=== PATIENT | female | born 1940 | race Caucasian/White ===

== ENCOUNTER 2021-09-20 21:46 | Inpatient (IN) | payer MEDICARE, SELFPAY ==
--- NOTE | 2021-09-20 | ECG_ITS ---
Test Reason : CHEST PAIN Blood Pressure : / mmHG Vent. Rate : 096 BPM Atrial Rate : 096 BPM P-R Int : 156 ms QRS Dur : 134 ms QT Int : 408 ms P-R-T Axes : 048 063 066 degrees QTc Int : 515 ms Normal sinus rhythm Right bundle branch block Abnormal ECG When compared with ECG of 16-SEP-2019 15:04, Right bundle branch block is now Present Referred By: Generic ED Physician Electronically Signed By:EMMA CARPIO MD
--- NOTE | ~2021-09-20 | XR_ITS ---
EXAMINATION: XR CHEST CLINICAL INFORMATION: Febrile COMPARISON: 09/21/2021 TECHNIQUE: Frontal view of the chest was obtained. FINDINGS: Lung volumes are symmetric. No focal consolidation is seen. No evidence of pneumothorax, pleural effusion, or pulmonary edema. Cardiac silhouette appears at the upper limits of normal in size. Calcification is present at the aortic arch. No acute osseous findings are seen. XR/XR chest 1V IMPRESSION: No acute cardiopulmonary findings.
--- NOTE | ~2021-09-20 | CT_ITS ---
EXAMINATION: CT ANGIOGRAM OF THE CHEST WITH AND WITHOUT CONTRAST (CT PULMONARY ANGIOGRAM FOR PE) CLINICAL INFORMATION: Reason for Exam R chest pain, SOB , elevated D-dimer COMPARISON: Chest x-ray 09/21/2021 TECHNIQUE: Prior to contrast administration, noncontrast localization images were obtained. Subsequently, multidetector volumetric imaging was performed from the thoracic inlet to below the diaphragms following the administration of 100 mL Omnipaque 350 intravenous contrast. No contrast reaction reported Sagittal, coronal, and MIP oblique sagittal reformatted images were obtained on the CT workstation, uploaded to PACS, and reviewed. This CT examination was performed using dose optimization techniques as appropriate, variously including the following: *Automated exposure control *Adjustment of mA and/or kV according to patient size (this includes techniques or standardized protocols for targeted exams where dose is matched to indication/reason for exam; i.e. extremities or head) *Use of iterative reconstruction technique Total exam dose-length product 510 mGy-cm FINDINGS: QUALITY OF STUDY/CONTRAST BOLUS: Satisfactory. PULMONARY ARTERIES: No central or segmental pulmonary emboli. There is limited evaluation of the distal vasculature in some regions due to respiratory motion artifact, especially the right lower lobe. THORACIC AORTA: No aneurysm or dissection. There is atherosclerotic calcification along the aorta. LUNG: No regions of consolidation bilaterally. There is mild upper lobe predominant emphysema. PLEURA: No pleural effusion or pneumothorax. MEDIASTINUM: Partially visualized hypodense right thyroid lobe nodule measuring at least 3 cm in diameter. There are subcentimeter mediastinal lymph nodes within the range of normal variation. Cardiac size is within normal limits; no pericardial effusion. Coronary artery calcifications are present. No evidence of septal bowing or right heart strain. CHEST WALL/AXILLA: No axillary or internal mammary lymphadenopathy. OSSEOUS STRUCTURES: Degenerative changes are noted in the spine. UPPER ABDOMEN: Unremarkable. CT/CT angio chest PE protocol IMPRESSION: 1. No pulmonary embolus identified. Of note, there is limited evaluation of the distal vessels in some regions due to respiratory motion artifact. 2. Mild upper lobe predominant emphysema. 3. Partially visualized right thyroid lobe nodule, for which further workup with nonemergent ultrasound is recommended. VTE: negative
--- NOTE | ~2021-09-20 | XR_ITS ---
EXAMINATION: XR CHEST CLINICAL INFORMATION: Cough, chest pain, rule out pneumonia COMPARISON: 10/03/2015 TECHNIQUE: 2 views of the chest were obtained. FINDINGS: Lung volumes are symmetric. No focal consolidation is seen. No evidence of pneumothorax, pleural effusion, or pulmonary edema. Cardiac size is within normal limits. Calcification is present at the aortic arch. No acute osseous findings are seen. XR/XR chest 2V IMPRESSION: No acute cardiopulmonary findings.
[2021-09-20 21:59] VITALS: BP 176/107; PULSE 102; RESP 18; TEMP 37.3; O2SAT 95; BMI 37.3
--- NOTE | 2021-09-20 22:49 | ED_ITS ---
HPI - Chest Pain General Chief Complaint: Chest Pain Stated Complaint: cp Time Seen by Provider: 09/20/21 22:08 Source: patient and family (Son, Pilo ) Mode of arrival: EMS Limitations: no limitations History of Present Illness HPI narrative: 80-year-old female who presents emergency department by MD for evaluation of chest pain, right arm pain, cough, shortness of breath and nausea. Patient states that she has been sick for approximately 3 days. She states that she has been getting intermittent right-sided chest pain. She points to her anterior chest. She states the pain is a 5 but pain and will last 3 hours. She states she gets 2-3 episodes per day. She also states that she is having right arm pain but this is a constant pressure-like pain x3 days. She states that her chest pain can come on at rest and with exertion. She states that she has shortness of breath and dyspnea on exertion but this is chronic secondary to her COPD. She states that she has a cough which is nonproductive a chronic secondary to her smoking. She states that she has also had a constant lower jaw pain x3 days. Patient did receive aspirin 324 mg orally by the paramedics. She denied fever, chills, rhinorrhea, sore throat, vomiting, diarrhea, abdominal pain. She denies change in her bowel movements she has not noticed any black tarry stools or bloody stools. She states she does have urinary frequency with no dysuria. The patient has not been vaccinated for COVID-19. She has not had a COVID-19 infection during the pandemic. Related Data Allergies Allergy/AdvReac Type Severity Reaction Status Date / Time onion [ONION] Allergy Unknown NAUSEA & Unverified 03/05/20 15:05 VOMITING PEPPERS, MENDOZA Allergy Unknown NAUSEA & Uncoded 03/05/20 15:05 VOMITING Review of Systems 2 Review of Systems: Yes all other systems are reviewed and are negative [facility] Past Medical History [facility] Narrative: Past medical history: Hypertension, COPD, psoriasis, frontal lobe degeneration. Past surgical history: Cholecystectomy. Social history: Patient lives at home with her son. She smokes 1 pack of cigarettes per day times 63 years. She denies alcohol use. She denies drug use. Social History Social History Advance Directives: No Advance Directives Information Provided: No Physical Exam Vital Signs: Vital Signs: Last Vital Signs Temp 100 F 09/21/21 04:15 Pulse 92 09/21/21 04:54 Resp 15 09/21/21 04:15 BP 129/69 09/21/21 04:54 Pulse Ox 93 09/21/21 04:54 BMI result Body Mass Index 37.3 Const: Other: Awake, alert, female patient, very pleasant and cooperative, she has an elevated BMI 37, she does not appear to be in distress, she answers all questions appr opriately. HEENT: Head: Yes normal to inspection, Yes normocephalic and Yes atraumatic Ears: external ears normal General nose exam: Normal external nose present Face and sinus: Yes normal facial exam Mouth: Normal oral and palatal mucosa present Throat: Yes posterior oropharynx normal Eyes: General: appearance normal, both eyes and all related structures Pupils: Equal, round and reactive pupils present Neck: Neck: Yes normal visual inspection, Yes no lymphadenopathy, Yes trachea midline and Yes supple Chest: Chest palpation & inspection: normal inspection of the chest and tenderness (Moderate right anterior chest tenderness) Resp: Effort & Inspection: normal respiratory effort and able to speak in complete sentences Auscultation: clear to auscultation bilaterally Cardio: Rate: regular rate Rhythm: regular rhythm Heart sounds: S1 normal heart sound present, S2 normal heart sound present and no murmurs GI: Inspection: Yes normal to inspection and Yes obesity Palpation (GI): Soft to palpation, nontender and no guarding Auscultation: normal bowel sounds : General: Yes no CVA tenderness Back/Spine/Pelvis: Back: no CVA tenderness Skin: Other: Patient has psoriatic lesions under her right breasts and lower chest, she also has lesions on her arms. Neuro: Cranial nerves: Yes CN's II-XII intact bilaterally and Yes Equal, round and reactive pupils present Cognition (Neuro): normal cognition Motor exam (neuro): 5/5 motor strength present throughout Extrem: General: Yes normal to inspection Psych: Appearance: grossly normal Speech and movement: Normal speech and movement present Affect: normal affect Attitude: cooperative Thought process: Normal thought process present Thought content: Normal thought content present Course Course Course Narrative: 80-year-old female who presents emergency department for evaluation of intermittent chest pain x3 days, she states that she has a vicelike pain located in her left anterior chest, she gets 2-3 episodes per day in the last several hours. She also has right arm pain which is been constant for 3 days and bilateral jaw pain that is been constant for 3 days. The patient has COPD and she states that she has chronic COPD, dyspnea on exertion and cough. Vital signs revealed an elevated blood pressure of 176/107, elevated pulse of 102. Patient's vital signs were otherwise were unremarkable. Patient's physical examination did reveal right-sided chest wall tenderness rash on her chest and underneath her breasts and on her arms consistent with psoriasis. Twelve EKG was consistent with right bundle-branch block with no acute abnormalities. I ordered a laboratory evaluation to include CBC, CMP, troponin, lactic acid, blood cultures x2, D-dimer, urinalysis, lipase, COVID, influenza and RSV test. I will obtain a two view chest x-ray as well. Patient's pain and nausea was treated with Toradol 15 mg IV and Zofran 4 mg IV. Patient was also ordered to get normal saline IV x1 L. 0057: Laboratory evaluation: Patient had an elevated troponin of 14,347. D- dimer was elevated 255. Radiology evaluation: Two-view chest x-ray unremarkable: Differential includes but is not limited to NSTEMI, pulmonary embolism. I will repeat a 3 hour troponin. Also obtain a CT pulmonary angiogram PE protocol. Patient is currently pain-free and appears well. 0435: CT pulmonary angiogram PE protocol was negative for PE. Patient's repeat troponin was elevated at 19,680 which is a 37% increase. The patient is chest pain-free but continues to have right arm pain which is been constant for 3 days. The patient did have a slight elevation her temperature and was given Tylenol. She also had a slight elevation her pulse was given Lopressor 5 mg IV. She was treated with low-dose heparin bolus and heparin drip. I did discuss the patient over tiger text with the covering curriculum and assessment director, Dr. Walter. He agreed with the heparin treatment and advised that the patient be kept NPO. He felt that the patient could be managed at this facility while discussed the patient with the covering hospitalist. MDM - Chest Pain Lab Data Result diagrams: 09/20/21 23:05 09/20/21 23:05 Labs: Lab Results 09/20/21 09/20/2109/20/22 Range/Units 23:04 23:04 23:04 WBC (4.8-10.8) X10*3/uL RBC (4.20-5.50) X10*6/uL Hgb (12.0-16.0) g/dl Hct (37.0-47.0) % MCV (80.0-98.0) fL MCH (27.0-33.0) pg MCHC (31.0-35.0) g/dl RDW (11.0-16.0) % Plt Count (160-400) X10*3/uL MPV (9.4-12.3) fL Immature Gran % (Auto) (0.0-0.4) % Neut % (Auto) (45-73) % Lymph % (Auto) (20-40) % [place] % (Auto) (2-11) % Eos % (Auto) (0-4) % Baso % (Auto) (0-2) % Lymph # (Auto) (1.2-4.9) X10*3/uL [place] # (Auto) (0.1-1.2) X10*3/uL Eos # (Auto) (0.0-0.4) X10*3/uL Baso # (Auto) (0.0-0.2) X10*3/uL Abs Immat Gran (auto) (0.00-0.03) X10*3/uL Absolute Neuts (auto) (2.0-8.3) x10*3/uL Absolute Nucleated RBC (0.0-0.012) X10*3/uL Nucleated RBC % (auto) (0.0-0.2) /100WBC PT (9.9-13.0) SEC INR (0.9-1.1) aPTT Heparin Protocol (53-77.9) SEC D-Dimer High Sensitivty 255 NG/ML Sodium (135-145) mmol/L Potassium (3.3-5.1) mmol/L Chloride (96-108) mmol/L Carbon Dioxide (22-29) mmol/L Anion Gap (12-20) BUN (9-16) mg/dL Creatinine (0.5-1.4) mg/dL Estim Creat Clear Calc Estimated GFR Random Glucose (60-115) mg/dL Lactic Acid 1.8 (0.5-2.0) mmol/L Calcium (8.4-10.2) mg/dL Total Bilirubin (0.0-1.0) mg/dL AST (5-31) U/L ALT (0-31) U/L Alkaline Phosphatase (39-117) U/L Troponin I High Sens (<3.5-17.0) ng/L Total Protein (6.5-8.0) g/dL Albumin (3.5-5.0) g/dL Lipase (8-78) U/L Influenza Type A (PCR) NEGATIVE (Negative) Influenza Type B (PCR) NEGATIVE (Negative) RSV RNA Qual (PCR) NEGATIVE (Negative) SARS-CoV-2 RNA (RT-PCR) NEGATIVE (Negative) 09/20/21 09/20/21 09/20/21 Range/Units 23:04 23:05 23:05 WBC 11.3 H (4.8-10.8) X10*3/uL RBC 5.57 H (4.20-5.50) X10*6/uL Hgb 16.5 H (12.0-16.0) g/dl Hct 48.5 H (37.0-47.0) % MCV 87.1 (80.0-98.0) fL MCH 29.6 (27.0-33.0) pg MCHC 34.0 (31.0-35.0) g/dl RDW 12.4 (11.0-16.0) % Plt Count 195 (160-400) X10*3/uL MPV 9.8 (9.4-12.3) fL Immature Gran % (Auto) 0.3 (0.0-0.4) % Neut % (Auto) 83.7 H (45-73) % Lymph % (Auto) 10.2 L (20-40) % [place] % (Auto) 4.9 (2-11) % Eos % (Auto) 0.5 (0-4) % Baso % (Auto) 0.4 (0-2) % Lymph # (Auto) 1.2 (1.2-4.9) X10*3/uL [place] # (Auto) 0.6 (0.1-1.2) X10*3/uL Eos # (Auto) 0.1 (0.0-0.4) X10*3/uL Baso # (Auto) 0.0 (0.0-0.2) X10*3/uL Abs Immat Gran (auto) 0.03 (0.00-0.03) X10*3/uL Absolute Neuts (auto) 9.5 H (2.0-8.3) x10*3/uL Absolute Nucleated RBC 0.000 (0.0-0.012) X10*3/uL Nucleated RBC % (auto) 0.0 (0.0-0.2) /100WBC PT (9.9-13.0) SEC INR (0.9-1.1) aPTT Heparin Protocol (53-77.9) SEC D-Dimer High Sensitivty NG/ML Sodium 133 L (135-145) mmol/L Potassium 3.9 (3.3-5.1) mmol/L Chloride 96 (96-108) mmol/L Carbon Dioxide 28 (22-29) mmol/L Anion Gap 13 (12-20) BUN 9 (9-16) mg/dL Creatinine 0.99 (0.5-1.4) mg/dL Estim Creat Clear Calc 56.4 Estimated GFR 54 Random Glucose 162 H (60-115) mg/dL Lactic Acid (0.5-2.0) mmol/L Calcium 9.4 (8.4-10.2) mg/dL Total Bilirubin 0.7 (0.0-1.0) mg/dL AST 86 H (5-31) U/L ALT 30 (0-31) U/L Alkaline Phosphatase 97 (39-117) U/L Troponin I High Sens 20216.1 H* (<3.5-17.0) ng/L Total Protein 7.5 (6.5-8.0) g/dL Albumin 4.1 (3.5-5.0) g/dL Lipase 33 (8-78) U/L Influenza Type A (PCR) (Negative) Influenza Type B (PCR) (Negative) RSV RNA Qual (PCR) (Negative) SARS-CoV-2 RNA (RT-PCR) (Negative) 09/21/21 09/21/21 Range/Units 02:09 03:57 WBC (4.8-10.8) X10*3/uL RBC (4.20-5.50) X10*6/uL Hgb (12.0-16.0) g/dl Hct (37.0-47.0) % MCV (80.0-98.0) fL MCH (27.0-33.0) pg MCHC (31.0-35.0) g/dl RDW (11.0-16.0) % Plt Count (160-400) X10*3/uL MPV (9.4-12.3) fL Immature Gran % (Auto) (0.0-0.4) % Neut % (Auto) (45-73) % Lymph % (Auto) (20-40) % [place] % (Auto) (2-11) % Eos % (Auto) (0-4) % Baso % (Auto) (0-2) % Lymph # (Auto) (1.2-4.9) X10*3/uL [place] # (Auto) (0.1-1.2) X10*3/uL Eos # (Auto) (0.0-0.4) X10*3/uL Baso # (Auto) (0.0-0.2) X10*3/uL Abs Immat Gran (auto) (0.00-0.03) X10*3/uL Absolute Neuts (auto) (2.0-8.3) x10*3/uL Absolute Nucleated RBC (0.0-0.012) X10*3/uL Nucleated RBC % (auto) (0.0-0.2) /100WBC PT 13.4 H (9.9-13.0) SEC INR 1.2 H (0.9-1.1) aPTT Heparin Protocol 35.5 L (53-77.9) SEC D-Dimer High Sensitivty NG/ML Sodium (135-145) mmol/L Potassium (3.3-5.1) mmol/L Chloride (96-108) mmol/L Carbon Dioxide (22-29) mmol/L Anion Gap (12-20) BUN (9-16) mg/dL Creatinine (0.5-1.4) mg/dL Estim Creat Clear Calc Estimated GFR Random Glucose (60-115) mg/dL Lactic Acid (0.5-2.0) mmol/L Calcium (8.4-10.2) mg/dL Total Bilirubin (0.0-1.0) mg/dL AST (5-31) U/L ALT (0-31) U/L Alkaline Phosphatase (39-117) U/L Troponin I High Sens 52726.9 H* (<3.5-17.0) ng/L Total Protein (6.5-8.0) g/dL Albumin (3.5-5.0) g/dL Lipase (8-78) U/L Influenza Type A (PCR) (Negative) Influenza Type B (PCR) (Negative) RSV RNA Qual (PCR) (Negative) SARS-CoV-2 RNA (RT-PCR) (Negative) ECG Data ECG #1: Attestation: I personally reviewed and interpreted this ECG as follows: Interpretation: EKG 1.: 09/20/2021 at 22:06: Normal sinus rhythm rate of 96, normal MT interval, prolonged QRS of 134 milliseconds, prolonged QTC of 515 milliseconds, Q-wave in lead 3, right bundle-branch block, no ST segment elevation, no ST segment depression, no old EKG for comparison. EKG 2.: 09/21/2021 at 03:23: Sinus tachycardia with a rate of 115, normal MT, prolonged QRS interval, prolonged QRS at 138 milliseconds, QTC of 495 millisecond Q-wave in lead 3, right bundle-branch block, no ST segment elevation, no ST segment depression, no PACs, no PVCs, unchanged from EKG 1. Critical Care Time Critical Care Time Total Critical Care Time: 45 Attestation: Critical Care: The patient was critically ill with a high probability of imminent or life threatening deterioration. I spent greater than 30 minutes of discontinuous time evaluating the patient,delivering critical care at the bedside, discussing and evaluating pertinent data with consultants. Critical care time does not include time spent performing separately billable procedures or teaching. Total time spent performing critical care was 45 minutes.
--- NOTE | 2021-09-20 23:00 | PC.NURSE ---
Pt c/o RT sided CP radiaitng down RT arm x 3 days. Per pt, CP is intermittent. Pt states RT arm pain is constant and worse than CP. Pt has also had nausea x few days. Per pt, has not taken BP meds for about a week. Hx of COPD, no O2 at home Will continue to monitor
[2021-09-20 23:09] LABS: MANUAL DIFF FLAG NO
[2021-09-20 23:11] LABS: Basophils Percent Auto 0.4 % (0-2); Eosinophils Absolute Auto 0.1 X10*3/uL (0.0-0.4); Eosinophils Percent Auto 0.5 % (0-4); Hematocrit 48.5 % (37.0-47.0); Hemoglobin 16.5 g/dl (12.0-16.0); Imm Gran Abs Auto 0.03 X10*3/uL (0.00-0.03); Imm Gran Pct Auto 0.3 % (0.0-0.4); Lymphocytes Absolute Auto 1.2 X10*3/uL (1.2-4.9); Lymphocytes Percent Auto 10.2 % (20-40); Mean Corpuscular Hemoglobin 29.6 pg (27.0-33.0); Mean Corpuscular Volume 87.1 fL (80.0-98.0); Mean Platelet Volume 9.8 fL (9.4-12.3); Monocytes Absolute Auto 0.6 X10*3/uL (0.1-1.2); Monocytes Percent Auto 4.9 % (2-11); Neutrophils Absolute Auto 9.5 x10*3/uL (2.0-8.3); Neutrophils Percent Auto 83.7 % (45-73); Platelet Count 195 X10*3/uL (160-400); Red Blood Count 5.57 X10*6/uL (4.20-5.50); Red Cell Distribution Width 12.4 % (11.0-16.0); White Blood Count 11.3 X10*3/uL (4.8-10.8)
[2021-09-20 23:19] LABS: Lactic Acid 1.8 mmol/L (0.5-2.0)
[2021-09-20 23:23] LABS: D Dimer High Sensitivity 255 NG/ML
[2021-09-20 23:28] LABS: Alanine Aminotransferase 30 U/L (0-31); Albumin Level 4.1 g/dL (3.5-5.0); Alkaline Phosphatase 97 U/L (39-117); Anion Gap 13 (12-20); Aspartate Amino Transferase 86 U/L (5-31); Bilirubin Total 0.7 mg/dL (0.0-1.0); Blood Urea Nitrogen 9 mg/dL (9-16); Calcium 9.4 mg/dL (8.4-10.2); Carbon Dioxide 28 mmol/L (22-29); Chloride 96 mmol/L (96-108); Creatinine Clr Calc Pharmacy 56.4; Estimated Glomerular Filt Rate 54; Glucose Random 162 mg/dL (60-115); Lipase 33 U/L (8-78); Potassium 3.9 mmol/L (3.3-5.1); Sodium 133 mmol/L (135-145); Total Protein 7.5 g/dL (6.5-8.0)
[2021-09-20 23:50] LABS: Influenza A PCR NEGATIVE (Negative); Influenza B PCR NEGATIVE (Negative); Resp Syncy Virus RNA Qual PCR NEGATIVE (Negative); SARS COV2 PCR INHOUSE NEGATIVE (Negative)
[2021-09-21] VITALS (13 sets, daily range): BP systolic 98–153; BP diastolic 58–105; PULSE 81–115; RESP 14–20; TEMP 37.5–37.7; O2SAT 89–97
[2021-09-21] MEDS: 0.9 % Sodium Chloride 1,000 ML 999 ML IV (00:17)
[2021-09-21] MEDS: Ketorolac Tromethamine 15 MG/ML VIAL IVPUSH (00:17)
[2021-09-21] MEDS: ondansetron HCL 4 MG/2 ML VIAL IVPUSH ×2 (00:18→04:53)
[2021-09-21] MEDS: iohexoL 350 MG/ML 100 ML INFUS..BTL IV (01:35)
[2021-09-21] MEDS: Nitroglycerin 2 % Oint 1 GM Packet 1 INCH TRANSDERMA (02:03)
[2021-09-21] MEDS: lisinopriL 10 MG TABLET PO (02:03)
--- NOTE | 2021-09-21 03:17 | ECG_ITS ---
Test Reason : CHEST PAIN Blood Pressure : / mmHG Vent. Rate : 115 BPM Atrial Rate : 115 BPM P-R Int : 136 ms QRS Dur : 138 ms QT Int : 358 ms P-R-T Axes : 049 081 047 degrees QTc Int : 495 ms Sinus tachycardia with Premature supraventricular complexes Right bundle branch block Cannot rule out Inferior infarct , age undetermined Abnormal ECG When compared with ECG of 20-SEP-2021 22:06, Premature supraventricular complexes are now Present Referred By: Dinh Ardon Electronically Signed By:EMMA CARPIO MD
[2021-09-21 04:07] LABS: INTERNATIONAL NORM RATIO 1.2 (0.9-1.1); Prothrombin Time 13.4 SEC (9.9-13.0)
[2021-09-21 04:09] LABS: PTT Heparin Drip 35.5 SEC (53-77.9)
[2021-09-21] MEDS: Acetaminophen 325 MG TABLET 975 MG PO (04:12)
[2021-09-21] MEDS: Metoprolol Tartrate 5 MG/5 ML VIAL IVPUSH (04:13)
[2021-09-21] MEDS: Heparin Sodium,Porcine 5,000 UNIT/ML VIAL 4000 UNIT IVPUSH (04:16)
[2021-09-21] MEDS: Heparin Sodium,Porcine/1/2NS 25,000 UNIT/250 ML IV.SOLN 10 UNIT IVCONT (04:22)
[2021-09-21] MEDS: Morphine Sulfate 4 MG/ML CARTRIDGE IVPUSH (04:53)
--- NOTE | 2021-09-21 05:20 | PM.IMHP ---
History of Present Illness Date of Service: 09/21/21 Chief Complaint: Chest pain this is a pleasant 80-year-old female with past medical history of COPD, CHF, hypertension who presents to the hospital complaints of midsternal chest pain. Patient reports that the pain started about 3 days ago, intermittent, 10/10, pressure squeezing in nature, radiating to the right arm, and jaw, relieved with marijuana rubbing oil and no exacerbating factors. Patient reports that she initially head this from her family because she thought it was going to go way but has remained throughout the past 3 days with no relenting symptoms. Her right arm pain has been constant. She denies any shortness of breath more than usual, she has a chronic cough with some chronic sputum production, denies any lower extremity swelling, no abdominal pain, has nausea nausea but no vomiting, no diarrhea constipation, no urinary symptoms. No headache or change in vision. On arrival to the ED patient hemodynamically stable with a heart rate of 102, temperature of 99.2, blood pressure 176/107 that has now improved. labs are significant for WBC count of 11.3, hemoglobin of 16.5, troponin of 14,347 that increased to 19,680 on repeat. EKG showed ST depressions in lead 1, V5 V6, T-wave inversions in V1, V2, patient started on heparin drip and will be admitted for further management Review of Systems Review of Systems: Yes all other systems are reviewed and are negative [facility] Medical History (Updated 09/21/21 @ 05:25 by Blessing Cotto MD) CHF (congestive heart failure) COPD (chronic obstructive pulmonary disease) Hypertension Family History (Updated 09/21/21 @ 05:26 by Blessing Cotto MD) Mother [place] (myocardial infarction) Surgical History (Updated 09/21/21 @ 05:25 by Blessing Cotto MD) History of cholecystectomy History of colostomy reversal Social History (Updated 09/21/21 @ 05:26 by Blessing Cotto MD) Alcohol intake: never Patient Tobacco Use Status: Current everyday Tobacco user Cigarette Packs Per Day: 1 Use of substances other than those prescribed or required for medical reasons: No Advance Directives: No Advance Directives Information Provided: No Meds Allergies Allergy/AdvReac Type Severity Reaction Status Date / Time onion [ONION] Allergy Unknown NAUSEA & Unverified 03/05/20 15:05 VOMITING PEPPERS, MENDOZA Allergy Unknown NAUSEA & Uncoded 03/05/20 15:05 VOMITING Active Medications: Current Medications Acetaminophen (Acetaminophen 325 Mg Tablet) 650 mg PO Q6H PRN PRN Reason: Pain, Mild (Pain Scale 1-3) Aspirin (Aspirin Enteric Coated 81 Mg Tablet.Dr) 81 mg PO DAILY [facility] Docusate Sodium (Docusate Sodium 100 Mg Capsule) 100 mg PO DAILY PRN PRN Reason: Constipation Heparin Sodium (Porcine) (Heparin Sodium,Porcine 5,000 Unit/Ml Vial) 8,400 unit 80 unit/kg (8400 unit) IVPUSH PROTOCOL BOLUS PRN; Protocol PRN Reason: 80 unit/kg - Heparin Protocol Heparin Sodium (Porcine) (Heparin Sodium,Porcine 5,000 Unit/Ml Vial) 4,200 unit 40 unit/kg (4200 unit) IVPUSH PROTOCOL BOLUS PRN; Protocol PRN Reason: 40 unit/kg - Heparin Protocol Heparin Sodium/Sodium Chloride () 25,000 unit in 250 mls @ 0 mls/hr IVCONT .Q0M [facility]; Protocol Last Admin: 09/21/21 04:22 Dose: 9.54 units/kg/hr, 10 mls/hr Documented by: Metoprolol Tartrate (Metoprolol Tartrate 12.5 Mg Halftab) 12.5 mg PO BID [facility]; Protocol Morphine Sulfate (Morphine Sulfate 4 Mg/Ml Cartridge) 4 mg IVPUSH Q4H PRN; Protocol PRN Reason: Pain, Severe (Pain Scale 7-10) Ondansetron HCl (Ondansetron Hcl 4 Mg/2 Ml Vial) 4 mg IVPUSH Q8H PRN PRN Reason: Nausea and Vomiting Sodium Chloride (0.9 % Sodium Chloride Flush 3 Ml Syringe) 3 ml IVFLUSH QSHIFT [facility] Home Medications Medication Instructions Recorded Confirmed Last Taken Type lisinopril 10 mg tablet 1 tab PO DAILY 09/21/21 09/21/21 Unknown History psyllium husk 0.4 gram capsule 0.4 g PO DAILY 09/21/21 09/21/21 Unknown History (Metamucil) Physical Exam Vital Signs and Narrative: Vital Signs: Last Vital Signs Temp 100 F 09/21/21 04:15 Pulse 92 09/21/21 04:54 Resp 15 09/21/21 04:15 BP 129/69 09/21/21 04:54 Pulse Ox 93 09/21/21 04:54 BMI result Body Mass Index 37.3 Results Labs CBC and Chem 7: 09/20/21 23:05 09/20/21 23:05 Labs: Laboratory Results - last 24 hr 09/20/21 09/20/21 09/20/21 23:04 23:04 23:04 MCV MCH MCHC RDW Plt Count MPV Immature Gran % (Auto) Neut % (Auto) Lymph % (Auto) [place] % (Auto) Eos % (Auto) Baso % (Auto) Lymph # (Auto) [place] # (Auto) Eos # (Auto) Baso # (Auto) Abs Immat Gran (auto) Absolute Neuts (auto) Absolute Nucleated RBC Nucleated RBC % (auto) PT INR aPTT Heparin Protocol D-Dimer High Sensitivty 255 Anion Gap Estim Creat Clear Calc Estimated GFR Random Glucose Lactic Acid 1.8 Calcium Total Bilirubin AST ALT Alkaline Phosphatase Troponin I High Sens Total Protein Albumin Lipase Influenza Type A (PCR) NEGATIVE Influenza Type B (PCR) NEGATIVE RSV RNA Qual (PCR) NEGATIVE SARS-CoV-2 RNA (RT-PCR) NEGATIVE 09/20/21 09/20/21 09/20/21 23:04 23:05 23:05 MCV 87.1 MCH 29.6 MCHC 34.0 RDW 12.4 Plt Count 195 MPV 9.8 Immature Gran % (Auto) 0.3 Neut % (Auto) 83.7 H Lymph % (Auto) 10.2 L [place] % (Auto) 4.9 Eos % (Auto) 0.5 Baso % (Auto) 0.4 Lymph # (Auto) 1.2 [place] # (Auto) 0.6 Eos # (Auto) 0.1 Baso # (Auto) 0.0 Abs Immat Gran (auto) 0.03 Absolute Neuts (auto) 9.5 H Absolute Nucleated RBC 0.000 Nucleated RBC % (auto) 0.0 PT INR aPTT Heparin Protocol D-Dimer High Sensitivty Anion Gap 13 Estim Creat Clear Calc 56.4 Estimated GFR 54 Random Glucose 162 H Lactic Acid Calcium 9.4 Total Bilirubin 0.7 AST 86 H ALT 30 Alkaline Phosphatase 97 Troponin I High Sens 85036.1 H* Total Protein 7.5 Albumin 4.1 Lipase 33 Influenza Type A (PCR) Influenza Type B (PCR) RSV RNA Qual (PCR) SARS-CoV-2 RNA (RT-PCR) 09/21/21 09/21/21 02:09 03:57 MCV MCH MCHC RDW Plt Count MPV Immature Gran % (Auto) Neut % (Auto) Lymph % (Auto) [place] % (Auto) Eos % (Auto) Baso % (Auto) Lymph # (Auto) [place] # (Auto) Eos # (Auto) Baso # (Auto) Abs Immat Gran (auto) Absolute Neuts (auto) Absolute Nucleated RBC Nucleated RBC % (auto) PT 13.4 H INR 1.2 H aPTT Heparin Protocol 35.5 L D-Dimer High Sensitivty Anion Gap Estim Creat Clear Calc Estimated GFR Random Glucose Lactic Acid Calcium Total Bilirubin AST ALT Alkaline Phosphatase Troponin I High Sens 40306.9 H* Total Protein Albumin Lipase Influenza Type A (PCR) Influenza Type B (PCR) RSV RNA Qual (PCR) SARS-CoV-2 RNA (RT-PCR) Imaging Radiologist's Impressions: Impressions Chest X-Ray 09/20/21 23:15 IMPRESSION: No acute cardiopulmonary findings. Chest CTA 09/21/21 01:30 IMPRESSION: 1. No pulmonary embolus identified. Of note, there is limited evaluation of the distal vessels in some regions due to respiratory motion artifact. 2. Mild upper lobe predominant emphysema. 3. Partially visualized right thyroid lobe nodule, for which further workup with nonemergent ultrasound is recommended. VTE: negative Assessment and Plan (1) Acute non-ST elevation myocardial infarction (NSTEMI): Status: Acute Plan this is a 80-year-old female with past medical history of CHF, COPD, HTN who presents to the hospital with complaints of chest pain found to have NSTEMI # NSTEMI - midsternal chest pain, with significantly elevated troponin of 14,000 on arrival - EKG shows ST wave depression as well as T-wave inversion in anterior lateral leads - will start patient on heparin drip, Lopressor started b.i.d., aspirin daily, continue lisinopril - echocardiogram - cardiology on consult - NPO per cardiology # hypertension - stable - continue lisinopril # history of COPD - per patient - stable with no exacerbation - DuoNeb p.r.n. as needed DVT prophylaxis: Heparin GGT I anticipate a medically necessary admission to inpatient for further management and monitoring of NSTEMI Quality Stroke Does the patient have a stroke diagnosis?: No VTE Prior VTE?: No VTE Risk Level:: Medical - moderate - high VTE Device Contraindication: Treatment Not Indicated VTE Drug Contraindication: N/A - Med Ordered
[2021-09-21 08:14] LABS: MANUAL DIFF FLAG NO
[2021-09-21 08:21] LABS: Basophils Percent Auto 0.2 % (0-2); Eosinophils Percent Auto 0.2 % (0-4); Hematocrit 45.8 % (37.0-47.0); Hemoglobin 15.3 g/dl (12.0-16.0); Imm Gran Abs Auto 0.06 X10*3/uL (0.00-0.03); Imm Gran Pct Auto 0.5 % (0.0-0.4); Lymphocytes Absolute Auto 1.3 X10*3/uL (1.2-4.9); Lymphocytes Percent Auto 10.9 % (20-40); Mean Corpuscular HGB Conc 33.4 g/dl (31.0-35.0); Mean Corpuscular Volume 86.9 fL (80.0-98.0); Mean Platelet Volume 10.1 fL (9.4-12.3); Monocytes Absolute Auto 0.6 X10*3/uL (0.1-1.2); Neutrophils Absolute Auto 10.3 x10*3/uL (2.0-8.3); Neutrophils Percent Auto 83.2 % (45-73); Platelet Count 225 X10*3/uL (160-400); Red Blood Count 5.27 X10*6/uL (4.20-5.50); Red Cell Distribution Width 12.5 % (11.0-16.0); White Blood Count 12.3 X10*3/uL (4.8-10.8)
--- NOTE | 2021-09-21 08:33 | PC.NURSE ---
patient's daughter Kimberley Sanchez leaves contact number as patient's primary contact will be out of reach today. [phone] Kimberley will be out of reach from [phone] d/t an appt
[2021-09-21 08:38] LABS: Anion Gap 12 (12-20); Blood Urea Nitrogen 10 mg/dL (9-16); Carbon Dioxide 26 mmol/L (22-29); Chloride 100 mmol/L (96-108); Creatinine Clr Calc Pharmacy 50.2; Estimated Glomerular Filt Rate 47; Glucose Random 157 mg/dL (60-115); Potassium 3.9 mmol/L (3.3-5.1); Sodium 134 mmol/L (135-145)
--- NOTE | 2021-09-21 09:00 | PM.CNCAR ---
History of Present Illness History of Present Illness Date of Service: 09/21/21 Requesting physician: Patel Perez Chief complaint: NSTEMI Narrative: Thank you for consulting us on Denice for NSTEMI. She is a 80-year-old woman with prior history of hypertension who presented to the hospital after 3 days symptoms of right arm pressure associated with his chest squeezing. The symptoms continue to get worse over the 3 days and she had advised her son to get her some CBD or ill to be applied to the arm with some mild relief. High the symptoms persisted and was associated with nausea and she eventually decided to come to the emergency room. In the emergency room the EKG shows right bundle-branch block with nonspecific ST changes subsequent EKG shows more prominent ST sagging with troponins initially of 14,347 and subsequently 19,680. Repeat troponins are pending. She was then admitted to the hospital and started on IV heparin. She is also getting nitropaste. Currently her symptoms have completely resolved. Hemodynamically stable. No arrhythmias noted. No signs or symptoms of heart failure. Initially she underwent a CTA because of elevated troponins and her symptoms and this was negative for pulmonary embolism. We discussed about management plan with early invasive cardiac catheterization however she stops only currently refuses and says she wants to wait another day and wants to be fed today. Review of Systems Constitutional: Constitutional: Denies body ache(s), Denies chills, Denies fever(s) and Denies weakness Eyes: Eyes: Reports no additional eye complaints ENT: Reports system reviewed and no additional complaints, except as documented Cardiovascular: Cardiovascular: Reports chest pain at rest, Denies rapid heart rate, Denies lightheadedness, Denies Loss of Consciousness, Denies palpitations and Reports other (Right arm pain) Respiratory: Respiratory: Denies no additional respiratory complaints Gastrointestinal: Gastrointestinal: Reports nausea Genitourinary: Genitourinary: Reports no additional female genitourinary complaints Musculoskeletal: Musculoskeletal: Reports no additional musculoskeletal complaints Integumentary/Breasts: Skin/Breast: Reports system reviewed and no additional complaints, except as docu Neurologic: Reports system reviewed and no additional complaints, except as documented and Denies weakness Psychiatric: Psychiatric: Reports no additional psychiatric complaints Endocrine: Endocrine: Reports no additional endocrine complaints and Denies palpitations Hematologic/Lymphatic: Hematologic/Lymphatic: Reports no additional hematologic/lymphatic complaints PMFSH Past Medical History Medical History CHF (congestive heart failure) COPD (chronic obstructive pulmonary disease) Hypertension Family History Family History Mother [place] (myocardial infarction) Surgical History Surgical History History of cholecystectomy History of colostomy reversal Social History Social History Alcohol intake: never Patient Tobacco Use Status: Current everyday Tobacco user Cigarette Packs Per Day: 1 Use of substances other than those prescribed or required for medical reasons: No Advance Directives: No Advance Directives Information Provided: No Meds Allergies Allergy/AdvReac Type Severity Reaction Status Date / Time onion [ONION] Allergy Unknown NAUSEA & Unverified 03/05/20 15:05 VOMITING PEPPERS, MENDOZA Allergy Unknown NAUSEA & Uncoded 03/05/20 15:05 VOMITING Active Medications: Current Medications Acetaminophen (Acetaminophen 325 Mg Tablet) 650 mg PO Q6H PRN PRN Reason: Pain, Mild (Pain Scale 1-3) Albuterol/Ipratropium (Albuterol/Iprat 2.5/0.5mg 3 Ml Ampul.Neb) 3 ml INHALE RQ4H PRN PRN Reason: Shortness of Breath/Wheezing Aspirin (Aspirin Enteric Coated 81 Mg Tablet.Dr) 81 mg PO DAILY [facility] Docusate Sodium (Docusate Sodium 100 Mg Capsule) 100 mg PO DAILY PRN PRN Reason: Constipation Heparin Sodium (Porcine) (Heparin Sodium,Porcine 5,000 Unit/Ml Vial) 8,400 unit 80 unit/kg (8400 unit) IVPUSH PROTOCOL BOLUS PRN; Protocol PRN Reason: 80 unit/kg - Heparin Protocol Heparin Sodium (Porcine) (Heparin Sodium,Porcine 5,000 Unit/Ml Vial) 4,200 unit 40 unit/kg (4200 unit) IVPUSH PROTOCOL BOLUS PRN; Protocol PRN Reason: 40 unit/kg - Heparin Protocol Heparin Sodium/Sodium Chloride () 25,000 unit in 250 mls @ 0 mls/hr IVCONT .Q0M [facility]; Protocol Last Admin: 09/21/21 04:22 Dose: 9.54 units/kg/hr, 10 mls/hr Documented by: Lisinopril (Lisinopril 10 Mg Tablet) 10 mg PO DAILY [facility]; Protocol Metoprolol Tartrate (Metoprolol Tartrate 12.5 Mg Halftab) 12.5 mg PO BID [facility]; Protocol Morphine Sulfate (Morphine Sulfate 4 Mg/Ml Cartridge) 4 mg IVPUSH Q4H PRN; Protocol PRN Reason: Pain, Severe (Pain Scale 7-10) Ondansetron HCl (Ondansetron Hcl 4 Mg/2 Ml Vial) 4 mg IVPUSH Q8H PRN PRN Reason: Nausea and Vomiting Sodium Chloride (0.9 % Sodium Chloride Flush 3 Ml Syringe) 3 ml IVFLUSH QSHIFT [facility] Home Medications Medication Instructions Recorded Confirmed Last Taken Type lisinopril 10 mg tablet 1 tab PO DAILY 09/21/21 09/21/21 Unknown History psyllium husk 0.4 gram capsule 0.4 g PO DAILY 09/21/21 09/21/21 Unknown History (Metamucil) Physical Exam Vital Signs: Vital Signs: Last Vital Signs Temp 100 F 09/21/21 04:15 Pulse 93 09/21/21 06:04 Resp 14 09/21/21 06:04 BP 126/81 09/21/21 06:04 Pulse Ox 93 09/21/21 06:04 BMI result Body Mass Index 37.3 Const: General: cooperative, comfortable, no acute distress, alert and awake Nutritional Appearance: obese Orientation/consciousness: patient oriented x3 HEENT: Head: Yes normocephalic and Yes atraumatic Neck: Neck: Yes trachea midline, Yes supple and Yes no JVD Chest: Chest palpation & inspection: normal inspection of the chest Resp: Effort & Inspection: normal respiratory effort Auscultation: no wheezes and diminished lung sounds Cardio: Jugular venous distension: no JVD Palpation: normal PMI Rate: regular rate Rhythm: regular rhythm Heart sounds: S1 normal heart sound present, S2 normal heart sound present, no click, no gallops, no murmurs and no rubs GI: Inspection: Yes obesity Auscultation: normal bowel sounds Skin: General skin exam: no rashes or lesions noted Neuro: General: patient oriented x3 and no focal motor deficits Extrem: General: Yes no clubbing, cyanosis or edema Objective Labs and Meds Result diagrams: 09/21/21 08:04 09/21/21 08:04 Lab results: Laboratory Results - last 24 hr 09/20/21 09/20/21 09/20/21 23:04 23:04 23:04 WBC RBC Hgb Hct MCV MCH MCHC RDW Plt Count MPV Immature Gran % (Auto) Neut % (Auto) Lymph % (Auto) [place] % (Auto) Eos % (Auto) Baso % (Auto) Lymph # (Auto) [place] # (Auto) Eos # (Auto) Baso # (Auto) Abs Immat Gran (auto) Absolute Neuts (auto) Absolute Nucleated RBC Nucleated RBC % (auto) PT INR aPTT Heparin Protocol D-Dimer High Sensitivty 255 Sodium Potassium Chloride Carbon Dioxide Anion Gap BUN Creatinine Estim Creat Clear Calc Estimated GFR Random Glucose Lactic Acid 1.8 Calcium Total Bilirubin AST ALT Alkaline Phosphatase Troponin I High Sens Total Protein Albumin Lipase Influenza Type A (PCR) NEGATIVE Influenza Type B (PCR) NEGATIVE RSV RNA Qual (PCR) NEGATIVE SARS-CoV-2 RNA (RT-PCR) NEGATIVE 09/20/21 09/20/21 09/20/21 23:04 23:05 23:05 WBC 11.3 H RBC 5.57 H Hgb 16.5 H Hct 48.5 H MCV 87.1 MCH 29.6 MCHC 34.0 RDW 12.4 Plt Count 195 MPV 9.8 Immature Gran % (Auto) 0.3 Neut % (Auto) 83.7 H Lymph % (Auto) 10.2 L [place] % (Auto) 4.9 Eos % (Auto) 0.5 Baso % (Auto) 0.4 Lymph # (Auto) 1.2 [place] # (Auto) 0.6 Eos # (Auto) 0.1 Baso # (Auto) 0.0 Abs Immat Gran (auto) 0.03 Absolute Neuts (auto) 9.5 H Absolute Nucleated RBC 0.000 Nucleated RBC % (auto) 0.0 PT INR aPTT Heparin Protocol D-Dimer High Sensitivty Sodium 133 L Potassium 3.9 Chloride 96 Carbon Dioxide 28 Anion Gap 13 BUN 9 Creatinine 0.99 Estim Creat Clear Calc 56.4 Estimated GFR 54 Random Glucose 162 H Lactic Acid Calcium 9.4 Total Bilirubin 0.7 AST 86 H ALT 30 Alkaline Phosphatase 97 Troponin I High Sens 63680.1 H* Total Protein 7.5 Albumin 4.1 Lipase 33 Influenza Type A (PCR) Influenza Type B (PCR) RSV RNA Qual (PCR) SARS-CoV-2 RNA (RT-PCR) 09/21/21 09/21/21 09/21/21 02:09 03:57 08:04 WBC 12.3 H RBC 5.27 Hgb 15.3 Hct 45.8 MCV 86.9 MCH 29.0 MCHC 33.4 RDW 12.5 Plt Count 225 MPV 10.1 Immature Gran % (Auto) 0.5 H Neut % (Auto) 83.2 H Lymph % (Auto) 10.9 L [place] % (Auto) 5.0 Eos % (Auto) 0.2 Baso % (Auto) 0.2 Lymph # (Auto) 1.3 [place] # (Auto) 0.6 Eos # (Auto) 0.0 Baso # (Auto) 0.0 Abs Immat Gran (auto) 0.06 H Absolute Neuts (auto) 10.3 H Absolute Nucleated RBC 0.000 Nucleated RBC % (auto) 0.0 PT 13.4 H INR 1.2 H aPTT Heparin Protocol 35.5 L D-Dimer High Sensitivty Sodium Potassium Chloride Carbon Dioxide Anion Gap BUN Creatinine Estim Creat Clear Calc Estimated GFR Random Glucose Lactic Acid Calcium Total Bilirubin AST ALT Alkaline Phosphatase Troponin I High Sens 03005.9 H* Total Protein Albumin Lipase Influenza Type A (PCR) Influenza Type B (PCR) RSV RNA Qual (PCR) SARS-CoV-2 RNA (RT-PCR) 09/21/21 08:04 WBC RBC Hgb Hct MCV MCH MCHC RDW Plt Count MPV Immature Gran % (Auto) Neut % (Auto) Lymph % (Auto) [place] % (Auto) Eos % (Auto) Baso % (Auto) Lymph # (Auto) [place] # (Auto) Eos # (Auto) Baso # (Auto) Abs Immat Gran (auto) Absolute Neuts (auto) Absolute Nucleated RBC Nucleated RBC % (auto) PT INR aPTT Heparin Protocol D-Dimer High Sensitivty Sodium 134 L Potassium 3.9 Chloride 100 Carbon Dioxide 26 Anion Gap 12 BUN 10 Creatinine 1.11 Estim Creat Clear Calc 50.2 Estimated GFR 47 Random Glucose 157 H Lactic Acid Calcium 9.0 Total Bilirubin AST ALT Alkaline Phosphatase Troponin I High Sens Total Protein Albumin Lipase Influenza Type A (PCR) Influenza Type B (PCR) RSV RNA Qual (PCR) SARS-CoV-2 RNA (RT-PCR) Imaging Radiologist's impression: Impressions Chest X-Ray 09/20/21 23:15 IMPRESSION: No acute cardiopulmonary findings. Chest CTA 09/21/21 01:30 IMPRESSION: 1. No pulmonary embolus identified. Of note, there is limited evaluation of the distal vessels in some regions due to respiratory motion artifact. 2. Mild upper lobe predominant emphysema. 3. Partially visualized right thyroid lobe nodule, for which further workup with nonemergent ultrasound is recommended. VTE: negative Assessment and Plan (1) Acute non-ST elevation myocardial infarction (NSTEMI): Status: Acute Patient presents with 3 days history of chest discomfort and right arm discomfort with elevated troponins, finding consistent with non ST-elevation myocardial infarction. She is currently symptom-free. No signs of heart failure and no significant ventricular arrhythmias or hemodynamic instability. However despite that given her risk factors I strongly recommended to undergo cardiac catheterization as the early invasive strategy to identify coronary anatomy and plan treatment accordingly. However she stops only currently refuses to go to [facility] today. She says she will plan to go to monitor [facility]. Meanwhile will continue with IV heparin. Risk of waiting and worsening and recurrent myocardial infarction and heart failure were discussed. She understands and and still wants to stay at [facility]. Will obtain echocardiogram today. Continue aspirin. Will avoid loading with additional antiplatelets as she might have surgical anatomy. Continue nitro paste. Maximize metoprolol. High-intensity statin with Lipitor 80 mg daily. Full disclosure cardiac monitoring. NPO can be discontinued today. Please consult us if she has an acute change in her medical status. We discussed about the procedure of cardiac catheterization including the approach, most commonly radial approach including risk, benefits, alternatives 2nd opinion. Will follow with you. Thank you for allowing me to partake in her care. Greater than 40 minutes was spent in managing her complex care Procedures Date of Service Date of Service: 09/21/21
--- NOTE | 2021-09-21 09:47 | MHC.CM.PN ---
Attempted to meet with patient in regards to discharge planning. Patient currently receiving nursing care. Will attempt to meet again. Continue to monitor for d/c needs.
[2021-09-21] MEDS: Aspirin Enteric Coated 81 MG TABLET.DR PO (10:06)
--- NOTE | 2021-09-21 10:10 | PC.NURSE ---
Pt alert and oriented, states onlr 9/10 right arm pain. states x3-4 days with nausea. Seen by Caridology and plan for [facility] transfer tomorrow for angiogram, pt able to eat at this time as requested. NSR on tele. Heparin gtt as ordered infusing, PTT HD drawn by lab. Held Metoprolol and Lisinopril for soft BP. ASA given. Placed on 2lpm via nc for sat 92% on RA, pt denies SOB. Skin pwd.
[2021-09-21 10:18] LABS: PTT Heparin Drip 68.5 SEC (53-77.9)
--- NOTE | 2021-09-21 11:02 | PC.NURSE ---
No rate change for Heparin gtt. Echo at this time
--- NOTE | 2021-09-21 11:47 | PM.EVENT ---
Event Note Date of Service: 09/21/21 Event Note: Patient already seen by hospitalist this morning. Patient chest pain seems to improving Denies any new complaint of shortness of breath or abdominal pain or fever or chills or nausea or vomiting Denies any cough Denies any weakness or numbness. Troponin trending up Assessment plan coordinated in H&P note. Cardio evaluation noted NSTEMI: Continue IV heparin drip, aspirin, statin,hold lisinopril and nitro due to softer blood pressure Continue metoprolol low-dose as blood pressure loss. Patient was offered for cardiac catheterization she refused for it today, so will be planned for tomorrow npo past midnight
--- NOTE | 2021-09-21 12:00 | CA_ITS ---
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 Technically limited study despite use of contrast agent 2. LV systolic function appears to be normal with LV ejection fraction greater than 60% with impaired relaxation filling pattern and elevated filling pressures. On certain off axis views there appears to be regional wall motion abnormality in the distal lateral portion. 3. Limited evaluation of cardiac valves Findings Left Ventricle Normal left ventricular cavity size. The left ventricular systolic function is normal. The visually estimated ejection fraction is between 60-65%. There is evidence of regional wall motion abnormalities. Spectral Doppler is indicative of an impaired relaxation filling pattern. Elevated filling pressures. E/E prime ratio is >15, consistent with elevated filling pressures. Right Ventricle The right ventricle was not well visualized. Atria The left atrium was not well visualized. The right atrium was not well visualized. Aortic Valve The aortic valve was not well visualized. There is no aortic valve stenosis. There is no aortic valve regurgitation. Mitral Valve The mitral valve was not well visualized. There is trace mitral valve regurgitation. There is no mitral valve stenosis. Pulmonic Valve The pulmonic valve was not well visualized. Tricuspid Valve The tricuspid valve was not well visualized. Tricuspid regurgitation envelope is inadequate for calculation of right ventricular systolic pressure. Great Vessels The aorta was not well visualized. The pulmonary artery was not well visualized. Venous The inferior vena cava was not well visualized. Pericardium/Pleural The pericardium was not well visualized. Prior Study Comparison no previous study in the last 5 years for comparison Measurements 2D Linear Measurements LVOT Diam: 2.30 3.0+(-)1.3 cm Mitral Valve MV Pk E: 0.52 MV PK A: 1.02 MV Decel Time: 130.00 E/A: 0.50 E'Lateral: 3.92 E'Medial: 2.61 E/E' Med: 19.80 E/E' Lat: 13.20 PHT: 38.00 MVA PHT: 5.79 Decel [place]: 3.99 Aortic Valve AoV Pk Gustavo: 1.30 AoV Mn Gustavo: 0.90 AoV VTI: 0.23 AoV Pk Grad: 7.00 Aov Mn Grad: 4.00 AIDAN Cont.VTI: 3.09 LVOT LVOT Pk Gustavo: 0.96 LVOT Mn Gustavo: 0.73 LVOT VTI: 0.17 LVOT Pk Grad: 4.00 LVOT Mn Grad: 2.00 LVOT Diam: 2.30 LVOT Area: 4.15 Diastolic Function MV Pk E: 0.52 MV Pk A: 1.02 E/A: 0.50 E'Medial: 2.61 E/E' Med: 19.80 E' Laterial: 3.92 E/E' Lat: 13.20 Right Ventricle TAPSE (mm): 24.00 Tricuspid Valve TR Pk Gustavo: 1.59 TR Pk Grad: 10.00 RA Press: 3.00 RVSP: 13.00 Great Vessels Aorta Sinus of Valsalva: 3.50 2.0-3.5 cm Ao Asc: 3.80 2.1-3.4 cm Pulmonary Valve PV Pk Gustavo: 0.76 Peak PV Grad: 2.00 Updated in Other Vendor System with Status of Final Eric Walter MD electronically signed on 09/21/2021 3:10:35 PM with status of Final
[2021-09-21] MEDS: Metoprolol Tartrate 12.5 MG HALFTAB PO ×2 (12:02→21:11)
--- NOTE | 2021-09-21 12:02 | PC.NURSE ---
Per Dr Rivera, remove nitro paste and give Metoprolol. Repeat troponin drawn by phlebotomy
[2021-09-21 12:09] LABS: Cholesterol 191 mg/dL; HDL Cholesterol 47 mg/dL; LDL Cholesterol Calculated 130 mg/dl; Triglycerides 74 mg/dL
[2021-09-21 17:55] LABS: PTT Heparin Drip 60.5 SEC (53-77.9)
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
--- NOTE | 2021-09-21 20:53 | MHC.CM.PN ---
KEZIA completed with pt and Dr. Cotto, with CM present. Pt is a DNR/DNI, transfer to hospital. No dialysis or artificial nutrition. May use IV. Copy uploaded into [facility] and [facility] [place]. Copy to chart. CM to follow for d/c needs.
[2021-09-21] MEDS: Atorvastatin Calcium 80 MG TABLET PO (21:12)
[2021-09-22] VITALS (7 sets, daily range): BP systolic 115–140; BP diastolic 62–83; PULSE 77–96; RESP 12–19; TEMP 36.9–37.8; O2SAT 94–97
[2021-09-22] MEDS: 0.9 % Sodium Chloride Flush 3 ML SYRINGE IVFLUSH ×2 (00:49→08:34)
[2021-09-22] MEDS: Acetaminophen 325 MG TABLET 650 MG PO (04:14)
[2021-09-22 04:40] LABS: Lactic Acid 0.8 mmol/L (0.5-2.0)
[2021-09-22] MEDS: Heparin Sodium,Porcine/1/2NS 25,000 UNIT/250 ML IV.SOLN 10 UNIT IVCONT (05:52)
[2021-09-22 06:10] LABS: Appearance Urine CLEAR; Color Urine DK YELLOW; Glucose Urine UA NEG (NEG); Leukocyte Esterase Urine NEG (NEG); Nitrite Urine NEG (NEG); PH 5.5 (5.0-8.0); Specific Gravity - Urine >= 1.030 (1.005-1.025); UACC Culture Trigger NO; Urine Blood TRACE (NEG); Urine Ketones NEG (NEG); Urine Protein 1+ MG/DL (NEG-TRACE)
[2021-09-22 06:25] LABS: Bacteria Urine 3+ /LPF; Hyaline Casts Urine 0-2 /LPF; Mucus Urine 2+ /LPF; Squamous Epithelial Cell Urine 1+ /LPF; UACC CULT YES
[2021-09-22] MEDS: cefTRIAXone sodium 1 GM in 0.9 % Sodium Chloride 50 ML IV (06:40)
[2021-09-22] MEDS: Azithromycin 500 MG in 0.9 % Sodium Chloride 250 ML 125 MG IV (07:36)
[2021-09-22 07:40] LABS: Hematocrit 43.6 % (37.0-47.0); Hemoglobin 14.4 g/dl (12.0-16.0); Mean Corpuscular Hemoglobin 29.6 pg (27.0-33.0); Mean Corpuscular Volume 89.5 fL (80.0-98.0); Mean Platelet Volume 10.1 fL (9.4-12.3); Platelet Count 167 X10*3/uL (160-400); Red Blood Count 4.87 X10*6/uL (4.20-5.50); Red Cell Distribution Width 12.7 % (11.0-16.0); White Blood Count 10.6 X10*3/uL (4.8-10.8)
[2021-09-22 07:45] LABS: INTERNATIONAL NORM RATIO 1.2 (0.9-1.1); Prothrombin Time 13.6 SEC (9.9-13.0)
[2021-09-22 07:47] LABS: PTT Heparin Drip 49.5 SEC (53-77.9)
--- NOTE | 2021-09-22 07:57 | PC.NURSE ---
pt is a/o x 3 no sob/wyatt noted skin pink with rash to binh area, under tanya breast, tanya under arms and buttocks with foul odour. pt cleansed with wipes and new bala placed on pt. pt repositioned to l side. heparin 10ml/hr and zithromax (abt) infusing. pt aware of plan of care.
--- NOTE | 2021-09-22 08:00 | PC.NURSE ---
pt c/o inreased itching to all rash areas.
[2021-09-22 08:07] LABS: Glucose, Whole Blood 116 mg/dL (60-115)
[2021-09-22] MEDS: Heparin Sodium,Porcine 5,000 UNIT/ML VIAL 4200 UNIT IVPUSH (08:11)
--- NOTE | 2021-09-22 08:25 | PHA.MEDREC ---
Pharmacy Consult ? Medication Reconciliation Pharmacy has completed the medication reconciliation. Pt stated that she has not taken her lisinopril in weeks. Essie Polk, NiranjanD
[2021-09-22] MEDS: Metoprolol Tartrate 12.5 MG HALFTAB PO (08:34)
[2021-09-22] MEDS: Aspirin Enteric Coated 81 MG TABLET.DR PO (08:34)
--- NOTE | 2021-09-22 08:45 | HO.PM.IMPN ---
Subjective Subjective Date of Service: 09/22/21 Physical Exam Vital Signs: Vital Signs: Last Vital Signs Temp 98.4 F 09/22/21 07:09 Pulse 81 09/22/21 08:31 Resp 16 09/22/21 08:31 BP 125/71 09/22/21 08:31 Pulse Ox 95 09/22/21 08:31 BMI result Body Mass Index 37.3 Objective Data Active Medications Acetaminophen (Acetaminophen 325 Mg Tablet) 650 mg PO Q6H PRN PRN Reason: Pain, Mild (Pain Scale 1-3) Last Admin: 09/22/21 04:14 Dose: 650 mg Documented by: HEATHER Albuterol/Ipratropium (Albuterol/Iprat 2.5/0.5mg 3 Ml Ampul.Neb) 3 ml INHALE RQ4H PRN PRN Reason: Shortness of Breath/Wheezing Aspirin (Aspirin Enteric Coated 81 Mg Tablet.) 81 mg PO DAILY [facility] Last Admin: 09/22/21 08:34 Dose: 81 mg Documented by: YANDY Atorvastatin Calcium (Atorvastatin Calcium 80 Mg Tablet) 80 mg PO BEDTIME [facility] Last Admin: 09/21/21 21:12 Dose: 80 mg Documented by: HEATHER Docusate Sodium (Docusate Sodium 100 Mg Capsule) 100 mg PO DAILY PRN PRN Reason: Constipation Heparin Sodium (Porcine) (Heparin Sodium,Porcine 5,000 Unit/Ml Vial) 8,400 unit 80 unit/kg (8400 unit) IVPUSH PROTOCOL BOLUS PRN; Protocol PRN Reason: 80 unit/kg - Heparin Protocol Heparin Sodium (Porcine) (Heparin Sodium,Porcine 5,000 Unit/Ml Vial) 4,200 unit 40 unit/kg (4200 unit) IVPUSH PROTOCOL BOLUS PRN; Protocol PRN Reason: 40 unit/kg - Heparin Protocol Last Admin: 09/22/21 08:11 Dose: 4,200 unit Documented by: YANDY Heparin Sodium/Sodium Chloride () 25,000 unit in 250 mls @ 0 mls/hr IVCONT .Q0M [facility]; Protocol Last Titration: 09/22/21 08:15 Dose: 11.542 units/kg/hr, 12.1 mls/hr Documented by: YANDY Cosigned by: NOBLE Azithromycin 500 mg/ Sodium (Chloride) 250 mls @ 125 mls/hr IV Q24H [facility] Last Admin: 09/22/21 07:36 Dose: 125 mls/hr Documented by: YANDY Ceftriaxone Sodium 1 gm/ (Sodium Chloride) 50 mls @ 100 mls/hr IV Q24H [facility] Last Infusion: 09/22/21 07:10 Dose: 0 mls/hr Documented by: YANDY Lisinopril (Lisinopril 10 Mg Tablet) 10 mg PO DAILY [facility]; Protocol Last Admin: 09/21/21 10:07 Dose: Not Given Documented by: NGOC Non-Admin Reason: Decreased Blood Pressure Metoprolol Tartrate (Metoprolol Tartrate 12.5 Mg Halftab) 12.5 mg PO BID [facility]; Protocol Last Admin: 09/22/21 08:34 Dose: 12.5 mg Documented by: YANDY Morphine Sulfate (Morphine Sulfate 4 Mg/Ml Cartridge) 4 mg IVPUSH Q4H PRN; Protocol PRN Reason: Pain, Severe (Pain Scale 7-10) Ondansetron HCl (Ondansetron Hcl 4 Mg/2 Ml Vial) 4 mg IVPUSH Q8H PRN PRN Reason: Nausea and Vomiting Sodium Chloride (0.9 % Sodium Chloride Flush 3 Ml Syringe) 3 ml IVFLUSH QSHIFT [facility] Last Admin: 09/22/21 08:34 Dose: 3 ml Documented by: YANDY Labs CBC & Chem 7: 09/22/21 07:33 09/21/21 08:04 Labs: Laboratory Results - last 24 hr 09/21/21 09/21/21 09/21/21 08:04 08:04 09:58 MCV MCH MCHC RDW Plt Count MPV Absolute Nucleated RBC Nucleated RBC % (auto) PT INR aPTT Heparin Protocol 68.5 D POC Glucose Lactic Acid Troponin I High Sens 57571.9 H* Triglycerides 74 Cholesterol 191 LDL Cholesterol, Calc 130 HDL Cholesterol 47 Urine Color Urine Appearance Urine pH Ur Specific [place] Urine Protein Urine Glucose (UA) Urine Ketones Urine Blood Urine Nitrite Ur Leukocyte Esterase Urine RBC Urine WBC Ur Squamous Epith Cells Urine Bacteria Hyaline Casts Granular Casts Urine Mucus 09/21/21 09/21/21 09/22/21 11:52 17:31 04:27 MCV MCH MCHC RDW Plt Count MPV Absolute Nucleated RBC Nucleated RBC % (auto) PT INR aPTT Heparin Protocol 60.5 POC Glucose Lactic Acid 0.8 Troponin I High Sens 05873.6 H* Triglycerides Cholesterol LDL Cholesterol, Calc HDL Cholesterol Urine Color Urine Appearance Urine pH Ur Specific [place] Urine Protein Urine Glucose (UA) Urine Ketones Urine Blood Urine Nitrite Ur Leukocyte Esterase Urine RBC Urine WBC Ur Squamous Epith Cells Urine Bacteria Hyaline Casts Granular Casts Urine Mucus 09/22/21 09/22/21 09/22/21 06:00 07:33 07:33 MCV 89.5 MCH 29.6 MCHC 33.0 RDW 12.7 Plt Count 167 D MPV 10.1 Absolute Nucleated RBC 0.000 Nucleated RBC % (auto) 0.0 PT 13.6 H INR 1.2 H aPTT Heparin Protocol 49.5 L POC Glucose Lactic Acid Troponin I High Sens Triglycerides Cholesterol LDL Cholesterol, Calc HDL Cholesterol Urine Color DK YELLOW Urine Appearance CLEAR Urine pH 5.5 Ur Specific [place] >= 1.030 H Urine Protein 1+ H Urine Glucose (UA) NEG Urine Ketones NEG Urine Blood TRACE Urine Nitrite NEG Ur Leukocyte Esterase NEG Urine RBC 1-4 Urine WBC 5-9 H Ur Squamous Epith Cells 1+ Urine Bacteria 3+ Hyaline Casts 0-2 Granular Casts 1-4 Urine Mucus 2+ 09/22/21 08:04 MCV MCH MCHC RDW Plt Count MPV Absolute Nucleated RBC Nucleated RBC % (auto) PT INR aPTT Heparin Protocol POC Glucose 116 H Lactic Acid Troponin I High Sens Triglycerides Cholesterol LDL Cholesterol, Calc HDL Cholesterol Urine Color Urine Appearance Urine pH Ur Specific [place] Urine Protein Urine Glucose (UA) Urine Ketones Urine Blood Urine Nitrite Ur Leukocyte Esterase Urine RBC Urine WBC Ur Squamous Epith Cells Urine Bacteria Hyaline Casts Granular Casts Urine Mucus Microbiology Microbiology Results: Microbiology 09/20/21 23:42 Blood Culture - Preliminary Blood - Venous No growth after 24 hours. 09/21/21 00:15 Blood Culture - Preliminary Blood - Venous No growth after 24 hours. Quality Stroke Does the patient have a stroke diagnosis?: No VTE Prior VTE?: No VTE Risk Level:: Medical - moderate - high VTE Device Contraindication: Treatment Not Indicated VTE Drug Contraindication: N/A - Med Ordered
--- NOTE | 2021-09-22 10:11 | PM.PNCARD ---
Subjective Subjective Date of Service: 09/22/21 Principal diagnosis: NSTEMI Interval history: Patient currently not having any chest discomfort. Not clear about mild right arm discomfort. Denies palpitations, shortness of breath. No lightheadedness, syncope. Hemodynamics stable. Troponins are down trending. Echocardiogram shows normal LV systolic function but on off axis use distal lateral wall motion abnormality Review of Systems Review of Systems Yes all other systems are reviewed and are negative Physical Exam Vital Signs: Last Vital Signs Temp 98.4 F 09/22/21 07:09 Pulse 81 09/22/21 08:31 Resp 16 09/22/21 08:31 BP 125/71 09/22/21 08:31 Pulse Ox 95 09/22/21 08:31 BMI result Body Mass Index 37.3 Const General: cooperative, comfortable, no acute distress, alert and awake Nutritional Appearance: obese Orientation/consciousness: patient oriented x3 Neck Neck: Yes trachea midline, Yes supple and Yes no JVD Resp Effort & Inspection: normal respiratory effort Auscultation: clear to auscultation bilaterally and diminished lung sounds Cardio Jugular venous distension: no JVD Palpation: normal PMI Rate: regular rate Rhythm: regular rhythm Heart sounds: S1 normal heart sound present, S2 normal heart sound present, no click, no gallops, no murmurs and no rubs GI Auscultation: normal bowel sounds Neuro General: patient oriented x3 and no focal motor deficits Extrem General: Yes no clubbing, cyanosis or edema Objective Labs and Meds Result diagrams: 09/22/21 07:33 09/21/21 08:04 Lab results: Laboratory Results - last 24 hr 09/21/21 09/21/21 09/21/21 08:04 09:58 11:52 WBC RBC Hgb Hct MCV MCH MCHC RDW Plt Count MPV Absolute Nucleated RBC Nucleated RBC % (auto) PT INR aPTT Heparin Protocol 68.5 D POC Glucose Lactic Acid Troponin I High Sens 05476.6 H* Triglycerides 74 Cholesterol 191 LDL Cholesterol, Calc 130 HDL Cholesterol 47 Urine Color Urine Appearance Urine pH Ur Specific [place] Urine Protein Urine Glucose (UA) Urine Ketones Urine Blood Urine Nitrite Ur Leukocyte Esterase Urine RBC Urine WBC Ur Squamous Epith Cells Urine Bacteria Hyaline Casts Granular Casts Urine Mucus 09/21/21 09/22/21 09/22/21 17:31 04:27 06:00 WBC RBC Hgb Hct MCV MCH MCHC RDW Plt Count MPV Absolute Nucleated RBC Nucleated RBC % (auto) PT INR aPTT Heparin Protocol 60.5 POC Glucose Lactic Acid 0.8 Troponin I High Sens Triglycerides Cholesterol LDL Cholesterol, Calc HDL Cholesterol Urine Color DK YELLOW Urine Appearance CLEAR Urine pH 5.5 Ur Specific [place] >= 1.030 H Urine Protein 1+ H Urine Glucose (UA) NEG Urine Ketones NEG Urine Blood TRACE Urine Nitrite NEG Ur Leukocyte Esterase NEG Urine RBC 1-4 Urine WBC 5-9 H Ur Squamous Epith Cells 1+ Urine Bacteria 3+ Hyaline Casts 0-2 Granular Casts 1-4 Urine Mucus 2+ 09/22/21 09/22/21 09/22/21 07:33 07:33 08:04 WBC 10.6 RBC 4.87 Hgb 14.4 Hct 43.6 MCV 89.5 MCH 29.6 MCHC 33.0 RDW 12.7 Plt Count 167 D MPV 10.1 Absolute Nucleated RBC 0.000 Nucleated RBC % (auto) 0.0 PT 13.6 H INR 1.2 H aPTT Heparin Protocol 49.5 L POC Glucose 116 H Lactic Acid Troponin I High Sens Triglycerides Cholesterol LDL Cholesterol, Calc HDL Cholesterol Urine Color Urine Appearance Urine pH Ur Specific [place] Urine Protein Urine Glucose (UA) Urine Ketones Urine Blood Urine Nitrite Ur Leukocyte Esterase Urine RBC Urine WBC Ur Squamous Epith Cells Urine Bacteria Hyaline Casts Granular Casts Urine Mucus Imaging Radiologist's impression: Impressions Chest X-Ray 09/22/21 05:00 IMPRESSION: No acute cardiopulmonary findings. Progress Note: A&P Assessment and plan (1) Acute non-ST elevation myocardial infarction (NSTEMI): Status: Acute Assessment and Plan: Acute coronary syndrome with elevated troponins and findings consistent with high risk features. Advised cardiac catheterization. Patient is agreeable to be transferred to [facility] today. Continue IV heparin drip. Continue aspirin, high-intensity statin therapy. Continue metoprolol and maximize as tolerated. We discussed about risk, benefits, alternatives of procedure. She understands agrees. Will follow-up as outpatient after discharge from [facility]. Fall Risk Details Current Medications: Current Medications Acetaminophen (Acetaminophen 325 Mg Tablet) 650 mg PO Q6H PRN PRN Reason: Pain, Mild (Pain Scale 1-3) Last Admin: 09/22/21 04:14 Dose: 650 mg Documented by: Albuterol/Ipratropium (Albuterol/Iprat 2.5/0.5mg 3 Ml Ampul.Neb) 3 ml INHALE RQ4H PRN PRN Reason: Shortness of Breath/Wheezing Aspirin (Aspirin Enteric Coated 81 Mg Tablet.Dr) 81 mg PO DAILY [facility] Last Admin: 09/22/21 08:34 Dose: 81 mg Documented by: Atorvastatin Calcium (Atorvastatin Calcium 80 Mg Tablet) 80 mg PO BEDTIME [facility] Last Admin: 09/21/21 21:12 Dose: 80 mg Documented by: Docusate Sodium (Docusate Sodium 100 Mg Capsule) 100 mg PO DAILY PRN PRN Reason: Constipation Heparin Sodium (Porcine) (Heparin Sodium,Porcine 5,000 Unit/Ml Vial) 8,400 unit 80 unit/kg (8400 unit) IVPUSH PROTOCOL BOLUS PRN; Protocol PRN Reason: 80 unit/kg - Heparin Protocol Heparin Sodium (Porcine) (Heparin Sodium,Porcine 5,000 Unit/Ml Vial) 4,200 unit 40 unit/kg (4200 unit) IVPUSH PROTOCOL BOLUS PRN; Protocol PRN Reason: 40 unit/kg - Heparin Protocol Last Admin: 09/22/21 08:11 Dose: 4,200 unit Documented by: Heparin Sodium/Sodium Chloride () 25,000 unit in 250 mls @ 0 mls/hr IVCONT .Q0M [facility]; Protocol Last Titration: 09/22/21 08:15 Dose: 11.542 units/kg/hr, 12.1 mls/hr Documented by: Lisinopril (Lisinopril 10 Mg Tablet) 10 mg PO DAILY [facility]; Protocol Last Admin: 09/21/21 10:07 Dose: Not Given Documented by: Metoprolol Tartrate (Metoprolol Tartrate 12.5 Mg Halftab) 12.5 mg PO BID [facility]; Protocol Last Admin: 09/22/21 08:34 Dose: 12.5 mg Documented by: Morphine Sulfate (Morphine Sulfate 4 Mg/Ml Cartridge) 4 mg IVPUSH Q4H PRN; Protocol PRN Reason: Pain, Severe (Pain Scale 7-10) Nystatin (Nystatin Powder 15 Gm Bottle) 1 appl TOPICAL BID [facility]; Protocol Ondansetron HCl (Ondansetron Hcl 4 Mg/2 Ml Vial) 4 mg IVPUSH Q8H PRN PRN Reason: Nausea and Vomiting Sodium Chloride (0.9 % Sodium Chloride Flush 3 Ml Syringe) 3 ml IVFLUSH QSHIFT [facility] Last Admin: 09/22/21 08:34 Dose: 3 ml Documented by: Time Spent With Patient Time: Total time spent is greater than 50% in coordination of care (as documented) at patient's floor/unit and/or counseling patient: Progress Note: Quality Stroke Does the patient have a stroke diagnosis?: No Procedures Date of Service Date of Service: 09/22/21
[2021-09-22] MEDS: Nystatin Powder 15 GM BOTTLE 1 APPL TOPICAL (10:21)
--- NOTE | 2021-09-22 11:55 | PM.DS ---
DS: Providers Provider Date of Service: 09/22/21 Date of admission: 09/21/21 05:17 Primary care physician: Chester Delcid MD Consults: 09/21/21 05:16 Consult to Cardiology Routine Consulting Provider: Eric Walter Reason for consultation: NSTEMI Has provider been notified: Yes DS: Diagnosis Discharge Diagnosis (1) Acute non-ST elevation myocardial infarction (NSTEMI): Status: Acute DS: Summary Hospital Course Hospital Course: ?80-year-old female with past medical history of COPD, CHF, hypertension who presents to the hospital complaints of midsternal chest pain.? Patient reports that the pain started about 3 days ago,? intermittent, 10/10, pressure squeezing in nature, radiating to the right arm, and jaw, relieved with marijuana rubbing oil and no exacerbating factors.? Patient reports that she initially head this from her family because she thought it was going to go way but has remained throughout the past 3 days with no relenting symptoms.? Her right arm pain has been constant. ? She denies any shortness of breath more than usual, she has a chronic cough with some chronic sputum production, denies any lower extremity swelling, no abdominal pain, has nausea nausea? but no vomiting, no diarrhea constipation, no urinary symptoms.? No headache or change in vision.? On arrival to the ED patient hemodynamically stable with a heart rate of 102, temperature of? 99.2, blood pressure 176/107 that has now improved.? ?labs are significant for WBC count of 11.3, hemoglobin of 16.5,? troponin of 14,347 that increased to 19,680 on repeat.? EKG showed? ST depressions in? lead 1, V5 V6,? T-wave inversions in? V1, V2. [place] course: Patient was admitted for NSTEMI: Started on IV heparin, statin, aspirin, metoprolol. Could not tolerate nitro and lisinopril currently secondary to softer blood pressure. Planning for cardiac catheterization and the patient is going for that today to [facility]-for further management. Possible UTI: Patient leukocytosis is resolved, initial blood cultures negative,urine cultures and repeated blood culture were pending, but it seems patient lexy has mild UTI and UA mild pyuria, patient has frequency so given the benefit of doubt will give p.o. Ceftin. Low-grade fever(100*f)- resolved . low grade fever also could be sec to [place]. groin rash: she gets on/off -? fungal infection:started on topical clotrimazole/nystatin. Above management discussed with the patient in detail length she understand and in agreement with the above plan, time spent 50 minutes and 50% time spent on counseling. Significant findings: As above. Procedures performed: None. Treatment and response: As above. Complications: None. Time Spent with Patient Time attestation: Total time spent providing and/or coordinating discharge services: Discharge coordination time: Greater than 30 minutes Quality: Safe Use of Opioids Does Pt have an Active Cancer Diagnosis on the Problem List?: No Quality: Stroke Does the patient have a stroke diagnosis?: No Physical Exam Vital Signs: Vital Signs: Last Vital Signs Temp 98.4 F 09/22/21 07:09 Pulse 77 09/22/21 10:27 Resp 13 09/22/21 10:27 BP 118/62 09/22/21 10:27 Pulse Ox 97 09/22/21 10:27 BMI result Body Mass Index 37.3 Appearance: Alert.? Oriented X3.? not in distress.? Eyes: Pupils equal, round and reactive to light.? Sclera nonicteric.? ENT: Pharynx normal.? Moist mucous membranes. cvs: rrr, [id number] , no murmur res: clear to auscultation ,no rhonchii or wheezing abd: no rebound or guarding ,nt, bs present. ext pulses present , no cyanosis. skin: rash in groin area ( she says she has it on/off) neuro: axo3 , nonfocal. DS: Data Data Completed and Pending Labs on day of discharge: Laboratory Results - last 24 hr 09/21/21 09/21/21 09/21/21 08:04 11:52 17:31 WBC RBC Hgb Hct MCV MCH MCHC RDW Plt Count MPV Absolute Nucleated RBC Nucleated RBC % (auto) PT INR aPTT Heparin Protocol 60.5 POC Glucose Lactic Acid Troponin I High Sens 30735.6 H* Triglycerides 74 Cholesterol 191 LDL Cholesterol, Calc 130 HDL Cholesterol 47 Urine Color Urine Appearance Urine pH Ur Specific [place] Urine Protein Urine Glucose (UA) Urine Ketones Urine Blood Urine Nitrite Ur Leukocyte Esterase Urine RBC Urine WBC Ur Squamous Epith Cells Urine Bacteria Hyaline Casts Granular Casts Urine Mucus 04/06/22 04/06/22 04/06/22 04:27 06:00 07:33 WBC 10.6 RBC 4.87 Hgb 14.4 Hct 43.6 MCV 89.5 MCH 29.6 MCHC 33.0 RDW 12.7 Plt Count 167 D MPV 10.1 Absolute Nucleated RBC 0.000 Nucleated RBC % (auto) 0.0 PT INR aPTT Heparin Protocol POC Glucose Lactic Acid 0.8 Troponin I High Sens Triglycerides Cholesterol LDL Cholesterol, Calc HDL Cholesterol Urine Color DK YELLOW Urine Appearance CLEAR Urine pH 5.5 Ur Specific [place] >= 1.030 H Urine Protein 1+ H Urine Glucose (UA) NEG Urine Ketones NEG Urine Blood TRACE Urine Nitrite NEG Ur Leukocyte Esterase NEG Urine RBC 1-4 Urine WBC 5-9 H Ur Squamous Epith Cells 1+ Urine Bacteria 3+ Hyaline Casts 0-2 Granular Casts 1-4 Urine Mucus 2+ 09/22/21 09/22/21 07:33 08:04 WBC RBC Hgb Hct MCV MCH MCHC RDW Plt Count MPV Absolute Nucleated RBC Nucleated RBC % (auto) PT 13.6 H INR 1.2 H aPTT Heparin Protocol 49.5 L POC Glucose 116 H Lactic Acid Troponin I High Sens Triglycerides Cholesterol LDL Cholesterol, Calc HDL Cholesterol Urine Color Urine Appearance Urine pH Ur Specific [place] Urine Protein Urine Glucose (UA) Urine Ketones Urine Blood Urine Nitrite Ur Leukocyte Esterase Urine RBC Urine WBC Ur Squamous Epith Cells Urine Bacteria Hyaline Casts Granular Casts Urine Mucus Preliminary micro results at discharge 09/20/21 23:42 Blood Culture - Preliminary Blood - Venous No growth after 24 hours. 09/21/21 00:15 Blood Culture - Preliminary Blood - Venous No growth after 24 hours. Additional Comments Additional comments: XR/XR chest 1V IMPRESSION: No acute cardiopulmonary findings. Discharge Plan Discharge Patient Disposition: Xfer to Respite Facility Discharge Diagnosis: NSTEMI, UTI Referrals: [facility] [Outside] - 1 Week Chester Delcid MD [Primary Care Provider] - 1 Week Discharge Medications: New atorvastatin 80 mg Tablet 80 mg PO BEDTIME Qty: 1 0RF acetaminophen 325 mg Tablet 650 mg PO Q6H PRN (Reason: Pain, Mild (Pain Scale 1-3)) Qty: 1 0RF aspirin 81 mg Tablet,Delayed Release (Dr/Ec) 81 mg PO DAILY Qty: 1 0RF docusate sodium 100 mg Capsule 100 mg PO DAILY PRN (Reason: Constipation) Qty: 30 0RF nystatin 100,000 unit/gram Powder 1 appl topical BID Qty: 15 0RF Protocol: Apply to: Apply to: affected rash area heparin(porcine) in 0.45% NaCl 25,000 unit/250 mL Parenteral Solution 25,000 unit continuous IV infusion .Q0M Qty: 250 0RF Rx Instructions: Continue at current rate, monitor PT INR. metoprolol tartrate 25 mg tablet 12.5 mg PO BID Qty: 1 0RF clotrimazole 1 % cream 1 appl topical BID Qty: 15 0RF Rx Instructions: apply in affected area cefuroxime axetil 250 mg tablet 250 mg PO Q12H Qty: 1 0RF Continued psyllium husk [Metamucil] 0.4 gram Capsule 0.4 g PO DAILY 0RF Held lisinopril 10 mg tablet 1 tab PO DAILY 0RF Hold Instructions: Hold for now , restart as blood pressure allows. Discharge Orders: Discharge Order (Routine); Ordered 09/22/21 Ordered By: Patel Perez Diet: advance to usual diet, low fat, low cholesterol and low salt diet Activity on Discharge: As tolerated Stand Alone Forms: Patient Portal Discharge page Care Plan Goals: Patient was admitted for NSTEMI: Started on IV heparin, statin, aspirin, metoprolol. Could not tolerate nitro and lisinopril currently secondary to softer blood pressure. Planning for cardiac catheterization and the patient is going for that today to [facility]-for further management. Possible UTI: Patient leukocytosis is resolved, initial blood cultures negative,urine cultures and repeated blood culture were pending, but it seems patient lexy has mild UTI and UA mild pyuria, patient has frequency so given the benefit of doubt will give p.o. Ceftin. Low-grade fever(100*f)- resolved . low grade fever also could be sec to [place]. Health Concerns: as above. Plan of Treatment: As above. Assessment: as above.
--- NOTE | 2021-09-22 12:00 | MHC.CM.PN ---
Patient will be transferred to [facility].
[2021-09-22 12:47] LABS: Glucose, Whole Blood 102 mg/dL (60-115)
--- NOTE | 2021-09-22 13:40 | PC.NURSE ---
received call from becky (pharmacist, [facility] [place] stating [place] ptt is 105.5, heparin drip to be held x 1hr and restarted decreased dose of 3units/kg/hr, noted. heparin drip has been held.
[2021-09-22 13:49] LABS: PTT Heparin Drip 105.5 SEC (53-77.9)
--- NOTE | 2021-09-22 13:51 | PC.NURSE ---
@ 1322 [facility] PT TX LINE CALL TO CHECK ON ROOM ASSIGNMENT NO ROOM AVAILABLE YET, THEY WILL CALL WHEN ROOM ASSIGNMENT MADE
--- NOTE | 2021-09-22 14:03 | PC.NURSE ---
@ 1400 CALL RECEIVED FROM ADDISON OF [facility] PT TRANSFER LINE WITH ROOM ASSIGNMENTY AND ACCEPTING MD [employer] 7 ROOM 24 RN TO RN SHOULD BE CALLED TO [phone] MORRIS
== END 2021-09-22 18:17 | disposition short-term general hospital (02) | DRG 281 ==
LOC: HO.ED 09-21 04:39 → HO.EDOVER 09-21 05:26
PROVIDERS: Admitting Provider Internal Medicine; Emergency Provider Emergency Medicine Emergency Medical Services; PCP Internal Medicine; Visit Provider Internal Medicine
DX: I21.4 Non-ST elevation (NSTEMI) myocardial infarction (principal); N39.0 Urinary tract infection, site not specified; B35.6 Tinea cruris; I50.9 Heart failure, unspecified; I11.0 Hypertensive heart disease with heart failure; J44.9 Chronic obstructive pulmonary disease, unspecified; Z20.822 Contact with and (suspected) exposure to COVID-19; F17.210 Nicotine dependence, cigarettes, uncomplicated; Z71.6 Tobacco abuse counseling; Z79.82 Long term (current) use of aspirin; Z79.899 Other long term (current) drug therapy
CPT/HCPCS: 0241U; 36415; 71045; 71046; 71275; 80048; 80053; 80061; 81001; 82947; 83605; 83690; 84484; 85025; 85027; 85379; 85610; 85730; 87040; 87086; 87088; 87186; 93005; 93306; 96361; 96365; 96375; 96376; 99285; 99291; J0456; J0696; J1885; J2270; J2405; Q9957; Q9967

== ENCOUNTER 2023-01-17 08:11 | Inpatient (IN) | payer MEDICARE, SELFPAY ==
[2023-01-17] VITALS (8 sets, daily range): BP systolic 120–158; BP diastolic 75–101; PULSE 63–100; RESP 13–22; TEMP 36.1–36.9; O2SAT 90–98; BMI 39.0; BMI 39.1
--- NOTE | ~2023-01-17 | CT_ITS ---
EXAMINATION: CT ANGIOGRAM OF THE CHEST WITH AND WITHOUT CONTRAST (CT PULMONARY ANGIOGRAM FOR PE) CLINICAL INFORMATION: Reason for Exam acute hypoxia COMPARISON: 09/21/2021 TECHNIQUE: Prior to contrast administration, noncontrast localization images were obtained. Subsequently, multidetector volumetric imaging was performed from the thoracic inlet to below the diaphragms following the administration of 65 mL Omnipaque 350 intravenous contrast. No contrast reaction reported Sagittal, coronal, and MIP oblique sagittal reformatted images were obtained on the CT workstation, uploaded to PACS, and reviewed. This CT examination was performed using dose optimization techniques as appropriate, variously including the following: *Automated exposure control *Adjustment of mA and/or kV according to patient size (this includes techniques or standardized protocols for targeted exams where dose is matched to indication/reason for exam; i.e. extremities or head) *Use of iterative reconstruction technique Total exam dose-length product 405 mGy-cm FINDINGS: QUALITY OF STUDY/CONTRAST BOLUS: Satisfactory. PULMONARY ARTERIES: Extensive bilateral pulmonary emboli. This involves all lobes of both lungs. THORACIC AORTA: No aneurysm. LUNG: The central airways are patent. Mild centrilobular and paraseptal emphysema. No dense consolidation. No suspicious pulmonary nodules. PLEURA: No pleural effusion or pneumothorax. MEDIASTINUM: Enlarged heart size. No pericardial effusion. No hilar or mediastinal lymphadenopathy. There is septal bowing suggesting right heart strain. CORONARY ARTERY CALCIFICATION: Mild. CHEST WALL/AXILLA: No axillary or internal mammary lymphadenopathy. OSSEOUS STRUCTURES: No acute or suspicious osseous abnormality. Degenerative change throughout the spine. UPPER ABDOMEN: There is reflux of contrast into the hepatic veins to suggest elevated right heart pressures. CT/CT angio chest PE protocol IMPRESSION: Extensive bilateral pulmonary emboli. Evidence of right heart strain. This critical result was discussed with Jonnathan Bhatti MD by telephone at 01/17/2023 2:55 PM and it was ascertained that the content and urgency of the report was understood at the time of direct communication. VTE: positive
--- NOTE | ~2023-01-17 | XR_ITS ---
EXAMINATION: XR CHEST CLINICAL INFORMATION: Acute dyspnea. COMPARISON: 09/22/2021 chest radiograph. TECHNIQUE: 2 views of the chest were obtained. FINDINGS: No significant abnormality is noted involving the heart, lungs, mediastinum, bony thorax or soft tissues. XR/XR chest 2V IMPRESSION: No acute cardiopulmonary process.
--- NOTE | ~2023-01-17 | CT_ITS ---
EXAMINATION: CT HEAD WITHOUT CONTRAST CLINICAL INFORMATION: 1 month ago with headache, rule out intracranial abnormality. COMPARISON: Head CT scan dated 06/23/2019. TECHNIQUE: Contiguous axial imaging was performed from the skull base to vertex without intravenous administration of contrast. Coronal and sagittal reformatted images were obtained. This CT examination was performed using dose optimization techniques as appropriate, variously including the following: *Automated exposure control *Adjustment of mA and/or kV according to patient size (this includes techniques or standardized protocols for targeted exams where dose is matched to indication/reason for exam; i.e. extremities or head) *Use of iterative reconstruction technique DLP: 736 mGy-cm FINDINGS: There is mild to moderate widening of the cortical sulci and associated ventriculomegaly. The lateral ventricles are symmetrical. The third and fourth ventricles are in their normal midline position. The basilar and prepontine cisterns are unremarkable. Mild to moderate periventricular microvascular changes are seen. There is no acute intra or extracerebral abnormality. There is no mass effect or midline shift. Sections through the bony calvarium are unremarkable. The orbits are intact. The paranasal sinuses are clear. The mastoid air cells are clear. Mild nasal septal deviation, apex of the right. CT/CT head/brain wo IV con IMPRESSION: No acute intracranial pathology.
--- NOTE | ~2023-01-17 | XR_ITS ---
EXAMINATION: XR SHOULDER, RIGHT CLINICAL INFORMATION: Chronic right shoulder pain. COMPARISON: None available. TECHNIQUE: AP external rotation, Grashey, scapular Y, and axillary views of the right shoulder. FINDINGS: Minimal degenerative joint changes are seen. There is no acute fracture or dislocation. The visualized right ribs are intact with the soft tissues are unremarkable. XR/XR shoulder RT min 2V IMPRESSION: Minimal right shoulder degenerative joint changes. No acute fracture.
--- NOTE | 2023-01-17 08:24 | ECG_ITS ---
Test Reason : chest pain Blood Pressure : / mmHG Vent. Rate : 098 BPM Atrial Rate : 098 BPM P-R Int : 144 ms QRS Dur : 140 ms QT Int : 388 ms P-R-T Axes : 035 072 -03 degrees QTc Int : 495 ms Sinus rhythm with Premature atrial complexes Right bundle branch block T wave abnormality, consider inferolateral ischemia Abnormal ECG When compared with ECG of 21-SEP-2021 03:23, Minimal criteria for Inferior infarct are no longer Present T wave inversion now evident in Inferior leads T wave inversion now evident in Anterolateral leads Referred By: Jonnathan Bhatti Electronically Signed By:ERICK COREY
[2023-01-17 08:44] LABS: MANUAL DIFF FLAG NO
[2023-01-17 08:46] LABS: Basophils Absolute Auto 0.1 X10*3/uL (0.0-0.2); Basophils Percent Auto 0.4 % (0-2); Eosinophils Absolute Auto 0.1 X10*3/uL (0.0-0.4); Eosinophils Percent Auto 0.3 % (0-4); Hematocrit 44.9 % (37.0-47.0); Hemoglobin 14.3 g/dl (12.0-16.0); Imm Gran Abs Auto 0.07 X10*3/uL (0.00-0.03); Imm Gran Pct Auto 0.5 % (0.0-0.4); Lymphocytes Percent Auto 6.3 % (20-40); Mean Corpuscular HGB Conc 31.8 g/dl (31.0-35.0); Mean Corpuscular Hemoglobin 27.8 pg (27.0-33.0); Mean Corpuscular Volume 87.4 fL (80.0-98.0); Mean Platelet Volume 10.9 fL (9.4-12.3); Monocytes Absolute Auto 0.8 X10*3/uL (0.1-1.2); Monocytes Percent Auto 5.1 % (2-11); Neutrophils Absolute Auto 13.4 x10*3/uL (2.0-8.3); Neutrophils Percent Auto 87.4 % (45-73); Platelet Count 165 X10*3/uL (160-400); Red Blood Count 5.14 X10*6/uL (4.20-5.50); Red Cell Distribution Width 13.5 % (11.0-16.0); White Blood Count 15.3 X10*3/uL (4.8-10.8)
[2023-01-17] MEDS: Acetaminophen 325 MG TABLET 975 MG PO (08:47)
--- NOTE | 2023-01-17 08:47 | ED.EXTPRO ---
HPI - Extremity Problem General Chief complaint: Extremity Injury, Upper Stated complaint: R SHOULDER/BACK/NECK PAIN S/P FALL 3-4 WKS AGO Time Seen by Provider: 01/17/23 08:14 Source: patient and EMS Mode of arrival: EMS Limitations: no limitations History of Present Illness HPI Narrative: 82-year-old female with history of hypertension presents with severe right shoulder pain. Patient had a mechanical fall approximately 1 month ago. She did hit her head on a door post but had no loss of consciousness. She was fine for 2-3 days without any significant symptoms. She then started to slowly developed a ?discomfort? in her right shoulder she has been doing overall well up until this morning when she developed a severe pain. The pain is only located in her right shoulder. Does not radiate. There does not appear to be any clear relieving or exacerbating features. She denies any numbness or tingling. She denies any headache, nausea, vomiting, vision changes or focal neurologic deficits. EMS transported the patient and found her to be hypoxic on transfer. She denies any shortness breath, chest pain, difficulty breathing, new swelling in the lower extremities. Patient is not on any blood thinning medications. She has had no fevers or chills. No cough or mucus production. Related Data Home Medications Medication Instructions Recorded Confirmed diphenhydramine HCl 25 mg tablet 25 mg PO TID PRN Itching 01/17/23 01/17/23 (Benadryl Allergy) Previous Rx's Medication Instructions Recorded acetaminophen 325 mg tablet 650 mg PO Q6H PRN Pain, Mild (Pain 09/22/21 Scale 1-3) #1 tab Allergies Allergy/AdvReac Type Severity Reaction Status Date / Time onion [ONION] Allergy Unknown NAUSEA & Verified 01/17/23 08:29 VOMITING PEPPERS, MENDOZA Allergy Unknown NAUSEA & Uncoded 03/05/20 15:05 VOMITING Review of Systems Review of Systems: CONSTITUTIONAL: Denies weight loss, fever and chills. HEENT: Denies changes in vision and hearing. RESPIRATORY: Denies SOB and cough. CV: Denies palpitations no CP. GI: Denies abdominal pain, nausea, vomiting and diarrhea. : Denies dysuria and urinary frequency. MSK: + myalgia and joint pain. SKIN: Denies rash and pruritus. NEUROLOGICAL: Denies headache and syncope. PSYCHIATRIC: Denies recent changes in mood. Denies anxiety and depression. All other ROS are negative unless in HPI PMFSH Past Medical History Medical History CHF (congestive heart failure) COPD (chronic obstructive pulmonary disease) Hypertension Surgical History History of cholecystectomy History of colostomy reversal Family History Family History Mother [place] (myocardial infarction) Social History Social History Alcohol intake: never Patient Tobacco Use Status: Current everyday Tobacco user Cigarette Packs Per Day: 1 Smoked in Last 30 Days: Yes Use of substances other than those prescribed or required for medical reasons: No Advance Directives: Yes Advance Directives on File: Yes Advance Directives Date on File: 09/21/21 service: No Current occupational status: retired Physical Exam Vital Signs: Vital Signs: Last Vital Signs Temp 97.6 F 01/17/23 13:17 Pulse 93 01/17/23 13:17 Resp 20 01/17/23 13:17 BP 120/80 01/17/23 13:17 Pulse Ox 93 01/17/23 13:17 O2 Del Method Nasal Cannula 01/17/23 13:17 O2 Flow Rate 2 01/17/23 13:17 BMI result Body Mass Index 39.0 GEN: Well developed, no acute distress, alert, oriented HEENT: Normocephalic, atraumatic, normal external ears, nose appears normal, no oropharyngeal edema or exudates Eyes: Normal to appearance Neck: Supple, no lymphadenopathy Respiratory: Talks in complete sentences, no respiratory distress, clear to auscultation bilaterally, tachypnea, pursed lip breathing Cardiovascular: Regular rate and rhythm, no murmurs rubs or gallops Abdomen: Soft, nontender, nondistended, no guarding, no rebound Back: No CVA tenderness Extremities: No clubbing cyanosis 2+ bipedal edema Neurologic: No focal neurologic deficits, cranial nerves 2-12 intact, strength is 5/5 bilaterally Skin: No rash Course Reevaluation(s) Reevaluation #1: I spoke with the patient's son. Patient reports that the mother has excoriations or wounds on her abdomen and chest that need to be evaluated. Patient does have some concerns about long-term care facilities. However, we discussed this is not the issue at this time. The son's name is Gianluca. His phone number is [phone]. 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 It appears to be chronic in nature. This can be followed up as an outpatient. Time: 12:19 Reevaluation #3: Will order CT angiogram the chest to further evaluate the etiology of her dyspnea. Chest x-ray does not clearly demonstrate CHF. Her proBNP is elevated he would be appropriate to rule out pulmonary embolus with a CT angiogram. Time: 12:23 Additional Reevaluation(s): Patient has significant pulmonary emboli bilaterally with evidence of right heart pressure elevation. I will ordered heparin drip. I have informed the patient of the results. I will contact the patient's son as well. Patient will be admitted to the hospital on a heparin drip. Consultations Consultation #1: Hospitalist for Admission Time: 15:06 Medications Administered Discontinued Medications Generic Name Dose Route Start Last Admin Trade Name Apple PRN Reason Stop Dose Admin Acetaminophen 975 mg 01/17/23 08:24 01/17/23 08:47 Acetaminophen 325 Mg Tablet PO 01/17/23 08:25 975 mg ONCE ONE Administration Iohexol 100 ml 01/17/23 13:22 01/17/23 13:22 Iohexol 350 Mg/Ml 100 Ml Infus..Btl IV 01/17/23 13:23 65 ml ONCE ONE Administration Morphine Sulfate 2 mg 01/17/23 08:24 01/17/23 08:48 Morphine Sulfate 4 Mg/Ml Cartridge IVPUSH 01/17/23 08:25 2 mg ONCE ONE Administration Protocol Medical Decision Making Medical Decision Making MDM Narrative: Patient presents with acute right shoulder pain that is been going on for approximately 3-4 weeks following the trauma. There is no deformity. She is neurovascular intact. She has limited range of motion. Will obtain x-ray to rule out fracture. Cannot rule out internal shoulder injury as I am not able to fully examine her. However, patient is also noted to have hypoxia. She is not on oxygen at baseline. She thinks she may have a history of congestive heart failure but denies history of COPD. Patient actually denies any difficulty by lungs are clear to auscultation bilaterally. Differential diagnosis includes CHF, COPD, emphysema, asthma, reactive airway disease, doubtful pulmonary embolus. My plan will be to obtain an x-ray of the chest, EKG, routine laboratory analysis including a proBNP to rule out CHF and other possible differential diagnoses. Differential Diagnosis Differential Diagnoses: The differential diagnosis associated with the presentation includes Admission/Observation Consideration of admission/observation: Escalation of care including admission/observation considered Lab Data MDM Lab Attestation statement: I reviewed the patient's lab results. 01/17/23 08:40 01/17/23 08:40 Labs: Lab Results 01/17/23 01/17/23 01/17/23 Range/Units 08:40 08:40 08:40 WBC 15.3 H (4.8-10.8) X10*3/uL RBC 5.14 (4.20-5.50) X10*6/uL Hgb 14.3 (12.0-16.0) g/dl Hct 44.9 (37.0-47.0) % MCV 87.4 (80.0-98.0) fL MCH 27.8 (27.0-33.0) pg MCHC 31.8 (31.0-35.0) g/dl RDW 13.5 (11.0-16.0) % Plt Count 165 (160-400) X10*3/uL MPV 10.9 (9.4-12.3) fL Immature Gran % (Auto) 0.5 H (0.0-0.4) % Neut % (Auto) 87.4 H (45-73) % Lymph % (Auto) 6.3 L (20-40) % [facility] % (Auto) 5.1 (2-11) % Eos % (Auto) 0.3 (0-4) % Baso % (Auto) 0.4 (0-2) % Lymph # (Auto) 1.0 L (1.2-4.9) X10*3/uL [facility] # (Auto) 0.8 (0.1-1.2) X10*3/uL Eos # (Auto) 0.1 (0.0-0.4) X10*3/uL Baso # (Auto) 0.1 (0.0-0.2) X10*3/uL Abs Immat Gran (auto) 0.07 H (0.00-0.03) X10*3/uL Absolute Neuts (auto) 13.4 H (2.0-8.3) x10*3/uL Absolute Nucleated RBC 0.000 (0.0-0.012) X10*3/uL Nucleated RBC % (auto) 0.0 (0.0-0.2) /100WBC PT (11.1-13.3) SEC INR (0.9-1.1) APTT (26.0-36.4) SEC O2 Saturation % ABG pH at Pt Temp (7.35-7.45) ABG pCO2 at Pt Temp (32-45) mmHg ABG pO2 at Pt Temp (83-108) mmHg ABG HCO3 (22-26) mmol/L ABG Base Excess (Actual) mmol/L Sodium 140 (135-145) mmol/L Potassium 3.9 (3.3-5.1) mmol/L Chloride 102 (96-108) mmol/L Carbon Dioxide 23 (22-29) mmol/L Anion Gap 19 (12-20) BUN 38 H (9-16) mg/dL Creatinine 1.44 H (0.5-1.4) mg/dL Estim Creat Clear Calc 33.2 Estimated GFR 35 Random Glucose 135 H (60-115) mg/dL Lactic Acid (0.5-2.0) mmol/L Calcium 9.4 (8.4-10.2) mg/dL Troponin I High Sens 78.2 H* (<3.5-17.0) ng/L B-Natriuretic Peptide (<100) pg/mL TSH (0.32-4.0) uIU/mL COVID-19 ([facility]) (Negative) COVID-19 Clin Com 01/17/23 01/17/23 01/17/23 Range/Units 08:40 08:40 08:40 WBC (4.8-10.8) X10*3/uL RBC (4.20-5.50) X10*6/uL Hgb (12.0-16.0) g/dl Hct (37.0-47.0) % MCV (80.0-98.0) fL MCH (27.0-33.0) pg MCHC (31.0-35.0) g/dl RDW (11.0-16.0) % Plt Count (160-400) X10*3/uL MPV (9.4-12.3) fL Immature Gran % (Auto) (0.0-0.4) % Neut % (Auto) (45-73) % Lymph % (Auto) (20-40) % [facility] % (Auto) (2-11) % Eos % (Auto) (0-4) % Baso % (Auto) (0-2) % Lymph # (Auto) (1.2-4.9) X10*3/uL [facility] # (Auto) (0.1-1.2) X10*3/uL Eos # (Auto) (0.0-0.4) X10*3/uL Baso # (Auto) (0.0-0.2) X10*3/uL Abs Immat Gran (auto) (0.00-0.03) X10*3/uL Absolute Neuts (auto) (2.0-8.3) x10*3/uL Absolute Nucleated RBC (0.0-0.012) X10*3/uL Nucleated RBC % (auto) (0.0-0.2) /100WBC PT (11.1-13.3) SEC INR (0.9-1.1) APTT (26.0-36.4) SEC O2 Saturation % ABG pH at Pt Temp (7.35-7.45) ABG pCO2 at Pt Temp (32-45) mmHg ABG pO2 at Pt Temp (83-108) mmHg ABG HCO3 (22-26) mmol/L ABG Base Excess (Actual) mmol/L Sodium (135-145) mmol/L Potassium (3.3-5.1) mmol/L Chloride (96-108) mmol/L Carbon Dioxide (22-29) mmol/L Anion Gap (12-20) BUN (9-16) mg/dL Creatinine (0.5-1.4) mg/dL Estim Creat Clear Calc Estimated GFR Random Glucose (60-115) mg/dL Lactic Acid (0.5-2.0) mmol/L Calcium (8.4-10.2) mg/dL Troponin I High Sens (<3.5-17.0) ng/L B-Natriuretic Peptide 1208 H (<100) pg/mL TSH 1.88 (0.32-4.0) uIU/mL COVID-19 ([facility]ANNAN) Negative (Negative) COVID-19 Clin Com See Note 01/17/23 01/17/23 01/17/23 Range/Units 09:18 09:37 09:37 WBC (4.8-10.8) X10*3/uL RBC (4.20-5.50) X10*6/uL Hgb (12.0-16.0) g/dl Hct (37.0-47.0) % MCV (80.0-98.0) fL MCH (27.0-33.0) pg MCHC (31.0-35.0) g/dl RDW (11.0-16.0) % Plt Count (160-400) X10*3/uL MPV (9.4-12.3) fL Immature Gran % (Auto) (0.0-0.4) % Neut % (Auto) (45-73) % Lymph % (Auto) (20-40) % [facility] % (Auto) (2-11) % Eos % (Auto) (0-4) % Baso % (Auto) (0-2) % Lymph # (Auto) (1.2-4.9) X10*3/uL [facility] # (Auto) (0.1-1.2) X10*3/uL Eos # (Auto) (0.0-0.4) X10*3/uL Baso # (Auto) (0.0-0.2) X10*3/uL Abs Immat Gran (auto) (0.00-0.03) X10*3/uL Absolute Neuts (auto) (2.0-8.3) x10*3/uL Absolute Nucleated RBC (0.0-0.012) X10*3/uL Nucleated RBC % (auto) (0.0-0.2) /100WBC PT 16.2 H (11.1-13.3) SEC INR 1.3 H (0.9-1.1) APTT 27.0 (26.0-36.4) SEC O2 Saturation 91.0 % ABG pH at Pt Temp 7.38 (7.35-7.45) ABG pCO2 at Pt Temp 40 (32-45) mmHg ABG pO2 at Pt Temp 70 L (83-108) mmHg ABG HCO3 24 (22-26) mmol/L ABG Base Excess (Actual) -0.3 mmol/L Sodium (135-145) mmol/L Potassium (3.3-5.1) mmol/L Chloride (96-108) mmol/L Carbon Dioxide (22-29) mmol/L Anion Gap (12-20) BUN (9-16) mg/dL Creatinine (0.5-1.4) mg/dL Estim Creat Clear Calc Estimated GFR Random Glucose (60-115) mg/dL Lactic Acid 1.2 (0.5-2.0) mmol/L Calcium (8.4-10.2) mg/dL Troponin I High Sens (<3.5-17.0) ng/L B-Natriuretic Peptide (<100) pg/mL TSH (0.32-4.0) uIU/mL COVID-19 ([facility]ANNA[facility]) (Negative) COVID-19 Clin Com 01/17/23 Range/Units 11:17 WBC (4.8-10.8) X10*3/uL RBC (4.20-5.50) X10*6/uL Hgb (12.0-16.0) g/dl Hct (37.0-47.0) % MCV (80.0-98.0) fL MCH (27.0-33.0) pg MCHC (31.0-35.0) g/dl RDW (11.0-16.0) % Plt Count (160-400) X10*3/uL MPV (9.4-12.3) fL Immature Gran % (Auto) (0.0-0.4) % Neut % (Auto) (45-73) % Lymph % (Auto) (20-40) % [facility] % (Auto) (2-11) % Eos % (Auto) (0-4) % Baso % (Auto) (0-2) % Lymph # (Auto) (1.2-4.9) X10*3/uL [facility] # (Auto) (0.1-1.2) X10*3/uL Eos # (Auto) (0.0-0.4) X10*3/uL Baso # (Auto) (0.0-0.2) X10*3/uL Abs Immat Gran (auto) (0.00-0.03) X10*3/uL Absolute Neuts (auto) (2.0-8.3) x10*3/uL Absolute Nucleated RBC (0.0-0.012) X10*3/uL Nucleated RBC % (auto) (0.0-0.2) /100WBC PT (11.1-13.3) SEC INR (0.9-1.1) APTT (26.0-36.4) SEC O2 Saturation % ABG pH at Pt Temp (7.35-7.45) ABG pCO2 at Pt Temp (32-45) mmHg ABG pO2 at Pt Temp (83-108) mmHg ABG HCO3 (22-26) mmol/L ABG Base Excess (Actual) mmol/L Sodium (135-145) mmol/L Potassium (3.3-5.1) mmol/L Chloride (96-108) mmol/L Carbon Dioxide (22-29) mmol/L Anion Gap (12-20) BUN (9-16) mg/dL Creatinine (0.5-1.4) mg/dL Estim Creat Clear Calc Estimated GFR Random Glucose (60-115) mg/dL Lactic Acid (0.5-2.0) mmol/L Calcium (8.4-10.2) mg/dL Troponin I High Sens 74.4 H* (<3.5-17.0) ng/L B-Natriuretic Peptide (<100) pg/mL TSH (0.32-4.0) uIU/mL COVID-19 ([facility]) (Negative) COVID-19 Clin Com Troponin is likely due to a chronically elevated troponin state. Independent Interpretation I performed an independent interpretation of an: EKG (Normal sinus rhythm heart rate 98, right bundle-branch block, nonspecific T-wave abnormalities, possible old right bundle-branch block.), Plain X-Ray (No acute cardiopulmonary disease) and CT Scan (Head no acute traumatic injury, CTA chest: Suspect segmental pulmonary emboli) Radiology Impression Discussion of test interpretation with radiology: I have reviewed the radiologist's reading. Radiologist Impression: XR/XR chest 2V IMPRESSION: No acute cardiopulmonary process. Dictated By: Dread Handley MD Signed By: <Electronically signed by Dread Handley MD in OV> 01/17/23 1 XR/XR shoulder RT min 2V IMPRESSION: Minimal right shoulder degenerative joint changes. No acute fracture. ? Dictated By: Dread Handley MD Signed By: <Electronically signed by Dread Handley MD in OV> 01/17/[address]/CT angio chest PE protocol IMPRESSION: Extensive bilateral pulmonary emboli. Evidence of right heart strain. ? This critical result was discussed with Jonnathan Bhatti MD by telephone at 01/17/2023 2:55 PM and it was ascertained that the content and urgency of the report was understood at the time of direct communication. ? VTE: positive Dictated By: Giovanny Tee MD Signed By: <Electronically signed by Giovanny Tee MD in OV> 01/17/23 1457 DD/ 1322 TD/TT:? Coding Clerk: DESIRE Independent Historian Clinical information obtained from an independent historian. History obtained from or confirmed by: EMS External Record Review External record reviewed: Inpatient record Prescription Management I considered prescription management with: Pain Medication and Antibiotic Chronic Conditions Patient?s care impacted by: Hypertension Critical Care Time Critical Care Time Critical Care Time: Yes Total Critical Care Time: 70 Attestation: Approximately 70+ minutes of critical care time was spent in terms of patient care, bedside reassessment initial assessment, and management of medical data and medical conditions, interpretation and medical data, documentation, all outside of any procedures. Discharge Plan Discharge Clinical Impression: Acute pain of right shoulder, Acute dyspnea, Pulmonary emboli Patient Disposition: Admitted As Inpatient
[2023-01-17] MEDS: Morphine Sulfate 4 MG/ML CARTRIDGE 2 MG IVPUSH (08:48)
[2023-01-17 08:58] LABS: COVID-19 Test Negative (Negative); IDNOW Serial# BCCEAD1C
[2023-01-17 08:59] LABS: Anion Gap 19 (12-20); Blood Urea Nitrogen 38 mg/dL (9-16); Calcium 9.4 mg/dL (8.4-10.2); Carbon Dioxide 23 mmol/L (22-29); Chloride 102 mmol/L (96-108); Creatinine Clr Calc Pharmacy 33.2; Estimated Glomerular Filt Rate 35; Glucose Random 135 mg/dL (60-115); Potassium 3.9 mmol/L (3.3-5.1); Sodium 140 mmol/L (135-145)
[2023-01-17 09:09] LABS: Troponin-I High Sensitivity 78.2 ng/L (<3.5-17.0)
[2023-01-17 09:10] LABS: B Type Natriuretic Peptide 1208 pg/mL (<100)
[2023-01-17 09:20] LABS: TSH reflex Free T4 1.88 uIU/mL (0.32-4.0)
[2023-01-17 09:28] LABS: ABG Base Excess -0.3 mmol/L; ABG HCO3 24 mmol/L (22-26); ABG pCO2 40 mmHg (32-45); ABG pH 7.38 (7.35-7.45); ABG pO2 70 mmHg (83-108)
--- NOTE | 2023-01-17 09:40 | PHA.MEDREC ---
Pharmacy Consult ? Medication Reconciliation Pharmacy has completed the medication reconciliation. Spoke to patient to confirm meds.
[2023-01-17 09:52] LABS: INTERNATIONAL NORM RATIO 1.3 (0.9-1.1); Prothrombin Time 16.2 SEC (11.1-13.3)
[2023-01-17 09:57] LABS: Lactic Acid 1.2 mmol/L (0.5-2.0)
--- NOTE | 2023-01-17 10:11 | PC.NURSE ---
pt a&ox3. respirations slightly labored but even. o2 95 on 2L. bilateral expiratory wheezing and dimmed bases noted. pt reports having a fall one month ago in which she did not get treatment for. pt reports bashing her head on her bed at the time of fall. pt now reports right shoulder pain.
[2023-01-17 10:38] LABS: ABG Refer to POC result
[2023-01-17 12:16] LABS: Troponin-I High Sensitivity 74.4 ng/L (<3.5-17.0)
[2023-01-17] MEDS: iohexoL 350 MG/ML 100 ML INFUS..BTL IV (13:22)
--- NOTE | 2023-01-17 15:08 | PM.IMHP ---
History of Present Illness Date of Service: 01/17/23 Chief Complaint: right shoulder pain, and sob 82 year female with HTN, COPD, CHF, CAD with NSTEMI in September 2021 underwent cardiac cath at [facility] and noted to have 100% LCX occlusion and no intervention was performed. She preseted with right shoulder and back pain that following a fall out of bed 4 weeks ago during which she suffered head banging against her bed, didn't pass out. , she has also been complaining of some shortness of breath for 2 to 3 days now; CT chest shows Extensive bilateral pulmonary emboli.; Evidence of right heart strain but she's hypodermically stable, she's initiated on IV heparin ? Review of Systems Review of Systems: right shoulder pain, sob, no chest pain Yes all other systems are reviewed and are negative [facility] Medical History (Updated 01/17/23 @ 15:22 by Jeevan Blackwell MD) CAD (coronary artery disease) CHF (congestive heart failure) COPD (chronic obstructive pulmonary disease) Hypertension Family History Mother [place] (myocardial infarction) Surgical History History of cholecystectomy History of colostomy reversal Social History Household Members: Children Household Members Other:: son Housing: Condominium Do you presently have visiting nurse or other home services: No Alcohol intake: never Patient Tobacco Use Status: Current everyday Tobacco user Tobacco use type: Cigarette Cigarette Packs Per Day: 1 Cigarettes Per Day: 20.0 Smoked in Last 30 Days: Yes Patient Interested in Nicotine Replacement: No Patient Given Instructions on How to Stop Smoking: No (patient refused) Use of substances other than those prescribed or required for medical reasons: No Currently Displaying Signs/Symptoms of Drug Intoxication Withdrawal: No Have you been hit, kicked, punched, or otherwise hurt by someone within the past year? If so, by whom?: No Do you feel safe in your current relationship?: No Current Relationship Is there a partner from a previous relationship who is making you feel unsafe now?: No Are you made to feel afraid or neglected: No Gnosticist Healthcare Practices: spiritism Advance Directives: Yes Advance Directives on File: Yes Advance Directives Date on File: 09/21/21 Do you have thoughts of harming others: None Recently lost weight without trying: No Patient : No service: No Current occupational status: retired Meds Allergies Allergy/AdvReac Type Severity Reaction Status Date / Time onion [ONION] Allergy Unknown NAUSEA & Verified 01/17/23 08:29 VOMITING PEPPERS, MENDOZA Allergy Unknown NAUSEA & Uncoded 03/05/20 15:05 VOMITING Active Medications: Current Medications Pharmacy Consult (Consult Rx Perform Med Rec) 1 each MISCELLANE ONCE PRN PRN Reason: Consult order Home Medications Medication Instructions Recorded Confirmed Last Taken Type diphenhydramine HCl 25 mg tablet 25 mg PO TID PRN Itching 01/17/23 01/17/23 Unknown History (Benadryl Allergy) Physical Exam Vital Signs and Narrative: Vital Signs: Last Vital Signs Temp 97.6 F 01/17/23 13:17 Pulse 93 01/17/23 13:17 Resp 20 01/17/23 13:17 BP 120/80 01/17/23 13:17 Pulse Ox 93 01/17/23 13:17 O2 Del Method Nasal Cannula 01/17/23 13:17 O2 Flow Rate 2 01/17/23 13:17 BMI result Body Mass Index 39.0 Const: Other: Constitutional: Alert, in no distress, overweight. Mental Status: Oriented to person, place and time. Eyes: Pupils are equal, round and reactive to light. Ear, Nose and Throat: Oropharynx clear, mucous membranes moist. Ears and nose without eformities. Trachea midline. Respiratory: Clear to auscultation. No wheezing, rales or rhonchi. Cardiovascular: S1 S2 regular. No murmurs, rubs or gallops. Gastrointestinal: Abdomen soft, non-tender, non-distended. Normal bowel sounds.? Neurologic: Cranial nerves II-XII grossly intact. No focal neurological deficits. Moves all extremities spontaneously.? Skin: No rashes or lesions.? Musculoskeletal: No cyanosis or clubbing. Psychiatric: Normal mood and affect? Results Labs 01/17/23 08:40 01/17/23 08:40 Labs: Laboratory Results - last 24 hr 01/17/23 01/17/23 01/17/23 08:40 08:40 08:40 MCV 87.4 MCH 27.8 MCHC 31.8 RDW 13.5 Plt Count 165 MPV 10.9 Immature Gran % (Auto) 0.5 H Neut % (Auto) 87.4 H Lymph % (Auto) 6.3 L Dickson % (Auto) 5.1 Eos % (Auto) 0.3 Baso % (Auto) 0.4 Lymph # (Auto) 1.0 L [place]ickson # (Auto) 0.8 Eos # (Auto) 0.1 Baso # (Auto) 0.1 Abs Immat Gran (auto) 0.07 H Absolute Neuts (auto) 13.4 H Absolute Nucleated RBC 0.000 Nucleated RBC % (auto) 0.0 PT INR APTT O2 Saturation ABG pH at Pt Temp ABG pCO2 at Pt Temp ABG pO2 at Pt Temp ABG HCO3 ABG Base Excess (Actual) Anion Gap 19 Estim Creat Clear Calc 33.2 Estimated GFR 35 Random Glucose 135 H Lactic Acid Calcium 9.4 B-Natriuretic Peptide TSH COVID-19 ([facility]ANNAN) Negative COVID-19 Clin Com See Note 01/17/23 01/17/23 01/17/23 08:40 08:40 09:18 MCV MCH MCHC RDW Plt Count MPV Immature Gran % (Auto) Neut % (Auto) Lymph % (Auto) Dickson % (Auto) Eos % (Auto) Baso % (Auto) Lymph # (Auto) Dickson # (Auto) Eos # (Auto) Baso # (Auto) Abs Immat Gran (auto) Absolute Neuts (auto) Absolute Nucleated RBC Nucleated RBC % (auto) PT INR APTT O2 Saturation 91.0 ABG pH at Pt Temp 7.38 ABG pCO2 at Pt Temp 40 ABG pO2 at Pt Temp 70 L ABG HCO3 24 ABG Base Excess (Actual) -0.3 Anion Gap Estim Creat Clear Calc Estimated GFR Random Glucose Lactic Acid Calcium B-Natriuretic Peptide 1208 H TSH 1.88 COVID-19 ([facility]ANNAN) COVID-19 Clin Com 01/17/23 01/17/23 09:37 09:37 MCV MCH MCHC RDW Plt Count MPV Immature Gran % (Auto) Neut % (Auto) Lymph % (Auto) Dickson % (Auto) Eos % (Auto) Baso % (Auto) Lymph # (Auto) Dickson # (Auto) Eos # (Auto) Baso # (Auto) Abs Immat Gran (auto) Absolute Neuts (auto) Absolute Nucleated RBC Nucleated RBC % (auto) PT 16.2 H INR 1.3 H APTT 27.0 O2 Saturation ABG pH at Pt Temp ABG pCO2 at Pt Temp ABG pO2 at Pt Temp ABG HCO3 ABG Base Excess (Actual) Anion Gap Estim Creat Clear Calc Estimated GFR Random Glucose Lactic Acid 1.2 Calcium B-Natriuretic Peptide TSH COVID-19 ([facility]ANNAN) COVID-19 Clin Com Imaging Radiologist's Impressions: Impressions Chest X-Ray 01/17/23 10:09 IMPRESSION: No acute cardiopulmonary process. Shoulder X-Ray 01/17/23 10:09 IMPRESSION: Minimal right shoulder degenerative joint changes. No acute fracture. Head CT 01/17/23 10:22 IMPRESSION: No acute intracranial pathology. Chest CTA 01/17/23 13:22 IMPRESSION: Extensive bilateral pulmonary emboli. Evidence of right heart strain. This critical result was discussed with Jonnathan Bhatti MD by telephone at 01/17/2023 2:55 PM and it was ascertained that the content and urgency of the report was understood at the time of direct communication. VTE: positive Assessment and Plan (1) Acute dyspnea: Status: Acute (2) Pulmonary emboli: Status: Acute (3) Acute pain of right shoulder: Status: Acute (4) Acute non-ST elevation myocardial infarction (NSTEMI): Status: Acute Plan 82 year female with HTN, COPD, CHF, CAD with NSTEMI in September 2021 underwent cardiac cath at [facility] and noted to have 100% LCX oclusion here with SOB and found to have bilateral high burden PE High [place] bilateral Pulmonary embolism-hemodynamically stable, I agree with IV heparin, may need secondary work work such as ruling out malignancy BRO--likely pre renal, IV and repeat labs tomorrow Type 2 [place]--with mild increase in troponin d/t PE, no further cardiac at this point but will obtain echo given heart strain HTN--BP within normal, hold meds COPD--no acute exacerbation, h/o HFpEF--no deceompensation DVT Prophylaxis: Heparin Full code Admission for at least 2 midnights for treatement of high burden PE with IV heparin and monitoring of levels Plan discussed with patient and son at bedside and all questions answered Time Spent With Patient Time: Total time managing care of this patient today ____ minutes. Quality Stroke Does the patient have a stroke diagnosis?: No VTE Prior VTE?: No VTE Risk Level:: Medical - moderate - high VTE Device Contraindication: Treatment Not Indicated VTE Drug Contraindication: N/A - Med Ordered
[2023-01-17] MEDS: Heparin Sodium,Porcine/1/2NS 25,000 UNIT/250 ML IV.SOLN 13.79 UNIT IVCONT (16:04)
[2023-01-17] MEDS: 0.9 % Sodium Chloride 1,000 ML 70 ML IVCONT (16:39)
--- NOTE | 2023-01-17 19:19 | PC.NURSE ---
This creative writer assumed care of this pt at 1920. Pt a&ox3. Report given on pt to MESFIN Garces. Pt will be transported to room 468. Pt aware of plan.
[2023-01-17] MEDS: Acetaminophen 325 MG TABLET 650 MG PO (19:30)
[2023-01-17 20:47] LABS: Appearance Urine Clear; Color Urine Dark Yellow; Glucose Urine UA Negative (Negative); Leukocyte Esterase Urine Negative (Negative); Nitrite Urine Positive (Negative); PH 5.5 (5.0-9.0); Specific Gravity - Urine >= 1.030 (1.005-1.025); UMIC TRIGGER UACC YES; Urine Blood Trace (Negative); Urine Ketones Negative (Negative); Urine Protein 100 (2+) mg/dL (Neg-Trace)
[2023-01-17 20:57] LABS: Bacteria Urine 4+ (None Seen); RBC Urine 0-2 /HPF (0-2); Squamous Epithelial Cell Urine 0-2 /HPF (0-2); UACC Culture Trigger YES
[2023-01-17] MEDS: Melatonin 3 MG TABLET 6 MG PO (21:17)
[2023-01-17] MEDS: oxyCODONE HCl Immed Release 5 MG TABLET PO (21:17)
[2023-01-17] MEDS: 0.9 % Sodium Chloride Flush 3 ML SYRINGE IVFLUSH (21:17)
[2023-01-17 22:48] LABS: PTT Heparin Drip 71.8 SEC (53-77.9)
--- NOTE | 2023-01-18 03:16 | PC.NURSE ---
Pt admitted to MT[facility] room 468 via stretcher from ED. A&Ox3. Heparin gtt infusing as ordered. No s/sx bleeding or bruising. Denies chest pain or SOB. Right shoulder pain continued. MD Pizano notified and PRN oxycodone ordered and given with effect. NSR with BBB and PACs on cardiac exercise specialist. Pt straight cath'd for urine sample, purewick in place. Call portillo within reach, bed alarm on and in lowest locked position.
[2023-01-18 04:00] VITALS: BP 145/104; PULSE 92; RESP 16; TEMP 36.8; O2SAT 94
[2023-01-18 05:17] LABS: Hemoglobin 12.5 g/dl (12.0-16.0); Mean Corpuscular HGB Conc 31.3 g/dl (31.0-35.0); Mean Corpuscular Hemoglobin 27.5 pg (27.0-33.0); Mean Corpuscular Volume 87.9 fL (80.0-98.0); Mean Platelet Volume 11.6 fL (9.4-12.3); Platelet Count 125 X10*3/uL (160-400); Red Blood Count 4.55 X10*6/uL (4.20-5.50); Red Cell Distribution Width 13.4 % (11.0-16.0); White Blood Count 8.3 X10*3/uL (4.8-10.8)
[2023-01-18 05:20] LABS: INTERNATIONAL NORM RATIO 1.4 (0.9-1.1)
[2023-01-18] MEDS: Heparin Sodium,Porcine 5,000 UNIT/ML VIAL 3900 UNIT IVPUSH (05:40)
[2023-01-18] MEDS: 0.9 % Sodium Chloride 1,000 ML 70 ML IVCONT (05:50)
[2023-01-18] MEDS: Acetaminophen 325 MG TABLET 650 MG PO (06:13)
[2023-01-18] MEDS: oxyCODONE HCl Immed Release 5 MG TABLET PO ×3 (06:13→17:19)
--- NOTE | 2023-01-18 07:00 | CA_ITS ---
Transthoracic Echocardiogram Patient (Last, First, Middle): Denice Sanchez, Gender: Female Date of : 1940 Age: 82 Procedure Date: 01/18/2023 Procedure Type: Transthoracic Echocardiogram Location: [facility] [place] Height: 157.48 cm Weight: 96.62 kg BSA: 1.96 m2 Heart Rate: bpm BP: 160 / 97 mmHg Complaints Coordinator: TO Referring MD: Jeevan Blackwell MD Symptoms: Pulmonary embolism Study Quality: Technically Difficult Conclusions: - LVEF or wall motion cannot be assessed due to limited visualization. Refused contrast, due to pain. - Moderately increased right ventricular cavity size. - There is moderate tricuspid valve regurgitation. - Moderate pulmonary hypertension is present. - The inferior vena cava is mildly dilated and collapses less than 50% with inspiration. Findings Procedure Information The patient declines contrast. Left Ventricle Normal left ventricular cavity size. There is mildly increased left ventricular wall thickness. Regional wall motion abnormalities can not be excluded due to suboptimal endocardial definition. Diastolic function is indeterminate on the basis of available data. There is severe septal asymmetric hypertrophy. LVEF or wall motion cannot be assessed due to limited visualization. Refused contrast, due to pain. Right Ventricle Moderately increased right ventricular cavity size. There is normal right ventricular systolic function. Atria Both atria are normal in size. Aortic Valve There is a normal trileaflet aortic valve. There is mild calcification of the aortic valve. There is no aortic valve stenosis. Mitral Valve There is mild anterior mitral leaflet thickening. There is no mitral valve regurgitation. There is no mitral valve stenosis. Pulmonic Valve The pulmonic valve is likely normal. Tricuspid Valve There is moderate tricuspid valve regurgitation. Moderate pulmonary hypertension is present. Great Vessels The asc aorta is normal in size. Venous The inferior vena cava is mildly dilated and collapses less than 50% with inspiration. Pericardium/Pleural There is no evidence of pericardial effusion. Prior Study Comparison Due to poor quality, cannot compare. Measurements 2D Linear Measurements IVSd: 1.80 0.6-0.9/0.6-1.0 cm LVIDd: 4.50 3.9-5.3/4.2-5.9 cm LVIDd Index: 2.30 2.4-3.2/2.2-3.1 cm/m2 LVIDs: 3.70 2.0-3.6 cm LVPWd: 1.20 0.7-1.1 cm LA Diam: 3.20 2.7-3.8/3.0-4.0 cm LAIDs Index: 1.63 1.5-2.3 cm/m2 LV Mass: 343.98 67-162/88-224 g LV Mass Index: 175.50 43-95/49-115 g/m2 LVOT Diam: 2.10 3.0+(-)1.3 cm Mitral Valve MV VTI: 0.23 MV Pk Gustavo: 1.06 MV Mn Gustavo: 0.58 MV Pk Grad: 4.00 MV Mn Grad: 2.00 MV Pk E: 0.56 MV PK A: 0.99 MV Decel Time: 206.00 E/A: 0.60 E'Lateral: 4.79 E'Medial: 3.70 E/E' Med: 15.10 E/E' Lat: 11.60 PHT: 60.00 MVA PHT: 3.67 MVA Continuity: 1.90 Decel G[place]: 2.70 Aortic Valve AoV Pk Gustavo: 1.01 AoV Pk Grad: 4.00 LVOT LVOT Pk Gustavo: 0.81 LVOT Mn Gustavo: 0.51 LVOT VTI: 0.13 LVOT Pk Grad: 3.00 LVOT Mn Grad: 1.00 LVOT Diam: 2.10 LVOT Area: 3.46 Diastolic Function MV Pk E: 0.56 MV Pk A: 0.99 E/A: 0.60 E'Medial: 3.70 E/E' Med: 15.10 E' Laterial: 4.79 E/E' Lat: 11.60 Right Ventricle TAPSE (mm): 20.90 TVS' Gustavo: 10.20 Tricuspid Valve TR Pk Gustavo: 3.21 TR Pk Grad: 41.00 RA Press: 15.00 RVSP: 56.00 Great Vessels Aorta Sinus of Valsalva: 3.40 2.0-3.[address] [place]: 2.70 1.7-3.4 cm Ao Asc: 3.50 2.1-3.4 cm Updated in Other Vendor System with Status of Final Dany Hannah MD electronically signed on 01/18/2023 4:58:54 PM with status of Final
[2023-01-18 07:51] VITALS: BP 160/97; PULSE 93; RESP 18; TEMP 36.2; O2SAT 94
--- NOTE | 2023-01-18 09:01 | MHC.CM.PN ---
IMM 01/18. Pt admitted with dx: bi-lateral pulmonary embolism. Pt lives at home on 3rd floor apartment, she has daily family support from her son and [id number]. Pt uses a walker and has no previous services. D/C plan to return home with family support and likely new VNA. Pts VNA preference is [facility]. Transport via [facility]. HCP on file and verified. PCP: Chester Delcid
--- NOTE | 2023-01-18 09:32 | HO.PM.IMPN ---
Subjective Subjective Date of Service: 01/18/23 Interval History: f/u on pulmonary embolism less sob, has back and shoulder pain from prior fall Physical Exam Vital Signs: Vital Signs: Last Vital Signs Temp 97.1 F 01/18/23 07:51 Pulse 93 01/18/23 07:51 Resp 18 01/18/23 07:51 BP 160/97 H 01/18/23 07:51 Pulse Ox 94 01/18/23 07:51 O2 Del Method Nasal Cannula 01/18/23 07:51 O2 Flow Rate 2 01/18/23 07:51 BMI result Body Mass Index 39.1 Const: Other: General: AO X 3, no acute distress Resp: CTA bilateral CVS: S1,S2,RRR, 1+ leg edema GI: +BS, NT, no distention Skin: No rash Neuro: motor grossly intact Psych: appropriate affect Objective Data Active Medications Acetaminophen (Acetaminophen 325 Mg Tablet) 650 mg PO Q6H PRN PRN Reason: Pain, Mild (Pain Scale 1-3) Last Admin: 01/18/23 06:13 Dose: 650 mg Documented By: LUISA Diphenhydramine HCl (Diphenhydramine Hcl 25 Mg Capsule) 25 mg PO TID PRN PRN Reason: Itching Heparin Sodium (Porcine) (Heparin Sodium,Porcine 5,000 Unit/Ml Vial) 3,900 unit 40 unit/kg (3900 unit) IVPUSH PROTOCOL BOLUS PRN; Protocol PRN Reason: 40 unit/kg - Heparin Protocol Last Admin: 01/18/23 05:40 Dose: 3,900 unit Documented By: LUISA Heparin Sodium (Porcine) (Heparin Sodium,Porcine 5,000 Unit/Ml Vial) 7,900 unit 80 unit/kg (7900 unit) IVPUSH PROTOCOL BOLUS PRN; Protocol PRN Reason: 80 unit/kg - Heparin Protocol Heparin Sodium/Sodium Chloride (Heparin Sodium,Porcine/1/2ns) 25,000 unit in 250 mls @ 0 mls/hr IVCONT .Q0M [facility]; Protocol Last Titration: 01/18/23 05:40 Dose: 16 units/kg/hr, 15.76 mls/hr Documented By: LUISA Co-signed By: DHARA Sodium Chloride (Ns) 1,000 mls @ 70 mls/hr IVCONT .[id number] [facility] Last Admin: 01/18/23 05:50 Dose: 70 mls/hr Documented By: LUISA Melatonin (Melatonin 3 Mg Tablet) 6 mg PO BEDTIME PRN PRN Reason: Insomnia Last Admin: 01/17/23 21:17 Dose: 6 mg Documented By: LUISA Oxycodone HCl (Oxycodone Hcl Immed Release 5 Mg Tablet) 5 mg PO Q6H PRN PRN Reason: Pain, Moderate(Pain Scale 4-6) Last Admin: 01/18/23 06:13 Dose: 5 mg Documented By: LUISA Oxycodone HCl (Oxycodone Hcl Immed Release 5 Mg Tablet) 5 mg PO Q6H PRN PRN Reason: Pain, Severe (Pain Scale 7-10) Pharmacy Consult (Consult Rx Perform Med Rec) 1 each MISCELLANE ONCE PRN PRN Reason: Consult order Sodium Chloride (0.9 % Sodium Chloride Flush 3 Ml Syringe) 3 ml IVFLUSH QSHIFT [facility] Last Admin: 01/17/23 21:17 Dose: 3 ml Documented By: LUISA Labs 01/18/23 04:29 01/17/23 08:40 Labs: Laboratory Results - last 24 hr 01/17/23 01/17/23 01/17/23 09:37 09:37 20:02 MCV MCH MCHC RDW Plt Count MPV Absolute Nucleated RBC Nucleated RBC % (auto) PT 16.2 H INR 1.3 H APTT 27.0 aPTT Heparin Protocol Lactic Acid 1.2 Urine Color Dark Yellow Urine Appearance Clear Urine pH 5.5 Ur Specific [place] >= 1.030 H Urine Protein 100 (2+) H Urine Glucose (UA) Negative Urine Ketones Negative Urine Blood Trace H Urine Nitrite Positive H Ur Leukocyte Esterase Negative Urine RBC 0-2 Urine WBC 11-20 H Ur Squamous Epith Cells 0-2 Urine Bacteria 4+ Hyaline Casts 3-5 01/17/23 01/18/23 01/18/23 22:21 04:29 04:29 MCV 87.9 MCH 27.5 MCHC 31.3 RDW 13.4 Plt Count 125 L MPV 11.6 Absolute Nucleated RBC 0.000 Nucleated RBC % (auto) 0.0 PT 17.0 H INR 1.4 H APTT aPTT Heparin Protocol 71.8 Lactic Acid Urine Color Urine Appearance Urine pH Ur Specific [place] Urine Protein Urine Glucose (UA) Urine Ketones Urine Blood Urine Nitrite Ur Leukocyte Esterase Urine RBC Urine WBC Ur Squamous Epith Cells Urine Bacteria Hyaline Casts 01/18/23 04:29 MCV MCH MCHC RDW Plt Count MPV Absolute Nucleated RBC Nucleated RBC % (auto) PT INR APTT aPTT Heparin Protocol 45.0 L D Lactic Acid Urine Color Urine Appearance Urine pH Ur Specific [place] Urine Protein Urine Glucose (UA) Urine Ketones Urine Blood Urine Nitrite Ur Leukocyte Esterase Urine RBC Urine WBC Ur Squamous Epith Cells Urine Bacteria Hyaline Casts Assessment and Plan (1) Pulmonary emboli: Status: Acute Plan 82 year female with HTN, COPD, CHF, CAD with NSTEMI in September 2021 underwent cardiac cath at [facility] and noted to have 100% LCX oclusion here with SOB and found to have bilateral high burden PE High Gary bilateral Pulmonary embolism-hemodynamically stable, I agree with IV heparin, may need secondary work work such as ruling out malignancy, heme consult. BRO--likely pre renal, IV and repeat labs tomorrow Type 2 AL--with mild increase in troponin d/t PE, no further cardiac at this point but will obtain echo given heart strain HTN--BP within normal, she last filled Lisinopril and metoprolol last year (not on meds right now) COPD--no acute exacerbation, h/o HFpEF--no deceompensation DVT Prophylaxis: Heparin Full code Admission for at least 2 midnights for treatement of high burden PE with IV heparin and monitoring of levels Plan discussed with patient and son at bedside and all questions answered Time Spent With Patient Time: Total time managing care of this patient today ____ minutes. Quality Stroke Does the patient have a stroke diagnosis?: No VTE Prior VTE?: No VTE Risk Level:: Medical - moderate - high VTE Device Contraindication: Treatment Not Indicated VTE Drug Contraindication: N/A - Med Ordered
[2023-01-18] MEDS: Heparin Sodium,Porcine/1/2NS 25,000 UNIT/250 ML IV.SOLN 15.76 UNIT IVCONT (10:34)
[2023-01-18] MEDS: 0.9 % Sodium Chloride Flush 3 ML SYRINGE IVFLUSH (10:41)
[2023-01-18] MEDS: Metoprolol Tartrate 25 MG TABLET PO ×2 (10:45→21:06)
[2023-01-18 11:39] VITALS: BP 102/74; PULSE 91; RESP 20; TEMP 36.1; O2SAT 94
[2023-01-18 12:35] LABS: PTT Heparin Drip 107.7 SEC (53-77.9)
--- NOTE | 2023-01-18 13:45 | PM.HEMONCCN ---
Subjective - Subjective Chief complaint: Pain all over, shortness of breath Patient: new to practice Consult date: 01/18/23 Primary Care Provider: Chester Delcid MD Medical Summary: Diagnosis: Extensive bilateral pulmonary emboli 01/2023 HPI - Consult Narrative Reason for consult: Bilateral pulmonary emboli Narrative: Denice Sanchez is a 82 year old female with multiple medical problems including COPD, hypertension, CHF, CAD, NSTEMI in September 2021 who is currently admitted with bilateral extensive pulmonary emboli. She presented with pain in her shoulder, back and chest overnight. She was crying out in pain, the neighbors heard her and call the police. She was brought by ambulance to the emergency department. She says she fell out of bed a few days ago and hit her head. She has had no surgery, does not recall any pain or swelling in her legs. She is a chronic smoker at least a pack a day. She has been sedentary, uses the walker at home. Frida gets around much. She is up-to-date with colonoscopy but has not had a mammogram in many years. She reports weight gain over the years. No other complaints such as loss of appetite, fevers, chills or night sweats. She has been started on IV heparin and she reports some improvement in her pain. She feels tired. She has never been diagnosed with a blood clot before and there is no personal history of malignancy. Review of Systems - Constitutional Reports as per HPI, Reports fatigue, Reports malaise, Denies poor appetite - Cardiovascular Reports no additional cardiovascular complaints - Respiratory Reports no additional respiratory complaints - Gastrointestinal Reports no additional gastrointestinal complaints [facility] Medical History: Medical History (Last Updated 01/17/23 @ 15:22 by Jeevan Blackwell MD) CAD (coronary artery disease) CHF (congestive heart failure) COPD (chronic obstructive pulmonary disease) Hypertension Family History: Family History (Last Reviewed 01/17/23 @ 08:52 by Jonnathan Bhatti MD) Mother [place] (myocardial infarction) Surgical History: Surgical History (Last Reviewed 01/17/23 @ 08:52 by Jonnathan Bhatti MD) History of cholecystectomy History of colostomy reversal Social History: Social History (Last Reviewed 01/17/23 @ 08:52 by Jonnathan Bhatti MD) Living Situation History: Household Members: Children Household Members Other:: son Housing: Condominium Do you presently have visiting nurse or other home services: No Alcohol History Details: 1. How often do you have a drink containing alcohol?: a. Never AUDIT-C Alcohol total score: 0 Currently Displaying Signs/Symptoms of Alcohol Withdrawal: No Tobacco History: Patient Tobacco Use Status: Current everyday Tobacco Tobacco use type: Cigarette Cigarette Packs Per Day: 1 Smoked in Last 30 Days: Yes Patient Interested in Nicotine Replacement: No Patient Given Instructions on How to Stop Smoking: No Patient Given Instructions on How to Stop Smoking comment: patient refused Substance Use History: Use of substances other than those prescribed or required for medical reasons: No Currently Displaying Signs/Symptoms of Drug Intoxication Withdrawal: No Domestic Abuse History: Have you been hit, kicked, punched, or otherwise hurt by someone within the past year? If so, by whom?: No Do you feel safe in your current relationship?: No Current Relationship Is there a partner from a previous relationship who is making you feel unsafe now?: No Are you made to feel afraid or neglected: No Healthcare Practices: Synagogue Healthcare Practices: buddhism Advance Directives: Advance Directives: Yes Advance Directives on File: Yes Advance Directives Date on File: 09/21/21 Homicidal Assessment: Do you have thoughts of harming others: None Nutrition Assessment: Recently lost weight without trying: No Patient : No Occupation Assessmet: service: No Current occupational status: retired Home Medications and Allergies Current Medications: Current Medications Acetaminophen (Acetaminophen 325 Mg Tablet) 650 mg PO Q6H PRN PRN Reason: Pain, Mild (Pain Scale 1-3) Last Admin: 01/18/23 06:13 Dose: 650 mg Diphenhydramine HCl (Diphenhydramine Hcl 25 Mg Capsule) 25 mg PO TID PRN PRN Reason: Itching Heparin Sodium (Porcine) (Heparin Sodium,Porcine 5,000 Unit/Ml Vial) 3,900 unit 40 unit/kg (3900 unit) IVPUSH PROTOCOL BOLUS PRN; Protocol PRN Reason: 40 unit/kg - Heparin Protocol Last Admin: 01/18/23 05:40 Dose: 3,900 unit Heparin Sodium (Porcine) (Heparin Sodium,Porcine 5,000 Unit/Ml Vial) 7,900 unit 80 unit/kg (7900 unit) IVPUSH PROTOCOL BOLUS PRN; Protocol PRN Reason: 80 unit/kg - Heparin Protocol Heparin Sodium/Sodium Chloride (Heparin Sodium,Porcine/1/2ns) 25,000 unit in 250 mls @ 0 mls/hr IVCONT .Q0M [facility]; Protocol Last Titration: 01/18/23 13:35 Dose: 13 units/kg/hr, 12.81 mls/hr Sodium Chloride (Ns) 1,000 mls @ 70 mls/hr IVCONT .[id number] [facility] Last Admin: 01/18/23 05:50 Dose: 70 mls/hr Melatonin (Melatonin 3 Mg Tablet) 6 mg PO BEDTIME PRN PRN Reason: Insomnia Last Admin: 01/17/23 21:17 Dose: 6 mg Metoprolol Tartrate (Metoprolol Tartrate 25 Mg Tablet) 25 mg PO BID [facility]; Protocol Last Admin: 01/18/23 10:45 Dose: 25 mg Oxycodone HCl (Oxycodone Hcl Immed Release 5 Mg Tablet) 5 mg PO Q6H PRN PRN Reason: Pain, Moderate(Pain Scale 4-6) Last Admin: 01/18/23 10:53 Dose: 5 mg Oxycodone HCl (Oxycodone Hcl Immed Release 5 Mg Tablet) 5 mg PO Q6H PRN PRN Reason: Pain, Severe (Pain Scale 7-10) Pharmacy Consult (Consult Rx Perform Med Rec) 1 each MISCELLANE ONCE PRN PRN Reason: Consult order Sodium Chloride (0.9 % Sodium Chloride Flush 3 Ml Syringe) 3 ml IVFLUSH QSHIFT [facility] Last Admin: 01/18/23 10:41 Dose: 3 ml Home Medications Medication Instructions Recorded Confirmed Type diphenhydramine HCl 25 mg tablet 25 mg PO TID PRN Itching 01/17/23 01/17/23 History (Benadryl Allergy) Allergies Allergy/AdvReac Type Severity Reaction Status Date / Time onion [ONION] Allergy Unknown NAUSEA & Verified 01/17/23 08:29 VOMITING PEPPERS, MENDOZA Allergy Unknown NAUSEA & Uncoded 03/05/20 15:05 VOMITING Physical Exam Vital signs: Vital Signs Temp 97.0 F 01/18/23 11:39 Pulse 91 01/18/23 11:39 Resp 20 01/18/23 11:39 BP 102/74 01/18/23 11:39 Pulse Ox 94 01/18/23 11:39 O2 Del Method Nasal Cannula 01/18/23 11:39 O2 Flow Rate 2 01/18/23 11:39 Intake & Output 01/17/23 01/18/23 01/18/23 18:59 06:59 18:59 Intake Total 1350.377 / 1350.377 93.451 / 93.451 Output Total 0 / 0 Balance 1350.377 / 1350.377 93.451 / 93.451 Urine Output (Average ml/kg/hr) 0.00 0.00 Intake: Intake, Oral Amount 240 / 240 Intake, IV Amount 1110.377 / 1110.377 93.451 / 93.451 0.9 % Sodium Chloride 1,000 ml 922.833 / 922.833 @ 70 mls/hr IVCONT .[id number] [facility] Rx#:[id number] Heparin Sodium,Porcine/1/2NS 25 187.544 / 187.544 93.451 / 93.451 ,000 unit In 250 ml @ Per Protocol IVCONT .Q0M [facility] Rx#: [id number] Output: Output, Urine Amount 0 / 0 Other: Last Bowel Movement 01/15/23 Weight 98.5 kg 96.9 kg Weight in Grams [id number] Weight 96.9 kg - Constitutional Present: mild distress, obese - Routine HEENT Exam Head: Present: normal inspection Eye: Present: PERRL - Routine Neck Exam Present: trachea midline. Absent: lymphadenopathy - Routine Respiratory Exam Present: decreased breath sounds. Absent: accessory muscle use - Routine Cardiovascular Exam Cardiovascular: Present: S1, S2 - Routine Abdominal Exam Present: soft - Routine Extremities Exam Absent: pedal edema - Routine Skin Exam Present: intact. Absent: cyanosis Hem/Onc Consult Result - Labs CBC & Chem 7: 01/18/23 04:29 01/17/23 08:40 Labs: Short CBC 01/18/23 Range/Units 04:29 WBC 8.3 (4.8-10.8) X10*3/uL Hgb 12.5 (12.0-16.0) g/dl Hct 40.0 (37.0-47.0) % Plt Count 125 L (160-400) X10*3/uL Urine 01/17/23 Range/Units 20:02 Urine Color Dark Yellow Urine Appearance Clear Urine pH 5.5 (5.0-9.0) Ur Specific [place] >= 1.030 H (1.005-1.025) Urine Protein 100 (2+) H (Neg-Trace) mg/dL Urine Glucose (UA) Negative (Negative) mg/dL Assessment and Plan Patient Active problem list reviewed?: Yes (1) Pulmonary emboli Status: Acute Assessment and plan: 1. This is a 82-year-old woman with multiple medical problems including CAD, NSTEMI, COPD and a chronic smoker now presenting with extensive bilateral pulmonary emboli. CT angiogram performed 01/17/23 shows extensive bilateral pulmonary emboli involving all lobes of both lungs. No suspicious lung nodules or lymphadenopathy. There is evidence of right heart strain. Risk factors appear to be sedentary lifestyle, recent fall and smoking history. There is no personal or family history of thromboembolism. No symptoms to suggest underlying malignancy. I agree with unfractionated heparin for now. Hypoxemia has improved, she is hemodynamically stable. Echocardiogram is pending. She can be switched to oral anticoagulant such as Eliquis in a few days when her oxygenation is better. She was strongly advised to quit smoking. Thrombophilia workup is not indicated at this time. Thank you for this consultation. - Time Spent With Patient Time Spent with Patient (in minutes): 20
[2023-01-18 16:00] VITALS: BP 164/76; PULSE 74; RESP 18; TEMP 35.9; O2SAT 91
[2023-01-18 19:53] VITALS: BP 119/72; PULSE 84; RESP 18; TEMP 36.1; O2SAT 92
[2023-01-18 20:50] LABS: PTT Heparin Drip 32.2 SEC (53-77.9)
--- NOTE | 2023-01-18 20:57 | PC.NURSE ---
Right lower ribs/RUQ pain persisted today, 02/26, continued to medicate with PRN oxycodone per emar, Pain is sharp, changes with position change and deep inspiration, patient feels it could be gas, discussed with MD and new order for PRN simethicone.
[2023-01-18] MEDS: Heparin Sodium,Porcine 5,000 UNIT/ML VIAL 7900 UNIT IVPUSH (21:07)
[2023-01-18 23:53] VITALS: BP 141/73; PULSE 84; RESP 24; TEMP 36.4; O2SAT 93
[2023-01-19] MEDS: oxyCODONE HCl Immed Release 5 MG TABLET PO ×3 (00:50→16:19)
[2023-01-19] MEDS: Acetaminophen 325 MG TABLET 650 MG PO ×3 (00:51→16:19)
[2023-01-19 03:29] LABS: PTT Heparin Drip > 200.0 SEC (53-77.9)
[2023-01-19 03:33] VITALS: BP 123/72; PULSE 71; RESP 20; TEMP 36.4; O2SAT 93
[2023-01-19] MEDS: 0.9 % Sodium Chloride 1,000 ML 70 ML IVCONT (03:34)
[2023-01-19 05:27] LABS: PTT Heparin Drip 127.8 SEC (53-77.9)
[2023-01-19 06:05] LABS: PTT Heparin Drip 55.7 SEC (53-77.9)
[2023-01-19 07:32] VITALS: BP 115/72; PULSE 67; RESP 22; TEMP 36.1; O2SAT 92
[2023-01-19] MEDS: Heparin Sodium,Porcine/1/2NS 25,000 UNIT/250 ML IV.SOLN 12.81 UNIT IVCONT (08:11)
[2023-01-19] MEDS: Metoprolol Tartrate 25 MG TABLET PO ×2 (08:12→20:28)
--- NOTE | 2023-01-19 08:47 | P.PNIM_ITS ---
Subjective Subjective Date of Service: 01/19/23 Interval History: f/u on pulmonary embolism less sob, shoulder and back pain is better Physical Exam Vital Signs: Vital Signs: Last Vital Signs Temp 97.0 F 01/19/23 07:32 Pulse 67 01/19/23 07:32 Resp 22 H 01/19/23 07:32 BP 115/72 01/19/23 07:32 Pulse Ox 92 01/19/23 07:32 O2 Del Method Nasal Cannula 01/19/23 07:32 O2 Flow Rate 1 01/19/23 07:32 BMI result Body Mass Index 39.1 Const: Other: General: AO X 3, no acute distress Resp: CTA bilateral CVS: S1,S2,RRR, 2+ leg edema GI: +BS, NT, no distention Skin: No rash Neuro: motor grossly intact Psych: appropriate affect Objective Data Active Medications Acetaminophen (Acetaminophen 325 Mg Tablet) 650 mg PO Q6H PRN PRN Reason: Pain, Mild (Pain Scale 1-3) Last Admin: 01/19/23 08:12 Dose: 650 mg Documented By: CAITLYN Diphenhydramine HCl (Diphenhydramine Hcl 25 Mg Capsule) 25 mg PO TID PRN PRN Reason: Itching Heparin Sodium (Porcine) (Heparin Sodium,Porcine 5,000 Unit/Ml Vial) 3,900 unit 40 unit/kg (3900 unit) IVPUSH PROTOCOL BOLUS PRN; Protocol PRN Reason: 40 unit/kg - Heparin Protocol Last Admin: 01/18/23 05:40 Dose: 3,900 unit Documented By: LUISA Heparin Sodium (Porcine) (Heparin Sodium,Porcine 5,000 Unit/Ml Vial) 7,900 unit 80 unit/kg (7900 unit) IVPUSH PROTOCOL BOLUS PRN; Protocol PRN Reason: 80 unit/kg - Heparin Protocol Last Admin: 01/18/23 21:07 Dose: 7,900 unit Documented By: DINESH Heparin Sodium/Sodium Chloride (Heparin Sodium,Porcine/1/2ns) 25,000 unit in 250 mls @ 0 mls/hr IVCONT .Q0M [facility]; Protocol Last Admin: 01/19/23 08:11 Dose: 13 units/kg/hr, 12.81 mls/hr Documented By: CAITLYN Co-signed By: DELANEY Melatonin (Melatonin 3 Mg Tablet) 6 mg PO BEDTIME PRN PRN Reason: Insomnia Last Admin: 01/17/23 21:17 Dose: 6 mg Documented By: LUISA Metoprolol Tartrate (Metoprolol Tartrate 25 Mg Tablet) 25 mg PO BID [facility]; Protocol Last Admin: 01/19/23 08:12 Dose: 25 mg Documented By: CAITLYN Oxycodone HCl (Oxycodone Hcl Immed Release 5 Mg Tablet) 5 mg PO Q6H PRN PRN Reason: Pain, Moderate(Pain Scale 4-6) Last Admin: 01/19/23 08:12 Dose: 5 mg Documented By: CAITLYN Oxycodone HCl (Oxycodone Hcl Immed Release 5 Mg Tablet) 5 mg PO Q6H PRN PRN Reason: Pain, Severe (Pain Scale 7-10) Last Admin: 01/18/23 17:19 Dose: 5 mg Documented By: HEIDI Pharmacy Consult (Consult Rx Perform Med Rec) 1 each MISCELLANE ONCE PRN PRN Reason: Consult order Simethicone (Simethicone 80 Mg Tab.Chew) 80 mg PO QIDWMHS PRN PRN Reason: Gas Sodium Chloride (0.9 % Sodium Chloride Flush 3 Ml Syringe) 3 ml IVFLUSH QSNVFT [facility] Last Admin: 01/19/23 07:57 Dose: Not Given Documented By: CAITLYN Non-Admin Reason: See Note Labs 01/18/23 04:29 01/17/23 08:40 Labs: Laboratory Results - last 24 hr 01/18/23 01/18/23 01/19/23 11:52 19:48 02:45 aPTT Heparin Protocol 107.7 H* D 32.2 L D > 200.0 H* D 01/19/23 01/19/23 04:17 05:44 aPTT Heparin Protocol 127.8 H* D 55.7 D Microbiology Microbiology Results: Microbiology 01/17/23 20:02 Urine Culture - Preliminary Urine clean catch - Urine zarate top Gram negative sloane 01/17/23 09:37 Blood Culture - Preliminary Blood - Venous No growth after 24 hours. 01/17/23 09:37 Blood Culture - Preliminary Blood - Venous No growth after 24 hours. Assessment and Plan (1) Pulmonary emboli: Status: Acute Plan 82 year female with HTN, COPD, CHF, CAD with NSTEMI in September 2021 underwent cardiac cath at [facility] and noted to have 100% LCX oclusion here with SOB and found to have bilateral high burden PE High [place] bilateral Pulmonary embolism-hemodynamically stable, Hypoxia persists but better, continue O2, continue IV heparin for 1more day then change to eliquis, hematology recommends no further work up BRO--likely pre renal, IV and repeat labs today, stop IVF Type 2 ID--with mild increase in troponin d/t PE, no further cardiac at this point but will obtain echo given heart strain HTN--BP within normal, she last filled Lisinopril and metoprolol last year (not on meds right now) COPD--no acute exacerbation, h/o HFpEF--some leg edema now may need lasix, but wait for bmp DVT Prophylaxis: Heparin Full code need for inpatient: treatement of high burden PE with IV heparin and monitoring of levels Plan discussed with patient and son at bedside and all questions answered Time Spent With Patient Time: Total time managing care of this patient today ____ minutes. Quality Stroke Does the patient have a stroke diagnosis?: No VTE Prior VTE?: No VTE Risk Level:: Medical - moderate - high VTE Device Contraindication: Treatment Not Indicated VTE Drug Contraindication: N/A - Med Ordered
[2023-01-19 09:32] LABS: Anion Gap 16 (12-20); Blood Urea Nitrogen 34 mg/dL (9-16); Calcium 8.9 mg/dL (8.4-10.2); Carbon Dioxide 22 mmol/L (22-29); Chloride 103 mmol/L (96-108); Creatinine Clr Calc Pharmacy 33.5; Estimated Glomerular Filt Rate 35; Glucose Random 128 mg/dL (60-115); Potassium 3.9 mmol/L (3.3-5.1); Sodium 137 mmol/L (135-145)
[2023-01-19 11:23] VITALS: BP 106/59; PULSE 66; RESP 18; TEMP 36.4; O2SAT 91
[2023-01-19 13:09] LABS: PTT Heparin Drip 79.1 SEC (53-77.9)
[2023-01-19 16:00] VITALS: BP 118/72; PULSE 64; RESP 18; TEMP 36.1; O2SAT 94
[2023-01-19] MEDS: diphenhydrAMINE HCL 25 MG CAPSULE PO (16:12)
[2023-01-19 19:40] LABS: PTT Heparin Drip 74.3 SEC (53-77.9)
[2023-01-19 20:00] VITALS: BP 111/66; PULSE 66; RESP 18; TEMP 36.4; O2SAT 98
[2023-01-19] MEDS: 0.9 % Sodium Chloride Flush 3 ML SYRINGE IVFLUSH (20:28)
[2023-01-19] MEDS: Melatonin 3 MG TABLET 6 MG PO (20:34)
[2023-01-20] VITALS: BP 108/66; PULSE 60; RESP 20; TEMP 36.1; O2SAT 94
[2023-01-20 02:56] LABS: PTT Heparin Drip 57.1 SEC (53-77.9)
[2023-01-20 04:00] VITALS: BP 109/68; PULSE 64; RESP 20; TEMP 36.1; O2SAT 93
[2023-01-20] MEDS: Heparin Sodium,Porcine/1/2NS 25,000 UNIT/250 ML IV.SOLN 10.84 UNIT IVCONT (05:23)
[2023-01-20 07:31] VITALS: BP 116/67; PULSE 65; RESP 18; TEMP 36.4; O2SAT 92
[2023-01-20] MEDS: Metoprolol Tartrate 25 MG TABLET PO ×2 (08:06→22:32)
[2023-01-20 08:42] LABS: PTT Heparin Drip 46.3 SEC (53-77.9)
[2023-01-20] MEDS: Heparin Sodium,Porcine 5,000 UNIT/ML VIAL 3900 UNIT IVPUSH (09:41)
--- NOTE | 2023-01-20 11:26 | HO.PM.IMPN ---
Subjective Subjective Date of Service: 01/20/23 Interval History: f/u on pulmonary embolism no sob, generally sore Physical Exam Vital Signs: Vital Signs: Last Vital Signs Temp 97.5 F 01/20/23 07:31 Pulse 65 01/20/23 07:31 Resp 18 01/20/23 07:31 BP 116/67 01/20/23 07:31 Pulse Ox 92 01/20/23 07:31 O2 Del Method Nasal Cannula 01/20/23 07:31 O2 Flow Rate 2 01/20/23 07:31 BMI result Body Mass Index 39.1 Const: Other: General: AO X 3, no acute distress Resp: CTA bilateral CVS: S1,S2,RRR, 2+ leg edema GI: +BS, NT, no distention Skin: No rash Neuro: motor grossly intact Psych: appropriate affect Objective Data Active Medications Acetaminophen (Acetaminophen 325 Mg Tablet) 650 mg PO Q6H PRN PRN Reason: Pain, Mild (Pain Scale 1-3) Last Admin: 01/19/23 16:19 Dose: 650 mg Documented By: CAITLYN Diphenhydramine HCl (Diphenhydramine Hcl 25 Mg Capsule) 25 mg PO TID PRN PRN Reason: Itching Last Admin: 01/19/23 16:12 Dose: 25 mg Documented By: CAITLYN Heparin Sodium (Porcine) (Heparin Sodium,Porcine 5,000 Unit/Ml Vial) 3,900 unit 40 unit/kg (3900 unit) IVPUSH PROTOCOL BOLUS PRN; Protocol PRN Reason: 40 unit/kg - Heparin Protocol Last Admin: 01/20/23 09:41 Dose: 3,900 unit Documented By: MARTHA Heparin Sodium (Porcine) (Heparin Sodium,Porcine 5,000 Unit/Ml Vial) 7,900 unit 80 unit/kg (7900 unit) IVPUSH PROTOCOL BOLUS PRN; Protocol PRN Reason: 80 unit/kg - Heparin Protocol Last Admin: 01/18/23 21:07 Dose: 7,900 unit Documented By: DINESH Heparin Sodium/Sodium Chloride (Heparin Sodium,Porcine/1/2ns) 25,000 unit in 250 mls @ 0 mls/hr IVCONT .Q0M [facility]; Protocol Last Titration: 01/20/23 09:36 Dose: 13 units/kg/hr, 12.81 mls/hr Documented By: CTORRZ Co-signed By: CHRISTINA Melatonin (Melatonin 3 Mg Tablet) 6 mg PO BEDTIME PRN PRN Reason: Insomnia Last Admin: 01/19/23 20:34 Dose: 6 mg Documented By: JOSE Metoprolol Tartrate (Metoprolol Tartrate 25 Mg Tablet) 25 mg PO BID [facility]; Protocol Last Admin: 01/20/23 08:06 Dose: 25 mg Documented By: CHRISTINA Oxycodone HCl (Oxycodone Hcl Immed Release 5 Mg Tablet) 5 mg PO Q6H PRN PRN Reason: Pain, Moderate(Pain Scale 4-6) Last Admin: 01/19/23 16:19 Dose: 5 mg Documented By: SOFFAA Oxycodone HCl (Oxycodone Hcl Immed Release 5 Mg Tablet) 5 mg PO Q6H PRN PRN Reason: Pain, Severe (Pain Scale 7-10) Last Admin: 01/18/23 17:19 Dose: 5 mg Documented By: HEIDI Pharmacy Consult (Consult Rx Perform Med Rec) 1 each MISCELLANE ONCE PRN PRN Reason: Consult order Simethicone (Simethicone 80 Mg Tab.Chew) 80 mg PO QIDWMHS PRN PRN Reason: Gas Sodium Chloride (0.9 % Sodium Chloride Flush 3 Ml Syringe) [facility] Last Admin: 01/20/23 10:55 Dose: Not Given Documented By: CHRISTINA Non-Admin Reason: IV Running Labs 01/18/23 04:29 01/19/23 Unknown Labs: Laboratory Results - last 24 hr 01/19/23 01/19/23 01/20/23 12:47 19:00 02:28 aPTT Heparin Protocol 79.1 H D 74.3 57.1 D 01/20/23 07:21 aPTT Heparin Protocol 46.3 L Microbiology Microbiology Results: Microbiology 01/17/23 20:02 Urine Culture - Final Urine clean catch - Urine zarate top Escherichia coli 01/17/23 09:37 Blood Culture - Preliminary Blood - Venous No growth after 48 hours. 01/17/23 09:37 Blood Culture - Preliminary Blood - Venous No growth after 48 hours. Assessment and Plan (1) Pulmonary emboli: Status: Acute Plan 82 year female with HTN, COPD, CHF, CAD with NSTEMI in September 2021 underwent cardiac cath at [facility] and noted to have 100% LCX oclusion here with SOB and found to have bilateral high burden PE High [place] bilateral Pulmonary embolism-hemodynamically stable, Hypoxia persists but better, continue O2, continue IV heparin, change to eliquis today, hematology recommends no further work up BRO--likely pre renal, IV and repeat labs today, Type 2 PA--with mild increase in troponin d/t PE, no further cardiac at this point but will obtain echo given heart strain HTN--BP within normal, she last filled Lisinopril and metoprolol last year (not on meds right now) COPD--no acute exacerbation, h/o HFpEF--some leg edema now may need lasix, but wait for bmp DVT Prophylaxis: Heparin Full code need for inpatient: treatement of high burden PE with IV heparin and monitoring of levels Plan discussed with patient and son at bedside and all questions answered will need PT before d/c Time Spent With Patient Time: Total time managing care of this patient today ____ minutes. Quality Stroke Does the patient have a stroke diagnosis?: No VTE Prior VTE?: No VTE Risk Level:: Medical - moderate - high VTE Device Contraindication: Treatment Not Indicated VTE Drug Contraindication: N/A - Med Ordered
[2023-01-20 11:36] VITALS: BP 115/57; PULSE 69; RESP 16; TEMP 36.4; O2SAT 95
[2023-01-20] MEDS: diphenhydrAMINE HCL 25 MG CAPSULE PO (14:23)
[2023-01-20] MEDS: Apixaban 5 MG TABLET 10 MG PO (14:59)
[2023-01-20 15:48] VITALS: BP 118/67; PULSE 65; RESP 15; TEMP 36.2; O2SAT 88
--- NOTE | 2023-01-20 15:50 | MHC.CM.PN ---
CM RECEIVED A CALL FROM PTS [id number], NOLBERTO WHO REPORTS SHE IS CONCERNED ABOUT THE PTS SAFETY AT HOME SHE REPORTS THE PT CONTINUES TO REFUSE REHAB BUT SHE WAS UNSURE IF THE HOSP[ITAL HAD ANY RECOURSE SHE WAS INFORMED THE PT CAN MAKE HER OWN DECISIONS EVEN IF THEY APPEAR TO BE BAD ONES SHE REPORTS SHE WILL NOT BE ABLE TO PROVIDE MUCH ASSISTANCE TO THE PT SHE IS RAISING TWO GRAND KIDS SHE IS AWARE STR WILL BE DISCUSSED WITH PT BUT IF SHE REFUSES, VNA WILL BE OFFERED NOLBERTO REPORTS THE PT HAS STAIRS TO GET INTO AND OUT OF HER APARTMENT, SO SHE IS CONCERNED IF SHE HAS AFTERCARE APPTS, SHE WILL BE UNABLE TO GET TO THEM. SHE SAYS IN THE PAST, PT WAS SUPPOSED TO GO TO CARDIAC APPTS FOLLOWING A DC, HOWEVER THE TRANSPORT VIA BLS WAS SO EXPENSIVE, SHE CHOSE NOT TO GO. SHE IS WORRIED PT WILL AGAIN NEGLECT HER FOLLOW UP NEEDS
[2023-01-20 16:34] LABS: PTT Heparin Drip 35.6 SEC (53-77.9)
[2023-01-20 19:33] VITALS: BP 112/70; PULSE 83; RESP 15; TEMP 36; O2SAT 91
[2023-01-20] MEDS: 0.9 % Sodium Chloride Flush 3 ML SYRINGE IVFLUSH (22:32)
[2023-01-20] MEDS: Melatonin 3 MG TABLET 6 MG PO (22:50)
[2023-01-21] VITALS (7 sets, daily range): BP systolic 114–136; BP diastolic 58–76; PULSE 61–78; RESP 14–20; TEMP 20.9–37; O2SAT 92–99
[2023-01-21] MEDS: Apixaban 5 MG TABLET 10 MG PO ×2 (01:15→12:13)
[2023-01-21] MEDS: Metoprolol Tartrate 25 MG TABLET PO ×2 (09:29→20:21)
[2023-01-21] MEDS: 0.9 % Sodium Chloride Flush 3 ML SYRINGE IVFLUSH ×3 (09:29→20:21)
[2023-01-21] MEDS: diphenhydrAMINE HCL 25 MG CAPSULE PO ×2 (09:33→20:22)
--- NOTE | 2023-01-21 11:20 | P.PNIM_ITS ---
Subjective Subjective Date of Service: 01/21/23 Interval History: f/u on pulmonary embolism feels better and would like to go [place] Review of Systems no sob or chest pain Physical Exam Vital Signs: Vital Signs: Last Vital Signs Temp 97.2 F 01/21/23 07:30 Pulse 66 01/21/23 10:34 Resp 18 01/21/23 07:30 BP 114/65 01/21/23 10:34 Pulse Ox 98 01/21/23 10:34 O2 Del Method Nasal Cannula 01/21/23 07:30 O2 Flow Rate 2 01/21/23 07:30 BMI result Body Mass Index 39.1 Const: Other: General: AO X 3, no acute distress Resp: CTA bilateral CVS: S1,S2,RRR, 2+ leg edema GI: +BS, NT, no distention Skin: No rash Neuro: motor grossly intact Psych: appropriate affect Objective Data Active Medications Acetaminophen (Acetaminophen 325 Mg Tablet) 650 mg PO Q6H PRN PRN Reason: Pain, Mild (Pain Scale 1-3) Last Admin: 01/19/23 16:19 Dose: 650 mg Documented By: CAITLYN Apixaban (Apixaban 5 Mg Tablet) 10 mg PO Q12H [facility] Stop: 01/27/23 01:16 Last Admin: 01/21/23 01:15 Dose: 10 mg Documented By: YAMILET Diphenhydramine HCl (Diphenhydramine Hcl 25 Mg Capsule) 25 mg PO TID PRN PRN Reason: Itching Last Admin: 01/21/23 09:33 Dose: 25 mg Documented By: DALI Melatonin (Melatonin 3 Mg Tablet) 6 mg PO BEDTIME PRN PRN Reason: Insomnia Last Admin: 01/20/23 22:50 Dose: 6 mg Documented By: YAMILET Metoprolol Tartrate (Metoprolol Tartrate 25 Mg Tablet) 25 mg PO BID [facility]; Protocol Last Admin: 01/21/23 09:29 Dose: 25 mg Documented By: DALI Oxycodone HCl (Oxycodone Hcl Immed Release 5 Mg Tablet) 5 mg PO Q6H PRN PRN Reason: Pain, Moderate(Pain Scale 4-6) Last Admin: 01/19/23 16:19 Dose: 5 mg Documented By: CAITLYN Oxycodone HCl (Oxycodone Hcl Immed Release 5 Mg Tablet) 5 mg PO Q6H PRN PRN Reason: Pain, Severe (Pain Scale 7-10) Last Admin: 01/18/23 17:19 Dose: 5 mg Documented By: HEIDI Pharmacy Consult (Consult Rx Perform Med Rec) 1 each MISCELLANE ONCE PRN PRN Reason: Consult order Simethicone (Simethicone 80 Mg Tab.Chew) 80 mg PO QIDWMHS PRN PRN Reason: Gas Sodium Chloride (0.9 % Sodium Chloride Flush 3 Ml Syringe) 3 ml IVFLUSH QSHIFT [facility] Last Admin: 01/21/23 09:29 Dose: 3 ml Documented By: PHANLYM Labs 01/18/23 04:29 01/19/23 Unknown Labs: Laboratory Results - last 24 hr 01/20/23 15:41 aPTT Heparin Protocol 35.6 L D Microbiology Microbiology Results: Microbiology 01/17/23 20:02 Urine Culture - Final Urine clean catch - Urine zarate top Escherichia coli Assessment and Plan (1) Pulmonary emboli: Status: Acute Plan 82 year female with HTN, COPD, CHF, CAD with NSTEMI in September 2021 underwent cardiac cath at [facility] and noted to have 100% LCX oclusion here with SOB and found to have bilateral high burden PE [place] bilateral Pulmonary embolism-hemodynamically stable, Hypoxia persists but better, continue O2 sat is much better, continue IV heparin, changed to eliquis 01/20, hematology recommends no further work up BRO--likely pre renal, repeat labs today, Type 2 ID--with mild increase in troponin d/t PE, no further cardiac at this point but will obtain echo given heart strain HTN--BP within normal, she last filled Lisinopril and metoprolol last year (not on meds right now) COPD--no acute exacerbation, h/o HFpEF--some leg edema now may need lasix, IV lasix x 1 today DVT Prophylaxis: Eliquis Full code need for inpatient: treatement of high burden PE with IV heparin and monitoring of levels Plan discussed with patient and son at bedside and all questions answered PT recommends STR, but she's refusing , will discuss with son Time Spent With Patient Time: Total time managing care of this patient today ____ minutes. Quality Stroke Does the patient have a stroke diagnosis?: No VTE Prior VTE?: No VTE Risk Level:: Medical - moderate - high VTE Device Contraindication: Treatment Not Indicated VTE Drug Contraindication: N/A - Med Ordered
[2023-01-21] MEDS: Furosemide 40 MG/4 ML VIAL IVPUSH (12:13)
[2023-01-21 12:19] LABS: Anion Gap 13 (12-20); Blood Urea Nitrogen 36 mg/dL (9-16); Carbon Dioxide 26 mmol/L (22-29); Chloride 103 mmol/L (96-108); Creatinine Clr Calc Pharmacy 34.7; Estimated Glomerular Filt Rate 37; Glucose Random 111 mg/dL (60-115); Potassium 4.1 mmol/L (3.3-5.1); Sodium 138 mmol/L (135-145)
[2023-01-21] MEDS: Melatonin 3 MG TABLET 6 MG PO (20:22)
[2023-01-22] VITALS: BP 140/70; PULSE 75; RESP 20; TEMP 36.1; O2SAT 96
[2023-01-22] MEDS: Apixaban 5 MG TABLET 10 MG PO ×2 (00:30→14:17)
--- NOTE | 2023-01-22 01:36 | PC.NURSE ---
[facility] 01/21 @ 9611.
[2023-01-22 04:00] VITALS: BP 128/65; PULSE 69; RESP 20; TEMP 36.1; O2SAT 96
[2023-01-22 06:15] LABS: Hemoglobin 12.6 g/dl (12.0-16.0); Mean Corpuscular HGB Conc 31.5 g/dl (31.0-35.0); Mean Corpuscular Hemoglobin 28.1 pg (27.0-33.0); Mean Corpuscular Volume 89.1 fL (80.0-98.0); Platelet Count 145 X10*3/uL (160-400); Red Blood Count 4.49 X10*6/uL (4.20-5.50); Red Cell Distribution Width 13.2 % (11.0-16.0); White Blood Count 8.2 X10*3/uL (4.8-10.8)
[2023-01-22 06:28] LABS: Anion Gap 16 (12-20); Blood Urea Nitrogen 36 mg/dL (9-16); Calcium 9.3 mg/dL (8.4-10.2); Carbon Dioxide 26 mmol/L (22-29); Chloride 103 mmol/L (96-108); Estimated Glomerular Filt Rate 38; Glucose Random 129 mg/dL (60-115); Sodium 141 mmol/L (135-145)
[2023-01-22 07:55] VITALS: BP 135/68; PULSE 84; RESP 18; TEMP 36.1; O2SAT 92
[2023-01-22] MEDS: oxyCODONE HCl Immed Release 5 MG TABLET PO ×3 (09:02→20:20)
[2023-01-22] MEDS: Metoprolol Tartrate 25 MG TABLET PO ×2 (09:03→20:30)
[2023-01-22] MEDS: 0.9 % Sodium Chloride Flush 3 ML SYRINGE IVFLUSH ×2 (09:03→20:30)
[2023-01-22] MEDS: diphenhydrAMINE HCL 25 MG CAPSULE PO ×2 (09:24→20:30)
--- NOTE | 2023-01-22 10:42 | P.DS_ITS ---
DS: Providers Provider Date of Service: 01/24/23 Date of admission: 01/17/23 16:12 Primary care physician: Chester Delcid MD Consults: 01/18/23 11:10 Consult to Hematology / Oncology Routine Consulting Provider: Ramya Rankin Reason for consultation: extensive PE, advise on treatment and work up Has provider been notified: No DS: Diagnosis Discharge Diagnosis (1) Pulmonary emboli: Status: Acute DS: Summary Hospital Course Hospital Course: Chief Complaint: right shoulder pain, and sob 82 year female with HTN, COPD, CHF, CAD with NSTEMI in September 2021 underwent car diac cath at [facility] and noted to have 100% LCX occlusion and no intervention was performed. She preseted with right? shoulder and back pain that following a fall out of bed 4 weeks ago during which she suffered head banging against her bed, didn't pass out. , she has also been complaining of some shortness of breath for 2 to 3 days now;? CT chest shows?Extensive bilateral pulmonary embo li.; Evidence of right heart strain but she's hemodynamically stable and was initiated on IV heparin from the ED Hospital couse: The patient is fairly sedantary with mutliple comorbidities as noted above and presented with shortness of breath, shoulder and back pain following recent fall.Work up revealed CT chest shows?Extensive bilateral pulmonary emboli.; Evidence of right heart strain but she was hypomdynamically stable, she oninitiated on IV heparin from the emergency room and remained on heparin for 3 days. She was seen by airplane designer Dr. Rankin with no recommendation for additional work up and rather to be treated with the heparin then transition to oral anticoagulant such as eliquis which was started on 01/21. She is fairly deconditioned, assessed by pHysical therapy with recommendation for her to go to rehab but she is adamanatly refusing this. BRO--likely pre renal,? resolved. Type 2 MD--with mild increase in troponin d/t PE, no further cardiac at this point but will obtain echo given heart strain HTN--BP within normal, she last filled Lisinopril and metoprolol last year (not on meds right now), she is started on Metoprolol 25 mg twice daily COPD--no acute exacerbation, h/o HFpEF--some leg edema history of Plaque psoriasis--benadryl for itchiness, or hydrocortizone, she will benefit from dermatology or rheumatology evaluation on outpatient basis She initially refused short term rehab but now is agreable, her PCP is Dr. Delcid who is within the facility and saw her during the visit Time Spent with Patient Time attestation: Total time managing care of this patient today ____ minutes. Discharge coordination time: Greater than 30 minutes Quality: Safe Use of Opioids Does Pt have an Active Cancer Diagnosis on the Problem List?: No Quality: Stroke Does the patient have a stroke diagnosis?: No Physical Exam Vital Signs: Vital Signs: Last Vital Signs Temp 96.9 F 01/22/23 07:55 Pulse 84 01/22/23 07:55 Resp 18 01/22/23 07:55 BP 135/68 01/22/23 07:55 Pulse Ox 92 01/22/23 07:55 O2 Del Method Nasal Cannula 01/22/23 07:55 O2 Flow Rate 2 01/22/23 07:55 BMI result Body Mass Index 39.1 DS: Data Data Completed and Pending Labs on day of discharge: Laboratory Results - last 24 hr 01/21/23 01/22/23 01/22/23 11:51 05:55 05:55 WBC 8.2 RBC 4.49 Hgb 12.6 Hct 40.0 MCV 89.1 MCH 28.1 MCHC 31.5 RDW 13.2 Plt Count 145 L MPV 11.0 Absolute Nucleated RBC 0.000 Nucleated RBC % (auto) 0.0 Sodium 138 141 Potassium 4.1 4.0 Chloride 103 103 Carbon Dioxide 26 26 Anion Gap 13 16 BUN 36 H 36 H Creatinine 1.38 1.33 Estim Creat Clear Calc 34.7 36.0 Estimated GFR 37 38 Random Glucose 111 129 H Calcium 9.0 9.3 Preliminary micro results at discharge 01/17/23 09:37 Blood Culture - Preliminary Blood - Venous No growth after 48 hours. 01/17/23 09:37 Blood Culture - Preliminary Blood - Venous No growth after 48 hours. Discharge Plan Discharge Anticipated Discharge Date/Time: 01/24/23 09:18 Patient Disposition: Home Health Service Discharge Diagnosis: Acute pulmonary embolism, acute kidney injury Referrals: Massiel GONZALEZ [Outside] - 1 Week Chester Delcid MD [Primary Care Provider] - 1 Week Discharge Medications: New Eliquis DVT-PE Treat 30D Start 5 mg (74 tabs) tablets,dose pack 5 - 10 mg PO BID Qty: 74 0RF Rx Instructions: Take 10 mg (2 tabs) twice daily for 4 days, then 5 (1 tab) twice daily after that.. melatonin 3 mg Tablet 6 mg PO BEDTIME PRN (Reason: Insomnia) Qty: 30 0RF Banophen Anti-Itch 2-0.1 % Cream 1 appl topical TID PRN (Reason: Itching) Qty: 1 0RF Protocol: Apply to: Apply to: apply to affected area oxycodone 5 mg Tablet 5 mg PO Q6H PRN (Reason: Pain, Severe (Pain Scale 7-10)) Qty: 20 0RF Rx Instructions: Partial Fill upon patient request. metoprolol tartrate 25 mg Tablet 25 mg PO BID Qty: 60 0RF Protocol: Hold for SBP/HR < HOLD for SBP < : 90 HOLD for HR < : 60 docusate sodium [Col-Rite] 100 mg capsule 100 mg PO BID Qty: 60 0RF Continued acetaminophen 325 mg Tablet 650 mg PO Q6H PRN (Reason: Pain, Mild (Pain Scale 1-3)) Qty: 1 0RF diphenhydramine HCl [Benadryl Allergy] 25 mg Tablet 25 mg PO TID PRN (Reason: Itching) Discharge Orders: Discharge Order (Routine); Ordered 01/24/23 Ordered By: Jeevan Blackwell Diet: Advance to usual diet Activity on Discharge: As tolerated Stand Alone Forms: Patient Portal Discharge page Care Plan Goals: full recovery from pulmonary embolism and fall Health Concerns: pulmonary embolism acute kidney injury fall Plan of Treatment: take Eliquis Take Eliquis 10 mg twice daily for 4 more days (8 more doses), then after that take 5 mg twice daily indefinately Assessment: As above
--- NOTE | 2023-01-22 10:57 | P.PNIM_ITS ---
Subjective Subjective Date of Service: 01/22/23 Interval History: f/u on pulmonary embolism feels better and she continues to say she wants to go home Physical Exam Vital Signs: Vital Signs: Last Vital Signs Temp 96.9 F 01/22/23 07:55 Pulse 84 01/22/23 07:55 Resp 18 01/22/23 07:55 BP 135/68 01/22/23 07:55 Pulse Ox 92 01/22/23 07:55 O2 Del Method Nasal Cannula 01/22/23 07:55 O2 Flow Rate 2 01/22/23 07:55 BMI result Body Mass Index 39.1 Const: Other: General: AO X 3, no acute distress Resp: CTA bilateral CVS: S1,S2,RRR, 2+ leg edema GI: +BS, NT, no distention Skin: No rash Neuro: motor grossly intact Psych: appropriate affect Objective Data Active Medications Acetaminophen (Acetaminophen 325 Mg Tablet) 650 mg PO Q6H PRN PRN Reason: Pain, Mild (Pain Scale 1-3) Last Admin: 01/19/23 16:19 Dose: 650 mg Documented By: CAITLYN Apixaban (Apixaban 5 Mg Tablet) 10 mg PO Q12H [facility] Stop: 01/27/23 01:16 Last Admin: 01/22/23 00:30 Dose: 10 mg Documented By: EBER Diphenhydramine HCl (Diphenhydramine Hcl 25 Mg Capsule) 25 mg PO TID PRN PRN Reason: Itching Last Admin: 01/22/23 09:24 Dose: 25 mg Documented By: HEIDI Melatonin (Melatonin 3 Mg Tablet) 6 mg PO BEDTIME PRN PRN Reason: Insomnia Last Admin: 01/21/23 20:22 Dose: 6 mg Documented By: JUSTO Metoprolol Tartrate (Metoprolol Tartrate 25 Mg Tablet) 25 mg PO BID [facility]; Protocol Last Admin: 01/22/23 09:03 Dose: 25 mg Documented By: HEIDI Oxycodone HCl (Oxycodone Hcl Immed Release 5 Mg Tablet) 5 mg PO Q6H PRN PRN Reason: Pain, Moderate(Pain Scale 4-6) Last Admin: 01/19/23 16:19 Dose: 5 mg Documented By: CAITLYN Oxycodone HCl (Oxycodone Hcl Immed Release 5 Mg Tablet) 5 mg PO Q6H PRN PRN Reason: Pain, Severe (Pain Scale 7-10) Last Admin: 01/22/23 09:02 Dose: 5 mg Documented By: HEIDI Pharmacy Consult (Consult Rx Perform Med Rec) 1 each MISCELLANE ONCE PRN PRN Reason: Consult order Simethicone (Simethicone 80 Mg Tab.Chew) 80 mg PO QIDWMHS PRN PRN Reason: Gas Sodium Chloride (0.9 % Sodium Chloride Flush 3 Ml Syringe) 3 ml IVFLUSH QSHIFT [facility] Last Admin: 01/22/23 09:03 Dose: 3 ml Documented By: HEIDI Labs 01/22/23 05:55 01/22/23 05:55 Labs: Laboratory Results - last 24 hr 01/21/23 01/22/23 01/22/23 11:51 05:55 05:55 MCV 89.1 MCH 28.1 MCHC 31.5 RDW 13.2 Plt Count 145 L MPV 11.0 Absolute Nucleated RBC 0.000 Nucleated RBC % (auto) 0.0 Anion Gap 13 16 Estim Creat Clear Calc 34.7 36.0 Estimated GFR 37 38 Random Glucose 111 129 H Calcium 9.0 9.3 Assessment and Plan (1) Pulmonary emboli: Status: Acute (2) Acute dyspnea: Status: Acute (3) Acute pain of right shoulder: Status: Acute Plan 82 year female with HTN, COPD, CHF, CAD with NSTEMI in September 2021 underwent cardiac cath at [facility] and noted to have 100% LCX oclusion here with SOB and found to have bilateral high burden PE High [place] bilateral Pulmonary embolism-hemodynamically stable, Hypoxia persists but better, continue O2 sat is much better, continue IV heparin, changed to eliquis 01/20, hematology recommends no further work up BRO--likely pre renal, Creatine now 1.33 Type 2 DE--with mild increase in troponin d/t PE, no further cardiac at this point but will obtain echo given heart strain HTN--BP within normal, she last filled Lisinopril and metoprolol last year (not on meds right now) COPD--no acute exacerbation, h/o HFpEF--some leg edema now may need lasix, IV lasix x 1 today DVT Prophylaxis: Eliquis Full code need for inpatient: treatement of high burden PE with IV heparin and monitoring of levels Plan discussed with patient and son at bedside and all questions answered PT recommends STR, but she's refusing , will discuss with son Time Spent With Patient Time: Total time managing care of this patient today ____ minutes. Quality Stroke Does the patient have a stroke diagnosis?: No VTE Prior VTE?: No VTE Risk Level:: Medical - moderate - high VTE Device Contraindication: Treatment Not Indicated VTE Drug Contraindication: N/A - Med Ordered
[2023-01-22 12:00] VITALS: BP 107/75; PULSE 64; RESP 18; TEMP 36.4; O2SAT 92
--- NOTE | 2023-01-22 12:36 | MHC.CM.PN ---
CM INFORMED PT IS MEDICALLY CLEARED TO DC CM MET WITH PT WHO CONTINUES TO REFUSE STR CM ATTEMPTED TO ASK HOW PT WOULD ATTEND ANY FOLLOW UP APPTS NECESSARY PT REPORTS SHE WILL HAVE THEM COME TO HER HOME SHE REPORTS HER PCP, DR HERRERA, HAS COME TO HER HOME IN THE PAST PT REPORTS SHE KNOWS THERE ARE AGENCIES THAT WILL DO HOME VISITS SHE SAYS SHE IS AGREEABLE TO [facility] HOWEVER PER [facility], PT HAS NOT SEEN DR HERRERA SINCE 2019 CM CALLED PTS SON, BILL [phone] WHO REPORTS HE DOES NOT THINK ANYONE CAN CONVINCE HER TO GO TO STR HE SAYS HIS SISTER, PTS 59 YO DAUGHTER, RECENTLY IN A SNF BILL SAYS HE DOES NOT FEEL COMFORTABLE WITH THE PT GOING HOME WITHOUT VNA HE SAYS HE AND HIS FAMILY ALSO SEE DR HERRERA FOR PRIMARY CARE, AND HE BELIEVES DR HERRERA WOULD AGREE TO SEE PT TOMORROW AND WRITE VNA ORDERS HE SAYS THE OFFICE TYPICALLY DOES SAME DAY APPTS BILL ASKS THAT THE PT REMAIN INPATIENT ONE MORE DAY SO THAT HE CAN SPEAK TO DR HERRERA ABOUT [facility]NA ORDERS AND AN APPT BILL NOTES, ONCE PT IS HOME, HE WILL NOT BE ABLE TO GET HER OUT TO A PCP APT THEY CANNOT AFFORD BLS TRANSPORT BILL ALSO STATES HE WILL MAKE ONE MORE ATTEMPT TO CONVINCE HER TO GO TO STR, HOWEVER HE FEELS IT IS FUTILE PLAN DISCUSSED WITH MD CURRENT PLAN IS TO CONFIRM DR CHAUDHRY ABILITY TO WRITE VNA ORDERS AND SEE PT FOR A SAME DAY VISIT TOMORROW PT WILL NEED BLS TRANSPORT HOME
[2023-01-22 16:00] VITALS: BP 138/84; PULSE 69; RESP 13; TEMP 35.9; O2SAT 96
[2023-01-22 20:00] VITALS: BP 117/57; PULSE 76; RESP 14; TEMP 36.3; O2SAT 92
[2023-01-22] MEDS: Melatonin 3 MG TABLET 6 MG PO (20:30)
[2023-01-23] VITALS: BP 130/83; PULSE 65; RESP 18; TEMP 36.8; O2SAT 96
[2023-01-23] MEDS: 0.9 % Sodium Chloride Flush 3 ML SYRINGE IVFLUSH ×4 (00:05→21:34)
[2023-01-23] MEDS: Apixaban 5 MG TABLET 10 MG PO ×2 (00:05→13:03)
--- NOTE | 2023-01-23 00:49 | PC.NURSE ---
Assumed care at 07:00. Patient alert and oriented x4, but also shouts out mom! sometimes and is impulsive at times. High fall risk, ambulates to BR with 1 assist and walker, OOB to chair today for much of the day. Patient reported 8/10 back pain from tailbone up through her spine, oxycodone with effect, discussed with MD. Patient with pruritis generalized, and psoriasis-appearing red rash with flaking sections, especially over her back, hips, legs, and arms, benadryl with modest effect, discussed with MD. PRN melatonin at bedtime. LS dim throughout, was on room air for much of the day, found to be 93% on room air, placed back on 2 LPM at bedtime for SpO2 of 89% on RA, was 94% on 2 LPM.
[2023-01-23 03:40] VITALS: BP 148/76; PULSE 76; RESP 18; TEMP 36.4; O2SAT 96
[2023-01-23 07:18] VITALS: BP 121/62; PULSE 66; RESP 20; TEMP 36; O2SAT 97
[2023-01-23] MEDS: Metoprolol Tartrate 25 MG TABLET PO ×2 (08:15→21:34)
--- NOTE | 2023-01-23 09:03 | MHC.CM.PN ---
This CM received a phone call form Judith in admissions at [facility] in regards to the bed available there for this pt. She stated it is not an appropriate bed as the roommate has been screaming . Judith stated that there is a private room available in [facility] that she could offer the pt. This CM met with the pt to explain and states she does not want to go with a loud roommate she likes quiet, and she wants to stay in [place], and does not want to go to [place]. She omar prefer to go home with VNA.
--- NOTE | 2023-01-23 09:06 | MHC.CM.PN ---
This CM received a phone call form Judith in admissions at [facility] in regards to the bed available there for this pt. She stated it is not an appropriate bed as the roommate has been screaming . Judith stated that there is a private room available in [facility] that she could offer the pt. This CM met with the pt to explain and states she does not want to go with a loud roommate she likes quiet, and she wants to stay in [place], and does not want to go to [place]. She would prefer to go home with [facility]NA.
[2023-01-23 11:12] VITALS: BP 119/58; PULSE 73; RESP 20; TEMP 36.3; O2SAT 93
--- NOTE | 2023-01-23 12:52 | W.MHC.F2F ---
Service Date Service Date: 01/23/23 Encounter Date of encounter: 01/23/23 Reasons for Services Signs and symptoms assessed: weakness, sob following pulmonolary embolism Reason for long-term: medication management and teach disease management Reason for physical therapy: therapeutic exercises, gait/transfer training and energy conservation Homebound: Leaving the home is medically contraindicated at this time without the asist of a device and/or another person due th the listed conditions above and below. Reason homebound: unsteady gait / fall risk and shortness of breath with minimal effort Homebound supporting statement: homebound due to weakness related to fall, pulmonary embolism with shortness of breath and therefore needs the assistance of another person Certification: Based on the above findings, I certify that this patient is confined to the home and needs intermittent long-term care, physical therapy and/or speech therapy, or continues to need occupational therapy. The patient is under my care, and I have initiated the establishment of the plan of care. The patient will be followed by a physician who will periodically review the plan of care. Time Spent With Patient Time: Total time managing care of this patient today ____ minutes.
[2023-01-23] MEDS: diphenhydrAMINE HCL 25 MG CAPSULE PO ×2 (13:03→21:34)
--- NOTE | 2023-01-23 15:21 | P.PNIM_ITS ---
Subjective Subjective Date of Service: 01/23/23 Interval History: f/u on pulmonary embolism feels about the same, no sob, Physical Exam Vital Signs: Vital Signs: Last Vital Signs Temp 97.3 F 01/23/23 11:12 Pulse 73 01/23/23 11:12 Resp 20 01/23/23 11:12 BP 119/58 L 01/23/23 11:12 Pulse Ox 93 01/23/23 11:12 O2 Del Method Room Air 01/23/23 11:12 O2 Flow Rate 2 01/23/23 00:00 BMI result Body Mass Index 39.1 Const: Other: General: AO X 3, no acute distress Resp: CTA bilateral CVS: S1,S2,RRR, 2+ leg edema GI: +BS, NT, no distention Skin: No rash Neuro: motor grossly intact Psych: appropriate affect Objective Data Active Medications Acetaminophen (Acetaminophen 325 Mg Tablet) 650 mg PO Q6H PRN PRN Reason: Pain, Mild (Pain Scale 1-3) Last Admin: 01/19/23 16:19 Dose: 650 mg Documented By: CAITLYN Apixaban (Apixaban 5 Mg Tablet) 10 mg PO Q12H ANNA Stop: 01/27/23 01:16 Last Admin: 01/23/23 13:03 Dose: 10 mg Documented By: NIYAH Diphenhydramine HCl (Diphenhydramine Hcl 25 Mg Capsule) 25 mg PO TID PRN PRN Reason: Itching Last Admin: 01/23/23 13:03 Dose: 25 mg Documented By: NIYAH Melatonin (Melatonin 3 Mg Tablet) 6 mg PO BEDTIME PRN PRN Reason: Insomnia Last Admin: 01/22/23 20:30 Dose: 6 mg Documented By: HEIDI Metoprolol Tartrate (Metoprolol Tartrate 25 Mg Tablet) 25 mg PO BID [facility]; Protocol Last Admin: 01/23/23 08:15 Dose: 25 mg Documented By: NIYAH Pharmacy Consult (Consult Rx Perform Med Rec) 1 each MISCELLANE ONCE PRN PRN Reason: Consult order Simethicone (Simethicone 80 Mg Tab.Chew) 80 mg PO QIDWMHS PRN PRN Reason: Gas Sodium Chloride (0.9 % Sodium Chloride Flush 3 Ml Syringe) 3 ml IVFLUSH QSHIFT [facility] Last Admin: 01/23/23 08:15 Dose: 3 ml Documented By: NIYAH Labs 01/22/23 05:55 01/22/23 05:55 Microbiology Microbiology Results: Microbiology 01/17/23 09:37 Blood Culture - Final Blood - Venous No growth after 5 days. 01/17/23 09:37 Blood Culture - Final Blood - Venous No growth after 5 days. Assessment and Plan (1) Pulmonary emboli: Status: Acute Plan 82 year female with HTN, COPD, CHF, CAD with NSTEMI in September 2021 underwent cardiac cath at [facility] and noted to have 100% LCX oclusion here with SOB and found to have bilateral high burden PE [place] bilateral Pulmonary embolism-hemodynamically stable, Hypoxia persists but better, continue O2 sat is much better, continue IV heparin, changed to eliquis 01/20, hematology recommends no further work up BRO--likely pre renal, Creatine now 1.33 Type 2 VT--with mild increase in troponin d/t PE, no further cardiac at this point but will obtain echo given heart strain HTN--BP within normal, she last filled Lisinopril and metoprolol last year (not on meds right now) COPD--no acute exacerbation, h/o HFpEF--some leg edema now may need lasix, IV lasix x 1 today DVT Prophylaxis: Eliquis Full code need for inpatient: treatement of high burden PE with IV heparin and monitoring of levels Plan discussed with patient and son at bedside and all questions answered PT recommends STR, she's now agreable to going Time Spent With Patient Time: Total time managing care of this patient today ____ minutes. Quality Stroke Does the patient have a stroke diagnosis?: No VTE Prior VTE?: No VTE Risk Level:: Medical - moderate - high VTE Device Contraindication: Treatment Not Indicated VTE Drug Contraindication: N/A - Med Ordered
[2023-01-23 15:32] VITALS: BP 167/80; PULSE 75; RESP 18; TEMP 36.4; O2SAT 94
--- NOTE | 2023-01-23 15:46 | MHC.CM.PN ---
Pts discharge cancelled for today, pt has agreed to got to [facility] for STR. D/C plan will be for tomorrow to [facility].
[2023-01-23 20:00] VITALS: BP 149/69; PULSE 89; RESP 18; TEMP 36.7; O2SAT 93
[2023-01-23] MEDS: Melatonin 3 MG TABLET 6 MG PO (21:34)
[2023-01-24] VITALS: BP 135/72; PULSE 68; RESP 18; TEMP 36.8; O2SAT 93
[2023-01-24] MEDS: Apixaban 5 MG TABLET 10 MG PO ×2 (02:16→12:21)
[2023-01-24] MEDS: Acetaminophen 325 MG TABLET 650 MG PO (02:16)
[2023-01-24 04:00] VITALS: BP 138/66; PULSE 67; RESP 20; TEMP 36.6; O2SAT 93
[2023-01-24 07:08] VITALS: BP 139/71; PULSE 67; RESP 20; TEMP 36; O2SAT 93
[2023-01-24] MEDS: Metoprolol Tartrate 25 MG TABLET PO (07:44)
[2023-01-24] MEDS: 0.9 % Sodium Chloride Flush 3 ML SYRINGE IVFLUSH (07:44)
[2023-01-24] MEDS: diphenhydrAMINE HCL 25 MG CAPSULE PO (07:47)
[2023-01-24] MEDS: oxyCODONE HCl Immed Release 5 MG TABLET PO (07:52)
[2023-01-24 11:03] VITALS: BP 134/70; PULSE 70; RESP 20; TEMP 36.3; O2SAT 92
--- NOTE | 2023-01-24 13:28 | MHC.CM.PN ---
Pt medically cleared for D/C to [facility] for STR. Transportation via [facility] for 1pm today.
[2023-01-24] MEDS: diphenhydrAMINE HCl 2 % Cream 28 GM TUBE 1 APPL TOPICAL (13:29)
== END 2023-01-24 14:14 | disposition skilled nursing facility (03) | DRG 175 ==
LOC: HO.ED 15:05 → HO.EDOVER 16:25 → HO.IMC 18:54
PROVIDERS: Student in an Organized Health Care Education/Training Program; Admitting Provider Internal Medicine; Emergency Provider Emergency Medicine; PCP Internal Medicine; Visit Provider Internal Medicine
DX: I26.09 Other pulmonary embolism with acute cor pulmonale (principal); I21.A1 Myocardial infarction type 2; N17.9 Acute kidney failure, unspecified; I50.32 Chronic diastolic (congestive) heart failure; I11.0 Hypertensive heart disease with heart failure; L40.0 Psoriasis vulgaris; R09.02 Hypoxemia; I07.1 Rheumatic tricuspid insufficiency; I25.10 Atherosclerotic heart disease of native coronary artery without angina pectoris; I25.2 Old myocardial infarction; J44.9 Chronic obstructive pulmonary disease, unspecified; Z20.822 Contact with and (suspected) exposure to COVID-19; Z79.899 Other long term (current) drug therapy
CPT/HCPCS: 36415; 70450; 71046; 71275; 73030; 80048; 81001; 82803; 83605; 83880; 84443; 84484; 85025; 85027; 85610; 85730; 87040; 87086; 87088; 87186; 87635; 93005; 93306; 97163; 99285; J1643; J1940; J2270; Q9967

== ENCOUNTER → 2023-01-17 08:24 | Outpatient (BNV) | payer MEDICARE, SELFPAY | PROVIDERS: Admitting Provider Internal Medicine; Emergency Provider Emergency Medicine; PCP Internal Medicine; Visit Provider Internal Medicine | DX: I49.1 Atrial premature depolarization (principal) | CPT/HCPCS: 93010 ==

== ENCOUNTER 2023-01-17 16:12 | Outpatient (BNV) | payer MEDICARE, SELFPAY | END 2023-01-18 07:00 | PROVIDERS: Admitting Provider Internal Medicine; Emergency Provider Emergency Medicine; PCP Internal Medicine; Visit Provider Internal Medicine | DX: I36.1 Nonrheumatic tricuspid (valve) insufficiency (principal) | CPT/HCPCS: 93306 ==

== ENCOUNTER → 2023-01-17 16:12 | Outpatient (BNV) | payer MEDICARE, SELFPAY | PROVIDERS: Admitting Provider Internal Medicine; Emergency Provider Emergency Medicine; PCP Internal Medicine; Visit Provider Internal Medicine | DX: I26.99 Other pulmonary embolism without acute cor pulmonale (principal) | CPT/HCPCS: 99223; 99232; 99233; 99239; G0180 ==

== ENCOUNTER → 2023-01-17 16:12 | Outpatient (BNV) | payer MEDICARE, SELFPAY | PROVIDERS: Admitting Provider Internal Medicine; Emergency Provider Emergency Medicine; PCP Internal Medicine; Visit Provider Internal Medicine | DX: I26.99 Other pulmonary embolism without acute cor pulmonale (principal) | CPT/HCPCS: 99222 ==

== ENCOUNTER 2023-12-19 14:50 | Emergency (ER) | payer MEDICARE, SELFPAY ==
[2023-12-19] VITALS (7 sets, daily range): BP systolic 154–162; BP diastolic 82–96; PULSE 97–113; RESP 17–25; TEMP 36.6–36.9; O2SAT 85–96; BMI 39.6
--- NOTE | ~2023-12-19 | CT_ITS ---
EXAM: CT HEAD WITHOUT CONTRAST CT CERVICAL SPINE INDICATION: Reason for Exam fall TECHNIQUE: A noncontrast CT scan was performed from the skull base to the vertex. A noncontrast CT scan of the cervical spine was performed from the base of the skull through T1 at 2.5 mm and 0.625 mm collimation. Coronal and sagittal reformats were obtained at the acquisition workstation. This CT examination was performed using dose optimization techniques as appropriate, variously including the following: * Automated exposure control * Adjustment of mA and/or kV according to patient size (this includes techniques or standardized protocols for targeted exams where dose is matched to indication/reason for exam; i.e. extremities or head) * Use of iterative reconstruction technique Dose length product is 1585 mGy-cm. COMPARISON: CT head 01/17/2023. CT cervical spine 06/23/2019 FINDINGS: Head: There is no evidence of acute intracranial hemorrhage or edematous territorial infarction. No abnormal mass effect or midline shift is seen. Bates to white matter differentiation is well preserved. No abnormal extra-axial fluid collections are identified. Prominence of the ventricles and sulci is compatible with generalized parenchymal volume loss. This appears similar to previous. There is prominent periventricular and subcortical white matter hypoattenuation, most likely representing microangiopathic disease. No acute calvarial fracture.. Paranasal sinuses and mastoid air cells are well-aerated. Cervical Spine: The atlantooccipital and atlantoaxial articulations remain well aligned. Straightening of the normal cervical lordosis. Minimal anterolisthesis of C3 on C4, likely degenerative. Otherwise, there is anatomic alignment of the vertebral bodies and posterior elements. No evidence of acute fracture or subluxation. Vertebral body heights are maintained. Multilevel moderate disc degenerative changes. Multilevel facet degeneration.. Central canal is maintained. No prevertebral soft tissue swelling. The paraspinal soft tissues are unremarkable. There is a hypodense lesion in the right neck, in the expected region of the right lobe of the thyroid gland. This measures 3.2 x 3.8 x 4.6 cm (AP, transverse, length). This is increased in size as compared to the prior CT of 06/23/2019. Emphysematous changes in the right greater than left lung apex, with pleural-parenchymal scarring. CT/CT cervical spine wo IV con IMPRESSION: 1. No CT evidence of acute intracranial hemorrhage or edematous territorial infarction. 2. No CT evidence of acute cervical spine fracture or malalignment. 3. Cervical spondylosis. 4. Hypodense lesion in the right neck, measuring up to 4.6 cm. This increase in size as compared to the prior CT of 06/23/2019. The location is suggestive of an enlarging thyroid lesion. Recommend follow-up ultrasound for evaluation.
--- NOTE | ~2023-12-19 | CT_ITS ---
EXAMINATION: CT ANGIOGRAM OF THE CHEST WITH AND WITHOUT CONTRAST (CT PULMONARY ANGIOGRAM FOR PE) CLINICAL INFORMATION: Reason for Exam Hypoxia, history PE, not anticoagulated COMPARISON: CTA chest 01/17/2023. TECHNIQUE: Prior to contrast administration, noncontrast localization images were obtained. Subsequently, multidetector volumetric imaging was performed from the thoracic inlet to below the diaphragms following the administration of 80 mL Omnipaque 350 intravenous contrast. No contrast reaction reported Sagittal, coronal, and MIP oblique sagittal reformatted images were obtained on the CT workstation, uploaded to PACS, and reviewed. This CT examination was performed using dose optimization techniques as appropriate, variously including the following: *Automated exposure control *Adjustment of mA and/or kV according to patient size (this includes techniques or standardized protocols for targeted exams where dose is matched to indication/reason for exam; i.e. extremities or head) *Use of iterative reconstruction technique Total exam dose-length product 1585 mGy-cm FINDINGS: QUALITY OF STUDY/CONTRAST BOLUS: Satisfactory. PULMONARY ARTERIES: No pulmonary emboli. THORACIC AORTA: No aneurysm. LUNG: No focal consolidation, nodules or masses. There is minimal atelectatic changes right lower lobe anterior segment. PLEURA: No pleural effusion or pneumothorax. MEDIASTINUM: Heart size enlarged. There is no pericardial effusion. No abnormal size mediastinal adenopathy seen. The right thyroid lobe is enlarged and hypodense. No abnormal size mediastinal or hilar lymphadenopathy seen. Mild coronary artery calcifications are present. Interventricular septum is midline. Atherosclerotic changes of abdominal aorta are noted. CORONARY ARTERY CALCIFICATION: Mild coronary artery calcifications are present. CHEST WALL/AXILLA: No axillary or internal mammary lymphadenopathy. OSSEOUS STRUCTURES: No aggressive lytic or sclerotic process seen. There is mild ventral spondylosis dorsal spine. UPPER ABDOMEN: Visualized liver, spleen, pancreas and bilateral adrenal glands unremarkable. No reflux of contrast into the hepatic veins to suggest elevated right heart pressures. CT/CT angio chest PE protocol IMPRESSION: 1. No evidence of PE. 2. No evidence of aortic aneurysm. 3. Minimal atelectatic changes right lower lobe anterior segment. VTE: negative.
--- NOTE | ~2023-12-19 | XR_ITS ---
EXAMINATION: XR CHEST CLINICAL INFORMATION: Pain after falling COMPARISON: 01/17/2023 TECHNIQUE: Frontal view of the chest was obtained. FINDINGS: Patient is rotated. Lungs grossly clear given the degree of rotation. Heart size borderline to mildly enlarged with normal caliber pulmonary vessels. No pneumothorax. Bony structures are intact. XR/XR chest 1V IMPRESSION: No active disease given limitations of this portable exam.
--- NOTE | ~2023-12-19 | XR_ITS ---
EXAMINATION: XR ANKLE, RIGHT CLINICAL INFORMATION: Pain after falling COMPARISON: None available. TECHNIQUE: AP, lateral, and mortise views of the right ankle. FINDINGS: There is moderate diffuse soft tissue swelling but the mortise does appear intact. There is no fracture or destructive process. XR/XR ankle RT min 3V IMPRESSION: Soft tissue alterations and swelling
--- NOTE | 2023-12-19 15:10 | ED_ITS ---
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 Son states patient stood up and walker slid forward, patient falling to ground, unknown head trauma, denies LOC. Patient was on ground for 30 minutes to 1 hour. Patient reports right ankle pain. Denies other symptoms prior to fall, denies symptoms at present including chest pain, shortness breath, abdominal pain, headache. Son reports patient has been having multiple falls over the past few weeks, son also noted speech change yesterday described as patient talking with a swollen tongue which is resolved at present. Patient herself is a poor historian. Related Data Home Medications ?Medication ?Instructions ?Recorded ?Confirmed diphenhydramine HCl 25 mg tablet 25 mg PO TID PRN Itching 01/17/23 01/17/23 (Benadryl Allergy) Previous Rx's ?Medication ?Instructions ?Recorded acetaminophen 325 mg tablet 650 mg (2 x 325 mg) PO Q6H PRN 09/22/21 Pain, Mild (Pain Scale 1-3) #1 tab apixaban 5 mg (74 tabs) tablets in 5 - 10 mg (1 - 2 x 5 mg (74 tabs)) 01/23/23 a dose pack (Eliquis DVT-PE Treat PO BID #74 ea 30D Start) diphenhydramine-zinc acetate 2 1 appl topical TID PRN Itching #1 g 01/24/23 %-0.1 % topical cream (Banophen Anti-Itch) docusate sodium 100 mg capsule 100 mg PO BID #60 caps 01/24/23 (Col-Rite) melatonin 3 mg tablet 6 mg (2 x 3 mg) PO BEDTIME PRN 01/24/23 Insomnia #30 tabs metoprolol tartrate 25 mg tablet 25 mg PO BID #60 tabs 08/08/23 oxycodone 5 mg tablet 5 mg PO Q6H PRN Pain, Severe (Pain 01/24/23 Scale 7-10) #20 tabs Allergies Allergy/AdvReac Type Severity Reaction Status Date / Time onion [ONION] Allergy Unknown NAUSEA & Verified 12/19/23 15:50 VOMITING PEPPERS, MENDOZA Allergy Unknown NAUSEA & Uncoded 03/05/20 15:05 VOMITING Review of Systems 2 Review of Systems: Musculoskeletal: + joint pain Skin: No Skin Lesions, + psoriasis ROS limited as patient is poor historian Yes all other systems are reviewed and are negative Constitutional: Constitutional: Reports as per [facility] Past Medical History Attestation statement: The following information was validated with the patient. Source: old records reviewed Medical History CAD (coronary artery disease) CHF (congestive heart failure) Hypertension COPD (chronic obstructive pulmonary disease) Surgical History History of colostomy reversal History of cholecystectomy Family History Family History Mother [place] (myocardial infarction) Social History Social History Household Members: Children Household Members Other:: son Housing: Condominium Do you presently have visiting nurse or other home services: No Unable to assess alcohol history related to: Unknown Alcohol intake: never Patient Tobacco Use Status: Current everyday Tobacco user Tobacco use type: Cigarette Cigarette Packs Per Day: 1 Smoked in Last 30 Days: No Use of substances other than those prescribed or required for medical reasons: Unknown Advance Directives: Yes Advance Directives on File: Yes Advance Directives Date on File: 09/21/21 Do you have a plan to hurt others: No Plan service: No Current occupational status: retired Physical Exam ED Vital Signs: Vital Signs - 24 hr 12/19/23 16:00 12/19/23 16:20 12/19/23 16:48 Temperature 97.9 F Pulse Rate 97 Pulse Rate [Automated] 102 H Respiratory Rate 18 20 Blood Pressure 154/82 H 154/82 H Pulse Oximetry 90 L Oxygen Delivery Method Room Air Oxygen Flow Rate 12/19/23 18:00 12/19/23 20:55 12/19/23 20:58 Temperature 98.4 F Pulse Rate 100 106 H 101 H Pulse Rate [Automated] Respiratory Rate 25 H 18 17 Blood Pressure 156/86 H Pulse Oximetry 95 85 L 96 Oxygen Delivery Method Nasal Cannula Room Air Nasal Cannula Oxygen Flow Rate 2 2 12/20/23 01:45 12/20/23 04:00 12/20/23 06:23 Temperature 97.8 F 97.6 F Pulse Rate 88 91 90 Pulse Rate [Automated] Respiratory Rate 16 20 17 Blood Pressure 153/91 H 155/83 H Pulse Oximetry 96 100 Oxygen Delivery Method Nasal Cannula Nasal Cannula Oxygen Flow Rate 2 2 12/20/23 09:14 Temperature 97.7 F Pulse Rate 88 Pulse Rate [Automated] Respiratory Rate 14 Blood Pressure 167/86 H Pulse Oximetry 97 Oxygen Delivery Method Room Air Oxygen Flow Rate BMI result Body Mass Index 39.6 Const General: cooperative, healthy appearing and no acute distress Orientation/consciousness: patient oriented x3 Limitations: no limitations HENMT Head: Yes normal to inspection and Yes atraumatic Ears: hearing grossly normal bilaterally General nose exam: Normal external nose present Face and sinus: Yes normal facial exam Eyes General: appearance normal, both eyes and all related structures Pupils: Equal, round and reactive pupils present EOM: EOMs intact bilaterally Neck Neck: Yes normal visual inspection and Yes no meningeal signs Resp Effort & Inspection: normal respiratory effort and no respiratory distress Auscultation: clear to auscultation bilaterally Cardio Rate: regular rate Heart sounds: S1 normal heart sound present and S2 normal heart sound present GI Inspection: Yes normal to inspection Palpation (GI): Soft to palpation, nontender, no guarding and not rigid Back/Spine/Pelvis Other: No midline cervical/thoracic/lumbar spinous tenderness/step-off or deformity Skin Other: + diffuse psoriatic rash over entire body. + fungal infection to pannus, inner thighs, and beneath breasts Neuro General: patient oriented x3, tone normal, moves all extremities and no meningeal signs Cranial nerves: Yes CN's II-XII intact bilaterally and Yes Equal, round and reactive pupils present Extrem Other: + bilateral LE pitting edema. Right ankle nontender. No appreciable deformity. Neurovascularly intact Course Course Course Narrative: -1618--troponin elevated to 25.0 > will obtain 3 hour repeat. BNP chronically elevated >> will give 40 mg of IV Lasix -UA infected > will give IV Rocephin -1630--ED care transferred to [facility] pending repeat troponin, CT scans, x-rays, and anticipated admission Reevaluation(s) Reevaluation #1: Delta troponin flat, do not suspect ACS. CT of the head and cervical spine is without acute pathology, increasing hypodensity in the right neck, ago seen testing enlarged thyroid lesion with recommendation for follow-up ultrasound, patient was made aware of this. CT angio chest without evidence of pulmonary embolism, atelectasis the right lower lobe, no evidence of pulmonary vascular congestion, cardiomegaly. XR of the right ankle is without acute fracture dislocation, there is soft tissue swelling consistent with physical examination. She reports that the ankle pain that initially brought her to the emergency department has since resolved at this time has full range of motion to the ankle. Bilateral extremities are neurovascularly intact distally. Patient with O2 saturation 90% on room air, reportedly baseline per patient, she does have known COPD, she was able to get out of bed and transfer to [facility] with assistance, no hypoxia with this exertion. She did have an episode where O2 saturation dropped to 85% on room air, suspect she may have underlying ERNESTO she was asleep at this time in improved upon awakening. She does not have supplemental oxygen at home. I did discuss this case with hospitalist, Dr. Pizano, he did not feel that this patient warranted admission at this time. Patient has multiple chronic diseases, she will not take any medication aside from Benadryl to help her sleep at night and Tylenol occasionally for pain. Case management has been involved, they spoke extensively at length with patient and with patient's son, after much discussion she is amenable to having physical therapy evaluation as I do feel that she would benefit from in-home physical therapy as she has had multiple falls recently. Patient verbalizes that she is ?a difficult patient? and does knowingly not compliant with medication regimen advised by her doctors, she states that she has a right to live her life as she wants. She is alert and oriented x3, she answers all questions appropriately, case management also spoke with her son who expressed no concerns about her mental capacity, reporting that patient was very stubborn and this is her baseline.. Reevaluation #2: 12/20/2023--02--physician observation continued. Patient was on 2L NC satting 100% overnight, O2 discontinued this morning as patient does not have oxygen at home and Plan is likely for discharge. Will monitor closely. Patient does have UTI, initiated on Ceftin b.i.d. Pending physical therapy evaluation, case management met with patient yesterday 1012--patient had episode of AFib rate of 175 at 02:06, self-resolved. Discussed with patient this morning she should be on rate control medications as well as her previously prescribed Eliquis, discussed risk of stroke and [place], patient verbalized understanding and states she will not be compliant with medications, patient has no interest in taking medications. Is only agreeable to take antibiotics for recurrent UTI. Physical therapy evaluated patient this morning & case management and plan is for patient to return home with [facility] for care home and physical therapy via BLs at 1230pm. Physician observation ended at 12:30PM Medications Administered Generic Name Dose Route Start Last Admin Trade Name Freq PRN Reason Stop Dose Admin Cefuroxime Axetil 500 mg 12/20/23 09:00 12/20/23 09:00 Cefuroxime Axetil 500 Mg Tablet PO 500 mg BID ANNA Administration Discontinued Medications Generic Name Dose Route Start Last Admin Trade Name Freq PRN Reason Stop Dose Admin Acetaminophen 650 mg 12/19/23 21:18 12/19/23 21:44 Acetaminophen 325 Mg Tablet PO 12/19/23 21:19 650 mg ONCE ONE Administration Furosemide 40 mg 12/19/23 16:25 12/19/23 16:48 Furosemide 40 Mg/4 Ml Vial IVPUSH 12/19/23 16:26 40 mg STAT STA Administration Protocol Ceftriaxone Sodium 1 gm/ 50 mls @ 100 mls/hr 12/19/23 16:20 12/19/23 18:00 Sodium Chloride IV 12/19/23 16:49 Infused ONCE ONE Infusion Iohexol 65 ml 12/19/23 16:44 12/19/23 16:45 Iohexol 350 Mg/Ml 100 Ml Infus..Btl IV 12/19/23 16:45 65 ml ONCE ONE Administration Nystatin 1 appl 12/19/23 15:26 12/19/23 16:47 Nystatin Powder 15 Gm Bottle TOPICAL 12/19/23 15:27 1 appl ONCE ONE Administration Protocol Medical Decision Making Medical Decision Making MDM Narrative: 83-year-old female with a past medical history of HTN, COPD, CHF, CAD with NSTEMI, PE, psoriasis, not currently on any home medication, presenting to the ED via EMS complaining of right ankle pain 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 On exam satting 90% on RA, NAD, physical exam as noted above, A&Ox3, patient covered in feces/ psoriasis and fungal skin infection. Poor hygiene. + bilateral LE pitting edema. No focal neuro deficits. Concern for deconditioning/failure to thrive vs subacute TIA/CVA vs ICH vs fracture/sprain. *Concern for medication noncompliance. Plan: EKG, labs, UA, CT, case management eval Please refer to course for remaining clinical decision making, interpretation of labs/imaging results, and discussions with consultants and/or family members. Differential Diagnosis Differential Diagnoses: The differential diagnosis associated with the presentation includes As above Admission/Observation Consideration of admission/observation: Escalation of care including admission/observation considered Lab Data MDM Lab Attestation statement: I reviewed the patient's lab results. 12/19/23 15:39 12/19/23 15:38 Labs: Lab Results 12/19/23 12/19/23 12/19/23 Range/Units 15:34 15:38 15:39 WBC 8.1 (4.8-10.8) X10*3/uL RBC 4.69 (4.20-5.50) X10*6/uL Hgb 13.2 (12.0-16.0) g/dl Hct 42.7 (37.0-47.0) % MCV 91.0 (80.0-98.0) fL MCH 28.1 (27.0-33.0) pg MCHC 30.9 L (31.0-35.0) g/dl RDW 14.6 (11.0-16.0) % Plt Count 199 D (160-400) X10*3/uL MPV 10.5 (9.4-12.3) fL Immature Gran % (Auto) 0.4 (0.0-0.4) % Neut % (Auto) 77.3 H (45-73) % Lymph % (Auto) 11.3 L (20-40) % Ralls % (Auto) 6.5 (2-11) % Eos % (Auto) 3.9 (0-4) % Baso % (Auto) 0.6 (0-2) % Lymph # (Auto) 0.9 L (1.2-4.9) X10*3/uL Ralls # (Auto) 0.5 (0.1-1.2) X10*3/uL Eos # (Auto) 0.3 (0.0-0.4) X10*3/uL Baso # (Auto) 0.1 (0.0-0.2) X10*3/uL Abs Immat Gran (auto) 0.03 (0.00-0.03) X10*3/uL Absolute Neuts (auto) 6.3 (2.0-8.3) x10*3/uL Absolute Nucleated RBC 0.000 (0.0-0.012) X10*3/uL Nucleated RBC % (auto) 0.0 (0.0-0.2) /100WBC PT 14.1 H (11.1-13.3) SEC INR 1.2 H (0.9-1.1) Sodium 145 (135-145) mmol/L Potassium 4.0 (3.3-5.1) mmol/L Chloride 104 (96-108) mmol/L Carbon Dioxide 33 H (22-29) mmol/L Anion Gap 12 (12-20) BUN 15 (9-16) mg/dL Creatinine 1.21 (0.5-1.4) mg/dL Estim Creat Clear Calc 39.2 Estimated GFR 43 Random Glucose 99 (60-115) mg/dL Calcium 9.1 (8.4-10.2) mg/dL Magnesium 2.1 (1.6-2.6) mg/dL Total Bilirubin 0.6 (0.0-1.0) mg/dL Direct Bilirubin 0.2 (0.0-0.5) mg/dL AST 21 (5-31) U/L ALT 17 (0-31) U/L Alkaline Phosphatase 90 (39-117) U/L Total Creatine Kinase 26 (26-140) U/L Troponin I High Sens 25.0 H D (<3.5-17.0) ng/L B-Natriuretic Peptide 1089 H (<100) pg/mL Total Protein 7.2 (6.5-8.0) g/dL Albumin 3.7 (3.5-5.0) g/dL Urine Color Urine Appearance Urine pH (5.0-9.0) Ur Specific [place] (1.005-1.025) Urine Protein (Neg-Trace) mg/dL Urine Glucose (UA) (Negative) mg/dL Urine Ketones (Negative) mg/dL Urine Blood (Negative) Urine Nitrite (Negative) Ur Leukocyte Esterase (Negative) Urine RBC (0-2) /HPF Urine WBC (0-5) /HPF Ur Squamous Epith Cells (0-2) /HPF Urine Bacteria (None Seen) Hyaline Casts (0-2) /LPF Influenza Type A (PCR) NEGATIVE (Negative) Influenza Type B (PCR) NEGATIVE (Negative) RSV RNA Qual (PCR) NEGATIVE (Negative) SARS-CoV-2 RNA (RT-PCR) NEGATIVE (Negative) 12/19/23 12/19/23 Range/Units 15:46 18:34 WBC (4.8-10.8) X10*3/uL RBC (4.20-5.50) X10*6/uL Hgb (12.0-16.0) g/dl Hct (37.0-47.0) % MCV (80.0-98.0) fL MCH (27.0-33.0) pg MCHC (31.0-35.0) g/dl RDW (11.0-16.0) % Plt Count (160-400) X10*3/uL MPV (9.4-12.3) fL Immature Gran % (Auto) (0.0-0.4) % Neut % (Auto) (45-73) % Lymph % (Auto) (20-40) % Ralls % (Auto) (2-11) % Eos % (Auto) (0-4) % Baso % (Auto) (0-2) % Lymph # (Auto) (1.2-4.9) X10*3/uL Ralls # (Auto) (0.1-1.2) X10*3/uL Eos # (Auto) (0.0-0.4) X10*3/uL Baso # (Auto) (0.0-0.2) X10*3/uL Abs Immat Gran (auto) (0.00-0.03) X10*3/uL Absolute Neuts (auto) (2.0-8.3) x10*3/uL Absolute Nucleated RBC (0.0-0.012) X10*3/uL Nucleated RBC % (auto) (0.0-0.2) /100WBC PT (11.1-13.3) SEC INR (0.9-1.1) Sodium (135-145) mmol/L Potassium (3.3-5.1) mmol/L Chloride (96-108) mmol/L Carbon Dioxide (22-29) mmol/L Anion Gap (12-20) BUN (9-16) mg/dL Creatinine (0.5-1.4) mg/dL Estim Creat Clear Calc Estimated GFR Random Glucose (60-115) mg/dL Calcium (8.4-10.2) mg/dL Magnesium (1.6-2.6) mg/dL Total Bilirubin (0.0-1.0) mg/dL Direct Bilirubin (0.0-0.5) mg/dL AST (5-31) U/L ALT (0-31) U/L Alkaline Phosphatase (39-117) U/L Total Creatine Kinase (26-140) U/L Troponin I High Sens 22.7 H (<3.5-17.0) ng/L B-Natriuretic Peptide (<100) pg/mL Total Protein (6.5-8.0) g/dL Albumin (3.5-5.0) g/dL Urine Color Dark Yellow Urine Appearance Cloudy Urine pH 5.5 (5.0-9.0) Ur Specific [place] >= 1.030 H (1.005-1.025) Urine Protein 100 (2+) H (Neg-Trace) mg/dL Urine Glucose (UA) Negative (Negative) mg/dL Urine Ketones Negative (Negative) mg/dL Urine Blood Trace H (Negative) Urine Nitrite Positive H (Negative) Ur Leukocyte Esterase Trace H (Negative) Urine RBC 0-2 (0-2) /HPF Urine WBC 6-10 H (0-5) /HPF Ur Squamous Epith Cells 0-2 (0-2) /HPF Urine Bacteria 4+ (None Seen) Hyaline Casts 3-5 (0-2) /LPF Influenza Type A (PCR) (Negative) Influenza Type B (PCR) (Negative) RSV RNA Qual (PCR) (Negative) SARS-CoV-2 RNA (RT-PCR) (Negative) Independent Interpretation I performed an independent interpretation of an: EKG, Plain X-Ray and CT Scan Radiology Impression Discussion of test interpretation with radiology: I have reviewed the radiologist's reading. Radiologist Impression: CT/CT cervical spine wo IV con IMPRESSION: 1. No CT evidence of acute intracranial hemorrhage or edematous territorial infarction. 2. No CT evidence of acute cervical spine fracture or malalignment. 3. Cervical spondylosis. 4. Hypodense lesion in the right neck, measuring up to 4.6 cm. This increase in size as compared to the prior CT of 06/23/2019. The location is suggestive of an enlarging thyroid lesion. Recommend follow-up ultrasound for evaluation. CT/CT angio chest PE protocol IMPRESSION: 1. No evidence of PE. 2. No evidence of aortic aneurysm. 3. Minimal atelectatic changes right lower lobe anterior segment. VTE: negative. XR/XR ankle RT min 3V IMPRESSION: Soft tissue alterations and swelling XR/XR chest 1V IMPRESSION: No active disease given limitations of this portable exam. Independent Historian Clinical information obtained from an independent historian. History obtained from or confirmed by: EMS and Other (son) External Record Review External record reviewed: Inpatient record, Office record, Outpatient record, Prior outpatient labs, Prior outpatient radiology, Primary care record and Outside ED record Tests considered The following testing was considered but not selected: As above Chronic Conditions Patient?s care impacted by: Hypertension Social Determinants Patient?s care significantly limited by Social Determinants of Health including: Inadequate housing and Problems related to primary support group Critical Care Time Critical Care Time Critical Care Time: Yes Total Critical Care Time: 40 Attestation: I have personally provided critical care time exclusive of time spent on separately billable procedures. Time includes review of lab data, radiology results, discussion with consultants, and monitoring for potential decompensation. Intervention performed as documented. Discharge Plan Discharge Clinical Impression: Acute UTI, Hypoxia, Multiple falls Patient Disposition: Still a Patient Prescriptions: No Action acetaminophen 325 mg Tablet 650 mg PO Q6H PRN (Reason: Pain, Mild (Pain Scale 1-3)) Qty: 1 0RF diphenhydramine HCl [Benadryl Allergy] 25 mg Tablet 25 mg PO TID PRN (Reason: Itching) Eliquis DVT-PE Treat 30D Start 5 mg (74 tabs) tablets,dose pack 5 - 10 mg PO BID Qty: 74 0RF Rx Instructions: Take 10 mg (2 tabs) twice daily for 4 days, then 5 (1 tab) twice daily after that.. melatonin 3 mg Tablet 6 mg PO BEDTIME PRN (Reason: Insomnia) Qty: 30 0RF Banophen Anti-Itch 2-0.1 % Cream 1 appl topical TID PRN (Reason: Itching) Qty: 1 0RF Protocol: Apply to: Apply to: apply to affected area oxycodone 5 mg Tablet 5 mg PO Q6H PRN (Reason: Pain, Severe (Pain Scale 7-10)) Qty: 20 0RF Rx Instructions: Partial Fill upon patient request. metoprolol tartrate 25 mg Tablet 25 mg PO BID Qty: 60 0RF Protocol: Hold for SBP/HR < HOLD for SBP < : 90 HOLD for HR < : 60 docusate sodium [Col-Rite] 100 mg capsule 100 mg PO BID Qty: 60 0RF Referrals: [facility] [Outside] Print Language: Sri Lankan
--- NOTE | 2023-12-19 15:10 | ECG_ITS ---
Test Reason : FALL Blood Pressure : / mmHG Vent. Rate : 101 BPM Atrial Rate : 101 BPM P-R Int : 160 ms QRS Dur : 134 ms QT Int : 412 ms P-R-T Axes : 016 017 018 degrees QTc Int : 534 ms Sinus tachycardia Right bundle branch block Abnormal ECG When compared with ECG of 17-JAN-2023 08:33, T wave inversion no longer evident in Anterolateral leads Referred By: Sadia Uribe Electronically Signed By:ERICK COREY
[2023-12-19 15:42] LABS: MANUAL DIFF FLAG NO
[2023-12-19 15:48] LABS: Basophils Absolute Auto 0.1 X10*3/uL (0.0-0.2); Basophils Percent Auto 0.6 % (0-2); Eosinophils Absolute Auto 0.3 X10*3/uL (0.0-0.4); Eosinophils Percent Auto 3.9 % (0-4); Hematocrit 42.7 % (37.0-47.0); Hemoglobin 13.2 g/dl (12.0-16.0); Imm Gran Abs Auto 0.03 X10*3/uL (0.00-0.03); Imm Gran Pct Auto 0.4 % (0.0-0.4); Lymphocytes Absolute Auto 0.9 X10*3/uL (1.2-4.9); Lymphocytes Percent Auto 11.3 % (20-40); Mean Corpuscular HGB Conc 30.9 g/dl (31.0-35.0); Mean Corpuscular Hemoglobin 28.1 pg (27.0-33.0); Mean Platelet Volume 10.5 fL (9.4-12.3); Monocytes Absolute Auto 0.5 X10*3/uL (0.1-1.2); Monocytes Percent Auto 6.5 % (2-11); Neutrophils Absolute Auto 6.3 x10*3/uL (2.0-8.3); Neutrophils Percent Auto 77.3 % (45-73); Platelet Count 199 X10*3/uL (160-400); Red Blood Count 4.69 X10*6/uL (4.20-5.50); Red Cell Distribution Width 14.6 % (11.0-16.0); White Blood Count 8.1 X10*3/uL (4.8-10.8)
--- NOTE | 2023-12-19 15:55 | PC.NURSE ---
patient arrives via EMS s/p fall. per EMS patient has fallen 3 times in the last week, this time the patient fell and had approximately a 30 minute to an hour long downtime. patient denies LOC or head strike, however also does not recall the events that led up to the fall. patient states she lives at home with her son and takes no medications other than tylenol PRN and benadryl PRN. upon further assessment, patient noted to have large excoriated areas of skin across whole body. patient also noted to have extensive amounts of psoriasis left untreated. when asking patient about doctors visits, patient states she does not go to the doctor because im stubborn and im old school, i can do it myself patient states she will not let her son help her get cleaned up im an old school woman and i don't let him see me like that patient states then My son takes good care of me, he does all the cooking for me at home. upon further assessing patient and rolling her, patient grossly incontinent of stool and urine, patient states occasionally she has a nurse come to the house, but only when I need her, and she has other jobs so I don't bother her, I pay her out of pocket too and don't feel like spending the money , attempted to educate patient of her poor condition, to which her response is im just stubborn patient rolled and assessed further, large area of nonblanchahble pressure injury noted to coccyx and buttocks area, small areas of open skin noted to perineum area and between thighs. patient rash extends up bilateral extremities both upper and lower and covers the majority of her back, panus, and abdomen, with areas of moisture rash under breasts and across abdomen. patient skin and condition appears that of severe neglect by this RN an PA. Provider made aware of patients condition and came to room to assess, provider then called patients son to understand her condition better, patients son states he does his best at home to take care of her, however she is stubborn and wont let anyone help her, and good luck treating her . patient admits to this patient that she bathes herself in her bed with a washcloth and that is all she does to take care of her skin and she is unable to get her whole body. also admits that she will not let her children help her. patient given bed bath in bed and barrier cream applied to moisture rash areas of skin, warm wipes and wash cloths used with soap to wash off fresh and dried stool from her legs back and buttocks. perineal care provided and straight catheterization performed to obtain sterile urirne sample patient noted to have dark malodorous urine, states it always looks like that she she urinates all of the time. bladder drained of approximately 250mLs of urine. patient changed into hospital appropriate attire, positioned for comfort on stretcher and placed on rhia. EKG completed by cardiac catheterization technician, PIV placed by Lana TOURE. blood work drawn and sent at this time. portable xray currently at bedside, patient awaiting CT scan and results at this time. aside from integumentary, patient is otherwise alert and oriented, GCS 15, neuros intact. patient lung sounds clear bilaterally, bowel sounds present throughout all four quadrants, weak muscle tone noted in extremities and 3+ pitting edema noted to BLE, patient states they are always like that my mom had them too and it is what it is . patient denies any chest pain, shortness of breath, fevers chills or other symptoms. Case management consult placed by provider. patient awaiting further workup at this time.
[2023-12-19 15:57] LABS: Appearance Urine Cloudy; Color Urine Dark Yellow; Glucose Urine UA Negative (Negative); Leukocyte Esterase Urine Trace (Negative); Nitrite Urine Positive (Negative); PH 5.5 (5.0-9.0); Specific Gravity - Urine >= 1.030 (1.005-1.025); UMIC TRIGGER UACC YES; Urine Blood Trace (Negative); Urine Ketones Negative (Negative); Urine Protein 100 (2+) mg/dL (Neg-Trace)
[2023-12-19 15:59] LABS: INTERNATIONAL NORM RATIO 1.2 (0.9-1.1); Prothrombin Time 14.1 SEC (11.1-13.3)
[2023-12-19 16:10] LABS: Alanine Aminotransferase 17 U/L (0-31); Albumin Level 3.7 g/dL (3.5-5.0); Alkaline Phosphatase 90 U/L (39-117); Anion Gap 12 (12-20); Aspartate Amino Transferase 21 U/L (5-31); Bilirubin Direct 0.2 mg/dL (0.0-0.5); Bilirubin Total 0.6 mg/dL (0.0-1.0); Blood Urea Nitrogen 15 mg/dL (9-16); Calcium 9.1 mg/dL (8.4-10.2); Carbon Dioxide 33 mmol/L (22-29); Chloride 104 mmol/L (96-108); Creatinine Clr Calc Pharmacy 39.2; Estimated Glomerular Filt Rate 43; Glucose Random 99 mg/dL (60-115); Magnesium 2.1 mg/dL (1.6-2.6); Sodium 145 mmol/L (135-145); Total Protein 7.2 g/dL (6.5-8.0)
[2023-12-19 16:13] LABS: Bacteria Urine 4+ (None Seen); RBC Urine 0-2 /HPF (0-2); Squamous Epithelial Cell Urine 0-2 /HPF (0-2); UACC Culture Trigger YES
--- OUTSIDE RECORDS SUMMARY | 2023-12-19 16:13 | XMS_ITS | Continuity of Care Document ---
Author Organization 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 Name Role Phone Farhana MARTE, [place] Primary Care Physician [phone] Encounter [facility] Date(s): 09/22/21 - 09/24/[address] [id number] Discharge Disposition: A-D/C Home Attending Physician: Michelle Del Valle MD Admitting Physician: Ke Zimmer MD Referring Physician: Not on Staff, Referring MD Allergies, Adverse Reactions, Alerts Substance Reaction Severity Status Other Food Allergy 1 Active Onions Active 1allergic to portillo peppers - vomits Medications Acetaminophen Tablet 650 mg, Tablet, By Mouth, Every 4 hours, PRN for Pain , Mild, Temperature Greater than 100.5, Routine, 09/22/21 16:11:00 EDT Start Date: 09/22/21 Stop Date: 09/25/21 Status: Discontinued albuterol CFC free 90 mcg/inh inhalation aerosol 2 puffs, Inhalation, 4 times a day, PRN for wheezing, # 25 Gm, 0 Refills, Maintenance, 11/15/13 18:37:09, Aerosol Start Date: 11/15/13 Status: Ordered aspirin 81 mg oral delayed release tablet 81 mg, By Mouth, Daily, # 30 tablet, Refills 0, Tot. Refills 0, Maintenance, 09/23/21 10:28:00 EDT,Route to Pharmacy Electronically, [facility], Partial fill upon patient request if the prescription is for a schedule II opioid drug., 15... Start Date: 09/23/21 Status: Ordered atorvastatin 80 mg oral tablet 1 tablet = 80 mg, By Mouth, Daily, # 30 tablet, 0 Refills, Maintenance, 09/24/21 11:56:00 EDT, [facility], Partial fill upon patient request if the prescription is for a schedule II opioid drug., 157.4, cm, 09/24/21 8:06:00 EDT, Height,... Start Date: 09/24/21 Status: Ordered lisinopril 10 mg oral tablet 10 mg, 1, tablet, By Mouth, Daily, # 30 tablet, Refills 0, Tot. Refills 0, Maintenance, 09/23/21 10:28:00 EDT, Route to Pharmacy Electronically, [facility], Partial fill upon patient request if the prescription is for a schedule II opioi... Start Date: 09/23/21 Status: Ordered lisinopril 10 mg oral tablet 10 mg, Tablet, By Mouth, 09/24/21 9:00:00 EDT Start Date: 09/24/21 Stop Date: 09/24/21 Status: Completed metoprolol 25 mg oral tablet 12.5 mg, Tablet, By Mouth, 09/24/21 9:00:00 EDT Start Date: 09/24/21 Stop Date: 09/24/21 Status: Completed metoprolol 25 mg oral tablet, extended release 25 mg, 1, tablet, By Mouth, Daily, # 30 tablet, Refills 0, Tot. Refills 0, Maintenance, 09/23/21 10:28:00 EDT, Route to Pharmacy Electronically, [facility], Partial fill upon patient request if the prescription is for a schedule II opioi... Start Date: 09/23/21 Status: Ordered Plavix 75 mg oral tablet 75 mg, 1, tablet, By Mouth, Daily, # 30 tablet, Refills 0, Tot. Refills 0, Maintenance, 09/23/21 10:28:00 EDT, Route to Pharmacy Electronically, [facility], Partial fill upon patient request if the prescription is for a schedule II opioi... Start Date: 09/23/21 Status: Ordered triamcinolone 0.1% topical cream See Instructions, Topically 2 times a day, # 30 Gm, 0 Refills, Maintenance, 09/24/21 12:04:00 EDT, Cream, [facility], Partial fill upon patient request if the prescription is for a schedule II opioid drug., Topically 2 times a day, 157.4... Start Date: 09/24/21 Status: Ordered Vital Signs Most recent to oldest [Reference Range]: 1 2 3 Height 157.4 cm (09/24/21 8:06 AM) 157.4 cm (09/24/21 3:34 AM) 157.4 cm (09/23/21 8:38 PM) Oxygen Saturation [94-100 %] 92 % *L* (09/24/21 8:06 AM) 93 % *L* (09/24/21 3:34 AM) 91 % *L* (09/23/21 8:38 PM) Pulse Rate [55-90 bpm] 85 bpm (09/24/21 8:23 AM) 85 bpm (09/24/21 8:06 AM) 88 bpm (09/24/21 3:34 AM) Blood Pressure [90-138/55-84 mm Hg] 142/88mm Hg *H* (09/24/21 8:24 AM) 142/88mm Hg *H* (09/24/21 8:23 AM) 169/107mm Hg *H* (09/24/21 8:06 AM) Respiratory Rate [16-30 br/min] 20 br/min (09/24/21 8:06 AM) 18 br/min (09/24/21 3:34 AM) 20 br/min (09/23/21 11:00 PM) Temperature [96.8-100.4 DegF] 97.3 DegF (09/24/21 8:06 AM) 97.7 DegF (09/24/21 3:34 AM) 97.6 DegF (09/23/21 8:38 PM) Liters per Minute 0 L/min (09/22/21 6:26 PM) 0 L/min (09/22/21 5:49 PM) Mode of Delivery (Oxygen) Room air (09/24/21 8:06 AM) Room air (09/24/21 3:34 AM) Room air (09/23/21 8:38 PM) Blood pressure sites Arm, right (09/24/21 8:06 AM) Arm, right (09/24/21 3:34 AM) Arm, right (09/23/21 8:38 PM) Temperature Route Temporal (4/8/22 8:06 AM) Temporal (09/24/21 3:34 AM) Temporal (09/23/21 8:38 PM) Dry Weight 107.9 kg (09/22/21 5:49 PM)
[2023-12-19 16:15] LABS: B Type Natriuretic Peptide 1089 pg/mL (<100)
[2023-12-19 16:19] LABS: Influenza A PCR NEGATIVE (Negative); Influenza B PCR NEGATIVE (Negative); Resp Syncy Virus RNA Qual PCR NEGATIVE (Negative); SARS COV2 PCR INHOUSE NEGATIVE (Negative)
[2023-12-19] MEDS: iohexoL 350 MG/ML 100 ML INFUS..BTL 65 ML IV (16:45)
--- NOTE | 2023-12-19 16:46 | PC.NURSE ---
case management at bedside at this time
[2023-12-19] MEDS: Nystatin Powder 15 GM BOTTLE 1 APPL TOPICAL (16:47)
[2023-12-19] MEDS: Furosemide 40 MG/4 ML VIAL IVPUSH (16:48)
[2023-12-19] MEDS: cefTRIAXone sodium 1 GM in 0.9 % Sodium Chloride 50 ML IV (16:51)
--- NOTE | 2023-12-19 17:37 | HO.SKINPHOTO ---
Location: Category: Stage: Length: Width: Depth: cm Location: Category: Stage: Length: Width: Depth: cm Location: Category: Stage: Length: Width: Depth: cm Location: Category: Stage: Length: Width: Depth: cm Location: Category: Stage: Length: Width: Depth: cm Location: Category: Stage: Length: Width: Depth: cm
[2023-12-19 19:03] LABS: Troponin-I High Sensitivity 22.7 ng/L (<3.5-17.0)
--- NOTE | 2023-12-19 20:10 | PC.NURSE ---
pt requesting to go home, eating now. aware of plan of care and need for ambulation trial before d/c
--- NOTE | 2023-12-19 20:54 | PC.NURSE ---
pt ambulated to bathroom on RA, gait even and steady with walker. O2 89%
--- NOTE | 2023-12-19 21:20 | MHC.CM.CNN ---
Pt is agreeable to staying overnight for a PT evaluation. Will not go to [facility]. Is now finally agreeable to home PT with [facility]. Pt refuses a nicotine patch. Requesting tylenol. Provider and primary RN aware.
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
[2023-12-19] MEDS: Acetaminophen 325 MG TABLET 650 MG PO (21:44)
--- NOTE | 2023-12-20 00:46 | PC.NURSE ---
pt resting comfortably with eyes closed, breathing even and unlabored, no apparent distress noted, call portillo w/in reach
[2023-12-20 01:45] VITALS: PULSE 88; RESP 16
--- NOTE | 2023-12-20 03:13 | PC.NURSE ---
Took over care from MESFIN Hou, pt sleeping at this time, no sign of distress, plan is for PT evaluation.
[2023-12-20 04:00] VITALS: BP 153/91; PULSE 91; RESP 20; TEMP 36.6; O2SAT 96
--- NOTE | 2023-12-20 04:11 | MHC.EDTECH ---
this tech cleaned patient and applied barrier cream. pt then transferred into hospital bed for comfort. purewick placed. vital signs taken warm blanket given. pt resting comfortably.
--- NOTE | 2023-12-20 04:20 | PC.NURSE ---
pt moved into hospital bed, binh care and repositioned for comfort.
[2023-12-20 06:23] VITALS: BP 155/83; PULSE 90; RESP 17; TEMP 36.4; O2SAT 100
--- NOTE | 2023-12-20 07:15 | PC.NURSE ---
Resumed care of pt at 0700. Resting in bed quietly, respirations even and unlabored. Vss and up to date, call portillo within reach.
--- NOTE | 2023-12-20 07:27 | PC.NURSE ---
O2 decreased per Sadia KING, currently satting 90%-93% on room air. Hx of COPD
[2023-12-20] MEDS: cefuroxime axetiL 500 MG TABLET PO (09:00)
[2023-12-20 09:14] VITALS: BP 167/86; PULSE 88; RESP 14; TEMP 36.5; O2SAT 97
--- NOTE | 2023-12-20 10:06 | MHC.CM.ED ---
Patient remains in ER. Physical therapy eval completed. Home services are recommended. Met with patient in regards to discharge planning. Patient agreeable to d/c home with Erica GONZALEZ. Patient unsure how she will get home. T/W spoke with Gianluca, via telephone at [phone]. Gianluca will not be able to transport patient home d/t the stairs to get to patient's apartment. Yessy HAM booked for 1230pm. [facility] with chart. Patient, Shira Hough RN and Sadia KING aware. Continue to monitor for d/c needs.
[2023-12-20 12:17] VITALS: BP 180/100; PULSE 83; RESP 20; TEMP 36.7; O2SAT 93
== END 2023-12-20 13:01 | disposition home or self-care (01) ==
PROVIDERS: Physician Assistant; Emergency Provider Emergency Medicine; PCP Internal Medicine
DX: N39.0 Urinary tract infection, site not specified (principal); R09.02 Hypoxemia; Z91.81 History of falling; M25.571 Pain in right ankle and joints of right foot; I11.0 Hypertensive heart disease with heart failure; I50.9 Heart failure, unspecified; J44.9 Chronic obstructive pulmonary disease, unspecified; M54.2 Cervicalgia; I48.91 Unspecified atrial fibrillation; M47.812 Spondylosis without myelopathy or radiculopathy, cervical region; Z79.01 Long term (current) use of anticoagulants; Z03.818 Encounter for observation for suspected exposure to other biological agents ruled out
CPT/HCPCS: 0241U; 36415; 70450; 71045; 71275; 72125; 73610; 80048; 80076; 81001; 81003; 82550; 83735; 83880; 84484; 85025; 85610; 87086; 87088; 87186; 93005; 96365; 96375; 97162; 99285; J0696; J1940; Q9967

== ENCOUNTER → 2023-12-19 15:10 | Outpatient (BNV) | payer MEDICARE, SELFPAY | PROVIDERS: Emergency Provider Emergency Medicine; PCP Internal Medicine; Visit Provider Internal Medicine | DX: R94.31 Abnormal electrocardiogram [ECG] [EKG] (principal) | CPT/HCPCS: 93010 ==

== ENCOUNTER 2024-05-07 12:33 | Emergency (ER) | payer MEDICARE, SELFPAY ==
[2024-05-07 12:46] VITALS: BP 217/74; PULSE 110; O2SAT 99
[2024-05-07 12:54] VITALS: BP 166/88; PULSE 100; RESP 18; TEMP 36.6; O2SAT 96; BMI 39.8
--- NOTE | 2024-05-07 12:59 | ED_ITS ---
HPI - General Adult General Chief complaint: General Medical Stated complaint: NECROTIC R FOOT FROM [facility] PER EMS Time Seen by Provider: 05/07/24 12:58 Source: patient and family (Son, Bill) Mode of arrival: EMS Limitations: no limitations History of Present Illness ED Provider: Dr. Dinh Ardon HPI narrative: 83-year-old female with a history of coronary artery disease (NSTEMI 09/2021- 100% LCX occlusion with no intervention), hypertension, COPD who presents emergency department for evaluation of vaginal versus rectal bleeding x2 weeks. The patient's family has been trying to get the patient to come to the emergency department but she was refused. Over the last several days the patient states the bleeding is become more frequent therefore she did agree to come to the hospital today. She states she does not know if it is coming from her rectal area or her vaginal area. She states that sometimes the blood will gushed out . She states that she feels weaker than her baseline. She denied fever, chills, chest pain, shortness of breath, nausea, vomiting. The patient does live with a son. According to the son that is here in the emergency department, the patient has difficulty walking and never leaves her home unless she sick and has to come to the hospital by ambulance. He estimates that she was only left her home 4 times in the last 4 years. Patient continues to smoke 2 packs of cigarettes per day and she was smoked for 68 years. Related Data Home Medications ?Medication ?Instructions ?Recorded ?Confirmed diphenhydramine HCl 25 mg tablet 25 mg PO TID PRN Itching 01/17/23 01/17/23 (Benadryl Allergy) Previous Rx's ?Medication ?Instructions ?Recorded acetaminophen 325 mg tablet 650 mg (2 x 325 mg) PO Q6H PRN 09/22/21 Pain, Mild (Pain Scale 1-3) #1 tab apixaban 5 mg (74 tabs) tablets in 5 - 10 mg (1 - 2 x 5 mg (74 tabs)) 01/23/23 a dose pack (Eliquis DVT-PE Treat PO BID #74 ea 30D Start) diphenhydramine-zinc acetate 2 1 appl topical TID PRN Itching #1 g 01/24/23 %-0.1 % topical cream (Banophen Anti-Itch) docusate sodium 100 mg capsule 100 mg PO BID #60 caps 01/24/23 (Col-Rite) melatonin 3 mg tablet 6 mg (2 x 3 mg) PO BEDTIME PRN 01/24/23 Insomnia #30 tabs metoprolol tartrate 25 mg tablet 25 mg PO BID #60 tabs 01/24/23 oxycodone 5 mg tablet 5 mg PO Q6H PRN Pain, Severe (Pain 01/24/23 Scale 7-10) #20 tabs cefuroxime axetil 500 mg tablet 500 mg PO BID 5 days #10 tabs 12/20/23 nystatin 100,000 unit/gram topical 1 appl topical BID #180 grams 05/07/24 ointment Allergies Allergy/AdvReac Type Severity Reaction Status Date / Time onion [ONION] Allergy Unknown NAUSEA & Verified 05/07/24 12:55 VOMITING PEPPERS, MENDOZA Allergy Unknown NAUSEA & Uncoded 03/05/20 15:05 VOMITING Review of Systems 2 Review of Systems: Yes all other systems are reviewed and are negative [facility] Past Medical History [facility] Narrative: Social history: The patient lives at home with her son. She was other family members that help her. Medical History CAD (coronary artery disease) CHF (congestive heart failure) Hypertension COPD (chronic obstructive pulmonary disease) Surgical History History of colostomy reversal History of cholecystectomy Family History Family History Mother [place] (myocardial infarction) Social History Social History Household Members: Children Household Members Other:: son Housing: Condominium Do you presently have visiting nurse or other home services: No Unable to assess alcohol history related to: Unknown Alcohol intake: never Patient Tobacco Use Status: Current everyday Tobacco user Tobacco use type: Cigarette Cigarette Packs Per Day: 1 Smoked in Last 30 Days: No Use of substances other than those prescribed or required for medical reasons: No Advance Directives: Yes Advance Directives on File: Yes Advance Directives Date on File: 09/21/21 service: No Current occupational status: retired Physical Exam ED Vital Signs: Vital Signs - 24 hr 05/07/24 12:54 05/07/24 18:12 Temperature 97.8 F 98.5 F Pulse Rate 100 101 H Respiratory Rate 18 18 Blood Pressure 166/88 H 144/74 H Pulse Oximetry 96 98 Oxygen Delivery Method Room Air Room Air BMI result Body Mass Index 39.8 Vital signs revealed an elevated blood pressure of 166/88 Exam: General: Awake, alert in no distress Head: Normocephalic, atraumatic EENT: PERRL, Lids normal, sclera normal, conjunctiva normal, nose normal , ears normal, throat without erythema or exudates Neck: Supple, no adenopathy Lung: breath sounds symmetric, no wheezing, rales or rhonchi Chest: symmetric movement, nontender Heart: regular rate and rhythm, normal S1, S2 no murmurs or rubs Abdomen: soft, non-tender, nondistended, normal bowel sounds Rectal: Brown stool which was Hemoccult negative Vaginal: Speculum exam revealed no blood in the vaginal vault. Back: no vertebral tenderness, no CVAT Skin: Patient has severe psoriasis to her lower extremities, buttocks area, arms and abdomen. Patient also has significant intertriginous candidiasis beneath her breasts and the beneath her pannus. Neuro: Awake, alert, oriented, normal speech, cranial nerves intact, moves all extremities symmetrically Psych: Pleasant, cooperative Medications Administered Discontinued Medications Generic Name Dose Route Start Last Admin Trade Name Freq PRN Reason Stop Dose Admin Acetaminophen 975 mg 05/07/24 16:11 05/07/24 16:26 Acetaminophen 325 Mg Tablet PO 05/07/24 16:12 975 mg ONCE ONE Administration Diphenhydramine HCl 25 mg 05/07/24 16:11 05/07/24 16:26 Diphenhydramine Hcl 25 Mg Capsule PO 05/07/24 16:12 25 mg ONCE ONE Administration Medical Decision Making Medical Decision Making MDM Narrative: 83-year-old female with a history of coronary artery disease (NSTEMI 09/2021- 100% LCX occlusion with no intervention), hypertension, COPD who presents emergency department for evaluation of vaginal versus rectal bleeding x2 weeks, getting worse over the last 3 days-becoming more frequent and larger volume, weakness and fatigue. Vital signs revealed an elevated blood pressure. Physical examination revealed severe psoriasis over the patient's entire body with significant intertriginous candidiasis beneath the breasts and pannus. Vaginal examination did not reveal any blood and rectal exam revealed brown stool which was Hemoccult negative. Differential diagnosis: ?Includes but is not limited to GI bleed, hematuria, vaginal bleed, GI malignancy, cervical/uterine malignancy, anemia, electrolyte abnormalities Course: 18:19 My interpretation patient's laboratory evaluation as follows: CBC was normal with an H&H of 14 and 45 with a normal MCV. Coags were normal. CMP was normal. Lipase was normal. At this time I believe that the blood that the family he was noting his coming from her skin especially the breakdown of the skin in the rectal area caused by her psoriasis. I did discuss this with the patient and the patient's family. The patient will need extensive skin care in order to heal her psoriasis and her intertriginous candidiasis. Our correctional casework specialist did evaluate the patient and will try to set up home services for the patient. Patient was prescribed candidiasis ointment b.i.d. to the breast and pannus area for 2 weeks. I also instructed the family to by Cetaphil lotion to apply twice a day to her entire body. Patient has limited ability to ambulate and will need to be transported back home by ambulance. Admission/Observation Consideration of admission/observation: Escalation of care including admission/observation considered (Yes) Lab Data MDM Lab Attestation statement: I reviewed the patient's lab results. 05/07/24 14:00 05/07/24 14:00 Labs: Lab Results 05/07/24 05/07/24 Range/Units 14:00 17:26 WBC 7.7 (4.8-10.8) X10*3/uL RBC 5.41 (4.20-5.50) X10*6/uL Hgb 14.7 (12.0-16.0) g/dl Hct 45.5 (37.0-47.0) % MCV 84.1 (80.0-98.0) fL MCH 27.2 (27.0-33.0) pg MCHC 32.3 (31.0-35.0) g/dl RDW 15.6 (11.0-16.0) % Plt Count 208 (160-400) X10*3/uL MPV 9.1 L (9.4-12.3) fL Immature Gran % (Auto) 0.1 (0.0-0.4) % Neut % (Auto) 75.5 H (45-73) % Lymph % (Auto) 14.2 L (20-40) % [place] % (Auto) 6.1 (2-11) % Eos % (Auto) 3.3 (0-4) % Baso % (Auto) 0.8 (0-2) % Lymph # (Auto) 1.1 L (1.2-4.9) X10*3/uL [place] # (Auto) 0.5 (0.1-1.2) X10*3/uL Eos # (Auto) 0.3 (0.0-0.4) X10*3/uL Baso # (Auto) 0.1 (0.0-0.2) X10*3/uL Abs Immat Gran (auto) 0.01 (0.00-0.03) X10*3/uL Absolute Neuts (auto) 5.8 (2.0-8.3) x10*3/uL Absolute Nucleated RBC 0.000 (0.0-0.012) X10*3/uL Nucleated RBC % (auto) 0.0 (0.0-0.2) /100WBC PT 11.8 (10.9-12.4) SEC INR 1.0 (0.9-1.1) APTT 29.3 (26.0-36.8) SEC Sodium 139 (135-145) mmol/L Potassium 4.2 (3.3-5.1) mmol/L Chloride 103 (96-108) mmol/L Carbon Dioxide 32 H (22-29) mmol/L Anion Gap 8 L (12-20) BUN 14 (9-16) mg/dL Creatinine 1.06 (0.5-1.4) mg/dL Estim Creat Clear Calc 41.5 Estimated GFR 50 Random Glucose 106 (60-115) mg/dL Calcium 9.5 (8.4-10.2) mg/dL Magnesium 2.0 (1.6-2.6) mg/dL Total Bilirubin 0.4 (0.0-1.0) mg/dL AST 24 (5-31) U/L ALT 11 (0-31) U/L Alkaline Phosphatase 87 (39-117) U/L Total Protein 7.7 (6.5-8.0) g/dL Albumin 3.8 (3.5-5.0) g/dL Lipase 52 (8-78) U/L Urine Color Yellow Urine Appearance Clear Urine pH 6.0 (5.0-9.0) Ur Specific [place] 1.010 (1.005-1.025) Urine Protein 30 (1+) H (Neg-Trace) mg/dL Urine Glucose (UA) Negative (Negative) mg/dL Urine Ketones Negative (Negative) mg/dL Urine Blood Moderate (2+) H (Negative) Urine Nitrite Negative (Negative) Ur Leukocyte Esterase Negative (Negative) Urine RBC 0-2 (0-2) /HPF Urine WBC 0-5 (0-5) /HPF Ur Squamous Epith Cells 0-2 (0-2) /HPF Urine Bacteria 2+ (None Seen) Hyaline Casts 0-2 (0-2) /LPF Independent Historian Clinical information obtained from an independent historian. History obtained from or confirmed by: Other (Son) Prescription Management I considered prescription management with: Other (Antifungal cream) Chronic Conditions Patient?s care impacted by: Other (Plaque psoriasis) Discharge Plan Discharge Clinical Impression: Plaque psoriasis, Intertriginous candidiasis Patient Disposition: Home, Self-Care Instructions: Psoriasis (ED), Skin Yeast Infection (ED) Additional Instructions: Your blood counts were normal, despite the bleeding you are not anemic which is reassuring. On your rectal exam your stool was normal and there was no blood on the chemical test which is also reassuring. At this time I believe the blood that your seeing is coming from your skin due to skin breakdown from psoriasis and dry skin. I want you to apply a moisturizing cream twice a day to your entire body to help moisturizing your skin and prevent cracking of the skin You have a yeast infection under your breasts and in the groin area (intertriginous candidiasis) You should wash these areas with soap and water. Dry the area and then apply nystatin ointment twice a day for 2 weeks to these areas. Follow-up with your doctor in 2 days. Please return to the emergency department if your symptoms get worse or if you develop any symptoms that are concerning to you. Prescriptions: New nystatin 100,000 unit/gram ointment 1 appl topical BID Qty: 180 3RF No Action acetaminophen 325 mg Tablet 650 mg PO Q6H PRN (Reason: Pain, Mild (Pain Scale 1-3)) Qty: 1 0RF cefuroxime axetil 500 mg tablet 500 mg PO BID 5 Days Qty: 10 0RF diphenhydramine HCl [Benadryl Allergy] 25 mg Tablet 25 mg PO TID PRN (Reason: Itching) Eliquis DVT-PE Treat 30D Start 5 mg (74 tabs) tablets,dose pack 5 - 10 mg PO BID Qty: 74 0RF Rx Instructions: Take 10 mg (2 tabs) twice daily for 4 days, then 5 (1 tab) twice daily after that.. melatonin 3 mg Tablet 6 mg PO BEDTIME PRN (Reason: Insomnia) Qty: 30 0RF Banophen Anti-Itch 2-0.1 % Cream 1 appl topical TID PRN (Reason: Itching) Qty: 1 0RF Protocol: Apply to: Apply to: apply to affected area oxycodone 5 mg Tablet 5 mg PO Q6H PRN (Reason: Pain, Severe (Pain Scale 7-10)) Qty: 20 0RF Rx Instructions: Partial Fill upon patient request. metoprolol tartrate 25 mg Tablet 25 mg PO BID Qty: 60 0RF Protocol: Hold for SBP/HR < HOLD for SBP < : 90 HOLD for HR < : 60 docusate sodium [Col-Rite] 100 mg capsule 100 mg PO BID Qty: 60 0RF Print Language: Urdu
--- NOTE | 2024-05-07 13:06 | ECG_ITS ---
Test Reason : FALL Blood Pressure : / mmHG Vent. Rate : 101 BPM Atrial Rate : 101 BPM P-R Int : 184 ms QRS Dur : 134 ms QT Int : 388 ms P-R-T Axes : 068 -02 -16 degrees QTc Int : 503 ms Sinus tachycardia Right bundle branch block Inferior infarct , age undetermined T wave abnormality, consider anterior ischemia Abnormal ECG When compared with ECG of 19-DEC-2023 15:48, Inferior infarct is now Present Referred By: Dinh Ardon Electronically Signed By:EMMA CARPIO MD
[2024-05-07 14:03] LABS: MANUAL DIFF FLAG NO
[2024-05-07 14:10] LABS: Basophils Absolute Auto 0.1 X10*3/uL (0.0-0.2); Basophils Percent Auto 0.8 % (0-2); Eosinophils Absolute Auto 0.3 X10*3/uL (0.0-0.4); Eosinophils Percent Auto 3.3 % (0-4); Hematocrit 45.5 % (37.0-47.0); Hemoglobin 14.7 g/dl (12.0-16.0); Imm Gran Abs Auto 0.01 X10*3/uL (0.00-0.03); Imm Gran Pct Auto 0.1 % (0.0-0.4); Lymphocytes Absolute Auto 1.1 X10*3/uL (1.2-4.9); Lymphocytes Percent Auto 14.2 % (20-40); Mean Corpuscular HGB Conc 32.3 g/dl (31.0-35.0); Mean Corpuscular Hemoglobin 27.2 pg (27.0-33.0); Mean Corpuscular Volume 84.1 fL (80.0-98.0); Mean Platelet Volume 9.1 fL (9.4-12.3); Monocytes Absolute Auto 0.5 X10*3/uL (0.1-1.2); Monocytes Percent Auto 6.1 % (2-11); Neutrophils Absolute Auto 5.8 x10*3/uL (2.0-8.3); Neutrophils Percent Auto 75.5 % (45-73); Platelet Count 208 X10*3/uL (160-400); Red Blood Count 5.41 X10*6/uL (4.20-5.50); Red Cell Distribution Width 15.6 % (11.0-16.0); White Blood Count 7.7 X10*3/uL (4.8-10.8)
[2024-05-07 14:13] LABS: Prothrombin Time 11.8 SEC (10.9-12.4)
[2024-05-07 14:16] LABS: Partial Thromboplastin Time 29.3 SEC (26.0-36.8)
[2024-05-07 14:23] LABS: Alanine Aminotransferase 11 U/L (0-31); Albumin Level 3.8 g/dL (3.5-5.0); Alkaline Phosphatase 87 U/L (39-117); Anion Gap 8 (12-20); Aspartate Amino Transferase 24 U/L (5-31); Bilirubin Total 0.4 mg/dL (0.0-1.0); Blood Urea Nitrogen 14 mg/dL (9-16); Calcium 9.5 mg/dL (8.4-10.2); Carbon Dioxide 32 mmol/L (22-29); Chloride 103 mmol/L (96-108); Creatinine Clr Calc Pharmacy 41.5; Estimated Glomerular Filt Rate 50; Glucose Random 106 mg/dL (60-115); Lipase 52 U/L (8-78); Potassium 4.2 mmol/L (3.3-5.1); Sodium 139 mmol/L (135-145); Total Protein 7.7 g/dL (6.5-8.0)
[2024-05-07] MEDS: diphenhydrAMINE HCL 25 MG CAPSULE PO (16:26)
[2024-05-07] MEDS: Acetaminophen 325 MG TABLET 975 MG PO (16:26)
[2024-05-07 17:37] LABS: Appearance Urine Clear; Color Urine Yellow; Glucose Urine UA Negative (Negative); Leukocyte Esterase Urine Negative (Negative); Nitrite Urine Negative (Negative); UMIC TRIGGER UACC YES; Urine Blood Moderate (2+) (Negative); Urine Ketones Negative (Negative); Urine Protein 30 (1+) mg/dL (Neg-Trace)
--- NOTE | 2024-05-07 17:49 | MHC.EDTECH ---
barrier cream applied to all exposed area's under breast, groin, buttocks and moisturizer applied to legs arms and back.
[2024-05-07 17:52] LABS: Bacteria Urine 2+ (None Seen); Hyaline Casts Urine 0-2 /LPF (0-2); RBC Urine 0-2 /HPF (0-2); Squamous Epithelial Cell Urine 0-2 /HPF (0-2); WBC Urine 0-5 /HPF (0-5)
[2024-05-07 18:12] VITALS: BP 144/74; PULSE 101; RESP 18; TEMP 36.9; O2SAT 98
--- NOTE | 2024-05-07 18:12 | PC.NURSE ---
No type and screen or OBS needed per provider
--- NOTE | 2024-05-07 18:17 | MHC.CM.ED ---
Met with patient at the request of Dr. Ardon. Pt is alert and orientated x4. Pt's son/HCP , Pilo ([phone]) is at the bedside. HCP is on file. Pt has a MOLST-DNR/DNI. Will [place] into [facility] and [facility] [place] [employer]. Per Pilo, his mother lives with his brother, Donnie and is very non-compliant. He states she does what she likes and does not want to accept help from others. He tells CM that his mother does ambulate in her apartment with her walker, is incontinent, uses depends, and cannot shower because she cannot get into the tub. The patient tells CM that she is fine at home. Walks with her walker. Has private pay help from [employer] for light housekeeping and personal assistance when needed. Pilo does not have contact with the private pay help. The patient cannot tell CM how often she comes, as she calls her when she needs her. Pt is very independent and stubborn. She is active with [facility] for MOW and laundry services. She has had [facility] in the past with Erica. CM discussed perhaps having private pay help come on a regular schedule for personal care assistance, hiring additional private pay help, refer to [facility], and task to [facility] to re-assess for additional [employer] services. Contact card given to son. Patient will be discharged home with son Donnie. CM verified that Donnie will be home tonight. Dr. Ardon aware of plan of care.
[2024-05-07 19:55] VITALS: BP 144/75; PULSE 106; RESP 18; TEMP 36.6; O2SAT 93
[2024-05-07 22:56] VITALS: BP 144/75; PULSE 106; RESP 18; TEMP 36.6; O2SAT 93
== END 2024-05-07 21:15 | disposition home or self-care (01) ==
PROVIDERS: Emergency Provider Emergency Medicine Emergency Medical Services; PCP Internal Medicine
DX: L40.0 Psoriasis vulgaris (principal); B37.2 Candidiasis of skin and nail; I11.0 Hypertensive heart disease with heart failure; I50.9 Heart failure, unspecified; J44.9 Chronic obstructive pulmonary disease, unspecified; F17.210 Nicotine dependence, cigarettes, uncomplicated
CPT/HCPCS: 36415; 80053; 81001; 83690; 83735; 85025; 85610; 85730; 93005; 99283; 99285

== ENCOUNTER → 2024-05-07 13:06 | Outpatient (BNV) | payer MEDICARE, SELFPAY | PROVIDERS: Emergency Provider Emergency Medicine Emergency Medical Services; PCP Internal Medicine; Visit Provider Internal Medicine Cardiovascular Disease | DX: R94.31 Abnormal electrocardiogram [ECG] [EKG] (principal) | CPT/HCPCS: 93010 ==

== ENCOUNTER 2024-08-04 17:11 | Emergency (ER) | payer MEDICARE, SELFPAY ==
[2024-08-04 17:55] VITALS: BP 180/90; BP 197/98; PULSE 90; RESP 18; TEMP 36; O2SAT 97; BMI 36.6
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
[2024-08-04 21:14] VITALS: BP 202/100; PULSE 90; RESP 20
[2024-08-04] MEDS: amLODIPine Besylate 5 MG TABLET PO (21:18)
[2024-08-04 22:50] VITALS: BP 205/118; PULSE 96; RESP 20; TEMP 36; O2SAT 97
== END 2024-08-04 23:04 | disposition home or self-care (01) ==
PROVIDERS: Emergency Provider Emergency Medicine Emergency Medical Services; PCP Internal Medicine
DX: F41.1 Generalized anxiety disorder (principal); F43.0 Acute stress reaction; R06.02 Shortness of breath; F17.210 Nicotine dependence, cigarettes, uncomplicated; I10 Essential (primary) hypertension
CPT/HCPCS: 99283; 99284

== ENCOUNTER 2024-08-14 00:37 | Inpatient (IN) | payer MEDICARE, SELFPAY ==
[2024-08-14] VITALS (12 sets, daily range): BP systolic 96–166; BP diastolic 49–89; PULSE 92–113; RESP 16–29; TEMP 35.8–39.4; O2SAT 92–99; BMI 31.3
--- NOTE | 2024-08-14 | ECG_ITS ---
Test Reason : WEAKNESS Blood Pressure : */* mmHG Vent. Rate : 110 BPM Atrial Rate : 110 BPM P-R Int : 156 ms QRS Dur : 144 ms QT Int : 378 ms P-R-T Axes : 46 83 2 degrees QTcB Int : 511 ms Sinus tachycardia with Premature supraventricular complexes Right bundle branch block Abnormal ECG When compared with ECG of 07-May-2024 13:40, Premature supraventricular complexes are now Present Right bundle branch block has replaced Non-specific intra-ventricular conduction block Referred By: Generic ED Physician Electronically Signed By: Danny Davenport
--- NOTE | ~2024-08-14 | US_ITS ---
EXAMINATION: US TRIPLEX LOWER EXTREMITY, BILATERAL CLINICAL INFORMATION: Bilateral leg swelling/edema. COMPARISON: 06/23/2019. TECHNIQUE: Color-flow triplex imaging with spectral analysis and compression Doppler were performed on the bilateral lower extremities. FINDINGS: Study is very limited due to patient body habitus. This limits sensitivity. Right Lower Extremity: Respiratory variation, normal compression and augmented flow are noted throughout the bilateral lower extremities. The visualized common femoral vein, superficial femoral vein, profunda femoral vein, popliteal vein and midcalf peroneal and posterior tibial venous segments show no evidence of deep venous thrombosis bilaterally. There is no Rouse's cyst. There are reactive appearing prominent lymph nodes in the right groin. There is calf edema. Left Lower Extremity: There is noncompressible thrombus within the left superficial femoral artery proximal and mid aspect, partially occlusive. This has a partially recanalized appearance, and may secondary to old thrombus. Chronicity cannot be determined based on this exam. The popliteal and deep calf veins appear patent. There is diffuse calf edema. US/US venous duplex LE BI IMPRESSION: 1. Positive LEFT lower extremity DVT as detailed above. Unable to determine if this is acute or chronic thrombus. 2. Negative RIGHT lower extremity for DVT. 3. There is bilateral calf edema. Findings were relayed to Dr. Blackwell via secure text at 4:20 PM, 08/15/2024. Electronically signed by: Av Manzano MD 08/15/2024 04:20 PM [facility]
--- NOTE | ~2024-08-14 | CT_ITS ---
CLINICAL HISTORY: pain diarrhea CT abdomen and pelvis with contrast Comparison: CT/REG/[place]/SR - ABD PELV W IV CON ONLY [id number] - 06/02/19 01:32 EST Findings: This examination is mildly degraded by artifact related to motion and the patient's arms. Coronary artery calcifications are present. Minimal bibasilar subsegmental atelectasis. The gallbladder is not visualized, presumed surgically absent. The solid organs are within normal limits. No hydronephrosis or hydroureter. No free intraperitoneal air identified. Evaluation of the stomach is limited by gastric underdistention and motion artifact. There is colonic diverticulosis. No CT evidence for acute diverticulitis. Multiple ventral hernia defects are identified. These contain fat in some of the hernia defects also contain loops of bowel. There is borderline dilation of a small bowel loop with an internal air-fluid level within a ventral hernia defect to the right of the midline on axial image number 60 of series 3, measuring up to 3.1 cm in maximum diameter. There is aneurysmal dilation of the infrarenal abdominal aorta up to 3 cm in maximum diameter. Soft and calcified atherosclerotic plaque present at the abdominal aorta, producing luminal irregularity. Pelvic contents unremarkable. Tavares catheter in place within the bladder lumen. The bladder is mildly distended with fluid. A small amount of gas is present within the nondependent portion of the bladder lumen, likely related to the Tavares catheter. No bladder wall thickening appreciated. Borderline prominent bilateral inguinal lymph nodes. Normal appendix. No acute fracture visualized. Multilevel degenerative disc disease/vacuum disc phenomenon present at the thoracolumbar spine. IMPRESSION: 1. Mildly limited examination due to artifact as described above. Multiple ventral hernia defects are redemonstrated, some of which contain bowel. There is borderline dilation of a small bowel loop within a ventral hernia defect to the right of the midline measuring up to 3.1 cm in diameter. No other significantly dilated loops of bowel are identified. A partial/low-grade small bowel obstruction or mild bowel ileus is not excluded. No CT evidence for high-grade bowel obstruction. 2. Colonic diverticulosis. No CT evidence for acute diverticulitis. 3. 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 This document has been electronically signed by: Pedro Aviles MD on 08/14/2024 04:14:35
--- NOTE | ~2024-08-14 | XR_ITS ---
CLINICAL HISTORY: sepsis 1 view chest x-ray. Comparison: CT/SR - CT ANGIO CHEST PE PROTOCOL - 12/19/23 16:24 EDT CR/SR - XR CHEST 1V - 12/19/23 16:12 EDT Findings: No consolidation, pneumothorax, or effusion. There is mild central pulmonary venous congestion. Heart size is mildly enlarged. Impression: 1. Mild cardiomegaly with mild central pulmonary venous congestion. No focal pulmonary consolidation. This document has been electronically signed by: Pedro Aviles MD on 08/14/2024 03:05:46
--- NOTE | ~2024-08-14 | CT_ITS ---
CLINICAL HISTORY: ?pna CT chest without contrast Comparison: CR - XR CHEST 1V - 08/14/24 02:[address]/SR - CT ANGIO CHEST PE PROTOCOL - 12/19/23 16:[address]/REG/SR - CT ANGIO CHEST PE PROTOCOL - 01/17/23 12:54 EDT Findings: There is mild cardiomegaly and moderate coronary artery disease. Small saccular aneurysm arises from the inferior surface of the aortic arch unchanged. The right lobe of the thyroid is enlarged. There appears to be a large hypodense lesion within the right lobe measuring at least 5.6 cm in greatest diameter. This has been present on prior exams. Lung luu are clear. There is no evidence of failure. The visualized upper abdomen is unremarkable. No acute fractures. IMPRESSION: 1. Cardiomegaly. 2. Enlarged right lobe of thyroid with hypodense lesion. Please correlate with thyroid sonography. 3. Unchanged saccular aneurysm aortic arch. 4. Moderate coronary artery disease. This document has been electronically signed by: Dimitrios Bae MD on 08/14/2024 06:35:29
--- NOTE | ~2024-08-14 | CT_ITS ---
CLINICAL HISTORY: ams CT head without contrast Comparison: CT/REG/[place]/SR - CT HEAD/BRAIN WO IV CON - 12/19/23 16:23 EDT Findings: Mild artifact present. No intracranial mass, midline shift, hydrocephalus, or acute hemorrhage. There is generalized cerebral volume loss. Extensive nonspecific periventricular and subcortical white matter changes are identified, which may be seen in the setting of chronic small vessel ischemic disease. Visualized paranasal sinuses and mastoid air cells appear clear. No acute skull fracture. Impression: 1. Mildly limited examination due to artifact. No acute intracranial abnormality or acute intracranial hemorrhage identified. This document has been electronically signed by: Pedro Aviles MD on 08/14/2024 04:02:29
[2024-08-14 01:12] LABS: MANUAL DIFF FLAG NO
[2024-08-14 01:14] LABS: Basophils Percent Auto 0.3 % (0-2); Eosinophils Percent Auto 0.3 % (0-4); Hematocrit 42.8 % (37.0-47.0); Hemoglobin 14.2 g/dl (12.0-16.0); Imm Gran Abs Auto 0.03 X10*3/uL (0.00-0.03); Imm Gran Pct Auto 0.3 % (0.0-0.4); Lymphocytes Absolute Auto 0.7 X10*3/uL (1.2-4.9); Mean Corpuscular HGB Conc 33.2 g/dl (31.0-35.0); Mean Corpuscular Hemoglobin 27.7 pg (27.0-33.0); Mean Corpuscular Volume 83.6 fL (80.0-98.0); Mean Platelet Volume 9.8 fL (9.4-12.3); Monocytes Absolute Auto 0.3 X10*3/uL (0.1-1.2); Monocytes Percent Auto 3.1 % (2-11); Neutrophils Absolute Auto 9.9 x10*3/uL (2.0-8.3); Platelet Count 184 X10*3/uL (160-400); Red Blood Count 5.12 X10*6/uL (4.20-5.50); Red Cell Distribution Width 13.8 % (11.0-16.0)
[2024-08-14] MEDS: Acetaminophen 1,000 MG/100 ML PIGGYBACK 400 MG IV (01:33)
[2024-08-14] MEDS: LORazepam 2 MG/ML VIAL 1 MG IVPUSH (01:33)
[2024-08-14] MEDS: Morphine Sulfate 4 MG/ML CARTRIDGE IVPUSH (01:33)
[2024-08-14] MEDS: 0.9 % Sodium Chloride 500 ML IV (01:34)
[2024-08-14 01:36] LABS: Alanine Aminotransferase 26 U/L (0-31); Albumin Level 3.5 g/dL (3.5-5.0); Alkaline Phosphatase 88 U/L (39-117); Anion Gap 19 (12-20); Aspartate Amino Transferase 54 U/L (5-31); Bilirubin Direct 0.5 mg/dL (0.0-0.5); Bilirubin Total 1.2 mg/dL (0.0-1.0); Blood Urea Nitrogen 23 mg/dL (9-16); Calcium 9.1 mg/dL (8.4-10.2); Carbon Dioxide 22 mmol/L (22-29); Chloride 98 mmol/L (96-108); Creatinine Clr Calc Pharmacy 34.6; Estimated Glomerular Filt Rate 36; Glucose Fasting 120 mg/dL (60-99); Lactic Acid 3.3 mmol/L (0.5-2.0); Potassium 4.1 mmol/L (3.3-5.1); Sodium 135 mmol/L (135-145)
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
[2024-08-14] MEDS: cefTRIAXone sodium 2 GM VIAL IVPUSH (01:51)
[2024-08-14 01:54] LABS: Influenza A PCR NEGATIVE (Negative); Influenza B PCR NEGATIVE (Negative); Resp Syncy Virus RNA Qual PCR NEGATIVE (Negative); SARS COV2 PCR INHOUSE NEGATIVE (Negative)
[2024-08-14 01:55] LABS: Magnesium 1.7 mg/dL (1.6-2.6)
[2024-08-14 02:24] LABS: Appearance Urine Cloudy; Color Urine Dark Yellow; Glucose Urine UA Negative (Negative); Leukocyte Esterase Urine Negative (Negative); Nitrite Urine Negative (Negative); PH 5.5 (5.0-9.0); UMIC TRIGGER UACC YES; Urine Blood Moderate (2+) (Negative); Urine Ketones Negative (Negative); Urine Protein 100 (2+) mg/dL (Neg-Trace)
[2024-08-14] MEDS: iohexoL 350 MG/ML 100 ML INFUS..BTL 85 ML IV (02:34)
[2024-08-14 02:40] LABS: Bacteria Urine Trace (None Seen); Granular Casts Urine Present; WBC Urine 0-5 /HPF (0-5)
--- NOTE | 2024-08-14 02:57 | MHC.EDTECH ---
patient back from Cat Scan and Xray. patient transferred to hospital bed and into position of comfort. Patient at this time has no complaints.
[2024-08-14] MEDS: Magnesium Sulfate/H2O 2 GM/50 ML PIGGYBACK IV (03:07)
[2024-08-14 03:11] LABS: Reflex Lactate? Lactic Acid Added
--- NOTE | 2024-08-14 03:13 | PC.NURSE ---
pt alert to name, date of and place, pt arrived by ems, pt incontinent of stool and urine, skin in poor condition, complete binh care, binh area, bright red and swollen, militple skin breakdown, Provider into assess pt, [facility], labs collected and sent. pt taken to CT Scan. Medicated per Aug.
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
[2024-08-14 03:46] LABS: ~Lactic Acid-LAB USE ONLY 1.3 mmol/L (0.5-2.0)
--- NOTE | 2024-08-14 03:52 | PC.NURSE ---
pt placed in hospital bed.
--- NOTE | 2024-08-14 05:05 | PC.NURSE ---
Medication list not updated, unable to confirm with pt, nor with medical records, will attempt to call son in am.
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
--- NOTE | 2024-08-14 05:56 | PC.NURSE ---
pt taken to ct scan of the chest.
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
[2024-08-14 08:27] LABS: B Type Natriuretic Peptide 331 pg/mL (<100)
[2024-08-14] MEDS: Nystatin Powder 15 GM BOTTLE 1 APPL TOPICAL ×3 (09:35→21:00)
--- NOTE | 2024-08-14 10:25 | PC.NURSE ---
nystatin applied to all affected areas.
--- NOTE | 2024-08-14 11:26 | PHA.MEDREC ---
Addendum entered by Mary Dahl [facility] 08/14/24 12:38: Med rec was reviewed by [facility]. Addendum entered by Patricia Baeza 08/14/24 12:12: Added onto note, patient was alert and able to answer my questions about her medications. When I asked about the Eliquis the patient stated clearly I am not taking that blood thinner anymore, I did not like how that made me feel . She was also able to verbally communicate and say I know you do not work as a nurse but can I get some water? and when I explained to her I was not a nurse she was able to ask for her call button to get her nurse. Original Note: Pharmacy Consult ? Medication Reconciliation Pharmacy has completed the medication reconciliation. Spoke with patient and she confirmed what she is taking for medications. Patient stated with me she is only taking the Benadryl Allergy medication as needed for itching or allergies. I asked her about her Eliquis and her other medications and she stated she is not taking them due to not liking having to take them.
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
--- NOTE | 2024-08-14 12:55 | MHC.CM.PN ---
pt lives with children has own ride home dc plan home no services
--- NOTE | 2024-08-14 14:59 | PC.NURSE ---
pt turned/repositioned to comfort. nystatin powder applied to all affected areas. pt transitioned to air loss mattress. pt otherwise continues to rest in no apparent distress. vss and up to date aside from being slightly sinus tachycardic. denies chest pain/palpitations. on RA w/o difficulty. no sob/wob noted. respirations even/unlabored. plan of care ongoing. call portillo placed within reach.
--- NOTE | 2024-08-14 15:13 | MHC.EDTECH ---
Hemant Baird updated number- [phone]
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
[2024-08-14] MEDS: 0.9 % Sodium Chloride Flush 3 ML SYRINGE IVFLUSH (17:20)
[2024-08-14] MEDS: Lactated Ringers 1,000 ML 125 ML IVCONT (17:20)
[2024-08-14] MEDS: vancomycin/NS 2,000 MG/500 ML PLAST..BAG 250 MG IV (19:04)
--- NOTE | 2024-08-14 19:09 | PHA.PROG ---
Admission Date/Time: August 14, 2024 05:46 Indication: BACTEREMIA Weight in k kg Adjusted body weight in Kg: [place] body weight in Kg: Obesity Dosing Indication % IBW: Serum Creatinine - Last 168 Hours 08/14/24 01:02 Creatinine 1.40 Estimated CrCl and GFR - Last 168 Hours 08/14/24 01:02 Estim Creat Clear Calc 34.6 Estimated GFR 36 Vancomycin Loading Dose: 2000 Current Vancomycin Dosing Regimen: 1000 q24h Vancomycin Monitoring using AUC goal of 400 - 600 range with trough as surrogate marker: 502 Date and Time for next Vancomycin Level to be drawn: 08/16/24 @1700 Pharmacist Comments on Vancomycin Plan: Vancomycin dosing will take advantage of [employer] as a clinical decision support tool that uses Bayesian modeling to calculate individual patient's pharmacokinetic parameters and forecast the patient's drug concentration time course with the target goal AUC 24 range of 400 - 600 mg/L/hr.
[2024-08-14] MEDS: Melatonin 3 MG TABLET 6 MG PO (21:39)
[2024-08-14] MEDS: Acetaminophen 325 MG TABLET 650 MG PO (21:40)
[2024-08-14] MEDS: cefTRIAXone sodium 1 GM VIAL IVPUSH (21:41)
[2024-08-15] VITALS: BP 122/68; PULSE 95; RESP 18; TEMP 36.3; O2SAT 96
[2024-08-15] MEDS: Lactated Ringers 1,000 ML 125 ML IVCONT ×2 (04:19→09:22)
[2024-08-15 04:54] VITALS: BP 130/74; PULSE 78; RESP 20; TEMP 36; O2SAT 96
[2024-08-15] MEDS: ondansetron HCL 4 MG/2 ML VIAL IVPUSH (05:07)
[2024-08-15] MEDS: diphenhydrAMINE HCL 25 MG CAPSULE PO ×2 (05:28→23:19)
[2024-08-15] MEDS: Acetaminophen 325 MG TABLET 650 MG PO ×2 (05:28→21:03)
[2024-08-15 05:38] LABS: MANUAL DIFF FLAG NO
[2024-08-15 05:44] LABS: Basophils Percent Auto 0.3 % (0-2); Eosinophils Absolute Auto 0.1 X10*3/uL (0.0-0.4); Eosinophils Percent Auto 1.3 % (0-4); Hematocrit 38.3 % (37.0-47.0); Hemoglobin 12.5 g/dl (12.0-16.0); Imm Gran Abs Auto 0.05 X10*3/uL (0.00-0.03); Imm Gran Pct Auto 0.5 % (0.0-0.4); Lymphocytes Absolute Auto 0.7 X10*3/uL (1.2-4.9); Lymphocytes Percent Auto 7.2 % (20-40); Mean Corpuscular HGB Conc 32.6 g/dl (31.0-35.0); Mean Corpuscular Hemoglobin 27.8 pg (27.0-33.0); Mean Corpuscular Volume 85.1 fL (80.0-98.0); Mean Platelet Volume 10.7 fL (9.4-12.3); Monocytes Absolute Auto 0.5 X10*3/uL (0.1-1.2); Monocytes Percent Auto 5.1 % (2-11); Neutrophils Absolute Auto 8.1 x10*3/uL (2.0-8.3); Neutrophils Percent Auto 85.6 % (45-73); Platelet Count 162 X10*3/uL (160-400); Red Cell Distribution Width 13.8 % (11.0-16.0); White Blood Count 9.5 X10*3/uL (4.8-10.8)
[2024-08-15 06:01] LABS: Anion Gap 11 (12-20); Blood Urea Nitrogen 18 mg/dL (9-16); Calcium 8.6 mg/dL (8.4-10.2); Carbon Dioxide 27 mmol/L (22-29); Chloride 105 mmol/L (96-108); Creatinine Clr Calc Pharmacy 52.6; Estimated Glomerular Filt Rate 58; Glucose Random 85 mg/dL (60-115); Potassium 3.9 mmol/L (3.3-5.1); Sodium 139 mmol/L (135-145)
--- NOTE | 2024-08-15 07:00 | CA_ITS ---
Transthoracic Echocardiogram Patient (Last, First, Middle): Denice Sanchez, Gender: Female Date of : 1940 Age: 83 Procedure Date: 08/15/2024 Procedure Type: Transthoracic Echocardiogram Location: S3E Height: 167. cm Weight: 88. kg BSA: 1.97 m2 Heart Rate: 89 bpm BP: 130 / 74 mmHg Multimedia Services Manager: MARIELLE Referring MD: Jeevan Blackwell MD Symptoms: mrsa bacteremia Study Quality: Technically Difficult w/Contrast Conclusions: - Normal left ventricular cavity size. There is mildly increased left ventricular wall thickness. The left ventricular systolic function is low normal. The visually estimated ejection fraction is between 50-55%. - Elevated filling pressures. - The basal anterolateral segment is akinetic. - Mildly increased right ventricular cavity size. There is normal right ventricular systolic function. - There is mild aortic valve stenosis. - Significantly elevated right atrial pressure. Mild pulmonary hypertension is present. Findings Procedure Information Contrast agent, definity, is being given per protocol without apparent complications. Left Ventricle Normal left ventricular cavity size. There is mildly increased left ventricular wall thickness. The left ventricular systolic function is low normal. The visually estimated ejection fraction is between 50-55%. There is evidence of regional wall motion abnormalities. Abnormal diastolic function is noted. Spectral Doppler is indicative of an impaired relaxation filling pattern. Elevated filling pressures. Wall Motion Rest Echo Findings The basal anterolateral segment is akinetic. Right Ventricle Mildly increased right ventricular cavity size. There is normal right ventricular systolic function. Atria The left atrium is likely dilated. The right atrium is normal in size. Aortic Valve There is mild calcification of the aortic valve. There is mild aortic valve stenosis. There is no aortic valve regurgitation. Mitral Valve Normal mitral valve structure and function. There is no mitral valve regurgitation. There is no mitral valve stenosis. Pulmonic Valve The pulmonic valve is likely normal. Tricuspid Valve Normal tricuspid valve structure. There is trace tricuspid valve regurgitation. The right ventricular systolic pressure is 39 mmHg. Significantly elevated right atrial pressure. Mild pulmonary hypertension is present. Great Vessels All visible segments of the aorta are normal in size. The visualized portions of the pulmonary artery and branches are normal. Venous The inferior vena cava is dilated and collapses less than 50% with inspiration. Pericardium/Pleural There is no evidence of pericardial effusion. Prior Study Comparison Changes noted compared to prior study dated: 01/18/2023. Low normal LVEF. basal anterolateral RWMA. Mild pulm HTN. Measurements 2D Linear Measurements IVSd: 1.08 0.6-0.9/0.6-1.0 cm LVIDd: 4.30 3.9-5.3/4.2-5.9 cm LVIDd Index: 2.18 2.4-3.2/2.2-3.1 cm/m2 LVIDs: 2.19 2.0-3.6 cm LVPWd: 1.06 0.7-1.1 cm LA Diam: 3.00 2.7-3.8/3.0-4.0 cm LAIDs Index: 1.52 1.5-2.3 cm/m2 LV Mass: 195.09 67-162/88-224 g LV Mass Index: 99.03 43-95/49-115 g/m2 LVOT Diam: 2.00 3.0+(-)1.3 cm 2D Systolic Function EF 4C: 48.60 >55% EF 2C: 40.60 >55% EF BiP: 44.10 >55% Mitral Valve MV VTI: 0.31 MV Pk Gustavo: 1.48 MV Mn Gustavo: 1.06 MV Pk Grad: 9.00 MV Mn Grad: 5.00 MV Pk E: 1.01 MV PK A: 1.33 MV Decel Time: 241.00 E/A: 0.80 E'Lateral: 6.49 E'Medial: 4.75 E/E' Med: 21.30 E/E' Lat: 15.60 PHT: 71.00 MVA PHT: 3.10 MVA Continuity: 2.19 Decel Kemper: 4.18 Aortic Valve AoV Pk Gustavo: 1.64 AoV Mn Gustavo: 1.19 AoV VTI: 0.29 AoV Pk Grad: 11.00 Aov Mn Grad: 7.00 AIDAN Cont.VTI: 2.32 LVOT LVOT Pk Gustavo: 1.35 LVOT Mn Gustavo: 0.90 LVOT VTI: 0.22 LVOT Pk Grad: 7.00 LVOT Mn Grad: 4.00 LVOT Diam: 2.00 LVOT Area: 3.14 Diastolic Function MV Pk E: 1.01 MV Pk A: 1.33 E/A: 0.80 E'Medial: 4.75 E/E' Med: 21.30 E' Laterial: 6.49 E/E' Lat: 15.60 Right Ventricle TAPSE (mm): 20.90 TVS' Gustavo: 10.20 Tricuspid Valve TR Pk Gustavo: 2.45 TR Pk Grad: 24.00 RA Press: 15.00 RVSP: 39.00 Great Vessels Aorta Sinus of Valsalva: 3.30 2.0-3.5 cm Ao Asc: 3.10 2.1-3.4 cm Pulmonary Valve PV Pk Gustavo: 0.91 Peak PV Grad: 3.00 Updated in Other Vendor System with Status of Final Danny Davenport MD electronically signed on 08/15/2024 7:34:17 PM with status of Final
[2024-08-15 08:00] VITALS: BP 124/75; PULSE 98; RESP 16; TEMP 36.1
--- NOTE | 2024-08-15 08:18 | P.PNGS_ITS ---
Subjective Subjective Date of Service: 08/15/24 Interval history: No events overnight States she is hungry and wants to eat real food No reported vomiting Denies abdominal pain Physical Exam 2 Vital Signs: Vital Signs: Last Vital Signs Temp 96.8 F 08/15/24 04:54 Pulse 78 08/15/24 04:54 Resp 20 08/15/24 04:54 BP 130/74 08/15/24 04:54 Pulse Ox 96 08/15/24 04:54 O2 Del Method Room Air 08/15/24 04:54 O2 Flow Rate 2 08/14/24 09:35 Oxygen Flow Rate 2 08/14/24 01:09 BMI result Body Mass Index 31.3 Const: Other: Frail looking General: comfortable and no acute distress Resp: Effort & Inspection: normal respiratory effort Cardio: Rate: regular rate GI: Palpation (GI): Soft to palpation, not firm, nontender and no guarding Objective Data Active Medications Acetaminophen (Acetaminophen 325 Mg Tablet) 650 mg PO Q6H PRN PRN Reason: Pain, Mild 1-3,fever,headache Last Admin: 08/15/24 05:28 Dose: 650 mg Documented By: CEDRIC Calcium Carbonate (Calcium Carbonate 750 Mg Tab.Chew) 750 mg PO Q4H PRN PRN Reason: Heartburn Ceftriaxone Sodium (Ceftriaxone Sodium 1 Gm Vial) 1 gm IVPUSH Q24H [facility] Last Admin: 08/14/24 21:41 Dose: 1 gm Documented By: CEDRIC Diphenhydramine HCl (Diphenhydramine Hcl 25 Mg Capsule) 25 mg PO TID PRN PRN Reason: Itching Last Admin: 08/15/24 05:28 Dose: 25 mg Documented By: CEDRIC Lactated Ringer's (Lr) 1,000 mls @ 125 mls/hr IVCONT .Q8H [facility] Last Admin: 08/15/24 04:19 Dose: 125 mls/hr Documented By: CEDRIC Vancomycin HCl 1,000 mg/ (Sodium Chloride) 270 mls @ 270 mls/hr IV Q24H [facility] Magnesium Hydroxide (Milk Of Magnesia 30 Ml Oral.Susp) 30 ml PO DAILY PRN PRN Reason: Constipation Melatonin (Melatonin 3 Mg Tablet) 6 mg PO BEDTIME PRN PRN Reason: Insomnia Last Admin: 08/14/24 21:39 Dose: 6 mg Documented By: CEDRIC Nystatin (Nystatin Powder 15 Gm Bottle) 1 appl TOPICAL TID ANNA; Protocol Last Admin: 08/14/24 21:00 Dose: 1 appl Documented By: CEDRIC Ondansetron HCl (Ondansetron Hcl 4 Mg/2 Ml Vial) 4 mg IVPUSH Q8H PRN PRN Reason: Nausea and Vomiting Last Admin: 08/15/24 05:07 Dose: 4 mg Documented By: CEDRIC Pharmacy Consult (Consult Rx Vancomycin Dosing) 1 each MISCELLANE DAILY PRN PRN Reason: Consult order Sodium Chloride (0.9 % Sodium Chloride Flush 3 Ml Syringe) 3 ml IVFLUSH QSHIFT [facility] Last Admin: 08/14/24 21:51 Dose: Not Given Documented By: CEDRIC Non-Admin Reason: IV Running Labs 08/15/24 05:21 08/15/24 05:21 Labs: Laboratory Results - last 24 hr 08/14/24 08/15/24 07:58 05:21 MCV 85.1 MCH 27.8 MCHC 32.6 RDW 13.8 Plt Count 162 MPV 10.7 Immature Gran % (Auto) 0.5 H Neut % (Auto) 85.6 H Lymph % (Auto) 7.2 L [place] % (Auto) 5.1 Eos % (Auto) 1.3 Baso % (Auto) 0.3 Lymph # (Auto) 0.7 L [place] # (Auto) 0.5 Eos # (Auto) 0.1 Baso # (Auto) 0.0 Abs Immat Gran (auto) 0.05 H Absolute Neuts (auto) 8.1 Absolute Nucleated RBC 0.000 Nucleated RBC % (auto) 0.0 Anion Gap 11 L Estim Creat Clear Calc 52.6 Estimated GFR 58 Random Glucose 85 Calcium 8.6 B-Natriuretic Peptide 331 H Microbiology Microbiology Results: Microbiology 08/14/24 01:02 Blood Culture - Preliminary Blood - Venous No growth after 24 hours. 08/14/24 01:02 Blood Culture - Preliminary Blood - Venous Prelim: GPC Gram Stain only Procedures Date of Service Date of Service: 08/15/24 Progress Note: A&P Assessment and plan (1) Ventral hernia: Status: Acute Assessment and Plan: No signs of obstruction or acute incarceration Appears to be a chronic hernia Abdomen is soft and benign No nausea or vomiting Okay to slowly advance diet as tolerated Time Spent With Patient Time: Total time managing care of this patient today ____ minutes. Quality Stroke Does the patient have a stroke diagnosis?: No VTE Prior VTE?: No VTE Risk Level:: Medical - moderate - high VTE Device Contraindication: Treatment Not Indicated VTE Drug Contraindication: N/A - Med Ordered
--- NOTE | 2024-08-15 08:20 | HE.PHANOTE ---
RE: dimitrios PAtient's creatinine improved, changed dose to 1500mg Q24H with predicted AUC 539 and trough of 16.1. Level still to be drawn 08/16 @1700
[2024-08-15] MEDS: 0.9 % Sodium Chloride Flush 3 ML SYRINGE IVFLUSH ×3 (09:23→20:59)
[2024-08-15] MEDS: Nystatin Powder 15 GM BOTTLE 1 APPL TOPICAL ×3 (09:23→20:58)
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
[2024-08-15] MEDS: Enoxaparin Sodium 40 MG/0.4 ML SYRINGE SUBCUT (10:51)
[2024-08-15 12:00] VITALS: BP 133/72; PULSE 88
[2024-08-15] MEDS: Furosemide 20 MG/2 ML VIAL IVPUSH (12:16)
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
[2024-08-15 15:34] VITALS: BP 132/70; PULSE 93; RESP 17; TEMP 36.3; O2SAT 93
--- NOTE | 2024-08-15 16:15 | PC.NURSE ---
MD Cedillo made aware pt has +3 pitting edema in right LE and +2 in left, positive pedal pulses found with doppler, extremities elevated on pillow, US ordered by MD. Also made aware pt has crackles in bilateral bases, no signs and symptoms of respiratory distress, pt on room air 93%, IVP lasix ordered and given per AUG, IVF D/C'd this AM after findings reported to .
--- NOTE | 2024-08-15 17:53 | HO.SKINPHOTO ---
Pt has all over body rash. Skin red, dry, peeling. Sindi cream applied to bilateral legs, heels, and back. Nystatin Powder and inter dry applied to bilateral groins, and bilateral breasts. Pt has non-blanchable redness to bilateral heels, and right medial plantar, unable to place foams due to lotion, heels elevated on pillows. Pt has airloss pump and wound care nurse consult placed.
[2024-08-15] MEDS: vancomycin HCL 1,500 MG in 0.9 % Sodium Chloride 500 ML 333.33 MG IV (18:23)
[2024-08-15] MEDS: Apixaban 5 MG TABLET PO (20:58)
[2024-08-15] MEDS: cefTRIAXone sodium 1 GM VIAL IVPUSH (20:58)
[2024-08-15 23:21] VITALS: BP 146/65; PULSE 104; RESP 18; TEMP 36.6; O2SAT 93
[2024-08-16 06:22] LABS: Anion Gap 12 (12-20); Blood Urea Nitrogen 18 mg/dL (9-16); Calcium 8.5 mg/dL (8.4-10.2); Carbon Dioxide 28 mmol/L (22-29); Chloride 103 mmol/L (96-108); Creatinine Clr Calc Pharmacy 52.6; Estimated Glomerular Filt Rate 58; Glucose Random 112 mg/dL (60-115); Potassium 3.3 mmol/L (3.3-5.1); Sodium 140 mmol/L (135-145)
--- NOTE | 2024-08-16 07:07 | P.CDIM_ITS ---
PROVIDER RESPONSE TEXT: To clarify, the appropriate diagnosis supported by the clinical indicators: Other (explain): unspecified QUERY TEXT: PHYSICIAN'S DOCUMENTATION REQUEST Date of Query: 08/15/2024 02:05 PM EST Patient Name: Denice Sanchez Admit Date: 08/14/2024 Dear Jeevan Blackwell MD, A review of the medical record indicates additional documentation may be needed. Please review below and update the documentation accordingly. Clinical Indicators: CT of chest: Cardiomegaly CHF documented in Hospitalist Progress note 08/15/24 not on medication BNP 331 Please provide further specificity regarding the most likely type and acuity of CHF you are evaluatin g, treating, or monitoring. Systolic Please specify if Acute, Chronic, or Acute on chronic, or Unable to determine Diastolic Please specify if Acute, Chronic, or Acute on chronic, or Unable to determine Combined Systolic/Diastolic Please specify if Acute, Chronic, or Acute on chronic, or Unable to determine Other (explain) Clinically unable to determine (explain) Thank you, Connie Grant RN Use of terms such as suspected, likely, concern for, or probable (associated with a specific diagnosi s that is being evaluated, monitored, or treated as if it exists) are acceptable and can be coded in the inpatient se tting, when documented at the time of discharge. Please use your independent medical judgment in providing your response. THIS QUERY IS PART OF THE PERMANENT MEDICAL RECORD
[2024-08-16 08:07] VITALS: BP 164/71; PULSE 100; RESP 18; TEMP 36.1; O2SAT 92
[2024-08-16] MEDS: Apixaban 5 MG TABLET PO ×2 (08:25→20:05)
[2024-08-16] MEDS: Nystatin Powder 15 GM BOTTLE 1 APPL TOPICAL ×3 (08:26→20:08)
[2024-08-16] MEDS: 0.9 % Sodium Chloride Flush 3 ML SYRINGE IVFLUSH ×2 (08:28→20:06)
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
[2024-08-16 11:08] VITALS: BP 164/71; PULSE 100; O2SAT 92
[2024-08-16] MEDS: ceFAZolin Sodium/Dextrose,Iso 2 GM/50 ML PIGGYBACK IV ×2 (11:12→18:04)
--- NOTE | 2024-08-16 12:08 | MHC.CM.PN ---
CM met w/ son/ alternate HCP Oli Sanchez at bedside. Oli reports his brother, Jose, lives w/ and used to care for patient. Oli has also privately hired an SENIOR LEAD PROJECT MANAGER, but patient declined services. PT rec STR, patient/son agreeable. No facility preference except not to return to [place]. Referrals sent via [facility]. Per MD will also likely need 4 wks IV abx.
[2024-08-16 15:53] VITALS: BP 199/89; PULSE 87; RESP 18; TEMP 36.4; O2SAT 92
[2024-08-16 16:27] VITALS: BP 158/62
[2024-08-16 17:01] LABS: Vancomycin Random 17.8 mcg/mL (15-20)
[2024-08-16] MEDS: guaiFENesin 100 MG/5 ML 5 ML LIQUID PO (18:23)
[2024-08-16 19:12] VITALS: BP 134/81; PULSE 100; RESP 17; TEMP 37.6; O2SAT 93
--- NOTE | 2024-08-16 20:02 | HO.WOUND ---
Wound Consult: Initial 83yr old? female admitted to [facility] on 08/14/24 - See progress notes and H&P for detailed history.? Wound consult placed for various skin integrity issues.? Patient agreeable to assessment and photo documentation.? 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 When asked why she reported she just didn't plan to at her age. We talked about her skin she reported it was itchy at times. 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 See Photos attached to chart. The Skin folds can continue to be treated with topical antifungal in addition I recommend the provider consider a topical steroid cream which may help with some symptom relief for the patient. Ultimate treatment for Inverse Psoriasis is a systemic treatment via a Gas Meter Repair Supervisor. The patient made it clear she would not be following up outpt. The buttock, perineal and extended areas and posterior legs are noted for MASD - She was sitting in stool and urine for periods of time. The skin after review of later photos shows improvement but with continued redness and dry desquamation and white scaling pink in some areas these are consistent with inverse psoriasis in addition to MASD recommend treating with barrier cream to this area while it heals from the recent moisture exposure. The left leg the patient refused assessment. However given photo review I would suggest cleansing with sindi spray and topical steroid application to treat Psoiatic patches. Recommendations: 1. Turn and Reposition every 2 hours and as needed for patient comfort.? Use pillows or wedges to support off loading positions. 2. Off Load all bony prominences with use of pillows and heel boots if needed.? Apply Preventative foams where needed. ? 3. Monitor for incontinence and moisture control, use barrier creams when needed for prevention and treatment. 4. Provide adequate and supplemental nutrition.? 5. Order low air loss mattress. 6. When applicable maintain blood glucose levels per Providers order. 7. Perineal and Buttocks and posterior thighs - Off Load Pressure with Q2 hr turns and use of pillows - Cleanse with PH balance spray or wipes, pat dry. ?Apply thin layer of barrier cream - Reapply thin layer twice daily PRN after each episode of incontinence. 8. Bilateral Breast Skin folds - Recommend Provider to consider topical steroid in addition to antifungal treatment. Possibly a all in one ointment option. 9. Left Leg - Elevate heels off of bed surface - Cleanse with Sindi [place], pat dry. Apply Vaseline and topical steroid per provider orders cover with wrap. Re-consult wound care Nurse for wound deterioration or wound changes.
[2024-08-16] MEDS: Acetaminophen 325 MG TABLET 650 MG PO (20:11)
--- NOTE | 2024-08-16 22:50 | W.PM.IDCN ---
History of Present Illness Data of Consult Service Date: 08/16/24 Requesting physician: Jeevan Blackwell Primary Care Provider: Chester Delcid MD HPI Reason for consult: MRSA bacteremia, 08/14 She presents with lethargy and confusion. She has no fever or chills at this time. She has MRSA 08/14 x 1 in blood. Review of Systems Review of Systems: Yes all other systems are reviewed and are negative [facility] Past Medical History Medical History Ventral hernia Pulmonary emboli CAD (coronary artery disease) CHF (congestive heart failure) Hypertension COPD (chronic obstructive pulmonary disease) Family History Family History Mother [place] (myocardial infarction) Family history: reviewed and not pertinent Surgical History Surgical History History of colostomy reversal History of cholecystectomy Social History Social History Household Members: Children and Other Household Members Other:: son Housing: Apartment Do you presently have visiting nurse or other home services: Yes (meals on wheels) Unable to assess alcohol history related to: Unknown Alcohol intake: never Patient Tobacco Use Status: Current everyday Tobacco user Tobacco use type: Cigarette Cigarette Packs Per Day: 1 Second Hand Smoke Exposure: No Advance Directives Date on File: 09/21/21 service: No Current occupational status: retired Meds Allergies Allergy/AdvReac Type Severity Reaction Status Date / Time onion [ONION] Allergy Unknown NAUSEA & Verified 08/14/24 01:14 VOMITING PEPPERS, MENDOZA Allergy Unknown NAUSEA & Uncoded 08/04/24 17:57 VOMITING Active Medications: Current Medications Acetaminophen (Acetaminophen 325 Mg Tablet) 650 mg PO Q6H PRN PRN Reason: Pain, Mild 1-3,fever,headache Last Admin: 08/16/24 20:11 Dose: 650 mg Apixaban (Apixaban 5 Mg Tablet) 5 mg PO BID [facility] Stop: 08/22/24 09:01 Last Admin: 08/16/24 20:05 Dose: 5 mg Calcium Carbonate (Calcium Carbonate 750 Mg Tab.Chew) 750 mg PO Q4H PRN PRN Reason: Heartburn Diphenhydramine HCl (Diphenhydramine Hcl 25 Mg Capsule) 25 mg PO TID PRN PRN Reason: Itching Last Admin: 08/15/24 23:19 Dose: 25 mg Guaifenesin (Guaifenesin 100 Mg/5 Ml 5 Ml Liquid) 5 ml PO Q6H PRN PRN Reason: Cough Last Admin: 08/16/24 18:23 Dose: 5 ml Cefazolin Sodium/Dextrose (Ancef) 2 gm in 50 mls @ 100 mls/hr IV Q8H [facility] Last Infusion: 08/16/24 18:46 Dose: Infused Magnesium Hydroxide (Milk Of Magnesia 30 Ml Oral.Susp) 30 ml PO DAILY PRN PRN Reason: Constipation Melatonin (Melatonin 3 Mg Tablet) 6 mg PO BEDTIME PRN PRN Reason: Insomnia Last Admin: 08/14/24 21:39 Dose: 6 mg Nystatin (Nystatin Powder 15 Gm Bottle) 1 appl TOPICAL TID [facility]; Protocol Last Admin: 08/16/24 20:08 Dose: 1 appl Ondansetron HCl (Ondansetron Hcl 4 Mg/2 Ml Vial) 4 mg IVPUSH Q8H PRN PRN Reason: Nausea and Vomiting Last Admin: 08/15/24 05:07 Dose: 4 mg Sodium Chloride (0.9 % Sodium Chloride Flush 3 Ml Syringe) [facility] Last Admin: 08/16/24 20:06 Dose: 3 ml Tramadol HCl (Tramadol Hcl 50 Mg Tablet) 25 mg PO Q6H PRN PRN Reason: Pain, Severe (Pain Scale 7-10) Home Medications ?Medication ?Instructions ?Recorded ?Confirmed ?Last Taken ?Type diphenhydramine HCl 25 mg tablet 25 mg PO TID PRN Itching 01/17/23 08/14/24 Unknown History (Benadryl Allergy) Physical Exam Vital Signs: Vital Signs: Last Vital Signs Temp 99.7 F 08/16/24 19:12 Pulse 100 08/16/24 19:12 Resp 17 08/16/24 19:12 BP 134/81 08/16/24 19:12 Pulse Ox 93 08/16/24 19:12 O2 Del Method Room Air 08/16/24 19:12 O2 Flow Rate 2 08/14/24 09:35 Oxygen Flow Rate 2 08/14/24 01:09 BMI result Body Mass Index 31.3 Const: General: cooperative HEENT: Head: Yes normal to inspection Face and sinus: Yes normal facial exam Mouth: Normal oral and palatal mucosa present Teeth and gingiva: dentition normal Eyes: General: appearance normal, both eyes and all related structures Pupils: Equal, round and reactive pupils present Resp: Effort & Inspection: normal respiratory effort Cardio: Rate: regular rate Rhythm: regular rhythm GI: Palpation (GI): Soft to palpation and nontender : General: Yes no CVA tenderness Back/Spine/Pelvis: Back: no CVA tenderness Skin: General skin exam: no rashes or lesions noted Neuro: General: moves all extremities Cranial nerves: Yes Equal, round and reactive pupils present Extrem: Other: legs scabbed General: Yes normal to inspection Psych: Appearance: grossly normal Results Labs 08/15/24 05:21 08/16/24 05:22 Labs: BMP 08/16/24 05:22 Sodium 140 Potassium 3.3 Chloride 103 Carbon Dioxide 28 BUN 18 H Creatinine 0.92 Calcium 8.5 Microbiology Microbiology Results: Microbiology 08/14/24 01:02 Blood - Venous Blood Culture - Final Methicillin Res Staph Aureus 08/14/24 01:02 Blood - Venous Blood Culture - Final Corynebacterium species Assessment and Plan (1) Altered mental status: Status: Acute (2) Skin ulceration: Status: Acute Plan MRSA bacteremia There is possible skin source Would give IV Kefzol and either Daptomycin or Vancomycin for four weeks.
[2024-08-17] VITALS: BP 136/86; PULSE 56; RESP 17; TEMP 36.2; O2SAT 93
[2024-08-17] MEDS: guaiFENesin 100 MG/5 ML 5 ML LIQUID PO (00:19)
[2024-08-17] MEDS: ceFAZolin Sodium/Dextrose,Iso 2 GM/50 ML PIGGYBACK IV ×3 (02:38→18:20)
[2024-08-17 07:22] LABS: Anion Gap 14 (12-20); Blood Urea Nitrogen 13 mg/dL (9-16); Calcium 9.3 mg/dL (8.4-10.2); Carbon Dioxide 28 mmol/L (22-29); Chloride 101 mmol/L (96-108); Creatinine Clr Calc Pharmacy 47.9; Estimated Glomerular Filt Rate 52; Glucose Random 113 mg/dL (60-115); Potassium 3.9 mmol/L (3.3-5.1); Sodium 139 mmol/L (135-145)
[2024-08-17 07:37] VITALS: BP 142/84; PULSE 107; RESP 17; TEMP 36.6; O2SAT 90
[2024-08-17] MEDS: 0.9 % Sodium Chloride Flush 3 ML SYRINGE IVFLUSH ×3 (08:04→21:24)
[2024-08-17] MEDS: Apixaban 5 MG TABLET PO ×2 (08:04→21:19)
[2024-08-17] MEDS: Nystatin Powder 15 GM BOTTLE 1 APPL TOPICAL ×3 (08:07→21:19)
[2024-08-17] MEDS: traMADoL HCL 50 MG TABLET 25 MG PO (10:49)
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
[2024-08-17 13:37] LABS: Vancomycin Random 10.8 mcg/mL (15-20)
--- NOTE | 2024-08-17 13:47 | HE.PHANOTE ---
Vancomycin MD Lombardi'ed and restarted vancomycin. Last dose = 08/15/24 but random level from today is 10.8. restarted at 1250 mg q24h for predicted AUC of 574. Next level 08/18/24 @1300
[2024-08-17] MEDS: Acetaminophen 325 MG TABLET 650 MG PO (15:18)
[2024-08-17 15:22] VITALS: BP 161/76; PULSE 102; RESP 17; TEMP 36.8; O2SAT 92
[2024-08-17] MEDS: vancomycin HCL 1,250 MG in 0.9 % Sodium Chloride 250 ML 166.67 MG IV (15:23)
[2024-08-17 19:56] VITALS: BP 159/67; PULSE 100; RESP 18; TEMP 36.5; O2SAT 92
[2024-08-18] VITALS (7 sets, daily range): BP systolic 145–189; BP diastolic 70–87; PULSE 100–107; RESP 17–18; TEMP 36.8–37.7; O2SAT 90–94
[2024-08-18] MEDS: traMADoL HCL 50 MG TABLET 25 MG PO ×3 (01:55→16:06)
[2024-08-18] MEDS: ceFAZolin Sodium/Dextrose,Iso 2 GM/50 ML PIGGYBACK IV ×3 (04:07→18:25)
[2024-08-18 06:49] LABS: Anion Gap 14 (12-20); Blood Urea Nitrogen 12 mg/dL (9-16); Calcium 8.9 mg/dL (8.4-10.2); Carbon Dioxide 26 mmol/L (22-29); Chloride 99 mmol/L (96-108); Creatinine Clr Calc Pharmacy 54.4; Estimated Glomerular Filt Rate > 60; Glucose Random 129 mg/dL (60-115); Potassium 3.6 mmol/L (3.3-5.1); Sodium 135 mmol/L (135-145)
[2024-08-18] MEDS: 0.9 % Sodium Chloride Flush 3 ML SYRINGE IVFLUSH ×3 (09:11→19:46)
[2024-08-18] MEDS: guaiFENesin 100 MG/5 ML 5 ML LIQUID PO (09:11)
[2024-08-18] MEDS: Apixaban 5 MG TABLET PO ×2 (09:12→19:47)
[2024-08-18] MEDS: Nystatin Powder 15 GM BOTTLE 1 APPL TOPICAL ×3 (09:12→19:47)
[2024-08-18] MEDS: diphenhydrAMINE HCL 25 MG CAPSULE PO ×2 (09:27→19:47)
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
[2024-08-18] MEDS: amLODIPine Besylate 5 MG TABLET PO (11:35)
[2024-08-18 13:57] LABS: Vancomycin Random 12.4 mcg/mL (15-20)
--- NOTE | 2024-08-18 14:06 | HE.PHANOTE ---
RE: VANCO DOSING Trough came back as 12.4 mg/L. Continue with dose of 1250 mg q24h, next trough is scheduled for 08/19/24 @1300.
[2024-08-18] MEDS: vancomycin HCL 1,250 MG in 0.9 % Sodium Chloride 250 ML 166.67 MG IV (14:55)
[2024-08-18] MEDS: lisinopriL 5 MG TABLET PO (16:06)
--- NOTE | 2024-08-18 18:01 | PC.NURSE ---
pt had difficulties keeping arm straight during vanco transfusion, took twice as long to infuse d/t downstream occlusions, pharmacy notified
[2024-08-19] MEDS: ceFAZolin Sodium/Dextrose,Iso 2 GM/50 ML PIGGYBACK IV ×2 (03:34→13:33)
[2024-08-19 03:48] VITALS: BP 156/80; PULSE 99; RESP 20; TEMP 36; O2SAT 92
[2024-08-19] MEDS: traMADoL HCL 50 MG TABLET 25 MG PO (05:31)
[2024-08-19 06:28] LABS: Anion Gap 16 (12-20); Blood Urea Nitrogen 14 mg/dL (9-16); Calcium 8.9 mg/dL (8.4-10.2); Carbon Dioxide 29 mmol/L (22-29); Chloride 100 mmol/L (96-108); Creatinine Clr Calc Pharmacy 53.8; Estimated Glomerular Filt Rate 60; Glucose Random 101 mg/dL (60-115); Potassium 3.9 mmol/L (3.3-5.1); Sodium 141 mmol/L (135-145)
[2024-08-19 07:02] VITALS: BP 144/71; PULSE 99; RESP 18; TEMP 36.6; O2SAT 90
[2024-08-19] MEDS: 0.9 % Sodium Chloride Flush 3 ML SYRINGE IVFLUSH (09:25)
[2024-08-19] MEDS: amLODIPine Besylate 5 MG TABLET PO (09:26)
[2024-08-19] MEDS: Apixaban 5 MG TABLET PO (09:26)
[2024-08-19] MEDS: lisinopriL 5 MG TABLET PO (09:26)
[2024-08-19] MEDS: Nystatin Powder 15 GM BOTTLE 1 APPL TOPICAL (09:27)
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
--- NOTE | 2024-08-19 12:17 | MHC.CM.PN ---
Addendum entered by Raiza Doe RN 08/19/24 16:26: Son Oli updated per patient request. Addendum entered by Raiza Doe RN 08/19/24 16:26: BLS transport rescheduled to [facility]. Original Note: Per MD rounds patient awaiting PICC placement. Medically cleared, once PICC is in place, [facility]. BLS transport booked for 4pm. Son, Oli, and patient aware. IMM delivered.
[2024-08-19 13:59] LABS: Vancomycin Random 14.3 mcg/mL (15-20)
--- NOTE | 2024-08-19 15:27 | HO.PICC ---
PICC Line Insertion NPICC Diagnosis: Bacteremia Indication: ABT Pertinent Labs: Reviewed Technique: Following informed consent including risks, benefits and alternatives and using sterile technique including cap and mask, sterile gown, glove and drape, the right arm was prepped and draped in the usual sterile fashion of full barrier technique with G. Following completion of Aguilar Protocol the skin and soft tissues were anesthetized with 1% Lidocaine plain. Using ultrasound guidance, right basilic vein access was obtained. Over an 0.018 wire through peel-away sheath, a 4 fr single lumen PASV PICC line was positioned. Catheter length is 39cm internal length, 0cm external length, for a total trimmed length of 39cm. The procedure was performed in [facility]. Tip verification was performed by Will Mcmahon with Sherlock 3CG. Tip located in SVC. Ultrasound was used to document vein patency and for needle entry. A formal ultrasound picture and cardiac rhythm strip was recorded. Vascular Protocol Officer has released the line for use and it is currently dressed with a StatLock, Tegaderm, and CHG disc. Verification has been performed for blood return and line patency. Arm Circumference: 35cm Equipment: [employer] POWERPICC SOLO Catheter with Sherlock 3CG Tip Catheter Type: 4FR single lumen PASV catheter Lot #: [id number]
[2024-08-19] MEDS: vancomycin HCL 1,250 MG in 0.9 % Sodium Chloride 250 ML 166.67 MG IV (15:43)
--- NOTE | 2024-08-19 16:10 | P.PICC_ITS ---
[facility]: BACTEREMIA Indication: 4 WEEKS OF ANTIBX Pertinent Labs: REVIEWED Technique: Following informed consent including risks, benefits and alternatives and using sterile technique including cap and mask, sterile gown, glove and drape, the RIGHT arm was prepped and draped in the usual sterile fashion of full barrier technique with CHG. Following completion of Armstrong Protocol the skin and soft tissues were anesthetized with 1% Lidocaine plain. Using ultrasound guidance, RIGHT BASILIC vein access was obtained. Over an 0.018 wire through peel-away sheath, a 4FR SINGLE LUMEN PASV PICC line was positioned BY EMRE RINCON. Catheter length is 39CM internal length, 0 CM external length, for a total trimmed length of 39CM. The procedure was performed in [facility]. Tip verification was performed by Will Mcmahon with Ilana 3CG. Tip located in SVC. Ultrasound was used to document vein patency and for needle entry. A formal ultrasound picture and cardiac rhythm strip was recorded. Vascular Cardiac Cath Technologist has released the line for use and it is currently dressed with a StatLock, Tegaderm, and CHG disc. Verification has been performed for blood return and line patency. THIS PICC LINE WAS PERFORMED BY EMRE RINCON RN. Arm Circumference: 35CM Equipment:[employer] POWERPICC SOLO CATHETER Catheter Type: 4FR SINGLE LUMEN PASV POWERPICC LINE Lot #: [id number]
[2024-08-19 16:57] VITALS: BP 131/70; PULSE 86; RESP 18; TEMP 36.2; O2SAT 92
--- NOTE | 2024-08-19 17:32 | PC.NURSE ---
Tavares removed by RN before d/c
== END 2024-08-19 17:52 | disposition skilled nursing facility (03) | DRG 871 ==
LOC: HO.ED 02:49 → HO.EDOVER 05:50 → HO.S3 16:56
PROVIDERS: Physician Assistant Medical; Admitting Provider Student in an Organized Health Care Education/Training Program; Emergency Provider Emergency Medicine Emergency Medical Services; PCP Internal Medicine; Visit Provider Internal Medicine
DX: A41.9 Sepsis, unspecified organism (principal); G93.41 Metabolic encephalopathy; J96.01 Acute respiratory failure with hypoxia; T76.01XA Adult neglect or abandonment, suspected, initial encounter; E66.01 Morbid (severe) obesity due to excess calories; I71.43 Infrarenal abdominal aortic aneurysm, without rupture; B95.62 Methicillin resistant Staphylococcus aureus infection as the cause of diseases classified elsewhere; B36.9 Superficial mycosis, unspecified; I87.8 Other specified disorders of veins; K43.9 Ventral hernia without obstruction or gangrene; Z68.31 Body mass index [BMI] 31.0-31.9, adult; J44.9 Chronic obstructive pulmonary disease, unspecified; I25.2 Old myocardial infarction; I25.10 Atherosclerotic heart disease of native coronary artery without angina pectoris; I11.0 Hypertensive heart disease with heart failure; I50.9 Heart failure, unspecified; Z86.711 Personal history of pulmonary embolism; Z20.822 Contact with and (suspected) exposure to COVID-19; Z79.899 Other long term (current) drug therapy
CPT/HCPCS: 0241U; 36415; 36573; 70450; 71045; 71250; 74177; 80048; 80053; 80076; 80202; 81001; 82550; 83605; 83735; 83880; 85025; 87040; 87077; 87186; 87205; 93005; 93306; 93970; 97162; 99285; C1751; J0131; J0690; J0696; J1650; J1940; J2060; J2270; J2405; J3370; J3371; J3475; J7120; Q9957; Q9967

== ENCOUNTER → 2024-08-14 00:59 | Outpatient (BNV) | payer MEDICARE, SELFPAY | PROVIDERS: Emergency Provider Emergency Medicine Emergency Medical Services; Visit Provider Radiology Diagnostic Radiology | DX: K57.30 Diverticulosis of large intestine without perforation or abscess without bleeding (principal); I51.7 Cardiomegaly; R41.82 Altered mental status, unspecified; E04.1 Nontoxic single thyroid nodule | CPT/HCPCS: 70450; 71045; 74177 ==

== ENCOUNTER → 2024-08-14 01:08 | Outpatient (BNV) | payer MEDICARE, SELFPAY | PROVIDERS: Admitting Provider Student in an Organized Health Care Education/Training Program; Emergency Provider Emergency Medicine Emergency Medical Services; Visit Provider Internal Medicine Cardiovascular Disease | DX: I49.1 Atrial premature depolarization (principal); I45.10 Unspecified right bundle-branch block; R00.0 Tachycardia, unspecified | CPT/HCPCS: 93010 ==

== ENCOUNTER 2024-08-14 05:46 | Outpatient (BNV) | payer MEDICARE, SELFPAY | END 2024-08-15 07:00 | PROVIDERS: Admitting Provider Student in an Organized Health Care Education/Training Program; Emergency Provider Emergency Medicine Emergency Medical Services; PCP Internal Medicine; Visit Provider Internal Medicine Cardiovascular Disease | DX: I35.2 Nonrheumatic aortic (valve) stenosis with insufficiency (principal); I27.20 Pulmonary hypertension, unspecified | CPT/HCPCS: 93306 ==

== ENCOUNTER 2024-08-14 05:46 | Outpatient (BNV) | payer MEDICARE, SELFPAY | END 2024-08-15 15:13 | PROVIDERS: Admitting Provider Student in an Organized Health Care Education/Training Program; Emergency Provider Emergency Medicine Emergency Medical Services; PCP Internal Medicine; Visit Provider Radiology Diagnostic Radiology | DX: I74.3 Embolism and thrombosis of arteries of the lower extremities (principal) | CPT/HCPCS: 93970 ==

== ENCOUNTER → 2024-08-14 05:46 | Outpatient (BNV) | payer MEDICARE, SELFPAY | PROVIDERS: Admitting Provider Student in an Organized Health Care Education/Training Program; Emergency Provider Emergency Medicine Emergency Medical Services; PCP Internal Medicine; Visit Provider Internal Medicine | DX: R41.82 Altered mental status, unspecified (principal); L98.499 Non-pressure chronic ulcer of skin of other sites with unspecified severity | CPT/HCPCS: 99222 ==

== ENCOUNTER → 2024-08-14 05:46 | Outpatient (BNV) | payer MEDICARE, SELFPAY | PROVIDERS: Admitting Provider Student in an Organized Health Care Education/Training Program; Emergency Provider Emergency Medicine Emergency Medical Services; Visit Provider Physician Assistant | DX: A41.9 Sepsis, unspecified organism (principal); J96.01 Acute respiratory failure with hypoxia; G93.41 Metabolic encephalopathy; T74.91XA Unspecified adult maltreatment, confirmed, initial encounter; L98.499 Non-pressure chronic ulcer of skin of other sites with unspecified severity; E66.811 Obesity, class 1 | CPT/HCPCS: 99223 ==

== ENCOUNTER → 2024-08-14 05:46 | Outpatient (BNV) | payer MEDICARE, SELFPAY | PROVIDERS: Admitting Provider Student in an Organized Health Care Education/Training Program; Emergency Provider Emergency Medicine Emergency Medical Services; PCP Internal Medicine; Visit Provider Surgery | DX: K43.9 Ventral hernia without obstruction or gangrene (principal) | CPT/HCPCS: 99222; 99232 ==

== ENCOUNTER 2024-09-20 14:53 | Outpatient (AMB) | payer MEDICARE, SELFPAY ==
[2024-09-20 14:57] VITALS: BP 132/76; PULSE 88; O2SAT 95
--- NOTE | 2024-09-20 14:57 | MHC.OFFVIS ---
Vital Signs 09/20/24 14:57 BP 132/76 Pulse 88 Pulse Oximetry (%) 95 Intake Visit Reasons: [facility]Vanco MRSABacteremia end 09/11/2024 Allergies onion [ONION] Allergy (Unknown, Verified 09/20/24 14:58) NAUSEA & VOMITING PEPPERS, MENDOZA Allergy (Unknown, Uncoded 09/20/24 14:58) NAUSEA & VOMITING PFSH Medical History Ventral hernia Pulmonary emboli CAD (coronary artery disease) CHF (congestive heart failure) Hypertension COPD (chronic obstructive pulmonary disease) Surgical History History of colostomy reversal History of cholecystectomy Family History Mother [place] (myocardial infarction) Social History Household Members: Children and Other Household Members Other:: son Housing: Apartment Do you presently have visiting nurse or other home services: Yes (meals on wheels) Unable to assess alcohol history related to: Unknown Alcohol intake: never Patient Tobacco Use Status: Current everyday Tobacco user Tobacco use type: Cigarette Cigarette Packs Per Day: 1 Second Hand Smoke Exposure: No Advance Directives Date on File: 09/21/21 service: No Current occupational status: retired Physical Exam Vital Signs: Last Vital Signs Pulse 88 09/20/24 14:57 BP 132/76 09/20/24 14:57 Pulse Ox 95 09/20/24 14:57 Coding
--- NOTE | 2024-09-20 15:04 | A.OFFVIS_ITS ---
Vital Signs 09/20/24 14:57 BP 132/76 Pulse 88 Pulse Oximetry (%) 95 Intake Visit Reasons: [facility]Vanco MRSABacteremia end 09/11/2024 Allergies onion [ONION] Allergy (Unknown, Verified 09/20/24 14:58) NAUSEA & VOMITING PEPPERS, MENDOZA Allergy (Unknown, Uncoded 09/20/24 14:58) NAUSEA & VOMITING HPI HPI [facility]/Vanco MRSABacteremia end 09/11/2024: Details: I had seen her in hospital August 14 for MRSA bacteremia. She has PICC line in left arm and has had no problems with it. She has no rash or diarrhea. [facility] Medical History MRSA bacteremia Ventral hernia Pulmonary emboli CAD (coronary artery disease) CHF (congestive heart failure) Hypertension COPD (chronic obstructive pulmonary disease) Surgical History History of colostomy reversal History of cholecystectomy Family History Mother [place] (myocardial infarction) Social History Household Members: Children and Other Household Members Other:: son Housing: Apartment Do you presently have visiting nurse or other home services: Yes (meals on wheels) Unable to assess alcohol history related to: Unknown Alcohol intake: never Patient Tobacco Use Status: Current everyday Tobacco user Tobacco use type: Cigarette Cigarette Packs Per Day: 1 Second Hand Smoke Exposure: No Advance Directives Date on File: 09/21/21 service: No Current occupational status: retired Review of Systems Const All systems reviewed & are unremarkable except as noted in HPI and below Physical Exam Vital Signs: Last Vital Signs Pulse 88 09/20/24 14:57 BP 132/76 09/20/24 14:57 Pulse Ox 95 09/20/24 14:57 Const General: cooperative HEENT Head: Yes normal to inspection Face and sinus: Yes normal facial exam Mouth: Normal oral and palatal mucosa present Teeth and gingiva: dentition normal Eyes General: appearance normal, both eyes and all related structures Pupils: Equal, round and reactive pupils present Resp Effort & Inspection: normal respiratory effort Cardio Rate: regular rate Rhythm: regular rhythm GI Palpation (GI): Soft to palpation and nontender General: Yes no CVA tenderness Back/Spine/Pelvis Back: no CVA tenderness Skin General skin exam: no rashes or lesions noted Neuro General: moves all extremities Cranial nerves: Yes Equal, round and reactive pupils present Extrem General: Yes normal to inspection Psych Appearance: grossly normal Assessment & Plan Assessment & Plan (1) MRSA bacteremia: Comment: She is doing well and no fever and no symptoms Code(s): R78.81 - Bacteremia; B95.62 - Methicillin resistant Staphylococcus aureus infection as the cause of diseases classified elsewhere Category: Medical Plan: Remove PICC line No further antibiotics. Orders: Orders IR cvc remove any age Today B95.62 - Methicillin resistant Staphylococcus aureus infection as the cause of diseases classified elsewhere, R78.81 - Bacteremia Coding Level of Care Code Est Pt Level 3 (79507) Diagnoses MRSA bacteremia R78.81; B95.62
--- OUTSIDE RECORDS SUMMARY | 2024-09-20 16:21 | XMS_ITS | Encounter Summary ---
Author Organization [employer] Address [address] [place] [address] Care Team Providers Care Gradall Operator Name Role Phone Mimi Haji MD Primary Care Provider + Encounter Details Date Type Department Care Team (Late st Contact Info) Description 09/15/[address] [facility] - Main Lab 299 [facility] [place] [address] Mimi Haji MD 819 [facility] 1 [place] [address] Bacteremia Social History Tobacco Use Types Packs/Day Years Used Date Smoking Tobacco: Never Assessed Comments Unknown Sex and Gender Information Value Date Recorded Sex Assigned at Not on file Legal Sex Female 8:47 PM EST Gender Identity Not on file Sexual Orientation Not on file documented as of this encounter Plan of Treatment Not on file documented as of this encounter Procedures Procedure Name Priority Date/Time Associated Diagnosis Comments COMPLETE BLOOD COUNT Routine 09/15/2024 12:09 PM EDT Bacteremia VANCOMYCIN, TROUGH Routine 09/15/2024 12 :09 PM EDT Bacteremia COMPREHENSIVE METABOLIC PANEL Routine 09/15/2024 12:09 PM EDT Bacteremia documented in this encounter Results * Vancomycin, trough (09/15/2024 12:09 PM EDT) Vancomycin Trough 15.0 10.0 - 20.0 mcg/mL LAB CHEMISTRY METHOD 09/15/2024 2:33 PM EDT [facility] ([facility]) [facility] Blood Venous blood specimen / Unknown 09/15/2024 12:09 PM EDT 09/15/2024 1:50 PM EDT us Mimi Haji MD LAB BLOOD ORDERABLES Fin al Result [facility] [address] [place] [address], * (ABNORMAL) Comprehensive metabolic panel (09/15/2024 12:09 PM EDT) Sodium 137 133 - 145 mmol/L LAB CHEMISTRY METHOD 09/15/2024 2:34 PM EDT [facility] Potassium 4.0 3.5 - 5.5 mmol/L LAB CHEMISTRY METHOD 09/15/2024 2:34 PM EDT [facility] Chloride 101 96 - 110 mmol/L LAB CHEMISTRY METHOD 09/15/2024 2:[address] [facility] CO2 28 21 - 32 mmol/L LAB CHEMISTRY METHOD 09/15/2024 2:34 PM T [facility] Anion Gap 8 3 - 11 LAB CHEMISTRY METHOD 09/15/2024 2:[address] [facility] Glucose 93 70 - 100 mg/dL LAB CHEMISTRY METHOD 09/15/2024 2:34 PM T [facility] BUN 14 5 - 25 mg/dL LAB CHEMISTRY METHOD 09/15/2024 2:34 PM T [facility] Creatinine 1.07 0.50 - 1.10 mg/dL LAB CHEMISTRY METHOD 09/15/2024 2:[address] [facility] eGFR 52(L) >=60 mL/min/1. 73m2 LAB CHEMISTRY METHOD 09/15/2024 2:34 PM T [facility] Comment:Calculation based on the??Chronic Kidney Disease Epidemiology Collaboration (CKD-EPI) equation refit??without adjustment for race. BUN/Creatinine Ratio 13.1 LAB CHEMISTRY METHOD 09/15/2024 2:34 PM T [facility] Calcium 9.2 8.5 - 10.5 mg/dL LAB CHEMISTRY METHOD 09/15/2024 2:34 PM EDT [facility] AST (SGOT) 16 10 - 42 unit/L LAB CHEMISTRY METHOD 09/15/2024 2:34 PM EDT [facility] ALT (SGPT) 14 10 - 60 unit/L LAB CHEMISTRY METHOD 09/15/2024 2:34 PM EDT [facility] Alkaline Phosphatase 100 42 - 121 unit/L LAB CHEMISTRY METHOD 09/15/2024 2:34 PM EDT [facility] Total Protein 8.0 6.0 - 8.0 g/dL LAB CHEMISTRY METHOD 09/15/2024 2:34 PM EDT [facility] Albumin 3.3 3.2 - 5.0 g/dL LAB CHEMISTRY METHOD 09/15/2024 2:34 PM EDT [facility] Total Bilirubin 0.5 0.0 - 1.4 mg/dL LAB CHEMISTRY METHOD 09/15/2024 2:34 PM EDT [facility] Blood Venous blood specimen / Unknown 09/15/2024 12:09 PM EDT 09/15/2024 1:50 PM EDT us Mimi Haji MD LAB BLOOD ORDERABLES Fin al Result [facility] [address] [place] [address], * (ABNORMAL) Complete blood count (09/15/2024 12:09 PM EDT) WBC 4.7(L) 4.8 - 10.8 K/[facility] LAB HEMETOLOGY METHOD 09/15/2024 2:08 PM EDT [facility] RBC 5.10(H) 3.80 - 4.80 M/mcL LAB HEMETOLOGY METHOD 09/15/2024 2:08 PM EDT [facility] Hemoglobin 14.0 11.5 - 16.0 g/dL LAB HEMETOLOGY METHOD 09/15/2024 2:08 PM EDT [facility] Hematocrit 44.0 35.0 - 47.0 % LAB HEMETOLOGY METHOD 09/15/2024 2:08 PM EDT [facility] MCV 86.4 79.0 - 98.0 FL LAB HEMETOLOGY METHOD 09/15/2024 2:08 PM EDT [facility] MCH 27.5 27.0 - 32.0 pcg LAB HEMETOLOGY METHOD 09/15/2024 2:08 PM EDT [facility] MCHC 31.8(L) 32.0 - 37.0 g/dL LAB HEMETOLOGY METHOD 09/15/2024 2:08 PM EDT [facility] RDW 13.9 11.0 - 15.0 % LAB HEMETOLOGY METHOD 09/15/2024 2:08 PM EDT [facility] Platelets 205 130 - 400 K/mcL LAB HEMETOLOGY METHOD 09/15/2024 2:08 PM EDT [facility] MPV 10.1 7.0 - 11.0 FL LAB HEMETOLOGY METHOD 09/15/2024 2:08 PM EDT [facility] NRBC 0.0 <1.0 % LAB HEMETOLOGY METHOD 09/15/2024 2:08 PM EDT [facility] NRBC Absolute 0.00 <0.10 K/mcL LAB HEMETOLOGY METHOD 09/15/2024 2:08 PM EDT [facility] Blood Venous blood specimen / Unknown Venipuncture / Unknown 09/15/2024 12:09 PM EDT 09/15/2024 1:50 PM EDT us Mimi Haji MD LAB BLOOD ORDERABLES Fin al Result [facility] LAB [address] [place] [address], documented in this encounter Visit Diagnoses Diagnosis Bacteremia documented in this encounter Care Teams Gradall Operator Relationship Specialty Start Date End Date Mimi Haji MD [address] [place] [address] PCP - General Family Medicine 08/20/24 documented as of this encounter
--- OUTSIDE RECORDS SUMMARY | 2024-09-20 16:21 | XMS_ITS | Encounter Summary ---
Author Organization [employer] Address [address] [place] [address] Care Team Providers Care Plisse Machine Operator Name Role Phone Mimi Haji MD Primary Care Provider + Encounter Details Date Type Department Care Team (Late st Contact Info) Description 09/07/2024 Lab Requisition [facility] - Main Lab 299 [facility] [place] [address] Mimi Haji MD [address] [phone] Sepsis, unspecified organism (CMS/HCC); Anemia, unspecified; Other disorders of electrolyte and fluid balance, not elsewhere classified Social History Tobacco Use Types Packs/Day Years Used Date Smoking Tobacco: Never Assessed Comments Unknown Sex and Gender Information Value Date Recorded Sex Assigned at Not on file Legal Sex Female 8:47 PM EST Gender Identity Not on file Sexual Orientation Not on file documented as of this encounter Plan of Treatment Not on file documented as of this encounter Visit Diagnoses Diagnosis Sepsis, unspecified organism (CMS/HCC) Anemia, unspecified Other disorders of electrolyte and fluid balance, not elsewhere classified documented in this encounter Care Teams Plisse Machine Operator Relationship Specialty Start Date End Date Mimi Haji MD [address] [place] [address] PCP - General Family Medicine 08/20/24 documented as of this encounter
--- OUTSIDE RECORDS SUMMARY | 2024-09-20 16:21 | XMS_ITS | Encounter Summary ---
Author Organization [employer] Address [address] [place] [address] Care Team Providers Care Band Saw Marker Name Role Phone Mimi Haji MD Primary Care Provider + Encounter Details Date Type Department Care Team (Late st Contact Info) Description 08/20/2024 Lab Requisition [facility] - Main Lab [address] [place] [address] Mimi Haji MD [address] [phone] Anemia, unspecified; Other disorders of electrolyte and [...] Associated Diagnosis Comments COMPLETE BLOOD COUNT Routine 08/20/2024 5:59 AM EST Anemia, unspecified Other disorders of electrolyte and fluid balance, not elsewhere classified VANCOMYCIN, RANDOM Routine 08/20/2024 5: 59 AM EST Anemia, unspecified Other disorders of electrolyte and fluid balance, not elsewhere classified COMPREHENSIVE METABOLIC PANEL Routine 08/20/2024 5:59 AM EST Anemia, unspecified Other disorders of electrolyte and fluid balance, not elsewhere classified documented in this encounter Results * Vancomycin random (08/20/2024 5:59 AM EST) Vancomycin Rm 15.6 mcg/mL LAB CHEMISTRY METHOD 08/20/2024 10:21 AM [facility] Blood Venous blood specimen / Unknown Venipuncture / Unknown 08/20/2024 5:59 AM EST 08/20/2024 9:11 AM EST us Mimi Haji MD LAB BLOOD ORDERABLES Fin al Result [facility] [address] [place] [address], * (ABNORMAL) Comprehensive metabolic panel (08/20/2024 5:59 AM EST) Sodium 138 133 - 145 mmol/L LAB CHEMISTRY METHOD 08/20/2024 10:21 AM [facility] Potassium 4.0 3.5 - 5.5 mmol/L LAB CHEMISTRY METHOD 08/20/2024 10:21 AM [facility] Chloride 101 96 - 110 mmol/L LAB CHEMISTRY METHOD 08/20/2024 10:21 AM [facility] CO2 29 21 - 32 mmol/L LAB CHEMISTRY METHOD 08/20/2024 10:21 AM [facility] Anion Gap 8 3 - 11 LAB CHEMISTRY METHOD 08/20/2024 10:21 AM [facility] Glucose 94 70 - 100 mg/dL LAB CHEMISTRY METHOD 08/20/2024 10:21 AM [facility] BUN 14 5 - 25 mg/dL LAB CHEMISTRY METHOD 08/20/2024 10:21 AM [facility] Creatinine 0.75 0.50 - 1.10 mg/dL LAB CHEMISTRY METHOD 08/20/2024 10:21 AM [facility] eGFR 80 >=60 mL/min/1. 73m2 LAB CHEMISTRY METHOD 08/20/2024 10:21 AM [facility] LAB Comment:Calculation based on the??Chronic Kidney Disease Epidemiology Collaboration (CKD-EPI) equation refit??without adjustment for race. BUN/Creatinine Ratio 18.7 LAB CHEMISTRY METHOD 08/20/2024 10:21 AM [facility] Calcium 8.5 8.5 - 10.5 mg/dL LAB CHEMISTRY METHOD 08/20/2024 10:21 AM [facility] AST (SGOT) 22 10 - 42 unit/L LAB CHEMISTRY METHOD 08/20/2024 10:21 AM [facility] ALT (SGPT) 9(L) 10 - 60 unit/L LAB CHEMISTRY METHOD 08/20/2024 10:21 AM [facility] Alkaline Phosphatase 127(H) 42 - 121 unit/L LAB CHEMISTRY METHOD 08/20/2024 10:21 AM [facility] Total Protein 6.2 6.0 - 8.0 g/dL LAB CHEMISTRY METHOD 08/20/2024 10:21 AM [facility] Albumin 2.0(L) 3.2 - 5.0 g/dL LAB CHEMISTRY METHOD 08/20/2024 10:21 AM [facility] Total Bilirubin 0.5 0.0 - 1.4 mg/dL LAB CHEMISTRY METHOD 08/20/2024 10:21 AM [facility] Blood Venous blood specimen / Unknown Venipuncture / Unknown 08/20/2024 5:59 AM EST 08/20/2024 9:11 AM EST us Mimi Haji MD LAB BLOOD ORDERABLES Fin al Result [facility] [address] [place] [address], * (ABNORMAL) Complete blood count (08/20/2024 5:59 AM EST) WBC 8.1 4.8 - 10.8 K/mcL LAB HEMETOLOGY METHOD 08/20/2024 9:57 AM [facility] RBC 4.20 3.80 - 4.80 M/mcL LAB HEMETOLOGY METHOD 08/20/2024 9:57 AM [facility] Hemoglobin 11.6 11.5 - 16.0 g/dL LAB HEMETOLOGY METHOD 08/20/2024 9:57 AM [facility] Hematocrit 37.0 35.0 - 47.0 % LAB HEMETOLOGY METHOD 08/20/2024 9:57 AM [facility] LAB MCV 88.1 79.0 - 98.0 FL LAB HEMETOLOGY METHOD 08/20/2024 9:57 AM [facility] LAB MCH 27.6 27.0 - 32.0 pcg LAB HEMETOLOGY METHOD 08/20/2024 9:57 AM [facility] LAB MCHC 31.4(L) 32.0 - 37.0 g/dL LAB HEMETOLOGY METHOD 08/20/2024 9:57 AM [facility] RDW 13.4 11.0 - 15.0 % LAB HEMETOLOGY METHOD 08/20/2024 9:57 AM [facility] Platelets 331 130 - 400 K/mcL LAB HEMETOLOGY METHOD 08/20/2024 9:57 AM [facility] MPV 9.9 7.0 - 11.0 FL LAB HEMETOLOGY METHOD 08/20/2024 9:57 AM [facility] NRBC 0.0 <1.0 % LAB HEMETOLOGY METHOD 08/20/2024 9:57 AM [facility] NRBC Absolute 0.00 <0.10 K/mcL LAB HEMETOLOGY METHOD 08/20/2024 9:57 AM [facility] Blood Venous blood specimen / Unknown Venipuncture / Unknown 08/20/2024 5:59 AM EST 08/20/2024 9:11 AM EST Mimi Haji MD LAB BLOOD ORDERABLES Fin al Result [facility] LAB [address] [place] [address], documented in this encounter Visit Diagnoses Diagnosis Anemia, unspecified Other disorders of electrolyte and fluid balance, not elsewhere classified documented in this encounter Care Teams Band Saw Marker Relationship Specialty Start Date End Date Mimi Haji MD [address] [place] [address] PCP - General Family Medicine 08/20/24 documented as of this encounter
--- OUTSIDE RECORDS SUMMARY | 2024-09-20 16:21 | XMS_ITS | Encounter Summary ---
Author Organization [employer] Address [address] [place] [address] Care Team Providers Care Insurance Claims Supervisor Name Role Phone Mimi Haji MD Primary Care Provider + Encounter Details Date Type Department Care Team (Late st Contact Info) Description 09/13/2024 Lab Requisition [facility] - Main Lab 299 [facility] [place] [address] Mimi Haji MD 819 [facility] 1 [place], [place] [id number] Altered mental status, unspecified; Unspecified infectious disease Social History Tobacco Use Types Packs/Day Years [...] Procedure Name Priority Date/Time Associated Diagnosis Comments CBC WITH AUTO DIFFERENTIAL Routine 09/13/2024 1:28 PM EDT Altered mental status, unspecified Unspecified infectious disease SEDIMENTATION RATE Routine 09/13/2024 1: 28 PM EDT Altered mental status, unspecified Unspecified infectious disease CBC AND DIFFERENTIAL Routine 09/13/2024 1:28 PM EDT Altered mental status, unspecified Unspecified infectious disease C-REACTIVE PROTEIN Routine 09/13/2024 1: 28 PM EDT Altered mental status, unspecified Unspecified infectious disease VANCOMYCIN, TROUGH Routine 09/13/2024 1: 28 PM EDT Altered mental status, unspecified Unspecified infectious disease COMPREHENSIVE METABOLIC PANEL Routine 09/13/2024 1:28 PM EDT Altered mental status, unspecified Unspecified infectious disease documented in this encounter Results * (ABNORMAL) CBC auto differential (09/13/2024 1:28 PM EDT) [facility] WBC 5.0 4.8 - 10.8 K/mcL LAB HEMETOLOGY METHOD [facility] RBC 4.80 3.80 - 4.80 M/mcL LAB HEMETOLOGY METHOD 09/13/2024 [facility] Hemoglobin 13.2 11.5 - 16.0 g/dL LAB HEMETOLOGY METHOD 09/13/2024 4:[address] [facility] Hematocrit 42.4 35.0 - 47.0 % LAB HEMETOLOGY METHOD 09/13/2024 4:00 [facility] MCV 87.8 79.0 - 98.0 FL LAB HEMETOLOGY METHOD 09/13/2024 4:[address] [facility] MCH 27.3 27.0 - 32.0 pcg LAB HEMETOLOGY METHOD 09/13/2024 4:[address] [facility] MCHC 31.1(L) 32.0 - 37.0 g/dL LAB HEMETOLOGY METHOD 09/13/2024 4:[address] [facility] RDW 13.9 11.0 - 15.0 % LAB HEMETOLOGY METHOD 09/13/2024 4:[address] [facility] Platelets 218 130 - 400 K/mcL LAB HEMETOLOGY METHOD 09/13/2024 4:[address] [facility] MPV 10.3 7.0 - 11.0 FL LAB HEMETOLOGY METHOD 09/13/2024 4:[facility] NRBC 0.0 <1.0 % LAB HEMETOLOGY METHOD 09/13/2024 4:[address] [facility] NRBC Absolute 0.00 <0.10 K/mcL LAB HEMETOLOGY METHOD 09/13/2024 4:[address] [facility] Neutrophils Relative 67.3 % LAB HEMETOLOGY METHOD 09/13/2024 4:[address] [facility] Lymphocytes Relative 15.5 % LAB HEMETOLOGY METHOD 09/13/2024 4:[address] [facility] Monocytes Relative 8.1 % LAB HEMETOLOGY METHOD 09/13/2024 4:[address] [facility] Eosinophils Relative 8.1 % LAB HEMETOLOGY METHOD 09/13/2024 4:[address] [facility] Basophils Relative 0.8 % LAB HEMETOLOGY METHOD 09/13/2024 4:[address] [facility] Immature Granulocytes Relative 0.2 % LAB HEMETOLOGY METHOD 09/13/2024 4:[address] [facility] Neutrophils Absolute 3.34 1.50 - 7.00 K/mcL LAB HEMETOLOGY METHOD 09/13/2024 4:[address] [facility] Lymphocytes Absolute 0.77(L) 1.00 - 5.00 K/mcL LAB HEMETOLOGY METHOD 09/13/2024 4:[address] [facility] Monocytes Absolute 0.40 0.20 - 1.00 K/mcL LAB HEMETOLOGY METHOD 09/13/2024 4:[address] [facility] Eosinophils Absolute 0.40 0.00 - 0.50 K/mcL LAB HEMETOLOGY METHOD 09/13/2024 4:[address] [facility] Basophils Absolute 0.04 0.00 - 0.20 K/mcL LAB HEMETOLOGY METHOD 09/13/2024 4:00 PM EDT [facility] Immature Granulocytes Absolute 0.01 0.00 - 0.03 K/mcL LAB HEMETOLOGY METHOD 09/13/2024 4:00 PM EDT [facility] Blood Venous blood specimen / Unknown Venipuncture / Unknown 09/13/2024 1:28 PM EDT 09/13/2024 3:05 PM EDT Mimi Haji MD LAB BLOOD ORDERABLES Fin al Result Performing Organization Address [facility]/ZIP Co de Phone Number [facility] [address] [place] [address], [place] [phone] * (ABNORMAL) Vancomycin, trough (09/13/2024 1:28 PM EDT) Vancomycin Trough 22.2(H) 10.0 - 20.0 mcg/mL LAB CHEMISTRY METHOD 09/13/2024 4:02 PM EDT [facility] Blood Venous blood specimen / Unknown Venipuncture / Unknown 09/13/2024 1:28 PM EDT 09/13/2024 3:05 PM EDT Mimi Haji MD LAB BLOOD ORDERABLES Fin al Result Performing Organization Address [facility]/ZIP Co de Phone Number [facility] [address] [place] [address], [place] [phone] * (ABNORMAL) C-reactive protein (09/13/2024 1:28 PM EDT) C-Reactive Protein 2.86(H) <=0.50 mg/dL LAB CHEMISTRY METHOD 09/13/2024 4:02 PM EDT [facility] Blood Venous blood specimen / Unknown Venipuncture / Unknown 09/13/2024 1:28 PM EDT 09/13/2024 3:05 PM EDT Mimi Haji MD LAB BLOOD ORDERABLES Fin al Result Performing Organization Address [facility]/ZIP Co de Phone Number [facility] [address] [place] [address], [place] [phone] * (ABNORMAL) Sedimentation rate (09/13/2024 1:28 PM EDT) Pathologist [facility] Sed Rate 53(H) 0 - 30 mm/hr LAB HEMETOLOGY METHOD 09/13/2024 4:10 PM EDT [facility] Blood Venous blood specimen / Unknown Venipuncture / Unknown 09/13/2024 1:28 PM EDT 09/13/2024 3:05 PM EDT Mimi Haji MD LAB BLOOD ORDERABLES Fin al Result Performing Organization Address [facility]/ZIP Co de Phone Number [facility] [address] [place] [address], [place] [phone] * (ABNORMAL) Comprehensive metabolic panel (09/13/2024 1:28 PM EDT) [facility] Sodium 133 133 - 145 mmol/L LAB CHEMISTRY METHOD 09/13/2024 4:02 PM T [facility] Potassium 3.7 3.5 - 5.5 mmol/L LAB CHEMISTRY METHOD 09/13/2024 4:02 PM EDT [facility] Chloride 98 96 - 110 mmol/L LAB CHEMISTRY METHOD 09/13/2024 4:[address] [facility] CO2 30 21 - 32 mmol/L LAB CHEMISTRY METHOD 09/13/2024 4:02 PM EDT [facility] Anion Gap 5 3 - 11 LAB CHEMISTRY METHOD 09/13/2024 [facility] Glucose 100 70 - 100 mg/dL LAB CHEMISTRY METHOD 09/13/2024 4:02 PM EDT [facility] BUN 15 5 - 25 mg/dL LAB CHEMISTRY METHOD 09/13/2024 4:[address] [facility] Creatinine 1.07 0.50 - 1.10 mg/dL LAB CHEMISTRY METHOD 09/13/2024 4:[address] [facility] eGFR 52(L) >=60 mL/min/1. 73m2 LAB CHEMISTRY METHOD 09/13/2024 4:[address] [facility] Comment:Calculation based on the??Chronic Kidney Disease Epidemiology Collaboration (CKD-EPI) equation refit??without adjustment for race. BUN/Creatinine Ratio 14.0 LAB CHEMISTRY METHOD 09/13/2024 4:[address] [facility] Calcium 9.0 8.5 - 10.5 mg/dL LAB CHEMISTRY METHOD 09/13/2024 4:[address] [facility] AST (SGOT) 16 10 - 42 unit/L LAB CHEMISTRY METHOD 09/13/2024 4:[address] [facility] ALT (SGPT) 14 10 - 60 unit/L LAB CHEMISTRY METHOD 09/13/2024 4:[address] [facility] Alkaline Phosphatase 96 42 - 121 unit/L LAB CHEMISTRY METHOD 09/13/2024 4:[address] [facility] Total Protein 7.5 6.0 - 8.0 g/dL LAB CHEMISTRY METHOD 09/13/2024 4:[address] [facility] Albumin 3.0(L) 3.2 - 5.0 g/dL LAB CHEMISTRY METHOD 09/13/2024 4:[address] [facility] Total Bilirubin 0.5 0.0 - 1.4 mg/dL LAB CHEMISTRY METHOD 09/13/2024 4:[address] [facility] Blood Venous blood specimen / Unknown Venipuncture / Unknown 09/13/2024 1:28 PM EDT 09/13/2024 3:05 PM EDT us Mimi Haji MD LAB BLOOD ORDERABLES Fin al Result [facility] [address] [place] [address], documented in this encounter Visit Diagnoses Diagnosis Altered mental status, unspecified Unspecified infectious disease documented in this encounter Care Teams Insurance Claims Supervisor Relationship Specialty Start Date End Date Mimi Haji MD [address] [place] [address] PCP - General Family Medicine 08/20/24 documented as of this encounter
--- OUTSIDE RECORDS SUMMARY | 2024-09-20 16:21 | XMS_ITS | Clinical Summary ---
Author Organization 299 [facility] Address [address] [place] [address] Phone Care Team Providers Care Power Transformer Assembler Name Role Phone Mimi Haji MD Primary Care Provider + Encounters Date Type Department Care Team Description 09/15/2024 Lab Requisition [facility] - Main Lab [address] [place] [phone] Mimi Haji MD Sepsis, unspecified organism (CMS/HCC); Anemia, unspecified; Other disorders of electrolyte and fluid balance, not elsewhere classified 09/15/2024 Lab Requisition [facility] - Main Lab [address] [place] [phone] Mimi Haji MD Bacteremia 09/13/2024 Lab Requisition [facility] - Main Lab [address] [place] [address] Mimi Haji MD Altered mental status, unspecified; Unspecified infectious disease 09/07/2024 Lab Requisition [facility] - Main Lab [address] [place] [address] Mimi Haji MD Sepsis, unspecified organism (CMS/HCC); Anemia, unspecified; Other disorders of electrolyte and fluid balance, not elsewhere classified 09/06/2024 Lab Requisition [facility] - Main Lab [address] [place] [address] Mimi Haji MD Bacteremia 09/02/2024 Lab Requisition [facility] - Main Lab [address] [place] [address] Mimi Haji MD Bacteremia; Sepsis, unspecified organism (CMS/HCC) 08/31/2024 Lab Requisition [facility] - Main Lab [address] [place] [phone] Mimi Haji MD Sepsis, unspecified organism (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; Metabolic encephalopathy 08/22/2024 Lab Requisition [facility] - [facility] Lab [address] [place] [phone] Mimi Haji MD 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; Methicillin resistant Staphylococcus aureus infection, unspecified site 08/20/2024 Lab Requisition [facility] Lab [address] [place] [phone] Mimi Haji MD Anemia, unspecified; Other disorders of electrolyte and fluid balance, not elsewhere classified from Last 3 Months Social History Tobacco Use Types Packs/Day Years Used Date Smoking Tobacco: Never Assessed Comments Unknown Sex and Gender Information Value Date Recorded Sex Assigned at Not on file Legal Sex Female 8:47 PM EST Gender Identity Not on file Sexual Orientation Not on file Plan of Treatment Health Maintenance Due Date Last Done Comments DTaP,Tdap,and Td Vaccines (1 - Tdap) 1959 Pneumococcal Vaccine: 50+ Ye ars (1 of 1 - PCV) 11/26/1991 Zoster Vaccines (1 of 2) 11/26/1991 RSV Immunization Adult Patie nts (1 - 1-dose 75+ series) 2016 Depression Screening 07/14/2023 Falls Risk Assessment 07/14/2023 Medicare Annual Wellness Visit 07/14/2023 Osteoporosis Screening (Bone Density Screening) 07/14/2023 Social Influencers of Health Screening 07/14/2023 COVID-19 Vaccine ( - 2023-2 5 season) 2024 Influenza Vaccine (Season Ended) 2025 HIB Vaccines Aged Out No longer eligi ble based on patient's age to complete this topic HPV Vaccines Aged Out No longer eligi ble based on patient's age to complete this topic Hepatitis A Vaccines Aged Out No long er eligible based on patient's age to complete this topic Hepatitis B Vaccines Aged Out No long er eligible based on patient's age to complete this topic IPV Vaccines Aged Out No longer eligi ble based on patient's age to complete this topic MMR Vaccines Aged Out No longer eligi ble based on patient's age to complete this topic Meningococcal ACWY Vaccine Aged Out N o longer eligible based on patient's age to complete this topic Meningococcal B Vacine Aged Out No lo nger eligible based on patient's age to complete this topic RSV Immunization Patients Un gaurav 20 months Aged Out No longer eligible b ased on patient's age to complete this topic Varicella Vaccines Aged Out No longer eligible based on patient's age to complete this topic Procedures Procedure Name Priority Date/Time Associated Diagnosis Comments VANCOMYCIN, TROUGH Routine 09/16/2024 9: 20 AM EDT Sepsis, unspecified organism (CMS/HCC) Anemia, unspecified Other disorders of electrolyte and fluid balance, not elsewhere classified COMPREHENSIVE METABOLIC PANEL Routine 09/16/2024 9:20 AM EDT Sepsis, unspecified organism (CMS/HCC) Anemia, unspecified Other disorders of electrolyte and fluid balance, not elsewhere classified COMPLETE BLOOD COUNT Routine 09/16/2024 9:20 AM EDT Sepsis, unspecified organism (CMS/HCC) Anemia, unspecified Other disorders of electrolyte and fluid balance, not elsewhere classified VANCOMYCIN, TROUGH Routine 09/15/2024 12 :09 PM EDT Bacteremia COMPREHENSIVE METABOLIC PANEL Routine 09/15/2024 12:09 PM EDT Bacteremia COMPLETE BLOOD COUNT Routine 09/15/2024 12:09 PM EDT Bacteremia CBC WITH AUTO DIFFERENTIAL Routine 09/13/2024 1:28 [...] unspecified Unspecified infectious disease VANCOMYCIN, TROUGH Routine 09/06/2024 3: 45 PM EDT Bacteremia SST - GOLD Routine 09/02/2024 2:30 PM EDT Bacteremia Sepsis, unspecified organism (CMS/HCC) LAVENDER - EDTA Routine 09/02/2024 2:30 PM EDT Bacteremia Sepsis, unspecified organism (CMS/HCC) COMPREHENSIVE METABOLIC PANEL Routine 09/02/2024 2:30 PM EDT Bacteremia Sepsis, unspecified organism (CMS/HCC) COMPLETE BLOOD COUNT Routine 09/02/2024 2:30 PM EDT Bacteremia Sepsis, unspecified organism (CMS/HCC) VANCOMYCIN, TROUGH Routine 09/02/2024 2: 30 PM EDT Bacteremia Sepsis, unspecified organism (CMS/HCC) VANCOMYCIN, TROUGH Routine 08/31/2024 6: 14 AM EDT Sepsis, unspecified organism (CMS/HCC) Bacteremia [id number], RSV, FLU A AND B QUALITATIVE RT-PCR, LOCAL REFERENCE LAB Routine 08/27/2024 1:00 PM EDT Acute nasopharyngitis (common cold) LAVENDER - EDTA Routine 08/26/2024 8:49 AM EDT Anemia, unspecified Other disorders of electrolyte and fluid balance, not elsewhere classified Other penitentiary (current) drug therapy Metabolic encephalopathy VITAMIN D 25 HYDROXY Routine 08/26/2024 8:49 AM EDT Anemia, unspecified Other disorders of electrolyte and fluid balance, not elsewhere classified Other penitentiary (current) drug therapy Metabolic encephalopathy FOLATE Routine 08/26/2024 8:49 AM EDT Anemia, unspecified Other disorders of electrolyte and fluid balance, not elsewhere classified Metabolic encephalopathy VITAMIN B12 Routine 08/26/2024 8:49 AM EDT Anemia, unspecified Other disorders of electrolyte and fluid balance, not elsewhere classified Metabolic encephalopathy THYROID STIMULATING HORMONE WITH REFLEX TO FREE T4 AND FREE T3 Routine 08/26/2024 8:49 AM EDT Anemia, unspecified Other disorders of electrolyte and fluid balance, not elsewhere classified Metabolic encephalopathy VANCOMYCIN, TROUGH Routine 08/26/2024 8: 49 AM EDT Anemia, unspecified Other disorders of electrolyte and fluid balance, not elsewhere classified Metabolic encephalopathy VANCOMYCIN, TROUGH STAT 08/22/2024 2: 35 PM EST Other penitentiary (current) drug therapy Methicillin resistant Staphylococcus aureus infection, unspecified site VANCOMYCIN, RANDOM Routine 08/20/2024 5: 59 AM EST Anemia, unspecified Other disorders of electrolyte and fluid balance, not elsewhere classified COMPREHENSIVE METABOLIC PANEL Routine 08/20/2024 5:59 AM EST Anemia, unspecified Other disorders of electrolyte and fluid balance, not elsewhere classified COMPLETE BLOOD COUNT Routine 08/20/2024 5:59 AM EST Anemia, unspecified Other disorders of electrolyte and fluid balance, not elsewhere classified from Last 3 Months Results * (ABNORMAL) Complete blood count (09/16/2024 9:20 AM EDT) Only the most recent of4 resultswithin the time period is included. WBC 4.1(L) 4.8 - 10.8 K/mcL LAB HEMETOLOGY METHOD 09/16/2024 11:37 AM [facility] RBC 4.30 3.80 - 4.80 M/mcL LAB HEMETOLOGY METHOD 09/16/2024 11:37 AM [facility] LAB Hemoglobin 12.0 11.5 - 16.0 g/dL LAB HEMETOLOGY METHOD 09/16/2024 11:37 AM [facility] LAB Hematocrit 36.3 35.0 - 47.0 % LAB HEMETOLOGY METHOD 09/16/2024 11:37 AM [facility] MCV 84.4 79.0 - 98.0 FL LAB HEMETOLOGY METHOD 09/16/2024 11:37 AM [facility] LAB MCH 27.9 27.0 - 32.0 pcg LAB HEMETOLOGY METHOD 09/16/2024 11:37 AM [facility] LAB MCHC 33.1 32.0 - 37.0 g/dL LAB HEMETOLOGY METHOD 09/16/2024 11:37 AM [facility] RDW 14.1 11.0 - 15.0 % LAB HEMETOLOGY METHOD 09/16/2024 11:37 AM [facility] LAB Platelets 181 130 - 400 K/mcL LAB HEMETOLOGY METHOD 09/16/2024 11:37 AM EDT [facility] MPV 10.2 7.0 - 11.0 FL LAB HEMETOLOGY METHOD 09/16/2024 11:37 AM EDT [facility] NRBC 0.0 <1.0 % LAB HEMETOLOGY METHOD 09/16/2024 11:37 AM EDT [facility] NRBC Absolute 0.00 <0.10 K/mcL LAB HEMETOLOGY METHOD 09/16/2024 11:37 AM EDT [facility] Blood Venous blood specimen / Unknown Venipuncture / Unknown 09/16/2024 9:20 AM EDT 09/16/2024 10:39 AM EDT Mimi Haji MD LAB BLOOD ORDERABLES Fin al Result Performing Organization Address City/[facility]/ZIP Co de Phone Number [facility] LAB [address] [place] [address], * Vancomycin, trough (09/16/2024 9:20 AM EDT) Only the most recent of8 resultswithin the time period is included. Pathologist [facility] Vancomycin Trough 19.3 10.0 - 20.0 mcg/mL LAB CHEMISTRY METHOD 09/16/2024 12:23 PM EDT [facility] Blood Venous blood specimen / Unknown Venipuncture / Unknown 09/16/2024 9:20 AM EDT 09/16/2024 10:39 AM EDT Mimi Haji MD LAB BLOOD ORDERABLES Fin al Result [facility] [address] [place] [address], * (ABNORMAL) Comprehensive metabolic panel (09/16/2024 9:20 AM EDT) Only the most recent of5 resultswithin the time period is included. Sodium 134 133 - 145 mmol/L LAB CHEMISTRY METHOD 09/16/2024 12:23 PM [facility] Potassium 3.6 3.5 - 5.5 mmol/L LAB CHEMISTRY METHOD 09/16/2024 12:23 PM [facility] Chloride 100 96 - 110 mmol/L LAB CHEMISTRY METHOD 09/16/2024 12:23 PM [facility] CO2 27 21 - 32 mmol/L LAB CHEMISTRY METHOD 09/16/2024 12:23 PM [facility] Anion Gap 7 3 - 11 LAB CHEMISTRY METHOD 09/16/2024 12:23 PM [facility] Glucose 168(H) 70 - 100 mg/dL LAB CHEMISTRY METHOD 09/16/2024 12:23 PM [facility] BUN 12 5 - 25 mg/dL LAB CHEMISTRY METHOD 09/16/2024 12:23 PM [facility] Creatinine 1.00 0.50 - 1.10 mg/dL LAB CHEMISTRY METHOD 09/16/2024 12:23 PM [facility] eGFR 56(L) >=60 mL/min/1. 73m2 LAB CHEMISTRY METHOD 09/16/2024 12:23 PM [facility] Comment:Calculation based on the??Chronic Kidney Disease Epidemiology Collaboration (CKD-EPI) equation refit??without adjustment for race. BUN/Creatinine Ratio 12.0 LAB CHEMISTRY METHOD 09/16/2024 12:23 PM [facility] Calcium 8.5 8.5 - 10.5 mg/dL LAB CHEMISTRY METHOD 09/16/2024 12:23 PM [facility] AST (SGOT) 14 10 - 42 unit/L LAB CHEMISTRY METHOD 09/16/2024 12:23 PM [facility] ALT (SGPT) 13 10 - 60 unit/L LAB CHEMISTRY METHOD 09/16/2024 12:23 PM [facility] Alkaline Phosphatase 82 42 - 121 unit/L LAB CHEMISTRY METHOD 09/16/2024 12:23 PM EDT [facility] Total Protein 6.6 6.0 - 8.0 g/dL LAB CHEMISTRY METHOD 09/16/2024 12:23 PM EDT [facility] Albumin 2.6(L) 3.2 - 5.0 g/dL LAB CHEMISTRY METHOD 09/16/2024 12:23 PM EDT [facility] Total Bilirubin 0.5 0.0 - 1.4 mg/dL LAB CHEMISTRY METHOD 09/16/2024 12:23 PM EDT [facility] Blood Venous blood specimen / Unknown Venipuncture / Unknown 09/16/2024 9:20 AM EDT 09/16/2024 10:39 AM EDT Mimi Haji MD LAB BLOOD ORDERABLES Fin al Result [facility] [address] [place] [address], * (ABNORMAL) CBC auto differential (09/13/2024 1:28 PM EDT) WBC 5.0 4.8 - 10.8 K/mcL LAB HEMETOLOGY METHOD 09/13/2024 4:00 PM EDT [facility] RBC 4.80 3.80 - 4.80 M/mcL LAB HEMETOLOGY METHOD 09/13/2024 4:00 PM EDT [facility] Hemoglobin 13.2 11.5 - 16.0 g/dL LAB HEMETOLOGY METHOD 09/13/2024 4:00 PM EDT [facility] Hematocrit 42.4 35.0 - 47.0 % LAB HEMETOLOGY METHOD 09/13/2024 4:00 PM EDT [facility] MCV 87.8 79.0 - 98.0 FL LAB HEMETOLOGY METHOD 09/13/2024 4:00 PM [facility] MCH 27.3 27.0 - 32.0 pcg LAB HEMETOLOGY METHOD 09/13/2024 4:00 PM [facility] MCHC 31.1(L) 32.0 - 37.0 g/dL LAB HEMETOLOGY METHOD 09/13/2024 4:00 PM [facility] RDW 13.9 11.0 - 15.0 % LAB HEMETOLOGY METHOD 09/13/2024 4:00 PM [facility] Platelets 218 130 - 400 K/mcL LAB HEMETOLOGY METHOD 09/13/2024 4:00 PM [facility] MPV 10.3 7.0 - 11.0 FL LAB HEMETOLOGY METHOD 09/13/2024 4:00 PM [facility] NRBC 0.0 <1.0 % LAB HEMETOLOGY METHOD 09/13/2024 4:00 PM [facility] NRBC Absolute 0.00 <0.10 K/mcL LAB HEMETOLOGY METHOD 09/13/2024 4:00 PM [facility] Neutrophils Relative 67.3 % LAB HEMETOLOGY METHOD 09/13/2024 4:00 PM [facility] Lymphocytes Relative 15.5 % LAB HEMETOLOGY METHOD 09/13/2024 4:00 PM [facility] Monocytes Relative 8.1 % LAB HEMETOLOGY METHOD 09/13/2024 4:00 PM [facility] Eosinophils Relative 8.1 % LAB HEMETOLOGY METHOD 09/13/2024 4:00 PM [facility] Basophils Relative 0.8 % LAB HEMETOLOGY METHOD 09/13/2024 4:00 PM [facility] Immature Granulocytes Relative 0.2 % LAB HEMETOLOGY METHOD 09/13/2024 4:00 PM EDT [facility] Neutrophils Absolute 3.34 1.50 - 7.00 K/mcL LAB HEMETOLOGY METHOD 09/13/2024 4:00 PM EDT [facility] Lymphocytes Absolute 0.77(L) 1.00 - 5.00 K/mcL LAB HEMETOLOGY METHOD 09/13/2024 4:00 PM EDT [facility] Monocytes Absolute 0.40 0.20 - 1.00 K/mcL LAB HEMETOLOGY METHOD 09/13/2024 4:00 PM EDT [facility] Eosinophils Absolute 0.40 0.00 - 0.50 K/mcL LAB HEMETOLOGY METHOD 09/13/2024 4:00 PM EDT [facility] Basophils Absolute 0.04 0.00 - 0.20 K/mcL LAB HEMETOLOGY METHOD 09/13/2024 4:00 PM EDT [facility] Immature Granulocytes Absolute 0.01 0.00 - 0.03 K/mcL LAB HEMETOLOGY METHOD 09/13/2024 4:00 PM EDT [facility] Blood Venous blood specimen / Unknown Venipuncture / Unknown 09/13/2024 1:28 PM EDT 09/13/2024 3:05 PM EDT us Mimi Haji MD LAB BLOOD ORDERABLES Fin al Result [facility] [address] [place] [address], * (ABNORMAL) Sedimentation rate (09/13/2024 1:28 PM EDT) Sed Rate 53(H) 0 - 30 mm/hr LAB HEMETOLOGY METHOD 09/13/2024 4:10 PM EDT [facility] Blood Venous blood specimen / Unknown Venipuncture / Unknown 09/13/2024 1:28 PM EDT 09/13/2024 3:05 PM EDT Mimi Haji MD LAB BLOOD ORDERABLES Fin al Result Performing Organization Address [facility] Co de Phone Number [facility] [address] [place] [address], [place] [phone] * (ABNORMAL) C-reactive protein (09/13/2024 1:28 PM EDT) [facility] C-Reactive Protein 2.86(H) <=0.50 mg/dL LAB CHEMISTRY METHOD 09/13/2024 4:02 PM EDT [facility] Blood Venous blood specimen / Unknown Venipuncture / Unknown 09/13/2024 1:28 PM EDT 09/13/2024 3:05 PM EDT Mimi Haji MD LAB BLOOD ORDERABLES Fin al Result Performing Organization Address [facility] de Phone Number [facility] [address] [place] [address], [place] [phone] * SST tube (09/02/2024 2:30 PM EDT) [facility] Extra Tube Hold for add-ons. 09/02/2024 6:01 PM EDT [facility] Comment:Auto resulted. Blood Venous blood specimen / Unknown 09/02/2024 2:30 PM EDT 09/02/2024 4:48 PM EDT Mimi Haji MD LAB BLOOD ORDERABLES Fin al Result Performing Organization Address City/[facility]/ZIP Co de Phone Number [facility] [address] [place] [address], [place] [phone] * Lavender tube (09/02/2024 2:30 PM EDT) Only the most recent of2 resultswithin the time period is included. [facility] Extra Tube Hold for add-ons. 09/02/2024 6:01 PM EDT [facility] Comment:Auto resulted. Blood Venous blood specimen / Unknown 09/02/2024 2:30 PM EDT 09/02/2024 4:48 PM EDT Mimi Haji MD LAB BLOOD ORDERABLES Fin al Result [facility] [address] [place] [address], * [id number], RSV, Influenza A and B qualitative RT-PCR (08/27/2024 1:00 PM EDT) [facility] SARS COV-2 Not Detected Not Detected LAB MOLECULAR DIAGNOSTICS METHOD 08/28/2024 2:58 PM EDT [facility] Comment: Disclaimer: The manner in which this information is used to guide patient care is the responsibility of the healthcare provider. Testing was performed using the [employer] Alinity m SARS-CoV-2 test. This test has been authorized by FDA under an Emergency Use Authorization (EUA). This test is only authorized for the duration of time the declaration that circumstances exist justifying the authorization of the emergency use of in vitro diagnostic tests for detection of SARS-CoV-2 virus and/or diagnosis of COVID-19 infection under section 564(b)(1) of the Act, 21 U.S.C. 360bbb- 3(b)(1), unless the authorization is terminated or revoked sooner. Fact sheet for Healthcare Providers can be found at: https://www.fda.gov/media/683713/download Fact sheet for Patients can be found at: https://www.fda.gov/media/368099/download Influenza A PCR Not Detected Not Detected LAB MOLECULAR DIAGNOSTICS METHOD 08/28/2024 2:58 PM EDT [facility] Influenza B PCR Not Detected Not Detected LAB MOLECULAR DIAGNOSTICS METHOD 08/28/2024 2:58 PM EDT [facility] RSV PCR Not Detected Not Detected LAB MOLECULAR DIAGNOSTICS METHOD 08/28/2024 2:58 PM EDT [facility] Swab Nasopharyngeal structure / Unknown Non-blood Collection / Unknown 08/27/2024 1:00 PM EDT 08/28/2024 11:16 AM EDT Mimi Haji MD LAB MICROBIOLOGY - GENER AL ORDERABLES Final Result Performing Organization Address [facility]/ZIP Co de Phone Number [facility] [address] [place] [address], [place] [phone] * Thyroid stimulating hormone with reflex to free t4 and free t3 (08/26/2024 8:49 AM EDT) TSH 3.96 0.40 - 4.00 mcIU/mL LAB CHEMISTRY METHOD 08/26/2024 12:53 PM EDT [facility] Blood Venous blood specimen / Unknown Venipuncture / Unknown 08/26/2024 8:49 AM EDT 08/26/2024 10:35 AM EDT Mimi Haji MD LAB BLOOD ORDERABLES Fin al Result Performing Organization Address [facility]/ZIP Co de Phone Number [facility] [address] [place] [address], [place] [phone] * (ABNORMAL) Vitamin D 25 hydroxy (08/26/2024 8:49 AM EDT) Vit D, 25-Hydroxy 21.1(L) 30.0 - 80.0 ng/mL LAB CHEMISTRY METHOD 08/26/2024 12:52 PM EDT [facility] Blood Venous blood specimen / Unknown Venipuncture / Unknown 08/26/2024 8:49 AM EDT 08/26/2024 10:35 AM EDT Mimi Haji MD LAB BLOOD ORDERABLES Fin al Result Performing Organization Address City/[facility]/ZIP Co de Phone Number [facility] [address] [place] [address], [place] [phone] * Folate (08/26/2024 8:49 AM EDT) Folate 4.1 2.8 - 17.0 ng/ml LAB CHEMISTRY METHOD 08/26/2024 11:56 AM EDT [facility] Blood Venous blood specimen / Unknown Venipuncture / Unknown 08/26/2024 8:49 AM EDT 08/26/2024 10:35 AM EDT Mimi Haji MD LAB BLOOD ORDERABLES Fin al Result Performing Organization Address [facility] Co de Phone Number [facility] [address] [place] [address], * Vitamin B12 (08/26/2024 8:49 AM EDT) Pathologist [facility] Vitamin B-12 739 250 - 900 pcg/mL LAB CHEMISTRY METHOD 08/26/2024 11:56 AM EDT [facility] Blood Venous blood specimen / Unknown Venipuncture / Unknown 08/26/2024 8:49 AM EDT 08/26/2024 10:35 AM EDT Mimi Haji MD LAB BLOOD ORDERABLES Fin al Result Performing Organization Address City/[facility]/ZIP Co de Phone Number [facility] [address] [place] [address], [place] [phone] * Vancomycin random (08/20/2024 5:59 AM EST) Vancomycin Rm 15.6 mcg/mL LAB CHEMISTRY METHOD 08/20/2024 10:21 AM EST [facility] Blood Venous blood specimen / Unknown Venipuncture / Unknown 08/20/2024 5:59 AM EST 08/20/2024 9:11 AM EST Mimi Haji MD LAB BLOOD ORDERABLES Fin al Result [facility] [address] [place] [address], from Last 3 Months Insurance MEDICARE [facility] Care Teams Power Transformer Assembler Relationship Specialty Start Date End Date Mimi Haji MD [address] [place] [address] PCP - General Family Medicine 08/20/24
--- OUTSIDE RECORDS SUMMARY | 2024-09-20 16:21 | XMS_ITS | Encounter Summary ---
Author Organization [employer] Address [address] [place] [address] Care Team Providers Care Finance Admin Name Role Phone Mimi Haji MD Primary Care Provider + Encounter Details Date Type Department Care Team (Late st Contact Info) Description 09/02/2024 Lab Requisition [facility] - Main Lab 299 [facility] [place] [address] Mimi Haji MD 819 [facility] 1 [place], [place] [phone] Bacteremia; Sepsis, unspecified organism (CMS/HCC) Social History Tobacco Use Types Packs/Day Years [...] Procedure Name Priority Date/Time Associated Diagnosis Comments SST - GOLD Routine 09/02/2024 2:30 PM [...] PM EDT Bacteremia Sepsis, unspecified organism (CMS/HCC) documented in this encounter Results * SST tube (09/02/2024 2:30 PM EDT) Extra Tube Hold for add-ons. 09/02/2024 6:01 PM EDT [facility] Comment:Auto resulted. Blood Venous blood specimen / Unknown 09/02/2024 2:30 PM EDT 09/02/2024 4:48 PM EDT Mimi Haji MD LAB BLOOD ORDERABLES Fin al Result Performing Organization Address City/[facility]/ZIP Co de Phone Number [facility] [address] [place] [address], [place] [phone] * Lavender tube (09/02/2024 2:30 PM EDT) Extra Tube Hold for add-ons. 09/02/2024 6:01 PM EDT [facility] Comment:Auto resulted. Blood Venous blood specimen / Unknown 09/02/2024 2:30 PM EDT 09/02/2024 4:48 PM EDT Mimi Haji MD LAB BLOOD ORDERABLES Fin al Result Performing Organization Address City/[facility]/ZIP Co de Phone Number [facility] [address] [place] [address], [place] [phone] * (ABNORMAL) Comprehensive metabolic panel (09/02/2024 2:30 PM EDT) Sodium 135 133 - 145 mmol/L LAB CHEMISTRY METHOD 09/02/2024 5:21 PM EDT [facility] Potassium 4.2 3.5 - 5.5 mmol/L LAB CHEMISTRY METHOD 09/02/2024 5:21 PM EDT [facility] Chloride 97 96 - 110 mmol/L LAB CHEMISTRY METHOD 09/02/2024 5:21 PM [facility] CO2 29 21 - 32 mmol/L LAB CHEMISTRY METHOD 09/02/2024 5:21 PM [facility] Anion Gap 9 3 - 11 LAB CHEMISTRY METHOD 09/02/2024 5:21 PM [facility] Glucose 155(H) 70 - 100 mg/dL LAB CHEMISTRY METHOD 09/02/2024 5:21 PM [facility] BUN 16 5 - 25 mg/dL LAB CHEMISTRY METHOD 09/02/2024 5:21 PM [facility] Creatinine 1.15(H) 0.50 - 1.10 mg/dL LAB CHEMISTRY METHOD 09/02/2024 5:21 PM [facility] eGFR 48(L) >=60 mL/min/1. 73m2 LAB CHEMISTRY METHOD 09/02/2024 5:21 PM [facility] Comment:Calculation based on the??Chronic Kidney Disease Epidemiology Collaboration (CKD-EPI) equation refit??without adjustment for race. BUN/Creatinine Ratio 13.9 LAB CHEMISTRY METHOD 09/02/2024 5:21 PM [facility] Calcium 9.4 8.5 - 10.5 mg/dL LAB CHEMISTRY METHOD 09/02/2024 5:21 PM [facility] AST (SGOT) 15 10 - 42 unit/L LAB CHEMISTRY METHOD 09/02/2024 5:21 PM [facility] ALT (SGPT) 14 10 - 60 unit/L LAB CHEMISTRY METHOD 09/02/2024 5:21 PM [facility] Alkaline Phosphatase 108 42 - 121 unit/L LAB CHEMISTRY METHOD 09/02/2024 5:21 PM [facility] Total Protein 8.7(H) 6.0 - 8.0 g/dL LAB CHEMISTRY METHOD 09/02/2024 5:21 PM [facility] Albumin 3.2 3.2 - 5.0 g/dL LAB CHEMISTRY METHOD 09/02/2024 5:21 PM EDT [facility] Total Bilirubin 0.5 0.0 - 1.4 mg/dL LAB CHEMISTRY METHOD 09/02/2024 5:21 PM EDT [facility] Blood Venous blood specimen / Unknown Venipuncture / Unknown 09/02/2024 2:30 PM EDT 09/02/2024 4:47 PM EDT us Mimi Haji MD LAB BLOOD ORDERABLES Fin al Result [facility] [address] [place] [address], * (ABNORMAL) Complete blood count (09/02/2024 2:30 PM EDT) WBC 5.3 4.8 - 10.8 K/mcL LAB HEMETOLOGY METHOD 09/02/2024 5:12 PM EDT [facility] RBC 5.30(H) 3.80 - 4.80 M/mcL LAB HEMETOLOGY METHOD 09/02/2024 5:12 PM EDT [facility] Hemoglobin 14.4 11.5 - 16.0 g/dL LAB HEMETOLOGY METHOD 09/02/2024 5:12 PM EDT [facility] Hematocrit 45.3 35.0 - 47.0 % LAB HEMETOLOGY METHOD 09/02/2024 5:12 PM EDT [facility] MCV 86.3 79.0 - 98.0 FL LAB HEMETOLOGY METHOD 09/02/2024 5:12 PM EDT [facility] MCH 27.4 27.0 - 32.0 pcg LAB HEMETOLOGY METHOD 09/02/2024 5:12 PM EDT [facility] MCHC 31.8(L) 32.0 - 37.0 g/dL LAB HEMETOLOGY METHOD 09/02/2024 5:12 PM EDT [facility] RDW 13.9 11.0 - 15.0 % LAB HEMETOLOGY METHOD 09/02/2024 5:12 PM EDT [facility] Platelets 263 130 - 400 K/mcL LAB HEMETOLOGY METHOD 09/02/2024 5:12 PM EDT [facility] MPV 10.0 7.0 - 11.0 FL LAB HEMETOLOGY METHOD 09/02/2024 5:12 PM EDT [facility] NRBC 0.0 <1.0 % LAB HEMETOLOGY METHOD 09/02/2024 5:12 PM EDT [facility] NRBC Absolute 0.00 <0.10 K/mcL LAB HEMETOLOGY METHOD 09/02/2024 5:12 PM EDT [facility] Blood Venous blood specimen / Unknown Venipuncture / Unknown 09/02/2024 2:30 PM EDT 09/02/2024 4:47 PM EDT Mimi Haji MD LAB BLOOD ORDERABLES Fin al Result [facility] [address] [place] [address], * Vancomycin, trough (09/02/2024 2:30 PM EDT) Pathologist [facility] Vancomycin Trough 11.1 10.0 - 20.0 mcg/mL LAB CHEMISTRY METHOD 09/02/2024 5:20 PM EDT [facility] Blood Venous blood specimen / Unknown Venipuncture / Unknown 09/02/2024 2:30 PM EDT 09/02/2024 4:47 PM EDT Mimi Haji MD LAB BLOOD ORDERABLES Fin al Result [facility]) HOSPITAL LAB [address] [place] [address], documented in this encounter Visit Diagnoses Diagnosis Bacteremia Sepsis, unspecified organism ([facility]) documented in this encounter Care Teams Finance Admin Relationship Specialty Start Date End Date Mimi Haji MD [address] [place] [address] PCP - General Family Medicine 08/20/24 documented as of this encounter
--- OUTSIDE RECORDS SUMMARY | 2024-09-20 16:21 | XMS_ITS | Encounter Summary ---
Author Organization [id number] | [employer] Address [address] [place] [address] Care Team Providers Care Hoisting Engineer Pile Driving Name Role Phone Mimi Haji MD Primary Care Provider + Encounter Details Date Type Department Care Team (Late st Contact Info) Description 09/15/2024 Lab Requisition [facility] - Main Lab 299 [facility] [place] [address] Mimi Haji MD [address] [phone] Sepsis, unspecified organism (CMS/HCC); Anemia, unspecified; Other [...] Associated Diagnosis Comments COMPLETE BLOOD COUNT Routine 09/16/2024 9:20 AM EDT Sepsis, unspecified organism (CMS/HCC) Anemia, unspecified Other disorders of electrolyte and fluid balance, not elsewhere classified VANCOMYCIN, TROUGH Routine 09/16/2024 9: 20 AM EDT Sepsis, unspecified organism (CMS/HCC) Anemia, unspecified Other disorders of electrolyte and fluid balance, not elsewhere classified COMPREHENSIVE METABOLIC PANEL Routine 09/16/2024 9:20 AM EDT Sepsis, unspecified organism (CMS/HCC) Anemia, unspecified Other disorders of electrolyte and fluid balance, not elsewhere classified documented in this encounter Results * Vancomycin, trough (09/16/2024 9:20 AM EDT) Vancomycin Trough 19.3 10.0 - 20.0 mcg/mL LAB CHEMISTRY METHOD 09/16/2024 12:23 PM [facility] Blood Venous blood specimen / Unknown Venipuncture / Unknown 09/16/2024 9:20 AM EDT 09/16/2024 10:39 AM EDT us Mimi Haji MD LAB BLOOD ORDERABLES Fin al Result [facility] [address] [place] [address], * (ABNORMAL) Comprehensive metabolic panel (09/16/2024 9:20 AM EDT) Pathologist [facility] Sodium 134 133 - 145 mmol/L LAB [...] 09/16/2024 12:23 PM [facility] Total Protein 6.6 6.0 - 8.0 g/dL LAB CHEMISTRY METHOD 09/16/2024 12:23 PM [facility] Albumin 2.6(L) 3.2 - 5.0 g/dL LAB CHEMISTRY METHOD 09/16/2024 12:23 PM [facility] Total Bilirubin 0.5 0.0 - 1.4 mg/dL LAB CHEMISTRY METHOD 09/16/2024 12:23 PM [facility] Blood Venous blood specimen / Unknown Venipuncture / Unknown 09/16/2024 9:20 AM EDT 09/16/2024 10:39 AM EDT us Mimi Haji MD LAB BLOOD ORDERABLES Fin al Result [facility] [address] [place] [address], * (ABNORMAL) Complete blood count (09/16/2024 9:20 AM EDT) [facility] Signature WBC 4.1(L) 4.8 - 10.8 K/mcL LAB [...] 09/16/2024 11:37 AM [facility] MPV 10.2 7.0 - 11.0 FL LAB HEMETOLOGY METHOD 09/16/2024 11:37 AM [facility] NRBC 0.0 <1.0 % LAB HEMETOLOGY METHOD 09/16/2024 11:37 AM [facility] NRBC Absolute 0.00 <0.10 K/mcL LAB HEMETOLOGY METHOD 09/16/2024 11:37 AM EDT [facility] Blood Venous blood specimen / Unknown Venipuncture / Unknown 09/16/2024 9:20 AM EDT 09/16/2024 10:39 AM EDT us Mimi Haji MD LAB BLOOD ORDERABLES Fin al Result [facility] [address] [place] [address], [place] [phone] documented in this encounter Visit Diagnoses Diagnosis Sepsis, unspecified organism (CMS/HCC) Anemia, unspecified Other disorders of electrolyte and fluid balance, not elsewhere classified documented in this encounter Care Teams Hoisting Engineer Pile Driving Relationship Specialty Start Date End Date Mimi Haji MD [address] [place] [address] PCP - General Family Medicine 08/20/24 documented as of this encounter"
--- OUTSIDE RECORDS SUMMARY | 2024-09-20 16:21 | XMS_ITS | Encounter Summary ---
Author Organization [employer] Address [address] [place] [address] Care Team Providers Care Community Director Name Role Phone Mimi Haji MD Primary Care Provider + Encounter Details Date Type Department Care Team (Late st Contact Info) Description 08/31/2024 Lab Requisition [facility] - Main Lab 299 [facility] [place] [address] Mimi Haji MD [address] [phone] Anemia, unspecified; Other disorders of electrolyte and [...] as of this encounter Visit Diagnoses Diagnosis Anemia, unspecified Other disorders of electrolyte and fluid balance, not elsewhere classified documented in this encounter Care Teams Community Director Relationship Specialty Start Date End Date Mimi Haji MD [address] [place] [address] PCP - General Family Medicine 08/20/24 documented as of this encounter
--- OUTSIDE RECORDS SUMMARY | 2024-09-20 16:21 | XMS_ITS | Encounter Summary ---
Author Organization [employer] Address [address] [place] [address] Care Team Providers Care Office Equipment Mechanic Name Role Phone Mimi Haji MD Primary Care Provider + Encounter Details Date Type Department Care Team (Late st Contact Info) Description 08/22/2024 Lab Requisition [facility] - Main Lab [address] [place] [address] Mimi Haji MD [address] [phone] Other care home (current) drug therapy; Methicillin resistant Staphylococcus aureus infection, unspecified site Social History Tobacco Use Types Packs/Day Years [...] Priority Date/Time Associated Diagnosis Comments VANCOMYCIN, TROUGH STAT 08/22/2024 2: 35 PM EST 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
--- OUTSIDE RECORDS SUMMARY | 2024-09-20 16:21 | XMS_ITS | Encounter Summary ---
Author Organization [employer] Address [address] [place] [address] Care Team Providers Care Assistant Store Director Name Role Phone Mimi Haji MD Primary Care Provider + Encounter Details Date Type Department Care Team (Late st Contact Info) Description 08/25/2024 Lab Requisition [facility] - Main Lab 299 [facility] [place] [address] Mimi Haji MD [address] [phone] Anemia, unspecified; Other disorders of electrolyte and fluid balance, not elsewhere classified; Other dictating transcribing machine servicer (current) drug therapy; Metabolic encephalopathy Social History Tobacco Use Types Packs/Day Years [...] Procedure Name Priority Date/Time Associated Diagnosis Comments THYROID STIMULATING HORMONE WITH REFLEX TO FREE T4 AND FREE T3 Routine 08/26/2024 8:49 AM EDT Anemia, unspecified Other disorders of electrolyte and fluid balance, not elsewhere classified Metabolic encephalopathy LAVENDER - EDTA Routine 08/26/2024 8:49 AM EDT Anemia, unspecified Other disorders of electrolyte and fluid balance, not elsewhere classified Other dictating transcribing machine servicer (current) drug therapy Metabolic encephalopathy VITAMIN D 25 HYDROXY Routine 08/26/2024 8:49 AM EDT Anemia, unspecified Other disorders of electrolyte and fluid balance, not elsewhere classified Other retirement (current) drug therapy Metabolic encephalopathy FOLATE Routine [...] fluid balance, not elsewhere classified Metabolic encephalopathy documented in this encounter Results * Lavender tube (08/26/2024 8:49 AM EDT) Extra Tube Hold for add-ons. 08/26/2024 12:01 PM EDT [facility] Comment:Auto resulted. Blood Venous blood specimen / Unknown Venipuncture / Unknown 08/26/2024 8:49 AM EDT 08/26/2024 10:35 AM EDT Mimi Haji MD LAB BLOOD ORDERABLES Fin al Result [facility] [address] [place] [address], [place] [phone] * (ABNORMAL) Vitamin D 25 hydroxy (08/26/2024 8:49 AM EDT) Vit D, 25-Hydroxy 21.1(L) 30.0 - 80.0 ng/mL LAB CHEMISTRY METHOD 08/26/2024 12:52 PM EDT [facility] Blood Venous blood specimen / Unknown Venipuncture / Unknown 08/26/2024 8:49 AM EDT 08/26/2024 10:35 AM EDT Mimi Haji MD LAB BLOOD ORDERABLES Fin al Result [facility] [address] [place] [address], [place] [phone] * Folate (08/26/2024 8:49 AM EDT) Pathologist [facility] Folate 4.1 2.8 - 17.0 ng/ml LAB CHEMISTRY METHOD 08/26/2024 11:56 AM EDT [facility] Blood Venous blood specimen / Unknown Venipuncture / Unknown 08/26/2024 8:49 AM EDT 08/26/2024 10:35 AM EDT Mimi Haji MD LAB BLOOD ORDERABLES Fin al Result [facility] [address] [place] [address], [place] [phone] * Vitamin B12 (08/26/2024 8:49 AM EDT) [facility] Vitamin B-12 739 250 - 900 pcg/mL LAB CHEMISTRY METHOD 08/26/2024 11:56 AM EDT [facility] Blood Venous blood specimen / Unknown Venipuncture / Unknown 08/26/2024 8:49 AM EDT 08/26/2024 10:35 AM EDT Mimi Haji MD LAB BLOOD ORDERABLES Fin al Result [facility] [address] [place] [address], [place] [phone] * Thyroid stimulating hormone with reflex to free t4 and free t3 (08/26/2024 8:49 AM EDT) Pathologist [facility] TSH 3.96 0.40 - 4.00 mcIU/mL LAB CHEMISTRY METHOD 08/26/2024 12:53 PM EDT [facility] Blood Venous blood specimen / Unknown Venipuncture / Unknown 08/26/2024 8:49 AM EDT 08/26/2024 10:35 AM EDT Mimi Haji MD LAB BLOOD ORDERABLES Fin al Result Performing Organization Address [facility]/ZIP Co de Phone Number [facility] [address] [place] [address], [place] [phone] * (ABNORMAL) Vancomycin, trough (08/26/2024 8:49 AM EDT) Vancomycin Trough 21.3(H) 10.0 - 20.0 mcg/mL LAB CHEMISTRY METHOD 08/26/2024 11:33 AM EDT [facility] Blood Venous blood specimen / Unknown Venipuncture / Unknown 08/26/2024 8:49 AM EDT 08/26/2024 10:35 AM EDT Mimi Haji MD LAB BLOOD ORDERABLES Fin al Result Performing Organization Address [facility] Co de Phone Number [facility] [address] [place] [address], [place] [phone] documented in this encounter Visit Diagnoses Diagnosis Anemia, unspecified Other disorders of electrolyte and fluid balance, not elsewhere classified Other dictating transcribing machine servicer (current) drug therapy Metabolic encephalopathy documented in this encounter Care Teams Assistant Store Director Relationship Specialty Start Date End Date Mimi Haji MD [address] [place] [address] PCP - General Family Medicine 08/20/24 documented as of this encounter
--- OUTSIDE RECORDS SUMMARY | 2024-09-20 16:21 | XMS_ITS | Encounter Summary ---
Author Organization [employer] Address [address] [place] [address] Care Team Providers Care Measurement Technician Name Role Phone Mimi Haji MD Primary Care Provider + Encounter Details Date Type Department Care Team (Late st Contact Info) Description 08/31/2024 Lab Requisition [facility] - Main Lab 299 [facility] [place] [address] Mimi Haji MD [address] [phone] Sepsis, unspecified organism (CMS/HCC); Bacteremia Social History Tobacco Use Types Packs/Day [...] Date/Time Associated Diagnosis Comments VANCOMYCIN, TROUGH Routine 08/31/2024 6: 14 AM EDT Sepsis, unspecified organism (CMS/HCC) Bacteremia documented in this encounter Results * (ABNORMAL) Vancomycin, trough (08/31/2024 6:14 AM EDT) Vancomycin Trough 28.8(H) 10.0 - 20.0 mcg/mL LAB CHEMISTRY METHOD 08/31/2024 12:46 PM EDT [facility] Blood Venous blood specimen / Unknown Venipuncture / Unknown 08/31/2024 6:14 AM EDT 08/31/2024 11:49 AM EDT us Mimi Haji MD LAB BLOOD ORDERABLES Fin al Result [facility]) HOSPITAL LAB [address] [place] [address], documented in this encounter Visit Diagnoses Diagnosis Sepsis, unspecified organism (CMS/[facility]) Bacteremia documented in this encounter Care Teams Measurement Technician Relationship Specialty Start Date End Date Mimi Haji MD [address] [place] [address] PCP - General Family Medicine 08/20/24 documented as of this encounter
--- OUTSIDE RECORDS SUMMARY | 2024-09-20 16:21 | XMS_ITS | Encounter Summary ---
Author Organization [employer] Address [address] [place] [address] Care Team Providers Care Talent Rep Name Role Phone Mimi Haji MD Primary Care Provider + Encounter Details Date Type Department Care Team (Late st Contact Info) Description 08/28/2024 Lab Requisition [facility] - Main Lab [address] [place] [address] Mimi Haji MD [address] [phone] Acute nasopharyngitis (common cold) Social History Tobacco Use Types Packs/Day Years [...] Procedure Name Priority Date/Time Associated Diagnosis Comments [id number], RSV, FLU A AND B QUALITATIVE RT-PCR, LOCAL REFERENCE LAB Routine 08/27/2024 1:00 PM EDT Acute nasopharyngitis (common cold) documented in this encounter Results * [id number], RSV, Influenza A and B qualitative RT-PCR (08/27/2024 1:00 PM EDT) SARS COV-2 Not Detected Not Detected LAB MOLECULAR DIAGNOSTICS METHOD 08/28/2024 2:58 PM EDT [facility] ([facility]) [facility] Comment: Disclaimer: The manner in which this information is used to guide patient care is the responsibility of the healthcare provider. Testing was performed using the Supremex SARS-CoV-2 test. This test has been authorized [...] for Healthcare Providers can be found at: https://www.fda.gov/media/314595/download Fact sheet for Patients can be found at: https://www.fda.gov/media/655541/download Influenza A PCR Not Detected Not Detected LAB MOLECULAR DIAGNOSTICS METHOD 08/28/2024 2:58 PM EDT [facility] Influenza B PCR Not Detected Not Detected LAB MOLECULAR DIAGNOSTICS METHOD 08/28/2024 2:58 PM EDT [facility] RSV PCR Not Detected Not Detected LAB MOLECULAR DIAGNOSTICS METHOD 08/28/2024 2:58 PM EDT [facility] Swab Nasopharyngeal structure / Unknown Non-blood Collection / Unknown 08/27/2024 1:00 PM EDT 08/28/2024 11:16 AM EDT us Mimi Haji MD LAB MICROBIOLOGY - GENER AL ORDERABLES Final Result [facility] [address] [place] [address], documented in this encounter Visit Diagnoses Diagnosis Acute nasopharyngitis (common cold) documented in this encounter Care Teams Talent Rep Relationship Specialty Start Date End Date Mimi Haji MD [address] [place] [address] PCP - General Family Medicine 08/20/24 documented as of this encounter
--- OUTSIDE RECORDS SUMMARY | 2024-09-20 16:21 | XMS_ITS | Encounter Summary ---
[facility] Organization [facility] Address [address] [place] [address] Care Team Providers Care Clerk General Office Name Role Phone Mimi Haji MD Primary Care Provider + Encounter Details Date Type Department Care Team (Late st Contact Info) Description 09/06/2024 Lab Requisition [facility] - Main Lab [address] [place] [address] Mimi Haji MD [address] [phone] Bacteremia Social History Tobacco Use Types Packs/Day [...] Date/Time Associated Diagnosis Comments VANCOMYCIN, TROUGH Routine 09/06/2024 3: 45 PM EDT Bacteremia documented in this encounter Results * Vancomycin, trough (09/06/2024 3:45 PM EDT) Vancomycin Trough 18.2 10.0 - 20.0 mcg/mL LAB CHEMISTRY METHOD 09/06/2024 7:43 PM EDT [facility] Blood Venous blood specimen / Unknown 09/06/2024 3:45 PM EDT 09/06/2024 6:51 PM EDT us Mimi Haji MD LAB BLOOD ORDERABLES Fin al Result [facility] [address] [place] [address], documented in this encounter Visit Diagnoses Diagnosis Bacteremia documented in this encounter Care Teams Clerk General Office Relationship Specialty Start Date End Date Mimi Haji MD [address] [place] [address] PCP - General Family Medicine 08/20/24 documented as of this encounter
== END 2024-09-20 15:27 | disposition home or self-care (01) ==
LOC: HO.HID 14:53
PROVIDERS: PCP Internal Medicine; Visit Provider Internal Medicine
DX: R78.81 Bacteremia (principal); B95.62 Methicillin resistant Staphylococcus aureus infection as the cause of diseases classified elsewhere
CPT/HCPCS: 99213

== ENCOUNTER → 2024-09-20 14:53 | Outpatient (BNVA) | payer MEDICARE, SELFPAY | PROVIDERS: PCP Internal Medicine; Visit Provider Internal Medicine | DX: R78.81 Bacteremia (principal); B95.62 Methicillin resistant Staphylococcus aureus infection as the cause of diseases classified elsewhere | CPT/HCPCS: 99212 ==

== ENCOUNTER 2024-09-26 15:20 | Outpatient (AMB) | payer MEDICARE, SELFPAY ==
--- NOTE | 2024-09-26 15:42 | MHC.PC.OV ---
Vital Signs 09/26/24 15:50 Height 5 ft 1 in BP 128/70 Blood Pressure Location Rt brachial Position Sitting Pulse 85 Pulse Source Pulse Oximeter Temp 97.6 F Temp Source Axillary Pulse Oximetry (%) 94 Oxygen Delivery Method Room Air Intake Visit Reasons: Hosp F/U Interlibrary Loan Services Librarian Required: No Accompanied by: Self / Same As Patient Allergies onion [ONION] Allergy (Unknown, Verified 09/26/24 15:54) NAUSEA & VOMITING PEPPERS, MENDOZA Allergy (Unknown, Uncoded 09/26/24 15:54) NAUSEA & VOMITING Tobacco use date assessed: 09/26/24 Fall risk assessment: 1 Fall in past year Last assessed Fall Risk: 09/26/24 Dental Screening Dental Screen Date: 09/26/24 Did you have a dental visit in the last 12 months?: No Did you have a dental problem in the last 6 months where you did not have access to dental care?: No HPI HPI Comments History of Present Illness Details 83-year-old female with a past medical history of hypertension, COPD, congestive heart failure, coronary artery disease with a history of NSTEMI in September 2021, pulmonary embolism on Eliquis, and morbid obesity presenting for follow up and hospital follow up She was hospitalized at [facility] from 08/14-08/19/2024. Presented with confusion after son called EMS. Initial workup revealed an elevated CPK without evidence of rhabdomyolysis. She was admitted for further management and was incidentally found to have MRSA bacteremia, with the exact source unclear but suspected to be from a skin infection. She has been treated with IV Vancomycin, with repeat blood cultures returning negative, and an echocardiogram showing no evidence of endocarditis. She has extensive fungal rashes and scabs on her legs without ulceration, though there may be superficial ulceration, which is considered a possible source of bacteremia.ID consulted recommended a four-week course of Vancomycin, with Kefzol added for a synergistic effect. CV: Non compliant with eliquis rx for PE previously. In hospital a lower extremity ultrasound on 08/15 revealed an old DVT in the left leg. Eliquis 5 mg BID has been restarted. She has not continued the medication. CT in hospital showed pulmonary edema, BNP elevated but denies shortness of breath. Hitsory of CAD, NSTEMI. Does take lisinopril. She is agreeable to taking aspirin but refuses eliquis. COPD stable: Obesity: intertrigo. using nystatin. ROS Denies fevers PHYSICAL EXAM: GENERAL: Alert and orientedd EYES: EOMI. Anicteric. HENT: Moist mucous membranes. No scleral icterus. No cervical lymphadenopathy. LUNGS: Clear to auscultation bilaterally. CARDIOVASCULAR: Regular rate and rhythm. ABDOMEN: Soft, non-tender +bs EXTREMITIES: Non pitting edema. Non-tender. SKIN: No rashes or lesions. Warm. NEUROLOGIC: No focal neurological deficits. CN II-XII grossly intact PSYCHIATRIC: Cooperative. Appropriate mood and affect [facility] Medical History MRSA bacteremia Ventral hernia Pulmonary emboli CAD (coronary artery disease) CHF (congestive heart failure) Hypertension COPD (chronic obstructive pulmonary disease) Surgical History History of colostomy reversal History of cholecystectomy Family History Mother MA (myocardial infarction) Social History Household Members: Children and Other Household Members Other:: son Housing: Apartment Do you presently have visiting nurse or other home services: Yes (meals on wheels) Unable to assess alcohol history related to: Unknown Alcohol intake: never Patient Tobacco Use Status: Current everyday Tobacco user Tobacco use type: Cigarette Cigarette Packs Per Day: 1 e-Cigarette/Vaping Use: Currently Using Second Hand Smoke Exposure: No Advance Directives Date on File: 09/21/21 service: No Current occupational status: retired Cognitive needs: No Hearing needs: No Vision needs: Yes (reading glasses) Questionnaire PHQ-9 Over the last 2 weeks, how often have you been bothered by any of the following problems? 1. Little interest or pleasure in doing things: not at all 2. Feeling down, depressed, or hopeless: several days 3. Trouble falling or staying asleep, or sleeping too much: not at all 4. Feeling tired or having little energy: not at all 5. Poor appetite or overeating: not at all 6. Feeling bad about yourself - or that you are a failure or have let yourself or your family down: not at all 7. Trouble concentrating on things, such as reading the newspaper or watching television: not at all 8. Moving or speaking so slowly that other people could have noticed. Or the opposite - being so fidgety or restless that you have been moving around a lot more than usual: not at all 9. Thoughts that you would be better off or of hurting yourself in some way: not at all Total score: 1 Depression Screening Interpretation: Negative Depression Screening Done: Yes Source: Developed by Drs. Johnny Dominguez, Cynthia Romero, Stefan Sagastume and colleagues, with an educational earnestine from [employer]. Thrive Questionnaire Date Thrive assessed: 08/14/24 I am a: Patient Within the past 12 months, did the food you bought not last and you didn't have the money to get more?: Never true Within the past 12 months, did you worry whether your food would run out before you got money to buy more?: Never true Do you have trouble paying for medicines?: No Do you have trouble getting transportation to medical appointments?: No Do you have trouble paying your heating and electricity bill?: No Do you have trouble taking care of your child, family member or friend?: No Do you have trouble with day-to-day activities such as bathing, preparing meals, shopping, managing finances, etc.?: No Are you currently unemployed and looking for a job?: No Are you interested in more education?: No THRIVE Score: 0 AUDIT C Alcohol Use Questionnaire (AUDIT-C) 1. How often do you have a drink containing alcohol?: Never 3. How often do you have six or more drinks on one occasion?: Never Total Score: 0 RIOS-7 AMB Questionnaire RIOS-7 Date RIOS - 7 assessed: 09/26/24 Feeling nervous, anxious, or on edge: 0 = Not at all Not being able to stop or control worryin = Not at all Worrying too much about different things: 0 = Not at all Trouble relaxin = Not at all Being so restless that it is hard to sit still: 0 = Not at all Becoming easily annoyed or irritable: 0 = Not at all Feeling afraid as if something awful might happen: 0 = Not at all Total RIOS-7 score (0-4 normal; 5-9 mild; 10-14 moderate; 15-21 severe): 0 Source: Developed by Drs. Johnny Dominguez, Cynthia Romero, Stefan Sagastume and colleagues, with an educational earnestine from [employer]. Physical exam (Primary Care) Vital Signs: Last Vital Signs Temp 97.6 F 09/26/24 15:50 Pulse 85 09/26/24 15:50 BP 128/70 09/26/24 15:50 Pulse Ox 94 09/26/24 15:50 Oxygen Delivery Method Room Air 09/26/24 15:50 Tobacco/Smoking Status: Tobacco use Status Tobacco use date assessed 09/26/24 09/26/24 15:44 Patient Tobacco Use Status Current everyday Tobacco 09/26/24 15:44 Tobacco use type Cigarette 09/26/24 15:44 e-Cigarette/Vaping Use Currently Using 09/26/24 15:59 PHQ-9: PHQ-9 Score PHQ-9: Total score 1 09/26/24 16:13 Depression Screening Interpretation: Negative Thrive Assessment: Date of Thrive Assessment Date Thrive assessed 08/14/24 09/26/24 15:44 Coding Level of Care Code New Pt Level 4 (88960) Complex EM visit Add On G2211 Diagnoses Hospital discharge follow-up Z09 Chronic congestive heart failure, unspecified heart failure type I50.9 Heart failure type: unspecified Heart failure chronicity: chronic Chronic obstructive pulmonary disease, unspecified COPD type J44.9 COPD type: unspecified COPD Primary hypertension I10 Hypertension type: primary hypertension Ventral hernia without obstruction or gangrene K43.9 Obstruction and gangrene presence: without obstruction or gangrene Assessment & Plan Assessment & Plan (1) Hospital discharge follow-up: Code(s): Z09 - Encounter for follow-up examination after completed treatment for conditions other than malignant neoplasm Category: Medical (2) CHF (congestive heart failure): Code(s): I50.9 - Heart failure, unspecified Category: Medical Qualifiers: Heart failure type: unspecified Heart failure chronicity: chronic Qualified Code(s): I50.9 - Heart failure, unspecified (3) COPD (chronic obstructive pulmonary disease): Code(s): J44.9 - Chronic obstructive pulmonary disease, unspecified Category: Medical Qualifiers: COPD type: unspecified COPD Qualified Code(s): J44.9 - Chronic obstructive pulmonary disease, unspecified (4) Hypertension: Code(s): I10 - Essential (primary) hypertension Category: Medical Qualifiers: Hypertension type: primary hypertension Qualified Code(s): I10 - Essential (primary) hypertension (5) Ventral hernia: Code(s): K43.9 - Ventral hernia without obstruction or gangrene Category: Medical Qualifiers: Obstruction and gangrene presence: without obstruction or gangrene Qualified Code(s): K43.9 - Ventral hernia without obstruction or gangrene Plan 83 y/o to establish care Hospital follow up. Hospital course reviewed. Meds reconciled Refuses eliquis. Declines cardiology referral Continue lisinopril. Willing to take ASA 81mg Repeat labs ordered. Nystatin for rash. Efforts toward weight loss Orders: Orders Lipid Panel 09/26/24 J44.9 - Chronic obstructive pulmonary disease, unspecified, J96.01 - Acute respiratory failure with hypoxia, Z09 - Encounter for follow-up examination after completed treatment for conditions other than malignant neoplasm Hemoglobin A1c 09/26/24 J44.9 - Chronic obstructive pulmonary disease, unspecified, J96.01 - Acute respiratory failure with hypoxia, Z09 - Encounter for follow-up examination after completed treatment for conditions other than malignant neoplasm TSH reflex Free T4 09/26/24 J44.9 - Chronic obstructive pulmonary disease, unspecified, J96.01 - Acute respiratory failure with hypoxia, Z09 - Encounter for follow-up examination after completed treatment for conditions other than malignant neoplasm Complete Blood Count Auto Diff 09/26/24 J44.9 - Chronic obstructive pulmonary disease, unspecified, J96.01 - Acute respiratory failure with hypoxia, Z09 - Encounter for follow-up examination after completed treatment for conditions other than malignant neoplasm Comprehensive Met. Panel 09/26/24 J44.9 - Chronic obstructive pulmonary disease, unspecified, J96.01 - Acute respiratory failure with hypoxia, Z09 - Encounter for follow-up examination after completed treatment for conditions other than malignant neoplasm
[2024-09-26 15:50] VITALS: BP 128/70; PULSE 85; TEMP 36.4; O2SAT 94
--- OUTSIDE RECORDS SUMMARY | 2024-09-26 17:42 | XMS_ITS ---
Author Organization [facility] Care Team Providers Care Refrigeration Lead Name Role Phone Simon Qureshi Unavailable Unavailable Mimi Haji Unavailable Unavailable Lata Mahmood Unavailable Unavailable Ally ANTHONY, Juan J Griffin Unavailable Unavailable Dalia Montero Unavailable Unavailable Allergies and adverse reactions Code CodeSystem Substance Reaction Severity StartDate Concern Status 566654384 SNOMED CT Pepper Unknown 08/19/[address] Onions Unknown 08/19/2024 active Care Team Name Role Address Phone Organization Dates Mimi Haji PCP [address] [facility] [address], [place], [address], [facility] (Office): : [facility] 08/19/2024 - 09/26/2024 Simon KING Attending Physician [place], [facility] 08/19/2024 - 09/26/2024 Lata Mahmood Attending Physician [facility] (Office): : [facility] 08/19/2024 - 09/26/2024 Juan J Canales GRAB SETTER Attending Physician [address] [facility], [place] [address], [place] (Office): [facility] 08/19/2024 - 09/26/2024 Dalia Montero Attending Physician [address] [facility] [address], [place], [address], [facility] (Office): [facility] 08/19/2024 - 09/26/2024 Goals Section Description Status Target Date Denice will increase level of mobility by reaching functional mobility goals set by therapy through the next review date. Active 12/04/2024 Denice will remain free of co mplications related to immobility, including contractures, thrombus formation, skin-breakdown, fall related injury through the next review date. Active Denice has stated preference to engage in self-directed Activities in the comfort of her room. she will be open to room visits through next review date. Active 12/04/2024 Denice will be able to commun icate basic needs on a daily basis through the review date. Active 12/04/2024 Denice will be free from comp lications of cardiac problems through the review date. Active 12/04/2024 Denice will be free from comp lications related to infection through the review date. Active 12/04/2024 Denice will be free from disc omfort or adverse reactions related to anticoagulant use through the review date. Active 12/04/2024 Denice will be free of falls through the review d ate. Active 12/04/2024 Denice will be free of s/sx o f respiratory infections through review date. Active 12/04/2024 Denice will be/remain free of psychotropic drug related complications, including movement disorder, discomfort, hypotension, gait disturbance, constipation/impaction or cognitive/behavioral impairment through review date. Active 0 12/04/2024 Denice will display optimal b reathing patterns daily through review date. Active 12/04/2024 Denice will have improved moo d state (happier, calmer appearance, no s/sx of depression, anxiety or sadness) through the review date. Active 12/04/2024 Denice will have less episode s of incontinence per day through the review date Active 12/04/2024 Denice will have no complicat ions from rash through the review date. Active 12/04/2024 Denice will have not have any complications related to IV Therapy through the review date. Active 12/04/2024 Denice will improve current l evel of function in self-care ADLs through the review date. Denice will be able to reach self-care goals set by therapy. Active 12/04/2024 Denice will improve decision making ability by re view date. Active 12/04/2024 Denice will maintain or devel op clean and intact skin by the review date. Active 12/04/2024 Denice will not have discomfo rt related to side effects of analgesia through the review date. Active 12/04/2024 Denice will not smoke without supervision through the review date. Active 12/04/2024 Denice will remain free from skin breakdown due to incontinence and brief use through the review date. Active 12/04/2024 Denice will remain free of s/ sx of fluid overload through review date, as evidenced by decrease in or absence of edema, anxiety, agitation, restlessness, confusion, changes in mood or behavior, nausea/vomiting, dyspnea, congestion, orthopnea, easily fatigued, jugular vein distension. Active 12/04/2024 Denice will self limit intake of higher kcal snacks/fluids b/w meals to promote weight maintenance or gradual wt loss. Active 12/04/2024 Denice's discharge goals are: to return home with services in place by the next review date. Active 12/04/2024 Denice/HCP/Guardian's Advance d Directives will be honored through next review Active 12/04/2024 Functional Status Code Name Recorded Time Value Entered By Chair/mig-wk-hampi transfer 09/26/2024 Supe rvision or touching assistance dloubier Eating 09/26/2024 Independent dloubier Lower body dressing 09/26/2024 Partial/moderate assi stance dloubier Lying to sitting on side of bed 09/26/2024 Independent dloubier Oral hygiene 09/26/2024 Setup or clean-up assistance dloubier Personal hygiene 09/26/2024 Partial/moderate assista nce dloubier Roll left and right 09/26/2024 Independent dloubier Shower/bathe self 09/26/2024 Partial/moderate assist rebeca camacho Sit to lying 09/26/2024 Independent selinaela Sit to stand 09/26/2024 Independent selinaela Toilet transfer 09/26/2024 Supervision or t ouching assistance dlela Toileting hygiene 09/26/2024 Partial/moderate assist rebeca dlnjier Upper body dressing 09/26/2024 Partial/moderate assi stance dlnjier Wheel 150 feet 09/26/2024 Independent dlnjier Wheel 50 feet with two turns 09/26/2024 Independent doug Medications Section Medication Name Status Code CodeSystem Dose Route Frequency Admin Type Sig Text Start Date End Date Melatonin Oral Tablet 3 MG active 19901119 RXNORM 6 mg Oral as needed PRN Give 6 mg by mouth every 24 hours as needed for insomn ia 2024 - traMADol HCl Oral Tablet 25 MG active 634942 0 RXNORM 25 mg Oral as needed PRN Give 25 mg by mouth every 6 hours as needed for pain 2024 - Nystatin External Powder 275023 UNIT/GM active 099507 RXNORM n/a n/a Topical every day and evening shift Routine Apply to under breast s topica lly every day and evenin g shift for fungal rash 2024 - Nystatin External Powder 909697 UNIT/GM active 069891 RXNORM n/a n/a Topical every day and evening shift Routine Apply to left axila topica lly every day and evenin g shift for fungal rash 2024 - diphenhydrAMI NE HCl Oral Capsule 25 MG active 590646 9 RXNORM 25 mg Oral as needed PRN Give 25 mg by mouth every 8 hours as needed for itch 2024 - guaiFENesin Oral Liquid active 5 ml Oral as needed PRN Give 5 ml by mouth every 6 hours as needed for cough 2024 - Fleet Enema Enema 7-19 GM/118ML active 685642 RXNORM 1 dose Rectal as needed PRN Insert 1 dose rectal ly as needed for Consti pation (Step 3) as needed if no bowel moveme nt for 8 hours after bisaco dyl suppos itory. 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.0 2);EVELYN TEREMI A (R78.8 1) for 28 Days 09/03 Nystatin External Powder 863396 UNIT/GM active 678086 RXNORM n/a n/a Topical every day and evening shift Routine Apply to groin topica lly every day and evenin g shift for fungal rash 2024 - Nystatin External Powder 022247 UNIT/GM active 633773 RXNORM n/a n/a Topical every day and evening shift Routine Apply to bilate ral buttoc ks topica lly every day and evenin g shift for fungal rash 2024 - Eliquis Oral Tablet 5 MG active 607708 7 RXNORM 5 mg Oral two times a day Routine Give 5 mg by mouth two times a day for antico agulat ion relate d to PERSON AL HISTOR Y OF PULMON DEMETRIS EMBOLI SM (Z86.7 11) 2024 - Lisinopril Oral Tablet 5 MG active 270120 RXNORM 5 mg Oral one time a day Routine Give 5 mg by mouth one time a day for HTN 2024 - Milk of Magnesia Suspension 400 MG/5ML active 048177 RXNORM 30 ml Oral as needed PRN Give 30 ml by mouth as needed for Consti pation (Step 1) As needed if no bowel moveme nt for three days. (Do not use for Hemodi alysis patien ts). 2024 - Acetaminophen Tablet 325 MG active 780447 RXNORM 2 tablet Oral as needed PRN Give 2 tablet by mouth every 6 hours as needed for Pain Pain Total dosage for acetam inophe n and medica tions that contai n acetam inophe n should not exceed 3 grams / 24 hours. AND Give 2 tablet by mouth every 6 hours as needed for Fever greate r than 100.0F Total dosage for acetam inophe n and medica tions that contai n acetam inophe n should not exceed 3 grams / 24 hours. 2024 - 838624 RXNORM 2 tablet Oral as needed PRN Give 2 tablet by mouth every 6 hours as needed for Pain Pain Total dosage for acetam inophe n and medica tions that contai n acetam inophe n should not exceed 3 grams / 24 hours. AND Give 2 tablet by mouth every 6 hours as needed for Fever greate r than 100.0F Total dosage for acetam inophe n and medica tions that contai n acetam inophe n should not exceed 3 grams / 24 hours. 2024 - Bisacodyl Suppository 10 MG active RXNORM 1 suppos itory Rectal as needed PRN Insert 1 suppos itory rectal ly as needed for If no bowel moveme nt for 8 hours after Milk of Magnes ia 2024 - Heparin Lock Flush Solution 10 UNIT/ML aborted 422848 9 RXNORM 5 ml Intrave nous in the afternoon Routine Use 5 ml intrav enousl y in the aftern oon for bacter emia Flush with 10 ml NS before and after med follow ed by 5ml of hepari n 09/21 Normal Saline Flush Solution 0.9 % aborted 749803 6 RXNORM 10 ml Intrave nous in the afternoon Routine Use 10 ml intrav enousl y in the aftern oon for bacter emia Flush with 10 ml NS before and after med admini strati on 09/21 Heparin Lock Flush Solution 10 UNIT/ML aborted 755033 9 RXNORM 5 ml Intrave nous every 8 hours Routine Use 5 ml intrav enousl y every 8 hours for PICC Flush all lumens with 10ml of NS follow ed by 5ml of hepari n 09/21 Normal Saline Flush Solution 0.9 % aborted 711800 6 RXNORM 10 ml Intrave nous every 8 hours Routine Use 10 ml intrav enousl y every 8 hours for PICC line 09/21 DULoxetine HCl Oral Capsule Delayed Release Sprinkle 20 MG aborted 119543 RXNORM 20 mg Oral one time a day Routine Give 20 mg by mouth one time a day for Depres corinne relate d to 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 (A41.0 2);EVELYN TEREMI A (R78.8 1) for 2 Days 09/05 Vancomycin HCl Intravenous Solution 1250 MG/250ML complete d 802399 8 RXNORM 1 gram Intrave nous in the afternoon Routine Use 1 gram intrav enousl y in the aftern oon for MRSA bacter emia relate d to 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 (A41.0 2);EVELYN TEREMI A (R78.8 1) for 1 Day 09/06 Vancomycin HCl Intravenous Solution aborted 200 ml/hr Intrave nous in the afternoon Routine Use 200 ml/hr intrav enousl y in the aftern oon for MRSA for 3 Days infuse 200ml over 60 minute s 09/07 Vancomycin HCl Intravenous Solution aborted 1 gram Intrave nous in the afternoon Routine Use 1 gram intrav enousl y in the aftern oon for MRSA for 3 Days infuse 200ml over 60 minute s 09/10 Vancomycin HCl Intravenous Solution complete d 1 gram Intrave nous in the afternoon Routine Use 1 gram intrav enousl y in the aftern oon for MRSA until 2024 23:59 infuse 200ml over 60 minute s 09/11 Vancomycin HCl Intravenous Solution 1000 MG/200ML aborted 246084 8 RXNORM 1000 mg Intrave nous in the afternoon Routine Use 1000 mg intrav enousl y in the aftern oon relate d to 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 (A41.0 2);EVELYN TEREMI A (R78.8 1) until 2024 23:59 vanco trough at 2pm on 5 before dose given 5 09/16 Vancomycin HCl Intravenous Solution Reconstituted 1.25 GM complete d 700385 8 RXNORM 1.25 gram Intrave nous one time only One Time Only Use 1.25 gram intrav enousl y one time only relate d to BACTER EMIA (R78.8 1) until 2024 23:00 09/12 Normal Saline Flush Intravenous Solution 0.9 % complete d 1000 millil iter Intrave nous every shift Routine Use 1000 millil iter intrav enousl y every shift for hydrat ion for 1 Day 09/14 Vancomycin HCl Intravenous Solution 1000 MG/200ML complete d 827476 8 RXNORM 1000 mg Intrave nous one time a day Routine Use 1000 mg intrav enousl y one time a day relate d to 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 (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.0 2);EVELYN TEREMI A (R78.8 1) for 3 Days vanco trough at 2pm on 5 before dose given 5 09/19 DULoxetine HCl Oral Capsule Delayed Release Sprinkle 30 MG active 964213 RXNORM 30 mg Oral one time a day Routine Give 30 mg by mouth one time a day relate d to 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 ) 2024 - Mental Status Section Date Assessment Total Score Description 08/25/2024 BIMS 09 moderate cognit lucero impairment CAM 0 No delirium ind icated 08/21/2024 BIMS 09 moderate cognit lucero impairment CAM 0 No delirium ind icated Problems Problem # Description Date of onset Resolved Date Code CodeSystem Concern Status 1 OTHER RECURRENT DEPRESSIVE DISORDERS 08/23/[address] active 2 ABNORMAL POSTURE 08/20/[address] active 3 ACTINIC KERATOSIS 08/20/[address] active 4 ACUTE RESPIRATORY FAILURE WITH HYPOXIA 08/20/[address] active 5 ATHEROSCLEROTIC HEART DISEASE OF [place] CORONARY ARTERY WITHOUT ANGINA PECTORIS 08/20/[address] active 6 BACTEREMIA 08/20/[address] active 7 CHRONIC OBSTRUCTIVE PULMONARY DISEASE, UNSPECIFIED 08/20/[address] active 8 DERMATOPHYTOSIS, UNSPECIFIED 08/20/[address] active 9 DYSPHAGIA, ORAL PHASE 08/20/[address] active 10 ESSENTIAL (PRIMARY) HYPERTENSION 08/20/[address] active 11 HEART FAILURE, UNSPECIFIED 08/20/[address] active 12 SNF (CURRENT) USE OF ANTIBIOTICS 08/20/[address] active 13 SHANK RANDER (CURRENT) USE OF ANTICOAGULANTS 08/20/[address] active 14 METABOLIC ENCEPHALOPATHY 08/20/[address] active 15 MORBID (SEVERE) OBESITY DUE TO EXCESS CALORIES 08/20/[address] active 16 MUSCLE WEAKNESS (GENERALIZED) 08/20/[address] active 17 OTHER ABNORMALITIES OF GAIT AND MOBILITY 08/20/[address] active 18 OTHER LACK OF COORDINATION 08/20/[address] active 19 PERSONAL HISTORY OF PULMONARY EMBOLISM 08/20/[address] active 20 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 RESISTANT STAPHYLOCOCCUS AUREUS 08/20/[address] active 21 SEPSIS, UNSPECIFIED ORGANISM 08/20/19 25 08/20/[address] completed 22 UNSTEADINESS ON FEET 08/20/[address] active Reason for Referral No Reasons for Referral Entered Social History Social History Observation Description Start Date End Date Code Code System Current Smoking Status Tobacco smoking consumption unknown 214111129 SNOMED CT Sex Assigned At Female 1940 12264-0 [facility] Vital Signs Code Code System Vitals Name Values and Units Timing Information 9279-1 [facility] Respiratory Rate Value=18.0 Units=/m in 09/26/2024 8462-4 [facility] Blood Pressure-Diastolic Value=70 Un its=mmHg 09/26/2024 8480-6 [facility] Blood Pressure-Systolic Gcaff=281 Un its=mmHg 09/26/2024 8310-5 [facility] Body Temperature Value=97.0 Units=?? F 09/26/2024 8867-4 [facility] Heart rate Value=80.0 Units=/min 03/2025 10130-0 [facility] O2 % BldC Oximetry Value=97.0 Units= % 09/26/2024 29286-5 [facility] Pain Level Value=0.0 09/26/2024 76978-3 [facility] Weight Wyldp=143.8 Units=Lbs 06/2024 8302-2 [facility] Height Value=62.0 Units=Inches 08/19/2024
--- OUTSIDE RECORDS SUMMARY | 2024-09-26 17:42 | XMS_ITS | Encounter Summary ---
Author Organization [facility] Address [address] [place] [address] Care Team Providers Care Numerical Control Tool Programmer Name Role Phone Mimi Haji MD Primary Care Provider + Encounter Details Date Type Department Care Team (Late st Contact Info) Description 09/13/2024 Lab Requisition [facility] - Main Lab [address] [facility] [place] [address] Mimi Haji MD [address] [employer] [address] [place], [place] [id number] Altered mental status, unspecified; Unspecified infectious disease [...] CBC auto differential (09/13/2024 1:28 PM EDT) [facility] WBC 5.0 4.8 - 10.8 K/mcL LAB H[facility] RBC 4.80 3.80 - 4.80 M/mcL LAB HEMETOLOGY METHOD [facility] Hemoglobin 13.2 11.5 - 16.0 g/dL LAB HEMETOLOGY METHOD 09/13/2024 4:00 PM [facility] Hematocrit 42.4 35.0 - 47.0 % LAB HEMETOLOGY METHOD 09/13[facility]2024 [facility] MCV 87.8 79.0 - 98.0 [...] [place] LAB HEMETOLOGY METHOD [facility]24 [facility] NRBC 0.0 <1.0 % LAB [...] 4:00 PM [facility] Neutrophils Absolute 3.34 1.50 - 7.00 K/mcL LAB HEMETOLOGY METHOD 09/13/2024 4:00 PM [facility] Lymphocytes Absolute 0.77(L) 1.00 - 5.00 K/mcL LAB HEMETOLOGY METHOD 09/13/2024 4:00 PM [facility] Monocytes Absolute 0.40 0.20 - 1.00 K/mcL LAB HEMETOLOGY METHOD 09/13/2024 4:00 PM [facility] Eosinophils Absolute 0.40 0.00 - 0.50 K/mcL LAB HEMETOLOGY METHOD 09/13/2024 4:00 PM [facility] Basophils Absolute 0.04 0.00 - 0.20 K/mcL LAB HEMETOLOGY METHOD 09/13/2024 4:00 PM EDT [facility] Immature Granulocytes Absolute 0.01 0.00 - 0.03 K/mcL LAB HEMETOLOGY METHOD 09/13/2024 4:00 PM EDT [facility] Blood Venous blood specimen / Unknown Venipuncture / Unknown 09/13/2024 1:28 PM EDT 09/13/2024 3:05 PM EDT Mimi Haji MD LAB BLOOD ORDERABLES Fin al Result Performing Organization Address [facility]/ZIP Co de Phone Number [facility] [address] [place] [address], [place] [phone] * (ABNORMAL) Vancomycin, trough (09/13/2024 1:28 PM EDT) Vancomycin Trough 22.2(H) 10.0 - 20.0 mcg/mL LAB CHEMISTRY METHOD 09/13/2024 4:02 PM EDT [facility] Blood Venous blood specimen / Unknown Venipuncture / Unknown 09/13/2024 1:28 PM EDT 09/13/2024 3:05 PM EDT Mimi Haji MD LAB BLOOD ORDERABLES Fin al Result Performing Organization Address [facility]/ZIP Co de Phone Number [facility] [address] [place] [address], [place] [phone] * (ABNORMAL) C-reactive protein (09/13/2024 1:28 PM EDT) C-Reactive Protein 2.86(H) <=0.50 mg/dL LAB CHEMISTRY METHOD 09/13/2024 4:02 PM EDT [facility] Blood Venous blood specimen / Unknown Venipuncture / Unknown 09/13/2024 1:28 PM EDT 09/13/2024 3:05 PM EDT Mimi Haji MD LAB BLOOD ORDERABLES Fin al Result Performing Organization Address [facility]/ZIP Co de Phone Number [facility] [address] [place] [address], [place] [phone] * (ABNORMAL) Sedimentation rate (09/13/2024 1:28 PM EDT) Pathologist [facility] Sed Rate 53(H) 0 - 30 mm/hr LAB HEMETOLOGY METHOD 09/13/2024 4:10 PM EDT [facility] Blood Venous blood specimen / Unknown Venipuncture / Unknown 09/13/2024 1:28 PM EDT 09/13/2024 3:05 PM EDT Mimi Haji MD LAB BLOOD ORDERABLES Fin al Result Performing Organization Address [facility]/ZIP Co de Phone Number [facility] [address] [place] [address], [place] [phone] * (ABNORMAL) Comprehensive metabolic panel (09/13/2024 1:28 PM EDT) [facility] Sodium 133 133 - 145 mmol/L LAB CHEMISTRY METHOD 09/13/2024 4:02 PM T [facility] Potassium 3.7 3.5 - 5.5 mmol/L LAB CHEMISTRY METHOD 09/13/2024 4:02 PM EDT [facility] Chloride 98 96 - 110 mmol/L LAB CHEMISTRY METHOD 09/13/2024 4:02 PM [facility] CO2 30 21 - 32 mmol/L LAB CHEMISTRY METHOD 09/13/2024 4:02 PM EDT [facility] Anion Gap 5 3 - 11 LAB CHEMISTRY METHOD [facility]/13[facility]24 [facility] Glucose 100 70 - 100 mg/dL LAB CHEMISTRY METHOD 09/13/2024 4:02 PM EDT [facility] BUN 15 5 - 25 mg/dL LAB CHEMISTRY METHOD 09/13/2024 4:02 PM [facility] Creatinine 1.07 0.50 - 1.10 mg/dL LAB CHEMISTRY METHOD 09/13/2024 4:02 PM [facility] eGFR 52(L) >=60 mL/min/1. 73m2 LAB CHEMISTRY METHOD 09/13/2024 4:02 PM [facility] Comment:Calculation based on the??Chronic Kidney Disease Epidemiology Collaboration (CKD-EPI) equation refit??without adjustment for race. BUN/Creatinine Ratio 14.0 LAB CHEMISTRY METHOD 09/13/2024 4:02 PM [facility] Calcium 9.0 8.5 - 10.5 mg/dL LAB CHEMISTRY METHOD 09/13/2024 4:02 PM [facility] AST (SGOT) 16 10 - 42 unit/L LAB CHEMISTRY METHOD 09/13/2024 4:02 PM [facility] ALT (SGPT) 14 10 - 60 unit/L LAB CHEMISTRY METHOD 09/13/2024 4:02 PM [facility] Alkaline Phosphatase 96 42 - 121 unit/L LAB CHEMISTRY METHOD 09/13/2024 4:02 PM [facility] Total Protein 7.5 6.0 - 8.0 g/dL LAB CHEMISTRY METHOD 09/13/2024 4:02 PM [facility] Albumin 3.0(L) 3.2 - 5.0 g/dL LAB CHEMISTRY METHOD 09/13/2024 4:02 PM [facility] Total Bilirubin 0.5 0.0 - 1.4 mg/dL LAB CHEMISTRY METHOD 09/13/2024 4:02 PM [facility] Blood Venous blood specimen / Unknown Venipuncture / Unknown 09/13/2024 1:28 PM EDT 09/13/2024 3:05 PM EDT us Mimi Haji MD LAB BLOOD ORDERABLES Fin al Result [facility] [address] [place] [address], documented in this encounter Visit Diagnoses Diagnosis Altered mental status, unspecified Unspecified infectious disease documented in this encounter Care Teams Numerical Control Tool Programmer Relationship Specialty Start Date End Date Mimi Haji MD [address] [place] [address] PCP - General Family Medicine 08/20/24 documented as of this encounter
--- OUTSIDE RECORDS SUMMARY | 2024-09-26 17:42 | XMS_ITS | Encounter Summary ---
Author Organization [email or web address] Address [address] [place] [address] Care Team Providers Care Inside Polisher Name Role Phone Mimi Haji MD Primary Care Provider + Encounter Details Date Type Department Care Team (Late st Contact Info) Description 08/22/2024 Lab Requisition [facility] - Main Lab [address] [place] [address] Mimi Haji MD [address] [phone] Other buttermaker (current) drug therapy; Methicillin resistant Staphylococcus aureus [...] STAT 08/22/2024 2: 35 PM EST Other buttermaker (current) drug therapy Methicillin resistant Staphylococcus aureus infection, unspecified site documented in this encounter Results * Vancomycin, trough (08/22/2024 2:35 PM EST) Vancomycin Trough 17.0 10.0 - 20.0 mcg/mL LAB CHEMISTRY METHOD 08/22/2024 3:57 PM EST [facility] ([facility] Blood Venous blood specimen / Unknown Venipuncture / Unknown 08/22/2024 2:35 PM EST 08/22/2024 3:21 PM EST Mimi Haji MD LAB BLOOD ORDERABLES Fin al Result [facility] ([facility] H[facility] LAB [address] [place] [address], documented in this encounter Visit Diagnoses Diagnosis Other buttermaker (current) drug therapy Methicillin resistant Staphylococcus aureus infection, unspecified site documented in this encounter Care Teams Inside Polisher Relationship Specialty Start Date End Date Mimi Haji MD [address] [place] [address] PCP - General Family Medicine 08/20/24 documented as of this encounter
--- OUTSIDE RECORDS SUMMARY | 2024-09-26 17:42 | XMS_ITS | Encounter Summary ---
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 08/26/2024 12:01 PM EDT [facility] Comment:Auto resulted. Blood Venous blood specimen / Unknown Venipuncture / Unknown 08/26/2024 8:49 AM EDT 08/26/2024 10:35 AM EDT Mimi Haji MD LAB BLOOD ORDERABLES Fin al Result [facility] LAB [address] [place] [address], [place] [phone] * (ABNORMAL) Vitamin D 25 hydroxy (08/26/2024 8:49 AM EDT) Vit D, 25-Hydroxy 21.1(L) 30.0 - 80.0 ng/mL LAB CHEMISTRY METHOD 08/26/2024 12:52 PM EDT [facility] Blood Venous blood specimen / Unknown Venipuncture / Unknown 08/26/2024 8:49 AM EDT 08/26/2024 10:35 AM EDT Mimi Haji MD LAB BLOOD ORDERABLES Fin al Result [facility] LAB [address] [place] [address], [place] [phone] * Folate (08/26/2024 8:49 AM EDT) Pathologist [facility] Folate 4.1 2.8 - 17.0 ng/ml LAB CHEMISTRY METHOD 08/26/2024 11:56 AM EDT [facility] Blood Venous blood specimen / Unknown Venipuncture / Unknown 08/26/2024 8:49 AM EDT 08/26/2024 10:35 AM EDT Mimi Haji MD LAB BLOOD ORDERABLES Fin al Result [facility] LAB [address] [place] [address], [place] [phone] * Vitamin B12 (08/26/2024 8:49 AM EDT) [facility] Vitamin B-12 739 250 - 900 pcg/mL LAB CHEMISTRY METHOD 08/26/2024 11:56 AM EDT [facility] Blood Venous blood specimen / Unknown Venipuncture / Unknown 08/26/2024 8:49 AM EDT 08/26/2024 10:35 AM EDT Mimi Haji MD LAB BLOOD ORDERABLES Fin al Result [facility] LAB [address] [place] [address], [place] [phone] * Thyroid stimulating hormone with reflex to free t4 and free t3 (08/26/2024 8:49 AM EDT) Pathologist [facility] TSH 3.96 0.40 - 4.00 mcIU/mL LAB CHEMISTRY METHOD 08/26/2024 12:53 PM EDT [facility] Blood Venous blood specimen / Unknown Venipuncture / Unknown 08/26/2024 8:49 AM EDT 08/26/2024 10:35 AM EDT Mimi Haji MD LAB BLOOD ORDERABLES Fin al Result Performing Organization Address [facility]/ZIP Co de Phone Number [facility] [address] [place] [address], [place] [phone] * (ABNORMAL) Vancomycin, trough (08/26/2024 8:49 AM EDT) Vancomycin Trough 21.3(H) 10.0 - 20.0 mcg/mL LAB CHEMISTRY METHOD 08/26/2024 11:33 AM EDT [facility] Blood Venous blood specimen / Unknown Venipuncture / Unknown 08/26/2024 8:49 AM EDT 08/26/2024 10:35 AM EDT Mimi Haji MD LAB BLOOD ORDERABLES Fin al Result Performing Organization Address [facility] Co de Phone Number [facility] [address] [place] [address], [place] [phone] documented in this encounter Visit Diagnoses Diagnosis Anemia, unspecified Other disorders of electrolyte and fluid balance, not elsewhere classified 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
--- OUTSIDE RECORDS SUMMARY | 2024-09-26 17:42 | XMS_ITS | Encounter Summary ---
Author Organization [employer] Address [address] [place] [address] Care Team Providers Care Drier And Grinder Tender Name Role Phone Mimi Haji MD Primary Care Provider + Encounter Details Date Type Department Care Team (Late st Contact Info) Description 09/02/2024 Lab Requisition [facility] - Main Lab 299 [facility] [place] [address] Mimi Haji MD 819 [facility] 1 [place], [place] [phone] Bacteremia; Sepsis, unspecified organism (CMS/HCC V24, CMS/HCC V28) Social History Tobacco Use Types Packs/Day Years [...] Hold for add-ons. 09/02/2024 6:01 PM EDT [facility] Comment:Auto resulted. Blood Venous blood specimen / Unknown 09/02/2024 2:30 PM EDT 09/02/2024 4:48 PM EDT Mimi Haji MD LAB BLOOD ORDERABLES Fin al Result [facility] [address] [place] [address], [place] [phone] * Lavender tube (09/02/2024 2:30 PM EDT) Pathologist [facility] Extra Tube Hold for add-ons. 09/02/2024 6:01 PM EDT [facility] Comment:Auto resulted. Blood Venous blood specimen / Unknown 09/02/2024 2:30 PM EDT 09/02/2024 4:48 PM EDT Mimi Haji MD LAB BLOOD ORDERABLES Fin al Result Performing Organization Address City/[facility]/ZIP Co de Phone Number [facility] [address] [place] [address], [place] [phone] * (ABNORMAL) Comprehensive metabolic panel (09/02/2024 2:30 PM EDT) Sodium 135 133 - 145 mmol/L LAB CHEMISTRY METHOD 09/02/2024 5:21 PM EDT [facility] Potassium 4.2 3.5 - 5.5 mmol/L LAB CHEMISTRY METHOD 09/02/2024 5:21 PM EDT [facility] Chloride 97 96 - 110 mmol/L LAB CHEMISTRY METHOD 09/02/2024 5:21 PM [facility] CO2 29 21 - 32 mmol/L LAB CHEMISTRY METHOD 09/02/2024 5:21 PM [facility] Anion Gap 9 3 - 11 LAB CHEMISTRY METHOD 09/02/2024 5:21 PM [facility] Glucose 155(H) 70 - 100 mg/dL LAB CHEMISTRY METHOD 09/02/2024 5:21 PM [facility] BUN 16 5 - 25 mg/dL LAB CHEMISTRY METHOD 09/02/2024 5:21 PM [facility] Creatinine 1.15(H) 0.50 - 1.10 mg/dL LAB CHEMISTRY METHOD 09/02/2024 5:21 PM [facility] eGFR 48(L) >=60 mL/min/1. 73m2 LAB CHEMISTRY METHOD 09/02/2024 5:21 PM [facility] Comment:Calculation based on the??Chronic Kidney Disease Epidemiology Collaboration (CKD-EPI) equation refit??without adjustment for race. BUN/Creatinine Ratio 13.9 LAB CHEMISTRY METHOD 09/02/2024 5:21 PM [facility] Calcium 9.4 8.5 - 10.5 mg/dL LAB CHEMISTRY METHOD 09/02/2024 5:21 PM [facility] AST (SGOT) 15 10 - 42 unit/L LAB CHEMISTRY METHOD 09/02/2024 5:21 PM [facility] ALT (SGPT) 14 10 - 60 unit/L LAB CHEMISTRY METHOD 09/02/2024 5:21 PM [facility] Alkaline Phosphatase 108 42 - 121 unit/L LAB CHEMISTRY METHOD 09/02/2024 5:21 PM [facility] Total Protein 8.7(H) 6.0 - 8.0 g/dL LAB CHEMISTRY METHOD 09/02/2024 5:21 PM [facility] Albumin 3.2 3.2 - 5.0 g/dL LAB CHEMISTRY METHOD 09/02/2024 5:21 PM EDT [facility] Total Bilirubin 0.5 0.0 - 1.4 mg/dL LAB CHEMISTRY METHOD 09/02/2024 5:21 PM EDT [facility] Blood Venous blood specimen / Unknown Venipuncture / Unknown 09/02/2024 2:30 PM EDT 09/02/2024 4:47 PM EDT us Mimi Haji MD LAB BLOOD ORDERABLES Fin al Result [facility] [address] [place] [address], * (ABNORMAL) Complete blood count (09/02/2024 2:30 PM EDT) WBC 5.3 4.8 - 10.8 K/mcL LAB HEMETOLOGY METHOD 09/02/2024 5:12 PM EDT [facility] RBC 5.30(H) 3.80 - 4.80 M/mcL LAB HEMETOLOGY METHOD 09/02/2024 5:12 PM EDT [facility] Hemoglobin 14.4 11.5 - 16.0 g/dL LAB HEMETOLOGY METHOD 09/02/2024 5:12 PM EDT [facility] Hematocrit 45.3 35.0 - 47.0 % LAB HEMETOLOGY METHOD 09/02/2024 5:12 PM EDT [facility] MCV 86.3 79.0 - 98.0 FL LAB HEMETOLOGY METHOD 09/02/2024 5:12 PM EDT [facility] MCH 27.4 27.0 - 32.0 pcg LAB HEMETOLOGY METHOD [facility]24 [facility] MCHC 31.8(L) 32.0 - 37.0 g/dL LAB HEMETOLOGY METHOD 09/02/2024 5:12 PM EDT [facility] RDW 13.9 11.0 - 15.0 % LAB HEMETOLOGY METHOD 09/02/2024 5:12 PM EDT [facility] Platelets 263 130 - 400 K/mcL LAB HEMETOLOGY METHOD 09/02/2024 5:12 PM EDT [facility] MPV 10.0 7.0 - 11.0 FL LAB HEMETOLOGY METHOD 09/02/2024 5:12 PM EDT [facility] NRBC 0.0 <1.0 % LAB HEMETOLOGY METHOD 09/02/2024 5:12 PM EDT [facility] NRBC Absolute 0.00 <0.10 K/mcL LAB HEMETOLOGY METHOD 09/02/2024 5:12 PM EDT [facility] Blood Venous blood specimen / Unknown Venipuncture / Unknown 09/02/2024 2:30 PM EDT 09/02/2024 4:47 PM EDT us Mimi Haji MD LAB BLOOD ORDERABLES Fin al Result [facility] [address] [place] [address], * Vancomycin, trough (09/02/2024 2:30 PM EDT) [facility] Vancomycin Trough 11.1 10.0 - 20.0 mcg/mL LAB CHEMISTRY METHOD 09/02/2024 5:20 PM EDT [facility] Blood Venous blood specimen / Unknown Venipuncture / Unknown 09/02/2024 2:30 PM EDT 09/02/2024 4:47 PM EDT Mimi Haji MD LAB BLOOD ORDERABLES Fin al Result [facility] ([facility]) HOSPITAL LAB [address] [place] [address], documented in this encounter Visit Diagnoses Diagnosis Bacteremia Sepsis, unspecified organism (CMS/[facility] V24, CMS/[facility] V28) documented in this encounter Care Teams Drier And Grinder Tender Relationship Specialty Start Date End Date Mimi Haji MD [address] [place] [address] PCP - General Family Medicine 08/20/24 documented as of this encounter
--- OUTSIDE RECORDS SUMMARY | 2024-09-26 17:42 | XMS_ITS | Encounter Summary ---
Author Organization [employer] Address [address] [place] [address] Care Team Providers Care Residential Instructor Name Role Phone Mimi Haji MD Primary Care Provider + Encounter Details Date Type Department Care Team (Late st Contact Info) Description 09/21/2024 Lab Requisition [facility] - Main Lab [address] [facility] [place] [address] Mimi Haji MD [address] [phone] Sepsis, unspecified organism (CMS/HCC V24, CMS/HCC V28); Anemia, unspecified; Other disorders of electrolyte and [...] Associated Diagnosis Comments COMPLETE BLOOD COUNT Routine 09/23/2024 8:37 AM EDT Sepsis, unspecified organism (CMS/HCC) Anemia, unspecified Other disorders of electrolyte and fluid balance, not elsewhere classified VANCOMYCIN, TROUGH Routine 09/23/2024 8: 37 AM EDT Sepsis, unspecified organism (CMS/HCC) Anemia, unspecified Other disorders of electrolyte and fluid balance, not elsewhere classified COMPREHENSIVE METABOLIC PANEL Routine 09/23/2024 8:37 AM EDT Sepsis, unspecified organism (CMS/HCC) Anemia, unspecified Other disorders of electrolyte and fluid balance, not elsewhere classified documented in this encounter Results * (ABNORMAL) Vancomycin, trough (09/23/2024 8:37 AM EDT) Pathologist [facility] Vancomycin Trough 3.9(L) 10.0 - 20.0 mcg/mL LAB CHEMISTRY METHOD 09/23/2024 12:48 PM T [facility] Blood Venous blood specimen / Unknown Venipuncture / Unknown 09/23/2024 8:37 AM EDT 09/23/2024 11:09 AM EDT us Mimi Haji MD LAB BLOOD ORDERABLES Fin al Result [facility] [address] [place] [address], * (ABNORMAL) Comprehensive metabolic panel (09/23/2024 8:37 AM EDT) [facility] Sodium 137 133 - 145 mmol/L LAB CHEMISTRY METHOD 09/23/2024 12:47 PM [facility] Potassium 3.9 3.5 - 5.5 mmol/L LAB CHEMISTRY METHOD 09/23/2024 12:47 PM [facility] Chloride 101 96 - 110 mmol/L LAB CHEMISTRY METHOD 09/23/2024 12:47 PM [facility] CO2 28 21 - 32 mmol/L LAB CHEMISTRY METHOD 09/23/2024 12:47 PM [facility] Anion Gap 8 3 - 11 LAB CHEMISTRY METHOD 09/23/2024 12:47 PM [facility] Glucose 120(H) 70 - 100 mg/dL LAB CHEMISTRY METHOD 09/23/2024 12:47 PM [facility] BUN 18 5 - 25 mg/dL LAB CHEMISTRY METHOD 09/23/2024 12:47 PM [facility] Creatinine 1.03 0.50 - 1.10 mg/dL LAB CHEMISTRY METHOD 09/23/2024 12:47 PM [facility] eGFR 54(L) >=60 mL/min/1. 73m2 LAB CHEMISTRY METHOD 09/23/2024 12:47 PM [facility] Comment:Calculation based on the??Chronic Kidney Disease Epidemiology Collaboration (CKD-EPI) equation refit??without adjustment for race. BUN/Creatinine Ratio 17.5 LAB CHEMISTRY METHOD 09/23/2024 12:47 PM [facility] Calcium 8.9 8.5 - 10.5 mg/dL LAB CHEMISTRY METHOD 09/23/2024 12:47 PM [facility] AST (SGOT) 17 10 - 42 unit/L LAB CHEMISTRY METHOD 09/23/2024 12:47 PM [facility] ALT (SGPT) 12 10 - 60 unit/L LAB CHEMISTRY METHOD 09/23/2024 12:47 PM [facility] Alkaline Phosphatase 83 42 - 121 unit/L LAB CHEMISTRY METHOD 09/23/2024 12:47 PM [facility] Total Protein 7.4 6.0 - 8.0 g/dL LAB CHEMISTRY METHOD 09/23/2024 12:47 PM [facility] Albumin 3.2 3.2 - 5.0 g/dL LAB CHEMISTRY METHOD 09/23/2024 12:47 PM [facility] Total Bilirubin 0.5 0.0 - 1.4 mg/dL LAB CHEMISTRY METHOD 09/23/2024 12:47 PM [facility] Blood Venous blood specimen / Unknown Venipuncture / Unknown 09/23/2024 8:37 AM EDT 09/23/2024 11:09 AM EDT us Mimi Haji MD LAB BLOOD ORDERABLES Fin al Result [facility] [address] [place], [place] [address] [phone] * (ABNORMAL) Complete blood count (09/23/2024 8:37 AM EDT) [facility] WBC 5.7 4.8 - 10.8 K/mcL LAB HEMETOLOGY METHOD 09/23/2024 11:48 AM [facility] RBC 5.00(H) 3.80 - 4.80 M/mcL LAB HEMETOLOGY METHOD 09/23/2024 11:48 AM [facility] Hemoglobin 13.6 11.5 - 16.0 g/dL LAB HEMETOLOGY METHOD 09/23/2024 11:48 AM [facility] Hematocrit 43.2 35.0 - 47.0 % LAB HEMETOLOGY METHOD 09/23/2024 11:48 AM [facility] MCV 86.7 79.0 - 98.0 FL LAB HEMETOLOGY METHOD 09/23/2024 11:48 AM [facility] MCH 27.3 27.0 - 32.0 pcg LAB HEMETOLOGY METHOD 09/23/2024 11:48 AM [facility] MCHC 31.5(L) 32.0 - 37.0 g/dL LAB HEMETOLOGY METHOD 09/23/2024 11:48 AM [facility] RDW 13.8 11.0 - 15.0 % LAB HEMETOLOGY METHOD 09/23/2024 11:48 AM [facility] Platelets 218 130 - 400 K/mcL LAB HEMETOLOGY METHOD 09/23/2024 11:48 AM [facility] MPV 10.1 7.0 - 11.0 FL LAB HEMETOLOGY METHOD 09/23/2024 11:48 AM [facility] NRBC 0.0 <1.0 % LAB HEMETOLOGY METHOD 09/23/2024 11:48 AM [facility] NRBC Absolute 0.00 <0.10 K/mcL LAB HEMETOLOGY METHOD 09/23/2024 11:48 AM EDT [facility] Blood Venous blood specimen / Unknown Venipuncture / Unknown 09/23/2024 8:37 AM EDT 09/23/2024 11:09 AM EDT us Mimi Haji MD LAB BLOOD ORDERABLES Fin al Result [facility] [address] [place] [address], documented in this encounter Visit Diagnoses Diagnosis Sepsis, unspecified organism (CMS/HCC V24, CMS/HCC V28) Anemia, unspecified Other disorders of electrolyte and fluid balance, not elsewhere classified documented in this encounter Care Teams Residential Instructor Relationship Specialty Start Date End Date Mimi Haji MD [address] [place] [address] PCP - General Family Medicine 08/20/24 documented as of this encounter
--- OUTSIDE RECORDS SUMMARY | 2024-09-26 17:42 | XMS_ITS | Encounter Summary ---
Author Organization [employer] Address [address] [place] [address] Care Team Providers Care Slot Editor Name Role Phone Mimi Haji MD Primary Care Provider + Encounter Details Date Type Department Care Team (Late st Contact Info) Description 09/15/2024 Lab Requisition [facility] - Main Lab 299 [facility] [place] [address] Mimi Haji MD 819 [facility] 1 [place] [address] Bacteremia Social History Tobacco Use Types Packs/Day [...] CHEMISTRY METHOD 09/15/2024 2:33 PM EDT [facility] Blood Venous blood specimen / Unknown 09/15/2024 12:09 PM EDT 09/15/2024 1:50 PM EDT us Mimi Haji MD LAB BLOOD ORDERABLES Fin al Result [facility] [address] [place] [address], * (ABNORMAL) Comprehensive metabolic panel (09/15/2024 12:09 PM EDT) Sodium 137 133 - 145 mmol/L LAB CHEMISTRY METHOD 09/15/2024 2:[address] [facility] Potassium 4.0 3.5 - 5.5 mmol/L LAB CHEMISTRY METHOD 09/15/2024 2:[address] [facility] Chloride 101 96 - 110 mmol/L LAB CHEMISTRY METHOD 09/15/2024 2:34 PM [facility] CO2 28 21 - 32 mmol/L LAB CHEMISTRY METHOD 09/15/2024 2:[address] [facility] Anion Gap 8 3 - 11 LAB CHEMISTRY METHOD 09/15/2024 2:34 PM [facility] Glucose 93 70 - 100 mg/dL LAB CHEMISTRY METHOD 09/15/2024 2:[address] [facility] BUN 14 5 - 25 mg/dL LAB CHEMISTRY METHOD 09/15/2024 2:[address] [facility] Creatinine 1.07 0.50 - 1.10 mg/dL LAB CHEMISTRY METHOD 09/15/2024 2:34 PM [facility] eGFR 52(L) >=60 mL/min/1. 73m2 LAB CHEMISTRY METHOD 09/15/2024 2:[address] [facility] Comment:Calculation based on the??Chronic Kidney Disease Epidemiology Collaboration (CKD-EPI) equation refit??without adjustment for race. BUN/Creatinine Ratio 13.1 LAB CHEMISTRY METHOD 09/15/2024 2:[address] [facility] Calcium 9.2 8.5 - 10.5 mg/dL LAB CHEMISTRY METHOD 09/15/2024 2:[address] [facility] AST (SGOT) 16 10 - 42 unit/L LAB CHEMISTRY METHOD 09/15/2024 2:[address] [facility] ALT (SGPT) 14 10 - 60 unit/L LAB CHEMISTRY METHOD 09/15/2024 2:[address] [facility] Alkaline Phosphatase 100 42 - 121 unit/L LAB CHEMISTRY METHOD 09/15/2024 2:[address] [facility] Total Protein 8.0 6.0 - 8.0 g/dL LAB CHEMISTRY METHOD 09/15/2024 2:[address] [facility] Albumin 3.3 3.2 - 5.0 g/dL LAB CHEMISTRY METHOD 09/15/2024 2:[address] [facility] Total Bilirubin 0.5 0.0 - 1.4 mg/dL LAB CHEMISTRY METHOD 09/15/2024 2:[address] [facility] Blood Venous blood specimen / Unknown 09/15/2024 12:09 PM EDT 09/15/2024 1:50 PM EDT us Mimi Haji MD LAB BLOOD ORDERABLES Fin al Result [facility] [address] [place] [address], * (ABNORMAL) Complete blood count (09/15/2024 12:09 PM EDT) WBC 4.7(L) 4.8 - 10.8 K/[facility] LAB HEMETOLOGY METHOD 09/15/2024 2:[address] [facility] RBC 5.10(H) 3.80 - 4.80 M/mcL LAB HEMETOLOGY METHOD 09/15/2024 2:[address] [facility] Hemoglobin 14.0 11.5 - 16.0 g/dL LAB HEMETOLOGY METHOD 09/15/2024 2:[address] [facility] Hematocrit 44.0 35.0 - 47.0 % LAB HEMETOLOGY METHOD 09/15/2024 2:[address] [facility] MCV 86.4 79.0 - 98.0 FL LAB HEMETOLOGY METHOD 09/15/2024 2:[address] [facility] MCH 27.5 27.0 - 32.0 pcg LAB HEMETOLOGY METHOD 09/15/2024 2:[address] [facility] MCHC 31.8(L) 32.0 - 37.0 g/dL LAB HEMETOLOGY METHOD 09/15/2024 2:[address] [facility] RDW 13.9 11.0 - 15.0 % LAB HEMETOLOGY METHOD 09/15/2024 2:[address] [facility] Platelets 205 130 - 400 K/mcL LAB HEMETOLOGY METHOD 09/15/2024 2:[address] [facility] MPV 10.1 7.0 - 11.0 FL LAB HEMETOLOGY METHOD 09/15/2024 2:[address] [facility] NRBC 0.0 <1.0 % LAB HEMETOLOGY METHOD 09/15/2024 2:[address] [facility] NRBC Absolute 0.00 <0.10 K/mcL LAB HEMETOLOGY METHOD 09/15/2024 2:[address] [facility] Blood Venous blood specimen / Unknown Venipuncture / Unknown 09/15/2024 12:09 PM EDT 09/15/2024 1:50 PM EDT us Mimi Haji MD LAB BLOOD ORDERABLES Fin al Result [facility] [address] [place] [address], documented in this encounter Visit Diagnoses Diagnosis Bacteremia documented in this encounter Care Teams Slot Editor Relationship Specialty Start Date End Date Mimi Haji MD [address] [place] [address] PCP - General Family Medicine 08/20/24 documented as of this encounter
--- OUTSIDE RECORDS SUMMARY | 2024-09-26 17:42 | XMS_ITS | Encounter Summary ---
Author Organization [email or web address] Address [address] [place] [address] Care Team Providers Care Highway Maintenance Supervisor Name Role Phone Mimi Haji MD Primary Care Provider + Encounter Details Date Type Department Care Team (Late st Contact Info) Description 09/07/2024 Lab Requisition [facility] - Main Lab [address] [facility] [place] [address] Mimi Haji MD [address] [phone] Sepsis, unspecified organism (CMS/HCC V24, CMS/HCC V28); [...] classified documented in this encounter Care Teams Highway Maintenance Supervisor Relationship Specialty Start Date End Date Mimi Haji MD [address] [place] [address] PCP - General Family Medicine 08/20/24 documented as of this encounter
--- OUTSIDE RECORDS SUMMARY | 2024-09-26 17:42 | XMS_ITS | Encounter Summary ---
Author Organization [employer] Address [address] [place] [address] Care Team Providers Care Chalk Tester Name Role Phone Mimi Haji MD Primary Care Provider + Encounter Details Date Type Department Care Team (Late st Contact Info) Description 09/15/2024 Lab Requisition [facility] - Main Lab [address] [facility] [place] [address] Mimi Haji MD [address] [phone] Sepsis, unspecified organism (CMS/HCC V24, CMS/HCC V28); [...] mcg/mL LAB CHEMISTRY METHOD 09/16/2024 12:23 PM [facility] Blood Venous blood specimen / Unknown Venipuncture / Unknown 09/16/2024 9:20 AM EDT 09/16/2024 10:39 AM EDT us Mimi Haji MD LAB BLOOD ORDERABLES Fin al Result [facility] [address] [place] [address], * (ABNORMAL) Comprehensive metabolic panel (09/16/2024 9:20 AM EDT) Pathologist [facility] Sodium 134 133 - 145 mmol/L LAB CHEMISTRY METHOD 09/16/2024 12:23 PM [facility] Potassium 3.6 3.5 - 5.5 mmol/L LAB CHEMISTRY METHOD 09/16/2024 12:23 PM [facility] Chloride 100 96 - 110 mmol/L LAB CHEMISTRY METHOD 09/16/2024 12:23 PM [facility] CO2 27 21 - 32 mmol/L LAB CHEMISTRY METHOD 09/16/2024 12:23 PM [facility] Anion Gap 7 3 - 11 LAB CHEMISTRY METHOD 09/16/2024 12:23 PM [facility] Glucose 168(H) 70 - 100 mg/dL LAB CHEMISTRY METHOD 09/16/2024 12:23 PM [facility] BUN 12 5 - 25 mg/dL LAB CHEMISTRY METHOD 09/16/2024 12:23 PM [facility] Creatinine 1.00 0.50 - 1.10 mg/dL LAB CHEMISTRY METHOD 09/16/2024 12:23 PM [facility] eGFR 56(L) >=60 mL/min/1. 73m2 LAB CHEMISTRY METHOD 09/16/2024 12:23 PM EDT [facility] Comment:Calculation based on the??Chronic Kidney Disease Epidemiology Collaboration (CKD-EPI) equation refit??without adjustment for race. BUN/Creatinine Ratio 12.0 LAB CHEMISTRY METHOD 09/16/2024 12:23 PM EDT [facility] Calcium 8.5 8.5 - 10.5 mg/dL LAB CHEMISTRY METHOD 09/16/2024 12:23 PM [facility] AST (SGOT) 14 10 - 42 unit/L LAB CHEMISTRY METHOD 09/16/2024 12:23 PM [facility] ALT (SGPT) 13 10 - 60 unit/L LAB CHEMISTRY METHOD 09/16/2024 12:23 PM [facility] Alkaline Phosphatase 82 42 - 121 unit/L LAB CHEMISTRY METHOD 09/16/2024 12:23 PM T [facility] Total Protein 6.6 6.0 - 8.0 g/dL LAB CHEMISTRY METHOD 09/16/2024 12:23 PM [facility] Albumin 2.6(L) 3.2 - 5.0 g/dL LAB CHEMISTRY METHOD 09/16/2024 12:23 PM [facility] Total Bilirubin 0.5 0.0 - 1.4 mg/dL LAB CHEMISTRY METHOD 09/16/2024 12:23 PM T [facility] Blood Venous blood specimen / Unknown Venipuncture / Unknown 09/16/2024 9:20 AM EDT 09/16/2024 10:39 AM EDT us Mimi Haji MD LAB BLOOD ORDERABLES Fin al Result [facility] [address] [place] [address], * (ABNORMAL) Complete blood count (09/16/2024 9:20 AM EDT) [facility] [address] WBC 4.1(L) 4.8 - 10.8 K/mcL LAB HEMETOLOGY METHOD 09/16/2024 11:37 AM [facility] RBC 4.30 3.80 - 4.80 M/mcL LAB HEMETOLOGY METHOD 09/16/2024 11:37 AM [facility] Hemoglobin 12.0 11.5 - 16.0 g/dL LAB HEMETOLOGY METHOD 09/16/2024 11:37 AM [facility] Hematocrit 36.3 35.0 - 47.0 % LAB HEMETOLOGY METHOD 09/16/2024 11:37 AM [facility] MCV 84.4 79.0 - 98.0 FL LAB HEMETOLOGY METHOD 09/16/2024 11:37 AM [facility] MCH 27.9 27.0 - 32.0 pcg LAB HEMETOLOGY METHOD 09/16/2024 11:37 AM [facility] MCHC 33.1 32.0 - 37.0 g/dL LAB HEMETOLOGY METHOD 09/16/2024 11:37 AM [facility] RDW 14.1 11.0 - 15.0 % LAB HEMETOLOGY METHOD 09/16/2024 11:37 AM [facility] Platelets 181 130 - 400 K/mcL LAB HEMETOLOGY METHOD 09/16/2024 11:37 AM [facility] MPV 10.2 7.0 - 11.0 FL LAB HEMETOLOGY METHOD 09/16/2024 11:37 AM [facility] NRBC 0.0 <1.0 % LAB HEMETOLOGY METHOD 09/16/2024 11:37 AM [facility] NRBC Absolute 0.00 <0.10 K/mcL LAB HEMETOLOGY METHOD 09/16/2024 11:37 AM EDT [facility] Blood Venous blood specimen / Unknown Venipuncture / Unknown 09/16/2024 9:20 AM EDT 09/16/2024 10:39 AM EDT us Mimi Haji MD LAB BLOOD ORDERABLES Fin al Result [facility] [address] [place] [address], documented in this encounter Visit Diagnoses Diagnosis Sepsis, unspecified organism (CMS/HCC V24, CMS/HCC V28) Anemia, unspecified Other disorders of electrolyte and fluid balance, not elsewhere classified documented in this encounter Care Teams Chalk Tester Relationship Specialty Start Date End Date Mimi Haji MD [address] [place] [address] PCP - General Family Medicine 08/20/24 documented as of this encounter
--- OUTSIDE RECORDS SUMMARY | 2024-09-26 17:42 | XMS_ITS | Encounter Summary ---
Author Organization [facility] Address [address] [place] [address] Care Team Providers Care Equities Trader Name Role Phone Mimi Haji MD Primary Care Provider + Encounter Details Date Type Department Care Team (Late st Contact Info) Description 09/06/2024 Lab Requisition [facility] - Main Lab [address] [place] [address] Mimi Haji MD [address] [phone] Bacteremia Social History Tobacco Use Types Packs/Day [...] LAB CHEMISTRY METHOD 09/06/2024 7:43 PM EDT [facility] Blood Venous blood specimen / Unknown 09/06/2024 3:45 PM EDT 09/06/2024 6:51 PM EDT us Mimi Haji MD LAB BLOOD ORDERABLES Fin al Result [facility] [address] [place] [address], documented in this encounter Visit Diagnoses Diagnosis Bacteremia documented in this encounter Care Teams Equities Trader Relationship Specialty Start Date End Date Mimi Haji MD [address] [place] [address] PCP - General Family Medicine 08/20/24 documented as of this encounter
--- OUTSIDE RECORDS SUMMARY | 2024-09-26 17:42 | XMS_ITS | Encounter Summary ---
Author Organization [facility] Address [address] [place] [address] Care Team Providers Care Embroidery Finisher Name Role Phone Mimi Haji MD Primary Care Provider + Encounter Details Date Type Department Care Team (Late st Contact Info) Description 08/28/2024 Lab Requisition [facility] - Main Lab [address] [place] [address] Mimi Haji MD [address] [phone] Acute nasopharyngitis (common cold) Social History Tobacco [...] Procedure Name Priority Date/Time Associated Diagnosis Comments [id number], RSV, FLU A AND B QUALITATIVE RT-PCR, LOCAL REFERENCE LAB Routine 08/27/2024 1:00 PM EDT Acute nasopharyngitis (common cold) documented in this encounter Results * [id number], RSV, Influenza A and B qualitative RT-PCR (08/27/2024 1:00 PM EDT) SARS COV-2 Not Detected Not Detected LAB MOLECULAR DIAGNOSTICS METHOD 08/28/2024 2:58 PM EDT [facility] Comment: Disclaimer: The manner in which this information is used to guide patient care is the responsibility of the healthcare provider. Testing was performed using the Sonico SARS-CoV-2 test. This test has been authorized [...] for Healthcare Providers can be found at: https://www.fda.gov/media/917374/download Fact sheet for Patients can be found at: https://www.fda.gov/media/051971/download Influenza A PCR Not Detected Not Detected LAB MOLECULAR DIAGNOSTICS METHOD 08/28/2024 2:58 PM EDT [facility] Influenza B PCR Not Detected Not Detected LAB MOLECULAR DIAGNOSTICS METHOD 08/28/2024 2:58 PM EDT [facility] RSV PCR Not Detected Not Detected LAB MOLECULAR DIAGNOSTICS METHOD 08/28/2024 2:58 PM EDT [facility] Swab Nasopharyngeal structure / Unknown Non-blood Collection / Unknown 08/27/2024 1:00 PM EDT 08/28/2024 11:16 AM EDT us Mimi Haji MD LAB MICROBIOLOGY - GENER AL ORDERABLES Final Result [facility] [address] [place] [address], documented in this encounter Visit Diagnoses Diagnosis Acute nasopharyngitis (common cold) documented in this encounter Care Teams Embroidery Finisher Relationship Specialty Start Date End Date Mimi Haji MD [address] [place] [address] PCP - General Family Medicine 08/20/24 documented as of this encounter
--- OUTSIDE RECORDS SUMMARY | 2024-09-26 17:42 | XMS_ITS | Encounter Summary ---
Author Organization [employer] Address [address] [place] [address] Care Team Providers Care Social Worker Name Role Phone Mimi Haji MD Primary Care Provider + Encounter Details Date Type Department Care Team (Late st Contact Info) Description 08/31/2024 Lab Requisition [facility] - Main Lab [address] [facility] [place] [address] Mimi Haji MD [address] [phone] Sepsis, unspecified organism ([facility] V24, CMS/[facility] V28); Bacteremia Social History Tobacco Use Types Packs/Day [...] 6: 14 AM EDT Sepsis, unspecified organism ([facility]) Bacteremia documented in this encounter Results * (ABNORMAL) Vancomycin, trough (08/31/2024 6:14 AM EDT) Vancomycin Trough 28.8(H) 10.0 - 20.0 mcg/mL LAB CHEMISTRY METHOD 08/31/2024 12:46 PM EDT [facility] Blood Venous blood specimen / Unknown Venipuncture / Unknown 08/31/2024 6:14 AM EDT 08/31/2024 11:49 AM EDT Mimi Haji MD LAB BLOOD ORDERABLES Fin al Result Performing Organization Address City/[facility]/ZIP Co de Phone Number [facility] [address] [place] [address], documented in this encounter Visit Diagnoses Diagnosis Sepsis, unspecified organism (CMS/[facility] V24, CMS/[facility] V28) Bacteremia documented in this encounter Care Teams Social Worker Relationship Specialty Start Date End Date Mimi Haji MD [address] [place] [address] PCP - General Family Medicine 08/20/24 documented as of this encounter
--- OUTSIDE RECORDS SUMMARY | 2024-09-26 17:42 | XMS_ITS | Clinical Summary ---
Author Organization 299 [facility] Address [address] [place] [address] Phone Care Team Providers Care Staff Weapons Officer Name Role Phone Mimi Haji MD Primary Care Provider + Encounters Date Type Department Care Team Description 09/21/2024 Lab Requisition [facility] Lab [address] [place] [address] Mimi Haji MD Sepsis, unspecified organism (CMS/HCC V24, CMS/HCC V28); Anemia, unspecified; Other disorders of electrolyte and fluid balance, not elsewhere classified 09/15/2024 Lab Requisition [facility] Lab [address] [place] [address] Mimi Haji MD Sepsis, unspecified organism (CMS/HCC V24, CMS/HCC V28); Anemia, unspecified; Other disorders of electrolyte and fluid balance, not elsewhere classified 09/15/2024 Lab Requisition [facility] Lab [address] [place] [address] Mimi Haji MD Bacteremia 09/13/2024 Lab Requisition [facility] Lab [address] [place] [address] Mimi Haji MD Altered mental status, unspecified; Unspecified infectious disease 09/07/2024 Lab Requisition [facility] Lab [address] [place] [address] Mimi Haji MD Sepsis, unspecified organism (CMS/HCC V24, CMS/HCC V28); Anemia, unspecified; Other disorders of electrolyte and fluid balance, not elsewhere classified 09/06/2024 Lab Requisition [facility] Lab [address] [place] [phone] Mimi Haji MD Bacteremia 09/02/2024 Lab Requisition [facility] Lab [address] [place] [phone] Mimi Haji MD Bacteremia; Sepsis, unspecified organism ([facility] V24, [facility] V28) 08/31/2024 Lab Requisition [facility] Lab [address] [place] [phone] Mimi Haji MD Sepsis, unspecified organism (CMS/[facility] V24, [facility] V28); Bacteremia 08/31/2024 Lab Requisition [facility] Lab [address] [place] [phone] Mimi Haji MD Anemia, unspecified; Other disorders of electrolyte and fluid balance, not elsewhere classified 08/28/2024 Lab Requisition [facility] Lab [address] [place] [phone] Mimi Haji MD Acute nasopharyngitis (common cold) 08/25/2024 Lab Requisition [facility] Lab [address] [place] [phone] Mimi Haji MD Anemia, unspecified; Other disorders of electrolyte and fluid balance, not elsewhere classified; Other mcc (current) drug therapy; Metabolic encephalopathy 08/22/2024 Lab Requisition [facility] Lab [address] [place] [phone] Mimi Haji MD Other data science and iot manager (current) drug therapy; Methicillin resistant Staphylococcus aureus infection, unspecified site 08/20/2024 Lab Requisition [facility] Lab [address] [place] [phone] Mimi Haji MD Anemia, unspecified; Other disorders [...] age to complete this topic Meningococcal B Vaccine Aged Out No l onger eligible based on patient's age to complete this topic RSV Immunization Patients Un gaurav 20 months Aged Out No longer eligible b ased on patient's age to complete this topic Varicella Vaccines Aged Out No longer eligible based on patient's age to complete this topic Procedures Procedure Name Priority Date/Time Associated Diagnosis Comments VANCOMYCIN, TROUGH Routine 09/23/2024 8: 37 AM EDT Sepsis, unspecified organism (CMS/HCC) Anemia, unspecified Other disorders of electrolyte and fluid balance, not elsewhere classified COMPREHENSIVE METABOLIC PANEL Routine 09/23/2024 8:37 AM EDT Sepsis, unspecified organism (CMS/HCC) Anemia, unspecified Other disorders of electrolyte and fluid balance, not elsewhere classified COMPLETE BLOOD COUNT Routine 09/23/2024 8:37 AM [...] AM EDT Sepsis, unspecified organism (CMS/HCC) Bacteremia [id number], RSV, FLU A AND B QUALITATIVE RT-PCR, LOCAL REFERENCE LAB Routine 08/27/2024 1:00 PM EDT Acute nasopharyngitis (common cold) LAVENDER - EDTA Routine 08/26/2024 8:49 AM EDT Anemia, unspecified Other disorders of electrolyte and fluid balance, not elsewhere classified Other data science and iot manager (current) drug therapy Metabolic encephalopathy VITAMIN D 25 HYDROXY Routine 08/26/2024 8:49 AM EDT Anemia, unspecified Other disorders of electrolyte and fluid balance, not elsewhere classified Other data science and iot manager (current) drug therapy Metabolic encephalopathy FOLATE Routine [...] STAT 08/22/2024 2: 35 PM EST Other mcc (current) drug therapy Methicillin resistant Staphylococcus aureus [...] Months Results * (ABNORMAL) Complete blood count (09/23/2024 8:37 AM EDT) Only the most recent of5 resultswithin the time period is included. WBC 5.7 4.8 - 10.8 K/mcL LAB HEMETOLOGY METHOD 09/23/2024 11:48 AM EDT [facility] RBC 5.00(H) 3.80 - 4.80 M/mcL LAB HEMETOLOGY METHOD 09/23/2024 11:48 AM EDT [facility] Hemoglobin 13.6 11.5 - 16.0 g/dL LAB HEMETOLOGY METHOD 09/23/2024 11:48 AM EDT [facility] Hematocrit 43.2 35.0 - 47.0 % LAB HEMETOLOGY METHOD 09/23/2024 11:48 AM EDT [facility] MCV 86.7 79.0 - 98.0 FL LAB HEMETOLOGY METHOD 09/23/2024 11:48 AM EDT [facility] MCH 27.3 27.0 - 32.0 pcg LAB HEMETOLOGY METHOD 09/23/2024 11:48 AM EDT [facility] MCHC 31.5(L) 32.0 - 37.0 g/dL LAB HEMETOLOGY [facility] RDW 13.8 11.0 - 15.0 % LAB HEMETOLOGY METHOD 09/23/2024 11:48 AM EDT [facility] Platelets 218 130 - 400 K/mcL LAB HEMETOLOGY METHOD 09/23/2024 11:48 AM EDT [facility] MPV 10.1 7.0 - 11.0 FL LAB HEMETOLOGY METHOD 09/23/2024 11:48 AM [facility] NRBC 0.0 <1.0 % LAB HEMETOLOGY METHOD 09/23/2024 11:48 AM EDT [facility] NRBC Absolute 0.00 <0.10 K/mcL LAB HEMETOLOGY METHOD 09/23/2024 11:48 AM [facility] Blood Venous blood specimen / Unknown Venipuncture / Unknown 09/23/2024 8:37 AM EDT 09/23/2024 11:09 AM EDT us Mimi Haji MD LAB BLOOD ORDERABLES Fin al Result [facility] [address] [place] [address], [place] [phone] * (ABNORMAL) Vancomycin, trough (09/23/2024 8:37 AM EDT) Only the most recent of9 resultswithin the time period is included. [facility] Vancomycin Trough 3.9(L) 10.0 - 20.0 mcg/mL LAB CHEMISTRY METHOD 09/23/2024 12:48 PM EDT [facility] Blood Venous blood specimen / Unknown Venipuncture / Unknown 09/23/2024 8:37 AM EDT 09/23/2024 11:09 AM EDT Mimi Haji MD LAB BLOOD ORDERABLES Fin al Result [facility] [address] [place] [address], * (ABNORMAL) Comprehensive metabolic panel (09/23/2024 8:37 AM EDT) Only the most recent of6 resultswithin the time period is included. [facility] Sodium 137 133 - 145 mmol/L LAB CHEMISTRY METHOD 09/23/2024 12:47 PM [facility] Potassium 3.9 3.5 - 5.5 mmol/L LAB CHEMISTRY METHOD 09/23/2024 12:47 PM [facility] Chloride 101 96 - 110 mmol/L LAB CHEMISTRY METHOD 09/23/2024 12:47 PM [facility] CO2 28 21 - 32 mmol/L LAB CHEMISTRY METHOD 09/23/2024 12:47 PM [facility] Anion Gap 8 3 - 11 LAB CHEMISTRY METHOD 09/23/2024 12:47 PM [facility] Glucose 120(H) 70 - 100 mg/dL LAB CHEMISTRY METHOD 09/23/2024 12:47 PM [facility] BUN 18 5 - 25 mg/dL LAB CHEMISTRY METHOD 09/23/2024 12:47 PM [facility] Creatinine 1.03 0.50 - 1.10 mg/dL LAB CHEMISTRY METHOD 09/23/2024 12:47 PM [facility] LAB eGFR 54(L) >=60 mL/min/1. 73m2 LAB CHEMISTRY METHOD 09/23/2024 12:47 PM [facility] LAB Comment:Calculation based on the??Chronic Kidney Disease Epidemiology Collaboration (CKD-EPI) equation refit??without adjustment for race. BUN/Creatinine Ratio 17.5 LAB CHEMISTRY METHOD 09/23/2024 12:47 PM [facility] Calcium 8.9 8.5 - 10.5 mg/dL LAB CHEMISTRY METHOD 09/23/2024 12:47 PM [facility] LAB AST (SGOT) 17 10 - 42 unit/L LAB CHEMISTRY METHOD 09/23/2024 12:47 PM [facility] LAB ALT (SGPT) 12 10 - 60 unit/L LAB CHEMISTRY METHOD 09/23/2024 12:47 PM [facility] Alkaline Phosphatase 83 42 - 121 unit/L LAB CHEMISTRY METHOD 09/23/2024 12:47 PM [facility] Total Protein 7.4 6.0 - 8.0 g/dL LAB CHEMISTRY METHOD 09/23/2024 12:47 PM [facility] Albumin 3.2 3.2 - 5.0 g/dL LAB CHEMISTRY METHOD 09/23/2024 12:47 PM [facility] LAB Total Bilirubin 0.5 0.0 - 1.4 mg/dL LAB CHEMISTRY METHOD 09/23/2024 12:47 PM [facility] Blood Venous blood specimen / Unknown Venipuncture / Unknown 09/23/2024 8:37 AM EDT 09/23/2024 11:09 AM EDT Mimi Haji MD LAB BLOOD ORDERABLES Fin al Result [facility] LAB [address] [place] [address], * (ABNORMAL) CBC auto differential (09/13/2024 1:28 PM EDT) [facility] Signature WBC 5.0 4.8 - 10.8 K/mcL LAB HEMETOLOGY METHOD 09/13/2024 4:00 PM EDT [facility] RBC 4.80 3.80 - 4.80 M/mcL LAB HEMETOLOGY METHOD 09/13/2024 4:00 PM EDT [facility] Hemoglobin 13.2 11.5 - 16.0 g/dL LAB HEMETOLOGY METHOD 09/13/2024 4:00 PM EDT [facility] Hematocrit 42.4 35.0 - 47.0 % LAB HEMETOLOGY METHOD 09/13/2024 4:00 PM EDT [facility] MCV 87.8 79.0 - 98.0 FL LAB HEMETOLOGY METHOD 09/13/2024 4:00 PM EDT [facility] MCH 27.3 27.0 - 32.0 pcg LAB HEMETOLOGY METHOD 09/13/2024 4:00 PM EDT [facility] MCHC 31.1(L) 32.0 - 37.0 g/dL LAB HEMETOLOGY METHOD 09/13/2024 4:00 PM EDT [facility] RDW 13.9 11.0 - 15.0 % LAB HEMETOLOGY METHOD 09/13/2024 4:00 PM EDT [facility] Platelets 218 130 - 400 K/mcL LAB HEMETOLOGY METHOD 09/13/2024 4:00 PM EDT [facility] MPV 10.3 7.0 - 11.0 FL LAB HEMETOLOGY METHOD 09/13/2024 4:00 PM [facility] NRBC 0.0 <1.0 % LAB HEMETOLOGY METHOD 09/13/2024 4:00 PM [facility] NRBC Absolute 0.00 <0.10 K/mcL LAB HEMETOLOGY METHOD 09/13/2024 4:00 PM [facility] Neutrophils Relative 67.3 % LAB HEMETOLOGY METHOD 09/13/2024 4:00 PM [facility] Lymphocytes Relative 15.5 % LAB HEMETOLOGY METHOD 09/13/2024 4:00 PM [facility] Monocytes Relative 8.1 % LAB HEMETOLOGY METHOD 09/13/2024 4:00 PM [facility] Eosinophils Relative 8.1 % LAB HEMETOLOGY METHOD 09/13/2024 4:00 PM [facility] Basophils Relative 0.8 % LAB HEMETOLOGY METHOD 09/13/2024 4:00 PM [facility] Immature Granulocytes Relative 0.2 % LAB HEMETOLOGY METHOD 09/13/2024 4:00 PM [facility] Neutrophils Absolute 3.34 1.50 - 7.00 K/mcL LAB HEMETOLOGY METHOD 09/13/2024 4:00 PM [facility] Lymphocytes Absolute 0.77(L) 1.00 - 5.00 K/mcL LAB HEMETOLOGY METHOD 09/13/2024 4:00 PM [facility] Monocytes Absolute 0.40 0.20 - 1.00 K/mcL LAB HEMETOLOGY METHOD 09/13/2024 4:00 PM [facility] Eosinophils Absolute 0.40 0.00 - 0.50 K/mcL LAB HEMETOLOGY METHOD 09/13/2024 4:00 PM [facility] Basophils Absolute 0.04 0.00 - 0.20 K/mcL LAB HEMETOLOGY METHOD 09/13/2024 4:00 PM EDT [facility] Immature Granulocytes Absolute 0.01 0.00 - 0.03 K/mcL LAB HEMETOLOGY METHOD 09/13/2024 4:00 PM EDT [facility] Blood Venous blood specimen / Unknown Venipuncture / Unknown 09/13/2024 1:28 PM EDT 09/13/2024 3:05 PM EDT Mimi Haji MD LAB BLOOD ORDERABLES Fin al Result Performing Organization Address City/[facility]/ZIP Co de Phone Number [facility] [address] [place] [address], [place] [phone] * (ABNORMAL) Sedimentation rate (09/13/2024 1:28 PM EDT) Sed Rate 53(H) 0 - 30 mm/hr LAB HEMETOLOGY METHOD 09/13/2024 4:10 PM EDT [facility] Blood Venous blood specimen / Unknown Venipuncture / Unknown 09/13/2024 1:28 PM EDT 09/13/2024 3:05 PM EDT Mimi Haji MD LAB BLOOD ORDERABLES Fin al Result Performing Organization Address City/[facility]/ZIP Co de Phone Number [facility] [address] [place] [address], [place] [phone] * (ABNORMAL) C-reactive protein (09/13/2024 1:28 PM EDT) C-Reactive Protein 2.86(H) <=0.50 mg/dL LAB CHEMISTRY METHOD 09/13/2024 4:02 PM EDT [facility] Blood Venous blood specimen / Unknown Venipuncture / Unknown 09/13/2024 1:28 PM EDT 09/13/2024 3:05 PM EDT Mimi Haji MD LAB BLOOD ORDERABLES Fin al Result Performing Organization Address City/[facility]/ZIP Co de Phone Number [facility] [address] [place] [address], [place] [phone] * SST tube (09/02/2024 2:30 PM EDT) Extra Tube Hold for add-ons. 09/02/2024 6:01 PM EDT [facility] Comment:Auto resulted. Blood Venous blood specimen / Unknown 09/02/2024 2:30 PM EDT 09/02/2024 4:48 PM EDT Mimi Haji MD LAB BLOOD ORDERABLES Fin al Result Performing Organization Address [facility] Co de Phone Number [facility] [address] [place] [address], [place] [phone] * Lavender tube (09/02/2024 2:30 PM EDT) Only the most recent of2 resultswithin the time period is included. Extra Tube Hold for add-ons. 09/02/2024 6:01 PM EDT [facility] Comment:Auto resulted. Blood Venous blood specimen / Unknown 09/02/2024 2:30 PM EDT 09/02/2024 4:48 PM EDT Mimi Haji MD LAB BLOOD ORDERABLES Fin al Result Performing Organization Address City/[facility]/ZIP Co de Phone Number [facility] [address] [place] [address], [place] [phone] * [id number], RSV, Influenza A and B qualitative RT-PCR (08/27/2024 1:00 PM EDT) SARS COV-2 Not Detected Not Detected LAB MOLECULAR DIAGNOSTICS METHOD 08/28/2024 2:58 PM EDT [facility] Comment: Disclaimer: The manner in which this information is used to guide patient care is the responsibility of the healthcare provider. Testing was performed using the Pervasip Alinity m SARS-CoV-2 test. This test has [...] for Healthcare Providers can be found at: https://www.fda.gov/media/996601/download Fact sheet for Patients can be found at: https://www.fda.gov/media/181536/download Influenza A PCR Not Detected Not Detected LAB MOLECULAR DIAGNOSTICS METHOD 08/28/2024 2:58 PM EDT [facility] Influenza B PCR Not Detected Not Detected LAB MOLECULAR DIAGNOSTICS METHOD 08/28/2024 2:58 PM EDT [facility] RSV PCR Not Detected Not Detected LAB MOLECULAR DIAGNOSTICS METHOD 08/28/2024 2:58 PM EDT [facility] Swab Nasopharyngeal structure / Unknown Non-blood Collection / Unknown 08/27/2024 1:00 PM EDT 08/28/2024 11:16 AM EDT us Mimi Haji MD LAB MICROBIOLOGY - GENER AL ORDERABLES Final Result [facility] [address] [place] [address], * Thyroid stimulating hormone with reflex to free t4 and free t3 (08/26/2024 8:49 AM EDT) TSH 3.96 0.40 - 4.00 mcIU/mL LAB CHEMISTRY METHOD 08/26/2024 12:53 PM EDT [facility] Blood Venous blood specimen / Unknown Venipuncture / Unknown 08/26/2024 8:49 AM EDT 08/26/2024 10:35 AM EDT Mimi Haji MD LAB BLOOD ORDERABLES Fin al Result Performing Organization Address [facility]/ZIP Co de Phone Number [facility] [address] [place] [address], [place] [phone] * (ABNORMAL) Vitamin D 25 hydroxy (08/26/2024 8:49 AM EDT) [facility] Vit D, 25-Hydroxy 21.1(L) 30.0 - 80.0 ng/mL LAB CHEMISTRY METHOD 08/26/2024 12:52 PM EDT [facility] Blood Venous blood specimen / Unknown Venipuncture / Unknown 08/26/2024 8:49 AM EDT 08/26/2024 10:35 AM EDT Mimi Haji MD LAB BLOOD ORDERABLES Fin al Result Performing Organization Address [facility] de Phone Number [facility] [address] [place] [address], [place] [phone] * Folate (08/26/2024 8:49 AM EDT) [facility] Folate 4.1 2.8 - 17.0 ng/ml LAB CHEMISTRY METHOD 08/26/2024 11:56 AM EDT [facility] Blood Venous blood specimen / Unknown Venipuncture / Unknown 08/26/2024 8:49 AM EDT 08/26/2024 10:35 AM EDT Mimi Haji MD LAB BLOOD ORDERABLES Fin al Result Performing Organization Address [facility] Co de Phone Number [facility] [address] [place] [address], * Vitamin B12 (08/26/2024 8:49 AM EDT) [facility] Vitamin B-12 739 250 - 900 pcg/mL LAB CHEMISTRY METHOD 08/26/2024 11:56 AM EDT [facility] Blood Venous blood specimen / Unknown Venipuncture / Unknown 08/26/2024 8:49 AM EDT 08/26/2024 10:35 AM EDT Mimi Haji MD LAB BLOOD ORDERABLES Fin al Result Performing Organization Address [facility] de Phone Number [facility] [address] [place] [address], * Vancomycin random (08/20/2024 5:59 AM EST) [facility] Vancomycin Rm 15.6 mcg/mL LAB CHEMISTRY METHOD 08/20/2024 10:21 AM EST [facility] Blood Venous blood specimen / Unknown Venipuncture / Unknown 08/20/2024 5:59 AM EST 08/20/2024 9:11 AM EST Mimi Haji MD LAB BLOOD ORDERABLES Fin al Result [facility] [address] [place] [address], [place] [phone] from Last 3 Months Insurance MEDICARE [facility] Care Teams Staff Weapons Officer Relationship Specialty Start Date End Date Mimi Haji MD [address] [place] [address] PCP - General Family Medicine 08/20/24
--- OUTSIDE RECORDS SUMMARY | 2024-09-26 17:42 | XMS_ITS | Encounter Summary ---
Author Organization [facility] Address [address] [place] [address] Care Team Providers Care Sustainable Design Coordinator Name Role Phone Mimi Haji MD Primary Care Provider + Encounter Details Date Type Department Care Team (Late st Contact Info) Description 08/31/2024 Lab Requisition [facility] Main Lab [address] [facility] [place] [address] Miim Haji MD [address] [phone] Anemia, unspecified; Other disorders of electrolyte and [...] classified documented in this encounter Care Teams Sustainable Design Coordinator Relationship Specialty Start Date End Date Mimi Haji MD [address] [place] [address] PCP - General Family Medicine 08/20/24 documented as of this encounter
--- OUTSIDE RECORDS SUMMARY | 2024-09-26 17:42 | XMS_ITS | Encounter Summary ---
Author Organization [facility] Address [address] [place] [address] Care Team Providers Care Medical Assisting Instructor Name Role Phone Mimi Haji MD Primary Care Provider + Encounter Details Date Type Department Care Team (Late st Contact Info) Description 08/20/2024 Lab Requisition [facility] - Main Lab [address] [place] [address] Mimi Haji MD [address] [phone] Anemia, unspecified; Other disorders of electrolyte and [...] mcg/mL LAB CHEMISTRY METHOD 08/20/2024 10:21 AM [facility] Blood Venous blood specimen / Unknown Venipuncture / Unknown 08/20/2024 5:59 AM EST 08/20/2024 9:11 AM EST us Mimi Haji MD LAB BLOOD ORDERABLES Fin al Result [facility] [address] [place] [address], * (ABNORMAL) Comprehensive metabolic panel (08/20/2024 5:59 AM EST) Sodium 138 133 - 145 mmol/L LAB CHEMISTRY METHOD 08/20/2024 10:21 AM [facility] Potassium 4.0 3.5 - 5.5 mmol/L LAB CHEMISTRY METHOD 08/20/2024 10:21 AM [facility] Chloride 101 96 - 110 mmol/L LAB CHEMISTRY METHOD 08/20/2024 10:21 AM [facility] CO2 29 21 - 32 mmol/L LAB CHEMISTRY METHOD 08/20/2024 10:21 AM [facility] Anion Gap 8 3 - 11 LAB CHEMISTRY METHOD 08/20/2024 10:21 AM [facility] Glucose 94 70 - 100 mg/dL LAB CHEMISTRY METHOD 08/20/2024 10:21 AM [facility] BUN 14 5 - 25 mg/dL LAB CHEMISTRY METHOD 08/20/2024 10:21 AM [facility] Creatinine 0.75 0.50 - 1.10 mg/dL LAB CHEMISTRY METHOD 08/20/2024 10:21 AM [facility] eGFR 80 >=60 mL/min/1. 73m2 LAB CHEMISTRY METHOD 08/20/2024 10:21 AM [facility] Comment:Calculation based on the??Chronic Kidney Disease Epidemiology Collaboration (CKD-EPI) equation refit??without adjustment for race. BUN/Creatinine Ratio 18.7 LAB CHEMISTRY METHOD 08/20/2024 10:21 AM [facility] Calcium 8.5 8.5 - 10.5 mg/dL LAB CHEMISTRY METHOD 08/20/2024 10:21 AM [facility] AST (SGOT) 22 10 - 42 unit/L LAB CHEMISTRY METHOD 08/20/2024 10:21 AM [facility] ALT (SGPT) 9(L) 10 - 60 unit/L LAB CHEMISTRY METHOD 08/20/2024 10:21 AM [facility] Alkaline Phosphatase 127(H) 42 - 121 unit/L LAB CHEMISTRY METHOD 08/20/2024 10:21 AM [facility] Total Protein 6.2 6.0 - 8.0 g/dL LAB CHEMISTRY METHOD 08/20/2024 10:21 AM [facility] Albumin 2.0(L) 3.2 - 5.0 g/dL LAB CHEMISTRY METHOD 08/20/2024 10:21 AM [facility] Total Bilirubin 0.5 0.0 - 1.4 mg/dL LAB CHEMISTRY METHOD 08/20/2024 10:21 AM [facility] Blood Venous blood specimen / Unknown Venipuncture / Unknown 08/20/2024 5:59 AM EST 08/20/2024 9:11 AM EST us Mimi Haji MD LAB BLOOD ORDERABLES Fin al Result [facility] [address] [place] [address], * (ABNORMAL) Complete blood count (08/20/2024 5:59 AM EST) WBC 8.1 4.8 - 10.8 K/mcL LAB HEMETOLOGY METHOD 08/20/2024 9:57 AM [facility] RBC 4.20 3.80 - 4.80 M/mcL LAB HEMETOLOGY METHOD 08/20/2024 9:57 AM [facility] Hemoglobin 11.6 11.5 - 16.0 g/dL LAB HEMETOLOGY METHOD 08/20/2024 9:57 AM [facility] Hematocrit 37.0 35.0 - 47.0 % LAB HEMETOLOGY METHOD 08/20/2024 9:57 AM [facility] MCV 88.1 79.0 - 98.0 FL LAB HEMETOLOGY METHOD 08/20/2024 9:57 AM [facility] MCH 27.6 27.0 - 32.0 pcg LAB HEMETOLOGY METHOD 08/20/2024 9:57 AM [facility] MCHC 31.4(L) 32.0 - 37.0 g/dL LAB HEMETOLOGY METHOD 08/20/2024 9:57 AM [facility] RDW 13.4 11.0 - 15.0 % LAB HEMETOLOGY METHOD 08/20/2024 9:57 AM [facility] Platelets 331 130 - 400 K/mcL LAB HEMETOLOGY METHOD 08/20/2024 9:57 AM [facility] MPV 9.9 7.0 - 11.0 FL LAB HEMETOLOGY METHOD 08/20/2024 9:57 AM [facility] NRBC 0.0 <1.0 % LAB HEMETOLOGY METHOD 08/20/2024 9:57 AM [facility] NRBC Absolute 0.00 <0.10 K/mcL LAB HEMETOLOGY METHOD 08/20/2024 9:57 AM [facility] Blood Venous blood specimen / Unknown Venipuncture / Unknown 08/20/2024 5:59 AM EST 08/20/2024 9:11 AM EST Mimi Haji MD LAB BLOOD ORDERABLES Fin al Result [facility] ([email or web address] LAB [address] [place] [address], documented in this encounter Visit Diagnoses Diagnosis Anemia, unspecified Other disorders of electrolyte and fluid balance, not elsewhere classified documented in this encounter Care Teams Medical Assisting Instructor Relationship Specialty Start Date End Date Mimi Haji MD [address] [place] [address] PCP - General Family Medicine 08/20/24 documented as of this encounter
== END 2024-09-26 16:30 | disposition home or self-care (01) ==
LOC: HO.HMCHD 15:20
PROVIDERS: PCP Internal Medicine; Visit Provider Internal Medicine
DX: Z09 Encounter for follow-up examination after completed treatment for conditions other than malignant neoplasm (principal); I50.9 Heart failure, unspecified; J44.9 Chronic obstructive pulmonary disease, unspecified; I10 Essential (primary) hypertension; K43.9 Ventral hernia without obstruction or gangrene

== ENCOUNTER → 2024-09-26 15:20 | Outpatient (BNVA) | payer MEDICARE, SELFPAY | PROVIDERS: PCP Internal Medicine; Visit Provider Internal Medicine | DX: I11.0 Hypertensive heart disease with heart failure (principal); J44.9 Chronic obstructive pulmonary disease, unspecified; J96.01 Acute respiratory failure with hypoxia; I50.9 Heart failure, unspecified; I25.10 Atherosclerotic heart disease of native coronary artery without angina pectoris; I25.2 Old myocardial infarction; K43.9 Ventral hernia without obstruction or gangrene; Z09 Encounter for follow-up examination after completed treatment for conditions other than malignant neoplasm; Z86.711 Personal history of pulmonary embolism; Z79.01 Long term (current) use of anticoagulants | CPT/HCPCS: 96127; 99202 ==

== ENCOUNTER → 2024-10-22 23:59 | Outpatient (BNV) | payer MEDICARE, SELFPAY | PROVIDERS: PCP Internal Medicine; Visit Provider Internal Medicine | DX: I11.0 Hypertensive heart disease with heart failure (principal); I50.9 Heart failure, unspecified | CPT/HCPCS: G0180 ==